=== PATIENT | female | born 1960 | race Caucasian/White ===

== ENCOUNTER 2016-09-01 19:17 | Inpatient (IN) ==
--- NOTE | 2016-09-01 19:36 | Emergency Department Note ---
Disposition Clinical Impression: Hypoxia, Altered mental status, CHF (congestive heart failure), Headache Disposition: Admitted As Inpatient Condition: Fair Referrals: Unassigned,Provider [Non-Partnered Physician] - Forms: ED Satisfaction Letter Time of Disposition: 21:04 General Adult HPI - General Chief complaint: ED Headache Stated complaint: headache Time Seen by Provider: 09/01/16 19:23 Source: patient, EMS Mode of arrival: EMS Limitations: no limitations Nursing Notes Reviewed: Yes Vital Signs Reviewed: Yes - History of Present Illness HPI Narrative: This is a 55-year-old female who has a very odd affect on exam. Patient states her head is hurting and talks about different masses in her head that communicate with each other. Patient did have a low pulse ox on her initial presentation at 86%. Patient states she does wear oxygen at home but that is for her heart. Patient is not having any chest pain or shortness of breath that she acknowledges but again patient is a poor historian. Onset (ago): unknown Pain Scale: 6 - Related Data Allergies Allergy/AdvReac Type Severity Reaction Status Date / Time surgical scrub Allergy See Uncoded 03/30/16 20:59 Comments All systems ED: reviewed and negative except as stated. Constitutional: Denies: fever, chills, weakness, weight change Eyes: Denies: eye pain, eye discharge, vision change ENT ED: Denies: ear pain, throat pain, dental pain, hearing loss, epistaxis, congestion, dysphagia Cardiovascular: Denies: chest pain, palpitations, dyspnea on exertion, edema, syncope Respiratory: Denies: cough, dyspnea, wheezes, hemoptysis, stridor Gastrointestinal: Denies: abdominal pain, nausea, vomiting, diarrhea, constipation, hematemesis, melena, hematochezia Genitourinary: Denies: dysuria, frequency, hematuria, discharge Musculoskeletal: Denies: back pain, neck pain, arthralgia, myalgia Integumentary: Denies: rash, abrasion, lesions Neurological: Reports: headache, paresthesias, confusion. Denies: weakness, numbness, abnormal gait, vertigo Psychiatric: Denies: anxiety, depression, suicidal thoughts, homicidal thoughts , auditory hallucinations, visual hallucinations Endocrine: Denies: fatigue Hematological/Lymphatic: Denies: easy bleeding, easy bruising Allergic/Immunologic: Denies: facial swelling, urticaria Past Medical History - Past Medical History Attestation: Yes The following information was validated with the patient. Source: patient Medical history: Reports: atrial fibrillation, CHF, COPD, hypertension, myocardial infarction, pulmonary embolus Psychiatric history: Reports: anxiety, depression - Social History Smoking Status: Never smoker Smokeless Tobacco Status: No Alcohol use: Reports: none Drug use: Reports: none Physical Exam - General Limitations: altered mental status General appearance: alert, in no apparent distress - Head Head exam: atraumatic, normocephalic, normal inspection - Eye Eye exam: Present: normal appearance, PERRL, EOMI - Expanded Eye Exam Eyelids: bilateral: normal inspection Pupils: Bilateral: regular, round, reactive Sclera/Conjunctival: bilateral: normal inspection - ENT ENT exam: normal exam, normal oropharynx, mucous membranes moist - Expanded ENT Exam External ear exam: Present: normal external inspection Mouth exam: Present: normal external inspection Teeth exam: Present: normal inspection Throat exam: Present: normal inspection - Neck Neck exam: Present: normal inspection, full ROM, trachea midline - Chest Chest inspection: Present: normal inspection, symmetric chest wall rise - Respiratory Respiratory exam: Present: other (rales) - Cardiovascular Cardiovascular exam: Present: regular rate, normal rhythm, normal heart sounds - Abdominal Exam Abdominal exam: Present: soft, Non-Tender. Absent: tenderness, distention, guarding, rebound, rigidity - Extremities Exam Extremities exam: Present: normal inspection, full ROM. Absent: tenderness, pedal edema - Expanded Upper Extremity Exam Shoulder exam: Present: normal inspection, full ROM Arm exam: Present: normal inspection, full ROM Elbow exam: Present: normal inspection, full ROM Forearm/Wrist exam: Present: normal inspection, full ROM Hand exam: Present: normal inspection, full ROM Vascular exam: Normal: capillary refill, radial pulse - Expanded Lower Extremity Exam Hip/Pelvis exam: Present: normal inspection, full ROM Upper leg exam: Present: normal inspection, full ROM Knee exam: Present: normal inspection, full ROM Lower leg exam: Present: normal inspection, full ROM Ankle exam: Present: normal inspection, full ROM Foot/toe exam: Present: normal inspection, full ROM Neurovascular/Tendon exam: Absent: motor deficit, sensory deficit, tendon deficit - Back Exam Back exam: Present: normal inspection, full ROM. Absent: tenderness - Neurological Exam Neurological exam: Present: alert, oriented X3 - Expanded Neurological Exam Patient oriented to: Present: person, place, time Coma Scale Eye Opening: Spontaneous Coma Scale Motor Response: Obeys Commands Coma Scale Verbal Response: Oriented Coma Scale Total: 15 - Psychiatric Psychiatric exam: Present: normal affect, normal mood - Skin Skin exam: Present: warm, dry, intact, normal color Course - Consultations Consultation #1: I spoke with Dr. Edu locke to admit. Time: 21:18 Vital Signs Temperature 98.1 F 09/01/16 19:21 Pulse Rate 70 09/01/16 19:21 Respiratory Rate 18 09/01/16 19:21 Blood Pressure 120/89 09/01/16 19:21 O2 Sat by Pulse Oximetry 86 L 09/01/16 19:21 Temperature 98.1 F 09/01/16 19:21 Pulse Rate 70 09/01/16 21:04 Respiratory Rate 18 09/01/16 21:04 Blood Pressure 104/66 09/01/16 21:04 O2 Sat by Pulse Oximetry 92 L 09/01/16 21:04 Oxygen Delivery Oxygen Delivery Room Air Medical Decision Making - Medical Records Medical records reviewed: Yes I reviewed the patient's medical records. - Lab Data Lab results reviewed: Yes I reviewed the patient's lab results. Result diagrams: 09/01/16 19:56 09/01/16 19:56 Lab Results 09/01/16 09/01/16 09/01/16 Range/Units 19:56 19:56 19:56 WBC 5.7 (4.3-11.1) K/mcL RBC 5.09 H (3.82-4.97) M/mcL Hgb 14.0 (11.5-15.4) g/dL Hct 41.2 (35.3-44.9) % MCV 80.9 L (83.0-100.0) fL MCH 27.5 L (28.0-33.3) pg MCHC 34.0 (31.6-35.5) g/dL RDW 13.5 (11.5-14.5) % Plt Count 196 (140-400) K/mcL MPV 10.0 (9.4-12.4) fL Immature Gran % 0.7 (0-4) % Seg Neutrophils % 58.7 % Lymphocytes % 28.2 % Monocytes % 9.1 % Eosinophils % 2.6 % Basophils % 0.7 % Neutrophils # 3.4 (1.6-8.9) K/mcL Lymphocytes # 1.6 (0.6-4.6) K/mcL Monocytes # 0.5 (0.0-1.3) K/mcL Eosinophils # 0.2 (0.0-0.6) K/mcL Basophils # 0.0 (0.0-0.2) K/mcL ABG pH (7.32-7.45) pH Units ABG pCO2 (35-45) mmHg ABG pO2 (85-104) mmHg ABG HCO3 (21-27) mEQ/L ABG Total CO2 (20-26) mEq/L ABG O2 Saturation (95-98) % ABG Base Excess (-2.0 to 3.0) mEq/L Blood Gas Modality Inspired O2 % Sodium 138 (136-145) mEq/L Potassium 3.0 L (3.5-4.5) mEq/L Chloride 101 (98-109) mEq/L Carbon Dioxide 24 (19-29) mEq/L BUN 27 H (7-20) mg/dL Creatinine 0.81 (0.57-1.11) mg/dL Est GFR ( Amer) > 60 (> 60) Est GFR (Non-Af Amer) > 60 (> 60) BUN/Creatinine Ratio 33 H (6-26) Glucose 107 H (70-99) mg/dL Calculated Osmolality 292 (280-300) Calcium 10.2 (8.6-10.8) mg/dL Total Bilirubin 0.8 (0.2-1.2) mg/dL Direct Bilirubin 0.4 (0.0-0.5) mg/dL Indirect Bilirubin 0.4 (0.0-1.2) mg/dL AST 15 (5-34) Units/L ALT 20 (0-55) Units/L Alkaline Phosphatase 91 (38-126) Units/L Troponin I 0.00 (0-0.03) ng/mL B-Natriuretic Peptide (0-100) pg/mL Serum Total Protein 8.1 (6.0-8.3) g/dL Albumin 4.2 (3.5-5.0) g/dL Globulin 3.9 H (2.4-3.5) g/dL Albumin/Globulin Ratio 1.1 (1.1-2.2) TSH 0.506 (0.350-4.840) mcIU/mL Urine Color (Yellow) Urine Clarity (Clear) Urine pH (5.0-8.0) pH Units Ur Specific Bryant (1.010-1.025) Urine Protein (Neg-Trace) mg/dL Urine Glucose (UA) (Normal) mg/dL Urine Ketones (Negative) mg/dL Urine Blood (Negative) Urine Nitrite (Negative) Urine Bilirubin (Negative) Urine Urobilinogen (Normal) mg/dL Ur Leukocyte Esterase (Negative) Urine Microscopic RBC (0-3) per hpf Urine Microscopic WBC (0-3) per hpf Ur Squamous Epith Cells (None-Few) per lpf Urine Bacteria (None-Few) per hpf Hyaline Casts (None-Few) per lpf Ur Culture Indicated? (NO) Salicylates < 5.0 L (15-30) mg/dL Urine Opiates Screen (Bqurar=667) ng/mL Acetaminophen < 1.0 L (10-30) mcg/mL Ur Barbiturates Screen (Oxzsjd=840) ng/mL Ur Phencyclidine Scrn (Cutoff=25) ng/mL Ur Amphetamines Screen (Hvvsei=1626) ng/mL U Benzodiazepines Scrn (Eyywmp=654) ng/mL Urine Cocaine Screen (Cutoff= 300) ng/mL U Marijuana (THC) Screen (Cutoff = 50) ng/mL Ethyl Alcohol < 10 (0-10) mg/dL 09/01/16 09/01/16 09/01/16 Range/Units 19:56 20:04 20:15 WBC (4.3-11.1) K/mcL RBC (3.82-4.97) M/mcL Hgb (11.5-15.4) g/dL Hct (35.3-44.9) % MCV (83.0-100.0) fL MCH (28.0-33.3) pg MCHC (31.6-35.5) g/dL RDW (11.5-14.5) % Plt Count (140-400) K/mcL MPV (9.4-12.4) fL Immature Gran % (0-4) % Seg Neutrophils % % Lymphocytes % % Monocytes % % Eosinophils % % Basophils % % Neutrophils # (1.6-8.9) K/mcL Lymphocytes # (0.6-4.6) K/mcL Monocytes # (0.0-1.3) K/mcL Eosinophils # (0.0-0.6) K/mcL Basophils # (0.0-0.2) K/mcL ABG pH 7.44 (7.32-7.45) pH Units ABG pCO2 49 H (35-45) mmHg ABG pO2 61 L (85-104) mmHg ABG HCO3 33.3 H (21-27) mEQ/L ABG Total CO2 34.8 H (20-26) mEq/L ABG O2 Saturation 92 L (95-98) % ABG Base Excess 7.7 H (-2.0 to 3.0) mEq/L Blood Gas Modality NC Inspired O2 32 % Sodium (136-145) mEq/L Potassium (3.5-4.5) mEq/L Chloride (98-109) mEq/L Carbon Dioxide (19-29) mEq/L BUN (7-20) mg/dL Creatinine (0.57-1.11) mg/dL Est GFR ( Amer) (> 60) Est GFR (Non-Af Amer) (> 60) BUN/Creatinine Ratio (6-26) Glucose (70-99) mg/dL Calculated Osmolality (280-300) Calcium (8.6-10.8) mg/dL Total Bilirubin (0.2-1.2) mg/dL Direct Bilirubin (0.0-0.5) mg/dL Indirect Bilirubin (0.0-1.2) mg/dL AST (5-34) Units/L ALT (0-55) Units/L Alkaline Phosphatase (38-126) Units/L Troponin I (0-0.03) ng/mL B-Natriuretic Peptide 125 H (0-100) pg/mL Serum Total Protein (6.0-8.3) g/dL Albumin (3.5-5.0) g/dL Globulin (2.4-3.5) g/dL Albumin/Globulin Ratio (1.1-2.2) TSH (0.350-4.840) mcIU/mL Urine Color Yellow (Yellow) Urine Clarity Clear (Clear) Urine pH 7.5 (5.0-8.0) pH Units Ur Specific Bryant 1.019 (1.010-1.025) Urine Protein Trace (Neg-Trace) mg/dL Urine Glucose (UA) Normal (Normal) mg/dL Urine Ketones Negative (Negative) mg/dL Urine Blood Negative (Negative) Urine Nitrite Negative (Negative) Urine Bilirubin Negative (Negative) Urine Urobilinogen Normal (Normal) mg/dL Ur Leukocyte Esterase Negative (Negative) Urine Microscopic RBC 0-3 (0-3) per hpf Urine Microscopic WBC 0-3 (0-3) per hpf Ur Squamous Epith Cells Many H (None-Few) per lpf Urine Bacteria None Seen (None-Few) per hpf Hyaline Casts None Seen (None-Few) per lpf Ur Culture Indicated? NO (NO) Salicylates (15-30) mg/dL Urine Opiates Screen (Gxlcit=317) ng/mL Acetaminophen (10-30) mcg/mL Ur Barbiturates Screen (Fpoijy=330) ng/mL Ur Phencyclidine Scrn (Cutoff=25) ng/mL Ur Amphetamines Screen (Olffca=1926) ng/mL U Benzodiazepines Scrn (Jvdxru=357) ng/mL Urine Cocaine Screen (Cutoff= 300) ng/mL U Marijuana (THC) Screen (Cutoff = 50) ng/mL Ethyl Alcohol (0-10) mg/dL 09/01/16 Range/Units 20:15 WBC (4.3-11.1) K/mcL RBC (3.82-4.97) M/mcL Hgb (11.5-15.4) g/dL Hct (35.3-44.9) % MCV (83.0-100.0) fL MCH (28.0-33.3) pg MCHC (31.6-35.5) g/dL RDW (11.5-14.5) % Plt Count (140-400) K/mcL MPV (9.4-12.4) fL Immature Gran % (0-4) % Seg Neutrophils % % Lymphocytes % % Monocytes % % Eosinophils % % Basophils % % Neutrophils # (1.6-8.9) K/mcL Lymphocytes # (0.6-4.6) K/mcL Monocytes # (0.0-1.3) K/mcL Eosinophils # (0.0-0.6) K/mcL Basophils # (0.0-0.2) K/mcL ABG pH (7.32-7.45) pH Units ABG pCO2 (35-45) mmHg ABG pO2 (85-104) mmHg ABG HCO3 (21-27) mEQ/L ABG Total CO2 (20-26) mEq/L ABG O2 Saturation (95-98) % ABG Base Excess (-2.0 to 3.0) mEq/L Blood Gas Modality Inspired O2 % Sodium (136-145) mEq/L Potassium (3.5-4.5) mEq/L Chloride (98-109) mEq/L Carbon Dioxide (19-29) mEq/L BUN (7-20) mg/dL Creatinine (0.57-1.11) mg/dL Est GFR ( Amer) (> 60) Est GFR (Non-Af Amer) (> 60) BUN/Creatinine Ratio (6-26) Glucose (70-99) mg/dL Calculated Osmolality (280-300) Calcium (8.6-10.8) mg/dL Total Bilirubin (0.2-1.2) mg/dL Direct Bilirubin (0.0-0.5) mg/dL Indirect Bilirubin (0.0-1.2) mg/dL AST (5-34) Units/L ALT (0-55) Units/L Alkaline Phosphatase (38-126) Units/L Troponin I (0-0.03) ng/mL B-Natriuretic Peptide (0-100) pg/mL Serum Total Protein (6.0-8.3) g/dL Albumin (3.5-5.0) g/dL Globulin (2.4-3.5) g/dL Albumin/Globulin Ratio (1.1-2.2) TSH (0.350-4.840) mcIU/mL Urine Color (Yellow) Urine Clarity (Clear) Urine pH (5.0-8.0) pH Units Ur Specific Bryant (1.010-1.025) Urine Protein (Neg-Trace) mg/dL Urine Glucose (UA) (Normal) mg/dL Urine Ketones (Negative) mg/dL Urine Blood (Negative) Urine Nitrite (Negative) Urine Bilirubin (Negative) Urine Urobilinogen (Normal) mg/dL Ur Leukocyte Esterase (Negative) Urine Microscopic RBC (0-3) per hpf Urine Microscopic WBC (0-3) per hpf Ur Squamous Epith Cells (None-Few) per lpf Urine Bacteria (None-Few) per hpf Hyaline Casts (None-Few) per lpf Ur Culture Indicated? (NO) Salicylates (15-30) mg/dL Urine Opiates Screen Negative (Rqjhkt=210) ng/mL Acetaminophen (10-30) mcg/mL Ur Barbiturates Screen Negative (Fcyehn=045) ng/mL Ur Phencyclidine Scrn Negative (Cutoff=25) ng/mL Ur Amphetamines Screen Negative (Gbdaha=2128) ng/mL U Benzodiazepines Scrn Negative (Logisi=767) ng/mL Urine Cocaine Screen Negative (Cutoff= 300) ng/mL U Marijuana (THC) Screen Negative (Cutoff = 50) ng/mL Ethyl Alcohol (0-10) mg/dL - Radiology Data Radiology results reviewed: Yes I reviewed the patient's radiology results. - EKG Data EKG #1 EKG attestation: Yes I reviewed and interpreted this EKG. EKG shows normal: sinus rhythm Rate: normal (paced) When compared to previous EKG there are: no significant changes Interpretation: no acute changes
[2016-09-01 20:07] LABS: Basophils % 0.7 %; Eosinophils # 0.2 K/mcL (0.0-0.6); Eosinophils % 2.6 %; Hematocrit 41.2 % (35.3-44.9); Immature Granulocytes % 0.7 % (0-4); Lymphocytes # 1.6 K/mcL (0.6-4.6); Lymphocytes % 28.2 %; Mean Corpuscular Hemoglobin 27.5 pg (28.0-33.3); Mean Corpuscular Volume 80.9 fL (83.0-100.0); Monocytes # 0.5 K/mcL (0.0-1.3); Monocytes % 9.1 %; Neutrophils # 3.4 K/mcL (1.6-8.9); Platelet Count 196 K/mcL (140-400); Red Blood Count 5.09 M/mcL (3.82-4.97); Red Cell Distribution Width 13.5 % (11.5-14.5); Segmented Neutrophils % 58.7 %
[2016-09-01 20:12] LABS: ABG Base Excess 7.7 mEq/L (-2.0 to 3.0); ABG HCO3 33.3 mEQ/L (21-27); ABG Oxygen Saturation 92 % (95-98); ABG PCO2 49 mmHg (35-45); ABG PH 7.44 pH Units (7.32-7.45); ABG PO2 61 mmHg (85-104); ABG TCO2 34.8 mEq/L (20-26); Blood Gas FiO2 32 %
[2016-09-01 20:21] LABS: Alanine Aminotransferase 20 Units/L (0-55); Albumin 4.2 g/dL (3.5-5.0); Albumin/Globulin Ratio 1.1 (1.1-2.2); Alkaline Phosphatase 91 Units/L (38-126); Aspartate Amino Transferase 15 Units/L (5-34); BUN/Creatinine Ratio 33 (6-26); Bilirubin,Direct 0.4 mg/dL (0.0-0.5); Bilirubin,Indirect 0.4 mg/dL (0.0-1.2); Bilirubin,Total 0.8 mg/dL (0.2-1.2); Blood Urea Nitrogen 27 mg/dL (7-20); Calcium 10.2 mg/dL (8.6-10.8); Carbon Dioxide 24 mEq/L (19-29); Chloride 101 mEq/L (98-109); Globulin 3.9 g/dL (2.4-3.5); Glucose 107 mg/dL (70-99); Osmolality,Calculated 292 (280-300); Sodium 138 mEq/L (136-145); Total Protein 8.1 g/dL (6.0-8.3); eGFR For African Americans > 60 (> 60); eGFR For Non-African Americans > 60 (> 60)
[2016-09-01 20:22] LABS: Acetaminophen < 1.0 mcg/mL (10-30); Ethanol < 10 mg/dL (0-10); Salicylate < 5.0 mg/dL (15-30)
[2016-09-01 20:42] LABS: Amphetamine Screen,Urine Negative ng/mL (Cutoff=1000); Barbiturate Screen,Urine Negative ng/mL (Cutoff=200); Benzodiazepines Screen,Urine Negative ng/mL (Cutoff=200); Cannabinoid Screen,Urine Negative ng/mL (Cutoff = 50); Cocaine Screen,Urine Negative ng/mL (Cutoff= 300); Opiate Screen,Urine Negative ng/mL (Cutoff=300); Phencyclidine Screen,Urine Negative ng/mL (Cutoff=25)
[2016-09-01 20:42] LABS: Thyroid Stimulating Hormone 0.506 mcIU/mL (0.350-4.840)
[2016-09-01 20:55] LABS: Bilirubin,Urine Negative (Negative); Blood,Urine Negative (Negative); Clarity,Urine Clear (Clear); Color,Urine Yellow (Yellow); Glucose,Urine (UA) Normal (Normal); Ketones,Urine Negative (Negative); Leukocyte Esterase,Urine Negative (Negative); Nitrite,Urine Negative (Negative); PH,Urine 7.5 pH Units (5.0-8.0); Protein,Urine Trace mg/dL (Neg-Trace); Specific Gravity,Urine 1.019 (1.010-1.025); Urobilinogen,Urine Normal (Normal)
[2016-09-01] MEDS ORDERED: Potassium Chloride Elixir 20 MEQ/15 ML UDC PO ONE (20:55)
[2016-09-01 20:56] LABS: Bacteria,Urine None Seen per hpf (None-Few); Hyaline Casts,Urine None Seen per lpf (None-Few); RBC,Urine 0-3 per hpf (0-3); Squamous Epithelial Cell,Urine Many per lpf (None-Few); WBC,Urine 0-3 per hpf (0-3)
[2016-09-01 21:15] LABS: INR 1.2; Prothrombin Time 13.3 Seconds (9.4-12.1)
[2016-09-01 21:18] LABS: Activated Partial Thrombo Time 35.6 Seconds (26.0-36.0)
[2016-09-02] MEDS ORDERED: Acetaminophen 325 MG TABLET PO PRN (00:18)
[2016-09-02] MEDS ORDERED: Naloxone 0.4 MG/ML INJ IVP PRN (00:18)
[2016-09-02] MEDS ORDERED: Benzonatate 100 MG CAPSULE PO PRN (00:18)
[2016-09-02] MEDS ORDERED: Ketorolac 30 MG/ML VIAL IVP STA (00:18)
[2016-09-02] MEDS ORDERED: Potassium Chloride 20 MEQ, Lidocaine 1% 2 ML in D5% in Water 250 ML IVPB STA (00:18)
[2016-09-02] MEDS ORDERED: Ipratropium/Albuterol Neb 3 ML IH PRN (00:18)
[2016-09-02] MEDS ORDERED: *HR* Morphine 2 MG/ML SYRINGE IVP PRN (00:18)
[2016-09-02] MEDS ORDERED: 0.9 % Sodium Chloride 1,000 ML IVC SCH (00:30)
--- NOTE | 2016-09-02 00:30 | Internal Med History&Physical ---
Date of Encounter: 09/02/16 Time of Encounter: 01:00 Assessment and Plan (1) Altered mental status Status: Acute . Qualifiers: Altered mental status type: delirium Qualified Code(s): R41.0 - Disorientation, unspecified (2) Delirium due to conditions classified elsewhere Status: Acute . (3) Toxic metabolic encephalopathy Status: Acute . (4) Drug withdrawal delirium Status: Acute . (5) At risk for abuse of opiates Status: Acute . (6) At risk for accident in home Status: Acute . (7) At risk for activity intolerance Status: Acute . (8) At risk for acute confusion Status: Acute . (9) At risk for adverse drug event Status: Acute . (10) At risk for acute ischemic cardiac event Status: Acute . (11) At risk for acid-base imbalance Status: Acute . (12) Obesity (BMI 30-39.9) Status: Chronic . (13) Acute on chronic respiratory failure with hypoxia and hypercapnia Status: Acute . (14) COPD mixed type Status: Chronic . (15) History of traumatic brain injury Status: Chronic . (16) CVA, old, cognitive deficits Status: Chronic . (17) History of [place] Tourette's syndrome Status: Chronic . (18) History of permanent cardiac pacemaker placement Status: Chronic . (19) Status post ablation of atrial fibrillation Status: Chronic . (20) History of chronic atrial fibrillation Status: Chronic . (21) Pain syndrome, chronic Status: Chronic . (22) CAD (coronary artery disease), [place] coronary artery Status: Chronic . Qualifiers: [place] vs. transplanted heart: [place] heart Associated angina: angina presence unspecified Qualified Code(s): I25.10 - Atherosclerotic heart disease of [place] coronary artery without angina pectoris (23) Chronic headache disorder Status: Chronic . Qualifiers: Headache type: post-traumatic Intractability: intractable Qualified Code( s): G44.321 - Chronic post-traumatic headache, intractable (24) History of craniotomy Status: Chronic . (25) Failed back surgical syndrome Status: Chronic . (26) Anxiety about health Status: Acute . (27) Delusional disorder Status: Acute . (28) History of cardiomyopathy Status: Chronic . (29) High risk medications (not anticoagulants) long-term use Status: Acute . (30) Use of psychotropic medications with alteration in psychosocial behavior Status: Acute . (31) Potential for poisoning by medications Status: Acute . (32) Hypothyroidism Status: Chronic . Qualifiers: Hypothyroidism type: unspecified Qualified Code(s): E03.9 - Hypothyroidism , unspecified (33) Hypertension Status: Chronic . Qualifiers: Hypertension type: essential hypertension Qualified Code(s): I10 - Essential (primary) hypertension (34) Depression with anxiety Status: Chronic . Internal Medicine - H&P: HPI Chief complaint: Altered mental status. Headache. Admitted From: Emergency Dept Plans for Post Hospital Care: Home History of present illness: Ms. Neumann is a 55 year old female with significant medical history of diffuse chronic musculoskeletal pain, traumatic brain injury s/p craniotomy with right posterior fossa encephalomalacia/CVA, Tourette's syndrome, depression and anxiety disorder, H/O hepatitis B and C, chronic low back pain s/p failed back surgery syndrome, H/O seizure disorder, hypertension, osteoarthritis, osteopenia , cognitive impairment, hypothyroidism, CAD/?isch CMP/systolic CHF-LVEF 35%, tricuspid valve replacement, atrial fibrillation s/p ablation/pacemaker dependent, COPD unspecified, chronic respiratory failure home oxygen dependent, H/O PE, GERD, chronic headache syndrome, morbid obesity, nonsmoker The patient was visited and interviewed and examined. The patient was found to be acutely encephalopathic. Delirious. Agitated. Delusional. Rambling unreliable historian. The patient is admitted to the [facility] via the emergency department when she presents by EMS services from home with complaints of intractable headache. She presents her case of intractable pain by describing that masses within her head communicate with each other causing her pain. Patient denied neck pain chest pain and abdominal pain. Technologist and use of oxygen but presents with out. Denies dyspnea or shortness of breath cough fever chills sweats. Reports generalized weakness paresthesias. Denies any acute njuries or recent trauma. Findings an ED: Oximetry on initial presentation 86% room air. Temperature 98.1 pulse 70 respirations 18 and BP 104-120/66-89 O2 saturation 86- 92% on room air. WBC 5.7 hemoglobin 14 platelets 196,000. Differential normal. MCV 80.9 MCH 27.5. Metabolic panel normal except potassium 3.0 BUN 27 creatinine 0.81 glucose 107 osmolality 292. TSH 0.506. Troponin 0.00 BNP 125. Salicylate less than 5. Acetaminophen less than 1. Arterial blood gas pH 7.4 PCO2 49 PO2 61 HCO3 33.3 O2 saturation 92% at 3 Liters per nasal cannula. Urinalysis trace protein. 3 RBC. 3 WBC. Many epithelial cells. Urine drug screen negative (opiates barbiturates phencyclidine amphetamines benzodiazepines cocaine marijuana). Portable chest x-ray demonstrated no acute or active cardiopulmonary processes. Bilateral cardiac device is noted. Postsurgical changes of median sternotomy and valve replacement. Stable enlargement of cardiac silhouette. No focal consolidation or effusion pneumothorax. Osseous structures and soft tissues showed no acute abnormality. Stable bone infarcts and proximal right humerus. CT head without contrast inserted no acute hemorrhage, edema, mass effect, with collection or infarct. Craniotomy defect right posterior fossa with adjacent encephalomalacia. Orbits , sinuses, soft tissues and skull benign. EKG normal sinus rhythm paced. No acute ischemic changes. Preliminary impression suggests acute toxic metabolic encephalopathy with delirium prominent delusional features. Patient presents a history of long-standing use of high-risk medications (narcotic analgesia, psychotropics, benzodiazepine etc. with current urine drug screen negative for these agents. Concern is raised for possible habituating drug withdrawal state. Patient is further complicated by acute on chronic hypoxic hypercapnic respiratory failure. Examination does find evidence for acute exacerbation of COPD with mild bronchospasm. Mild electrolyte derangements coincide. Rule out ACS/UA/PE/etc. CT head does define a significant area of the prior traumatic brain injury with associated encephalomalacia. This likely has contributed to some degree of cognitive and functional impairment. SHe presents however alone and her underlying baseline mental status cannot be validated at this time. Rule out CVA/TIA/seizure/etc. Studies thus far did not the pinpoint associated infection. SIRS and sepsis criteria are not met at the time of this admission. Although the patient presents a history of seizures there is no evidence of current activity or stigmata for such. In addition she presents a history of coronary artery disease and impaired LV systolic function , does not present evidence for demand ischemia, unstable arrhythmia or pulmonary edema. Patient presents at increased risk for further acute clinical decline and morbidity given her presenting concerns, clinical findings and comorbidities. Workup and treatment will proceed comprehensively. Cumulative laboratory and radiographic data base was reviewed, considered and discussed. Pertinent ancillary medical records including ECW and PCI documentation, when available was reviewed and considered. Given the patient's presenting concerns, past medical history, clinical findings and symptoms, she is admitted at this time will undergo further evaluation and disposition. Orders were written as per the computerized physician parts order and stock clerk system.......................................................................... .................... Consultative opinions will be sought as clinical circumstances justify. Initial consultative request would include Pacemaker interrogation/cardiology. Pain management needs will be addressed. Laboratory and radiographic data base will be updated as appropriate. Studies include: Cultures of blood and urine and sputum, CPK, LDH, prolactin, cardiac injury panel, BNP, PT,APTT, Ddimer, metabolic and hematologic panel, magnesium, phosphorus, ionized calcium, thyroid panel, lipid profile, A1c, C-peptide, CRP, sedimentation rate, respiratory infection profile, respiratory virus panel, blood gas, UDS, UA, urine HCG, APAP, ASA, ETOH, lactic acid, cortisol, serologies, etc. Precautions: Aspiration, fall, seizure, delirium protocol/surveillance initiated. Telemetry with continuous hemodynamic monitoring and pulse oximetry initiated. Orthostatic vital signs. Empiric antibody coverage: Intravenous Rocephin and azithromycin pending culture data. Special studies: CT chest, CT of head, chest x-ray, telemetry, EKG, echocardiogram, EEG. Pulmonary toilet: Incentive spirometry, aerosol bronchodilator, mucolytic, antitussive, supplemental oxygen. Corticosteroid therapy prn. CPAP/BiPAP supplemental oxygen delivery prn. Aerosol Mucomyst therapy prn. Fluid and electrolyte repletion efforts will proceed. Careful attention to fluid balance and renal recovery will be emphasized. Avoidance of nephrotoxic exposure and adverse drug drug interaction in the setting of impaired renal function will be monitored closely. Correction of acid-base and metabolic derangements will be emphasized. Acute coronary syndrome protocols/surveillance initiated. Acute SQL REPORT ANALYST injury protocols/surveillance initiated. DVT and PUD prophylaxis initiated: PPI therapy, intermittent pneumatic cuffs. Subcutaneous heparin/Lovenox. Early ambulation will be encouraged. Immunization updates recommended. Influenza and pneumococcal vaccinations as part of ongoing preventative healthcare recommendations strongly recommended. Smoking cessation counseling will be briefly addressed when circumstances permit. Patient is reported to be a nonsmoker. Advanced care directive discussion will be briefly addressed when circumstances permit. Patient does not declare any healthcare restrictions at this time is not available medical records are historic documentation.. Cardiovascular risk appraisal and cardiovascular risk reduction efforts will be emphasized. Physical and occupational therapy will be consulted to evaluate/assess patient' s functional capacity and progress mobility as her circumstances permit. Nutrition/dietary education counseling may be considered if circumstances justify. Outpatient medication schedules will be reviewed, confirmed and facilitated as appropriate. Reconciliation of home treatments including adjustments, substitutions and reintroduction into the treatment regimen will address necessary maintenance therapies for chronic pre-existing medical conditions. Given the concern regarding the potential for adverse drug drug interaction, given patient's medical regimen as presented, careful reintroduction under close observation will be required. Daily short-term goal to ameliorate patient 's some acute delirium if indeed secondary to polysubstance withdrawal. Long- term goal would be to simplify her medication requirements and to limit future potential for adverse events. Plan of care will be reviewed and discussed in detail with the patient and family when circumstances allow. Questions will be addressed. Bilingual Research Interviewer/case management will be consulted to assist in discharge planning goals, family contact/outreach, etc. Hospital course will depend upon collective clinical findings, treatment response and potential consultative interventions. Patient is at risk for further acute clinical decline and morbidity due to her presenting chief complaints, clinical findings and comorbidities. Condition is serious. Prognosis is guarded. CODE STATUS is full. Past Med Surg Social Fam HX - Past Medical History Source: old records reviewed Medical history: arthritis, atrial fibrillation, cardiomyopathy (Respiratory dependent cardiomyopathy.), CHF, COPD, coronary artery disease, CVA (Status post traumatic brain injury with right posterior fossa encephalomalacia and craniotomy), GERD, hepatitis (History of hepatitis B and hepatitis C.), hyperlipidemia, hypertension, myocardial infarction, osteoporosis, pulmonary embolus, seizures (Tissue disorder. Tourette's syndrome.), thyroid disease, valvular heart disease, other (Morbid obesity. Anemia chronic disease.) Psychiatric history: anxiety, depression, other - Past Surgical History Surgical History: cholecystectomy, heart valve replacement, orthopedic, other ( Bilateral carpal tunnel release. Right shoulder reconstruction surgery. Back surgery.), other (Bilateral carpal tunnel release. Tonsillectomy adenoidectomy. ), vascular surgery (Tricuspid valve replacement surgery. Pacemaker implantation.), pacemaker - Social History Smoking Status: Never smoker Smokeless Tobacco Status: No Alcohol use: none Drug use: none Occupational status: unemployed, disabled Current living situation: Home - Independent Activity Level: Independent ambulation, Mostly sedentary Recent Out of Country Travel Within the Last 8 Weeks: No Exposure or Possible Exposure to Illness During Travel: No - Family History Mother Hx Family Cancer: Yes (colon cancer) Internal Medicine - H&P: Meds Albuterol Sulfate [Proair Hfa] 2 puff IH Q4H PRN 09/01/16 [History] Bumetanide [Bumex] 1 mg PO QPM 09/01/16 [History] Bumetanide [Bumex] 2 mg PO QAM 09/01/16 [History] Carvedilol [Coreg] 6.25 mg PO BID 09/01/16 [History] ClonazePAM [Klonopin] 0.5 mg PO BID 09/01/16 [History] Esomeprazole Magnesium 20 mg PO DAILY 09/01/16 [History] Fluticasone Propionate Nasal [Flonase] 100 mcg NS DAILY 09/01/16 [History] HydrOXYzine Pamoate [Vistaril] 50 mg PO TID 09/01/16 [History] Levothyroxine Sodium 100 mcg PO DAILY 09/01/16 [History] Methadone 10 mg PO BID 09/01/16 [History] Polyethylene Glycol 3350 [MiraLAX] 17 gm PO DAILY 09/01/16 [History] Potassium Chloride [K-Tab ER] 40 meq PO BID 09/01/16 [History] Promethazine [Phenergan] 25 mg PO HS 09/01/16 [History] Topiramate 50 mg PO BID 09/01/16 [History] Venlafaxine XR (24 HR) [Effexor Xr] 150 mg PO DAILY 09/01/16 [History] Doxycycline 100 mg PO BID #10 capsule 09/05/16 [Rx] Fluticasone/Salmeterol [Advair 250-50 Diskus] 1 each IH BID #1 blst.w.dev [Rx] GuaiFENesin ER [Mucinex] 600 mg PO BID #10 tbbp.12hr 09/05/16 [Rx] Nicotine Patch [Nicoderm] 21 mg TD DAILY PRN #14 patch.td24 09/05/16 [Rx] PredniSONE 10 mg PO DAILY #30 tablet 09/05/16 [Rx] Simethicone [Gas-X] 80 mg PO 1-2XD PRN 09/05/16 [History] Tiotropium [Spiriva] 18 mcg IH DAILY #1 inh 09/05/16 [Rx] Allergies chlorhexidine [From Hibiclens] Allergy (Verified 09/01/16 21:40) Rash ROS unobtainable: due to mental status All Systems PM: A 10-system review of systems was performed and is negative for pertinent findings except as documented above in the HPI. The patient is grossly encephalopathic. Delusional. Delirious. Rambling reliable historian. Details are thus collected from cumulative records, EMS triage and ED triage database. The family member/ contacts not available for discussion. - Constitutional Constitutional: as per HPI - EENT Eyes: as per HPI Ears: as per HPI Nose, mouth and throat: as per HPI - Cardiovascular Cardiovascular ROS IM: as per HPI - Respiratory Respiratory: as per HPI - Gastrointestinal Gastrointestinal: as per HPI - Genitourinary Genitourinary: as per HPI - Musculoskeletal Musculoskeletal ROS IM: as per HPI - Integumentary Integumentary IM: as per HPI - Neurological Neurological ROS: as per HPI - Psychiatric Psychiatric: as per HPI - Endocrine Endocrine IM: as per HPI - Hematologic/Lymphatic Hematologic/Lymphatic: as per HPI - Allergic/Immunologic Allergic/Immunologic: as per HPI - Constitutional Vitals: Temp Pulse Resp BP Pulse Ox 98.2 F 71 16 115/77 94 L 09/01/16 23:09 09/01/16 23:09 09/01/16 23:09 09/01/16 23:09 09/01/16 23:09 General appearance: Present: A&O X 1, disheveled, morbidly obese, severe distress. Absent: answers questions appropriately - Head Head exam: Present: atraumatic, normocephalic - Eye Eye exam: Present: EOMI, PERRL, conjuntiva pink, sclera anicteric Pupils: Present: normal accommodation, PERRL - ENT ENT exam: Present: mucous membranes dry, normal external ear exam, normal oropharynx - Neck Neck exam general surgery: Present: full ROM, supple, trachea midline. Absent: lymphadenopathy, tenderness, nuchal rigidity - Respiratory Respiratory exam: Present: chest wall tenderness, decreased breath sounds, wheezes. Absent: accessory muscle use, rales, respiratory distress, rhonchi, stridor, tachypnea - Cardiovascular Cardiovascular exam: Present: distant heart sounds, RRR, +S1, +S2. Absent: diastolic murmur, gallop, rubs, systolic murmur - GI/Abdominal GI/Abdominal exam: Present: diminished bowel sounds, distended, soft, no peritoneal signs. Absent: tenderness - Extremities Exam Extremities exam: Present: full ROM, warm, radial pulses palpable and symetrical. Absent: calf tenderness, cyanotic, pedal edema - Neurological Exam Neurological exam: Present: alert, altered, CN II-XII intact, no focal deficits. Absent: oriented X3, pronater drift, facial droop, speech deficit - Expanded Neurological Exam Neurological exam expanded: Present: protecting the airway. Absent: ataxia, expressive aphasia, receptive aphasia Patient oriented to: Present: person, place. Absent: time Speech: Present: fluid speech Coma Scale Eye Opening: Spontaneous Coma Scale Motor Response: Obeys Commands Coma Scale Verbal Response: Inappropriate Coma Scale Total: 13 - Psychiatric Psychiatric exam: Present: agitated, anxious, depressed, manic - Expanded Psychiatric Exam Focused psych exam: Present: delusional, internal stimuli, loose associations, psychomotor agitation, restlessness - Skin Skin exam: Present: dry, intact, warm. Absent: petechiae, rash, urticaria, vesicles Internal Med - H&P Results - Labs CBC & Chem 7: 09/05/16 02:51 09/05/16 02:51 - Impressions Vital Signs Temp Pulse Resp BP Pulse Ox 09/01/16 23:09 98.2 F 71 16 115/77 94 L 09/01/16 22:46 93 L 09/01/16 21:54 16 103/76 09/01/16 21:04 70 18 104/66 92 L 09/01/16 20:36 70 18 119/76 90 L 09/01/16 19:34 94 L 09/01/16 19:33 70 18 117/77 92 L 09/01/16 19:21 98.1 F 70 18 120/89 86 L Intake and Output 09/01/16 09/01/16 09/02/16 15:59 23:59 07:59 Other: Weight 82.01 kg Short CBC 09/01/16 Range/Units 19:56 WBC 5.7 (4.3-11.1) K/mcL Hgb 14.0 (11.5-15.4) g/dL Hct 41.2 (35.3-44.9) % Plt Count 196 (140-400) K/mcL Neutrophils # 3.4 (1.6-8.9) K/mcL BMP 09/01/16 Range/Units 19:56 Sodium 138 (136-145) mEq/L Potassium 3.0 L (3.5-4.5) mEq/L Chloride 101 (98-109) mEq/L Carbon Dioxide 24 (19-29) mEq/L BUN 27 H (7-20) mg/dL Creatinine 0.81 (0.57-1.11) mg/dL Glucose 107 H (70-99) mg/dL Calcium 10.2 (8.6-10.8) mg/dL Cardiac Enzymes 09/01/16 Range/Units 19:56 Troponin I 0.00 (0-0.03) ng/mL Liver Function 09/01/16 Range/Units 19:56 Total Bilirubin 0.8 (0.2-1.2) mg/dL Direct Bilirubin 0.4 (0.0-0.5) mg/dL AST 15 (5-34) Units/L ALT 20 (0-55) Units/L Alkaline Phosphatase 91 (38-126) Units/L Albumin 4.2 (3.5-5.0) g/dL Urine 09/01/16 Range/Units 20:15 Urine Color Yellow (Yellow) Urine Clarity Clear (Clear) Urine pH 7.5 (5.0-8.0) pH Units Ur Specific Boyd 1.019 (1.010-1.025) Urine Protein Trace (Neg-Trace) mg/dL Urine Glucose (UA) Normal (Normal) mg/dL 09/01/16 20:04 ABG pH 7.44 ABG pCO2 49 H ABG pO2 61 L ABG HCO3 33.3 H ABG Total CO2 34.8 H ABG O2 Saturation 92 L ABG Base Excess 7.7 H Abnormal lab results RBC 5.09 M/mcL (3.82-4.97) H 09/01/16 19:56 MCV 80.9 fL (83.0-100.0) L 09/01/16 19:56 MCH 27.5 pg (28.0-33.3) L 09/01/16 19:56 PT 13.3 Seconds (9.4-12.1) H 09/01/16 21:01 ABG pCO2 49 mmHg (35-45) H 09/01/16 20:04 ABG pO2 61 mmHg (85-104) L 09/01/16 20:04 ABG HCO3 33.3 mEQ/L (21-27) H 09/01/16 20:04 ABG Total CO2 34.8 mEq/L (20-26) H 09/01/16 20:04 ABG O2 Saturation 92 % (95-98) L 09/01/16 20:04 ABG Base Excess 7.7 mEq/L (-2.0 to 3.0) H 09/01/16 20:04 Potassium 3.0 mEq/L (3.5-4.5) L 09/01/16 19:56 BUN 27 mg/dL (7-20) H 09/01/16 19:56 BUN/Creatinine Ratio 33 (6-26) H 09/01/16 19:56 Glucose 107 mg/dL (70-99) H 09/01/16 19:56 B-Natriuretic Peptide 125 pg/mL (0-100) H 09/01/16 19:56 Globulin 3.9 g/dL (2.4-3.5) H 09/01/16 19:56 Ur Squamous Epith Cells Many per lpf (None-Few) H 09/01/16 20:15 Salicylates < 5.0 mg/dL (15-30) L 09/01/16 19:56 Acetaminophen < 1.0 mcg/mL (10-30) L 09/01/16 19:56 Allergies Allergy/AdvReac Type Severity Reaction Status Date / Time chlorhexidine Allergy Rash Verified 09/01/16 21:40 [From [facility]] Laboratory Results WBC 5.7 K/mcL (4.3-11.1) 09/01/16 19:56 RBC 5.09 M/mcL (3.82-4.97) H 09/01/16 19:56 Hgb 14.0 g/dL (11.5-15.4) 09/01/16 19:56 Hct 41.2 % (35.3-44.9) 09/01/16 19:56 MCV 80.9 fL (83.0-100.0) L 09/01/16 19:56 MCH 27.5 pg (28.0-33.3) L 09/01/16 19:56 MCHC 34.0 g/dL (31.6-35.5) 09/01/16 19:56 RDW 13.5 % (11.5-14.5) 09/01/16 19:56 Plt Count 196 K/mcL (140-400) 09/01/16 19:56 MPV 10.0 fL (9.4-12.4) 09/01/16 19:56 Immature Gran % 0.7 % (0-4) 09/01/16 19:56 Seg Neutrophils % 58.7 % 09/01/16 19:56 Lymphocytes % 28.2 % 09/01/16 19:56 Monocytes % 9.1 % 09/01/16 19:56 Eosinophils % 2.6 % 09/01/16 19:56 Basophils % 0.7 % 09/01/16 19:56 Neutrophils # 3.4 K/mcL (1.6-8.9) 09/01/16 19:56 Lymphocytes # 1.6 K/mcL (0.6-4.6) 09/01/16 19:56 Monocytes # 0.5 K/mcL (0.0-1.3) 09/01/16 19:56 Eosinophils # 0.2 K/mcL (0.0-0.6) 09/01/16 19:56 Basophils # 0.0 K/mcL (0.0-0.2) 09/01/16 19:56 PT 13.3 Seconds (9.4-12.1) H 09/01/16 21:01 INR 1.2 09/01/16 21:01 APTT 35.6 Seconds (26.0-36.0) 09/01/16 21:01 D-Dimer 231 ng/mLFEU (0-500) 09/01/16 21:01 ABG pH 7.44 pH Units (7.32-7.45) 09/01/16 20:04 ABG pCO2 49 mmHg (35-45) H 09/01/16 20:04 ABG pO2 61 mmHg (85-104) L 09/01/16 20:04 ABG HCO3 33.3 mEQ/L (21-27) H 09/01/16 20:04 ABG Total CO2 34.8 mEq/L (20-26) H 09/01/16 20:04 ABG O2 Saturation 92 % (95-98) L 09/01/16 20:04 ABG Base Excess 7.7 mEq/L (-2.0 to 3.0) H 09/01/16 20:04 Blood Gas Modality NC 09/01/16 20:04 Inspired O2 32 % 09/01/16 20:04 Sodium 138 mEq/L (136-145) 09/01/16 19:56 Potassium 3.0 mEq/L (3.5-4.5) L 09/01/16 19:56 Chloride 101 mEq/L (98-109) 09/01/16 19:56 Carbon Dioxide 24 mEq/L (19-29) 09/01/16 19:56 BUN 27 mg/dL (7-20) H 09/01/16 19:56 Creatinine 0.81 mg/dL (0.57-1.11) 09/01/16 19:56 Est GFR ( Amer) > 60 (> 60) 09/01/16 19:56 Est GFR (Non-Af Amer) > 60 (> 60) 09/01/16 19:56 BUN/Creatinine Ratio 33 (6-26) H 09/01/16 19:56 Glucose 107 mg/dL (70-99) H 09/01/16 19:56 Calculated Osmolality 292 (280-300) 09/01/16 19:56 Lactic Acid 0.6 mmol/L (0.5-2.2) 09/01/16 21:01 Calcium 10.2 mg/dL (8.6-10.8) 09/01/16 19:56 Total Bilirubin 0.8 mg/dL (0.2-1.2) 09/01/16 19:56 Direct Bilirubin 0.4 mg/dL (0.0-0.5) 09/01/16 19:56 Indirect Bilirubin 0.4 mg/dL (0.0-1.2) 09/01/16 19:56 AST 15 Units/L (5-34) 09/01/16 19:56 ALT 20 Units/L (0-55) 09/01/16 19:56 Alkaline Phosphatase 91 Units/L (38-126) 09/01/16 19:56 Troponin I 0.00 ng/mL (0-0.03) 09/01/16 19:56 B-Natriuretic Peptide 125 pg/mL (0-100) H 09/01/16 19:56 Serum Total Protein 8.1 g/dL (6.0-8.3) 09/01/16 19:56 Albumin 4.2 g/dL (3.5-5.0) 09/01/16 19:56 Globulin 3.9 g/dL (2.4-3.5) H 09/01/16 19:56 Albumin/Globulin Ratio 1.1 (1.1-2.2) 09/01/16 19:56 TSH 0.506 mcIU/mL (0.350-4.840) 09/01/16 19:56 Serum , Qual Negative (Negative) 09/01/16 21:01 Urine Color Yellow (Yellow) 09/01/16 20:15 Urine Clarity Clear (Clear) 09/01/16 20:15 Urine pH 7.5 pH Units (5.0-8.0) 09/01/16 20:15 Ur Specific Boyd 1.019 (1.010-1.025) 09/01/16 20:15 Urine Protein Trace mg/dL (Neg-Trace) 09/01/16 20:15 Urine Glucose (UA) Normal mg/dL (Normal) 09/01/16 20:15 Urine Ketones Negative mg/dL (Negative) 09/01/16 20:15 Urine Blood Negative (Negative) 09/01/16 20:15 Urine Nitrite Negative (Negative) 09/01/16 20:15 Urine Bilirubin Negative (Negative) 09/01/16 20:15 Urine Urobilinogen Normal mg/dL (Normal) 09/01/16 20:15 Ur Leukocyte Esterase Negative (Negative) 09/01/16 20:15 Urine Microscopic RBC 0-3 per hpf (0-3) 09/01/16 20:15 Urine Microscopic WBC 0-3 per hpf (0-3) 09/01/16 20:15 Ur Squamous Epith Cells Many per lpf (None-Few) H 09/01/16 20:15 Urine Bacteria None Seen per hpf (None-Few) 09/01/16 20:15 Hyaline Casts None Seen per lpf (None-Few) 09/01/16 20:15 Ur Culture Indicated? NO (NO) 09/01/16 20:15 Salicylates < 5.0 mg/dL (15-30) L 09/01/16 19:56 Urine Opiates Screen Negative ng/mL (Eiksma=029) 09/01/16 20:15 Acetaminophen < 1.0 mcg/mL (10-30) L 09/01/16 19:56 Ur Barbiturates Screen Negative ng/mL (Bxkivm=415) 09/01/16 20:15 Ur Phencyclidine Scrn Negative ng/mL (Cutoff=25) 09/01/16 20:15 Ur Amphetamines Screen Negative ng/mL (Bznghn=0329) 09/01/16 20:15 U Benzodiazepines Scrn Negative ng/mL (Qtsfwq=175) 09/01/16 20:15 Urine Cocaine Screen Negative ng/mL (Cutoff= 300) 09/01/16 20:15 U Marijuana (THC) Screen Negative ng/mL (Cutoff = 50) 09/01/16 20:15 Ethyl Alcohol < 10 mg/dL (0-10) 09/01/16 19:56 Impressions Chest X-Ray 09/01/16 19:32 IMPRESSION: No acute process. D/ / 09/01/2016 20:31:35 Gabriella Wan MD / Cecelia Castle Interpreting Provider: Gabriella Wan MD Head CT 09/01/16 19:32 IMPRESSION: No acute intracranial abnormality. Chronic findings of the right posterior fossa D/ / Gregorio Wooten MD / Gregorio Wooten MD Interpreting Provider: Gregorio Wooten MD - Attending Attestation My signature below is to certify that this patient is under my care and that I, or nurse practitioner, or a physician's cardiology physician assistant, or Resident Physician working with me, has had a [id number] encounter with this patient.
[2016-09-02] MEDS: *HR* OxyCODONE Immed Rel 5 MG TABLET PO PRN ×2 (00:53→21:21)
[2016-09-02 01:57] LABS: VBG HCO3 27.2 mEq/L (21-27); VBG PH 7.42 pH Units (7.32-7.42)
[2016-09-02 02:04] LABS: Hemoglobin A1C 5.2 %
[2016-09-02 02:05] LABS: Ionized Calcium 1.17 mmol/L (1.15-1.35)
[2016-09-02 02:13] LABS: Albumin 4.2 g/dL (3.5-5.0); Albumin/Globulin Ratio 1.2 (1.1-2.2); Bilirubin,Direct 0.4 mg/dL (0.0-0.5); Bilirubin,Indirect 0.5 mg/dL (0.0-1.2); Bilirubin,Total 0.9 mg/dL (0.2-1.2); Chol/HDL Ratio 3.1 (0-4.9); Globulin 3.6 g/dL (2.4-3.5); Magnesium 2.3 mg/dL (1.6-2.6); Phosphorous 2.9 mg/dL (2.3-4.7); Total Protein 7.8 g/dL (6.0-8.3)
[2016-09-02 02:35] LABS: Prolactin 11.17 ng/mL (5.18-26.53)
[2016-09-02 02:41] LABS: Bilirubin,Urine Negative (Negative); Blood,Urine Negative (Negative); Clarity,Urine Clear (Clear); Color,Urine Yellow (Yellow); Glucose,Urine (UA) Normal (Normal); Ketones,Urine Negative (Negative); Leukocyte Esterase,Urine Trace (Negative); Nitrite,Urine Negative (Negative); PH,Urine 7.5 pH Units (5.0-8.0); Protein,Urine Trace mg/dL (Neg-Trace); Urobilinogen,Urine Normal (Normal)
[2016-09-02 02:44] LABS: Bacteria,Urine None Seen per hpf (None-Few); Hyaline Casts,Urine None Seen per lpf (None-Few); RBC,Urine 0-3 per hpf (0-3); Squamous Epithelial Cell,Urine Many per lpf (None-Few); WBC,Urine 0-3 per hpf (0-3)
[2016-09-02 04:19] LABS: Thyroid Stimulating Hormone 0.505 mcIU/mL (0.350-4.840)
[2016-09-02] MEDS ORDERED: Albuterol 2.5 MG/3 ML NEBULIZER IH PRN (06:46)
[2016-09-02] MEDS ORDERED: Nicotine 21 MG PATCH.TD24 TD PRN (06:46)
[2016-09-02] MEDS ORDERED: methylPREDNISolone 125 MG/2 ML VIAL IVP SCH (09:00)
[2016-09-02] MEDS: *HR* Enoxaparin 40 MG/0.4 ML SYRINGE SQ SCH (09:33)
[2016-09-02] MEDS: Azithromycin 500 MG in D5% in Water 250 ML IVPB SCH (09:34)
[2016-09-02] MEDS ORDERED: Bumetanide 1 MG TABLET PO SCH ×2 (09:45→18:00)
[2016-09-02] MEDS ORDERED: hydroCHLOROthiazide 25 MG TABLET PO SCH (09:45)
[2016-09-02] MEDS: Venlafaxine XR (24 HR) 150 MG CAP.ER.24H PO SCH (10:34)
[2016-09-02] MEDS: hydrOXYzine pamoate 25 MG CAPSULE PO SCH ×3 (10:34→20:41)
[2016-09-02] MEDS: *HR* Methadone 10 MG TABLET PO SCH ×2 (10:34→20:41)
[2016-09-02] MEDS: clonazePAM 0.5 MG TABLET PO SCH ×2 (10:35→20:41)
[2016-09-02] MEDS: Ipratropium/Albuterol Neb 3 ML IH SCH ×6 (10:58→22:56)
--- NOTE | 2016-09-02 11:17 | Electrocardiograph Report ---
[facility] Test Date: 2016-09-01 Pat Name: Yolanda Neumann Department: 105 Room: 3B24 Gender: F Weigher And Crusher: RAMONA : 1960 Requested By: Eric Jacinto Order Number: [id number] Reading MD: Bela Esposito Measurements Intervals [place] Rate: 70 P: -48 [place]: 162 QRS: -56 QRSD: 168 T: 137 QT: 491 QTc: 511 Interpretive Statements ELECTRONIC ATRIAL PACEMAKER ELECTRONIC VENTRICULAR PACEMAKER Electronically Signed On 09-02-16 11:16:22 EST by Bela Esposito
[2016-09-02 15:03] LABS: Basophils % 0.4 %; Eosinophils % 0.2 %; Hematocrit 40.5 % (35.3-44.9); Hemoglobin 13.7 g/dL (11.5-15.4); Lymphocytes # 0.8 K/mcL (0.6-4.6); Lymphocytes % 16.5 %; Mean Corpuscular HGB Conc 33.8 g/dL (31.6-35.5); Mean Corpuscular Hemoglobin 27.6 pg (28.0-33.3); Mean Corpuscular Volume 81.5 fL (83.0-100.0); Monocytes # 0.1 K/mcL (0.0-1.3); Platelet Count 175 K/mcL (140-400); Red Blood Count 4.97 M/mcL (3.82-4.97); Red Cell Distribution Width 13.8 % (11.5-14.5); Segmented Neutrophils % 79.9 %
[2016-09-02 15:17] LABS: Calcium 9.9 mg/dL (8.6-10.8); Potassium 3.7 mEq/L (3.5-4.5)
[2016-09-02 15:41] LABS: Platelet Estimate Normal (Normal); Reactive Lymphocytes Present (Not Present)
--- NOTE | 2016-09-02 19:36 | Event Note ---
Date of Encounter: 09/02/16 Time of Encounter: 19:32 Interval note, H&P competed today. Pt seen laying comfortable in bed, complains of dizziness with standing. continue to monitor BP, hold antihypertensives continue gentle hydration. Monitor renal function, ins and outs. continue diuretics also in other to avoid overload. IF renal function worsens in AM, will hold diuretics. increase steroids and nebs due to wheezing.
[2016-09-02] MEDS: Topiramate 25 MG TABLET PO SCH (20:42)
[2016-09-02] MEDS: 0.9 % Sodium Chloride 1,000 ML IVC SCH (21:31)
[2016-09-02] MEDS: MethylPREDNISolone 40 MG/ML VIAL IVP SCH (23:44)
[2016-09-03] MEDS: Ipratropium/Albuterol Neb 3 ML IH SCH ×5 (03:47→20:07)
[2016-09-03 04:39] LABS: Basophils % 0.2 %; Hematocrit 39.3 % (35.3-44.9); Hemoglobin 13.2 g/dL (11.5-15.4); Immature Granulocytes % 0.3 % (0-4); Lymphocytes # 0.9 K/mcL (0.6-4.6); Lymphocytes % 14.2 %; Mean Corpuscular HGB Conc 33.6 g/dL (31.6-35.5); Mean Corpuscular Hemoglobin 27.2 pg (28.0-33.3); Mean Platelet Volume 10.2 fL (9.4-12.4); Monocytes # 0.1 K/mcL (0.0-1.3); Monocytes % 2.3 %; Platelet Count 183 K/mcL (140-400); Red Blood Count 4.85 M/mcL (3.82-4.97); Red Cell Distribution Width 13.6 % (11.5-14.5)
[2016-09-03 04:54] LABS: BUN/Creatinine Ratio 32 (6-26); Blood Urea Nitrogen 29 mg/dL (7-20); Calcium 9.6 mg/dL (8.6-10.8); Carbon Dioxide 21 mEq/L (19-29); Chloride 105 mEq/L (98-109); Glucose 133 mg/dL (70-99); Osmolality,Calculated 298 (280-300); Potassium 3.6 mEq/L (3.5-4.5); Sodium 140 mEq/L (136-145); eGFR For African Americans > 60 (> 60); eGFR For Non-African Americans > 60 (> 60)
[2016-09-03] MEDS: MethylPREDNISolone 40 MG/ML VIAL IVP SCH ×3 (05:29→17:50)
[2016-09-03] MEDS: *HR* Enoxaparin 40 MG/0.4 ML SYRINGE SQ SCH (07:54)
[2016-09-03] MEDS: clonazePAM 0.5 MG TABLET PO SCH ×2 (07:55→20:52)
[2016-09-03] MEDS: Bumetanide 1 MG TABLET PO SCH ×2 (07:55→17:49)
[2016-09-03] MEDS: hydrOXYzine pamoate 25 MG CAPSULE PO SCH ×3 (07:55→20:51)
[2016-09-03] MEDS: Venlafaxine XR (24 HR) 150 MG CAP.ER.24H PO SCH (07:55)
[2016-09-03] MEDS: *HR* Methadone 10 MG TABLET PO SCH ×2 (07:55→20:52)
[2016-09-03] MEDS: Topiramate 25 MG TABLET PO SCH ×2 (07:56→20:52)
[2016-09-03] MEDS: Azithromycin 500 MG in D5% in Water 250 ML IVPB SCH (07:56)
[2016-09-03] MEDS: 0.9 % Sodium Chloride 1,000 ML IVC SCH (14:26)
[2016-09-03] MEDS: Ondansetron 4 MG/2 ML VIAL IVP PRN (22:27)
[2016-09-04] MEDS: Ipratropium/Albuterol Neb 3 ML IH SCH ×6 (00:50→20:36)
[2016-09-04] MEDS: MethylPREDNISolone 40 MG/ML VIAL IVP SCH ×4 (01:11→16:44)
[2016-09-04 04:14] LABS: Hematocrit 39.6 % (35.3-44.9); Hemoglobin 13.2 g/dL (11.5-15.4); Immature Granulocytes % 0.6 % (0-4); Lymphocytes # 0.8 K/mcL (0.6-4.6); Lymphocytes % 9.6 %; Mean Corpuscular HGB Conc 33.3 g/dL (31.6-35.5); Mean Corpuscular Hemoglobin 27.2 pg (28.0-33.3); Mean Corpuscular Volume 81.6 fL (83.0-100.0); Mean Platelet Volume 10.6 fL (9.4-12.4); Monocytes # 0.4 K/mcL (0.0-1.3); Monocytes % 4.9 %; Neutrophils # 7.1 K/mcL (1.6-8.9); Nucleated Red Blood Cells 0.2 /100 WBC (0); Platelet Count 169 K/mcL (140-400); Red Blood Count 4.85 M/mcL (3.82-4.97); Red Cell Distribution Width 14.1 % (11.5-14.5); Segmented Neutrophils % 84.9 %
[2016-09-04] MEDS: 0.9 % Sodium Chloride 1,000 ML IVC SCH ×2 (04:29→19:49)
[2016-09-04 04:34] LABS: BUN/Creatinine Ratio 33 (6-26); Blood Urea Nitrogen 26 mg/dL (7-20); Calcium 9.4 mg/dL (8.6-10.8); Carbon Dioxide 21 mEq/L (19-29); Chloride 108 mEq/L (98-109); Glucose 130 mg/dL (70-99); Osmolality,Calculated 301 (280-300); Potassium 3.8 mEq/L (3.5-4.5); Sodium 142 mEq/L (136-145); eGFR For African Americans > 60 (> 60); eGFR For Non-African Americans > 60 (> 60)
[2016-09-04] MEDS: Azithromycin 500 MG in D5% in Water 250 ML IVPB SCH (09:18)
[2016-09-04] MEDS: hydrOXYzine pamoate 25 MG CAPSULE PO SCH ×3 (09:19→21:03)
[2016-09-04] MEDS: Topiramate 25 MG TABLET PO SCH ×2 (09:19→21:03)
[2016-09-04] MEDS: Venlafaxine XR (24 HR) 150 MG CAP.ER.24H PO SCH (09:20)
[2016-09-04] MEDS: *HR* Methadone 10 MG TABLET PO SCH ×2 (09:20→21:02)
[2016-09-04] MEDS: Bumetanide 1 MG TABLET PO SCH ×2 (09:20→16:43)
[2016-09-04] MEDS: clonazePAM 0.5 MG TABLET PO SCH ×2 (09:20→21:02)
[2016-09-04] MEDS: *HR* Enoxaparin 40 MG/0.4 ML SYRINGE SQ SCH (09:21)
--- NOTE | 2016-09-04 12:44 | Internal Med Progress Note ---
Date of Encounter: 09/03/16 Time of Encounter: 12:41 - Assessment and plan (1) Acute on chronic respiratory failure with hypoxia and hypercapnia Current Visit: Yes Status: Acute (2) Altered mental status Current Visit: Yes Status: Acute Qualifiers: Altered mental status type: delirium Qualified Code(s): R41.0 - Disorientation, unspecified (3) Delusional disorder Current Visit: Yes Status: Acute (4) Hypertension Current Visit: Yes Status: Chronic Qualifiers: Hypertension type: essential hypertension Qualified Code(s): I10 - Essential (primary) hypertension (5) Hypothyroidism Current Visit: Yes Status: Chronic Qualifiers: Hypothyroidism type: unspecified Qualified Code(s): E03.9 - Hypothyroidism , unspecified (6) Obesity (BMI 30-39.9) Current Visit: Yes Status: Chronic Assessment and plan: continue gentle hydration pt reported suicidal ideation to nurse, will consult psych and place on one on one monitoring continue IV abx for bronchitis continue steroids, nebs and bronchodilators. continue synthroid - Subjective Interval history: Pt continues to feel tired and confused at times - Constitutional Vitals: Temp Pulse Resp BP Pulse Ox 97.9 F 72 18 102/64 93 L 09/04/16 11:43 09/04/16 11:43 09/04/16 11:48 09/04/16 11:43 09/04/16 11:48 General appearance: Present: A&O X 1, disheveled, morbidly obese, severe distress. Absent: answers questions appropriately - Head Head exam: Present: atraumatic, normocephalic - Eye Eye exam: Present: PERRL, conjuntiva pink, sclera anicteric Pupils: Present: PERRL - Neck Neck exam general surgery: Present: supple, trachea midline. Absent: lymphadenopathy - Respiratory Respiratory exam: Present: CTAB. Absent: accessory muscle use, rales, rhonchi, wheezes - Cardiovascular Cardiovascular exam: Present: RRR, +S1, +S2. Absent: diastolic murmur, gallop, rubs, systolic murmur - GI/Abdominal GI/Abdominal exam: Present: normal bowel sounds, soft, no peritoneal signs. Absent: distended, tenderness - Extremities Exam Extremities exam: Present: warm, radial pulses palpable and symetrical. Absent : calf tenderness, cyanotic, pedal edema - Neurological Exam Neurological exam: Present: CN II-XII intact, oriented X3, no focal deficits. Absent: pronater drift, facial droop, speech deficit - Skin Skin exam: Present: dry, intact Internal Medicine: Result - Labs CBC & Chem 7: 09/04/16 03:38 09/04/16 03:38 Labs: Short CBC 09/04/16 Range/Units 03:38 WBC 8.4 (4.3-11.1) K/mcL Hgb 13.2 (11.5-15.4) g/dL Hct 39.6 (35.3-44.9) % Plt Count 169 (140-400) K/mcL Neutrophils # 7.1 (1.6-8.9) K/mcL BMP 09/04/16 03:38 Sodium 142 Potassium 3.8 Chloride 108 Carbon Dioxide 21 BUN 26 H Creatinine 0.79 Glucose 130 H Calcium 9.4 - ABG Interpretation ABG results: ABG ABG pH 7.44 pH Units (7.32-7.45) 09/01/16 20:04 ABG pCO2 49 mmHg (35-45) H 09/01/16 20:04 ABG pO2 61 mmHg (85-104) L 09/01/16 20:04 ABG O2 Saturation 92 % (95-98) L 09/01/16 20:04 PT/INR, D-dimer PT 13.3 Seconds (9.4-12.1) H 09/01/16 21:01 D-Dimer 231 ng/mLFEU (0-500) 09/01/16 21:01 - VTE Reasons for not Prescribing Prophylaxis: Treatment not Indicated - Low risk for VTE Documentation of Mechanical Device: Graduated compression elastic hosiery Consult Discharge Plan - Plan Referrals: Bettye Hou DO [Primary Care Provider] -
--- NOTE | 2016-09-04 18:53 | Internal Med Progress Note ---
Date of Encounter: 09/04/16 Time of Encounter: 18:51 - Assessment and plan (1) Delusional disorder Current Visit: Yes Status: Acute (2) Acute on chronic respiratory failure with hypoxia and hypercapnia Current Visit: Yes Status: Acute (3) Altered mental status Current Visit: Yes Status: Acute Qualifiers: Altered mental status type: delirium Qualified Code(s): R41.0 - Disorientation, unspecified (4) Hypertension Current Visit: Yes Status: Chronic Qualifiers: Hypertension type: essential hypertension Qualified Code(s): I10 - Essential (primary) hypertension (5) Hypothyroidism Current Visit: Yes Status: Chronic Qualifiers: Hypothyroidism type: unspecified Qualified Code(s): E03.9 - Hypothyroidism , unspecified (6) Obesity (BMI 30-39.9) Current Visit: Yes Status: Chronic Assessment and plan: continue gentle hydration pt reported suicidal ideation to nurse, follow psych recommendations. continue one on one monitoring continue IV abx for bronchitis start to wean steroids, continue nebs and bronchodilators. continue synthroid - Subjective Interval history: Pt says she feels better today. - Constitutional Vitals: Temp Pulse Resp BP Pulse Ox 97.6 F 64 18 126/72 93 L 09/04/16 15:00 09/04/16 15:00 09/04/16 16:17 09/04/16 15:00 09/04/16 16:17 General appearance: Present: A&O X 1, disheveled, morbidly obese, severe distress. Absent: answers questions appropriately - Head Head exam: Present: atraumatic, normocephalic - Eye Eye exam: Present: PERRL, conjuntiva pink, sclera anicteric Pupils: Present: PERRL - Neck Neck exam general surgery: Present: supple, trachea midline. Absent: lymphadenopathy - Respiratory Respiratory exam: Present: decreased breath sounds. Absent: accessory muscle use, rales, rhonchi, wheezes - Cardiovascular Cardiovascular exam: Present: RRR, +S1, +S2. Absent: diastolic murmur, gallop, rubs, systolic murmur - GI/Abdominal GI/Abdominal exam: Present: normal bowel sounds, soft, no peritoneal signs. Absent: distended, tenderness - Extremities Exam Extremities exam: Present: warm, radial pulses palpable and symetrical. Absent : calf tenderness, cyanotic, pedal edema - Neurological Exam Neurological exam: Present: CN II-XII intact, oriented X3, no focal deficits. Absent: pronater drift, facial droop, speech deficit - Skin Skin exam: Present: dry, intact Internal Medicine: Result - Labs CBC & Chem 7: 09/04/16 03:38 09/04/16 03:38 Labs: Short CBC 09/04/16 Range/Units 03:38 WBC 8.4 (4.3-11.1) K/mcL Hgb 13.2 (11.5-15.4) g/dL Hct 39.6 (35.3-44.9) % Plt Count 169 (140-400) K/mcL Neutrophils # 7.1 (1.6-8.9) K/mcL BMP 09/04/16 03:38 Sodium 142 Potassium 3.8 Chloride 108 Carbon Dioxide 21 BUN 26 H Creatinine 0.79 Glucose 130 H Calcium 9.4 - ABG Interpretation ABG results: ABG ABG pH 7.44 pH Units (7.32-7.45) 09/01/16 20:04 ABG pCO2 49 mmHg (35-45) H 09/01/16 20:04 ABG pO2 61 mmHg (85-104) L 09/01/16 20:04 ABG O2 Saturation 92 % (95-98) L 09/01/16 20:04 PT/INR, D-dimer PT 13.3 Seconds (9.4-12.1) H 09/01/16 21:01 D-Dimer 231 ng/mLFEU (0-500) 09/01/16 21:01 - VTE Reasons for not Prescribing Prophylaxis: Treatment not Indicated - Low risk for VTE Documentation of Mechanical Device: Graduated compression elastic hosiery Consult Discharge Plan - Plan Referrals: Bettye Hou DO [Primary Care Provider] -
[2016-09-05] MEDS: Ondansetron 4 MG/2 ML VIAL IVP PRN (00:04)
[2016-09-05] MEDS: *HR* OxyCODONE Immed Rel 5 MG TABLET PO PRN ×2 (00:05→13:07)
[2016-09-05] MEDS: Ipratropium/Albuterol Neb 3 ML IH SCH ×5 (00:29→15:24)
[2016-09-05] MEDS ORDERED: Menthol 9.1 MG LOZENGE PO PRN (02:03)
[2016-09-05] MEDS ORDERED: Promethazine 12.5 MG in 0.9 % Sodium Chloride 50 ML IVPB ONE (02:04)
[2016-09-05] MEDS ORDERED: *HR* Promethazine 25 MG/ML VIAL IV ONE (02:15)
[2016-09-05] MEDS: Simethicone 80 MG TAB.CHEW PO PRN ×2 (02:19→13:14)
[2016-09-05 03:14] LABS: Basophils % 0.1 %; Hematocrit 37.3 % (35.3-44.9); Hemoglobin 12.6 g/dL (11.5-15.4); Immature Granulocytes % 0.7 % (0-4); Lymphocytes # 0.9 K/mcL (0.6-4.6); Lymphocytes % 11.4 %; Mean Corpuscular HGB Conc 33.8 g/dL (31.6-35.5); Mean Corpuscular Hemoglobin 27.6 pg (28.0-33.3); Mean Corpuscular Volume 81.6 fL (83.0-100.0); Mean Platelet Volume 9.9 fL (9.4-12.4); Monocytes # 0.6 K/mcL (0.0-1.3); Monocytes % 7.4 %; Platelet Count 149 K/mcL (140-400); Red Blood Count 4.57 M/mcL (3.82-4.97); Red Cell Distribution Width 14.2 % (11.5-14.5); Segmented Neutrophils % 80.4 %
[2016-09-05 03:25] LABS: BUN/Creatinine Ratio 36 (6-26); Blood Urea Nitrogen 27 mg/dL (7-20); Calcium 8.9 mg/dL (8.6-10.8); Carbon Dioxide 21 mEq/L (19-29); Chloride 106 mEq/L (98-109); Glucose 104 mg/dL (70-99); Osmolality,Calculated 295 (280-300); Potassium 3.6 mEq/L (3.5-4.5); Sodium 140 mEq/L (136-145); eGFR For African Americans > 60 (> 60); eGFR For Non-African Americans > 60 (> 60)
[2016-09-05] MEDS ORDERED: MethylPREDNISolone 40 MG/ML VIAL IVP SCH (06:00)
[2016-09-05] MEDS: Azithromycin 500 MG in D5% in Water 250 ML IVPB SCH (07:01)
[2016-09-05] MEDS: *HR* Enoxaparin 40 MG/0.4 ML SYRINGE SQ SCH (07:02)
[2016-09-05] MEDS: Bumetanide 1 MG TABLET PO SCH (07:08)
[2016-09-05] MEDS: *HR* Methadone 10 MG TABLET PO SCH (08:14)
[2016-09-05] MEDS: Venlafaxine XR (24 HR) 150 MG CAP.ER.24H PO SCH (08:14)
[2016-09-05] MEDS: hydrOXYzine pamoate 25 MG CAPSULE PO SCH ×2 (08:14→14:55)
[2016-09-05] MEDS: clonazePAM 0.5 MG TABLET PO SCH (08:15)
[2016-09-05] MEDS: Topiramate 25 MG TABLET PO SCH (08:16)
[2016-09-05 11:00] VITALS: BP 126/81
--- NOTE | 2016-09-05 13:13 | Consult Note ---
Date of Encounter: 09/05/16 Time of Encounter: 10:00 Assessment & Recommendation (1) Delirium due to another medical condition Status: Acute History of Present Illness Patient: new to practice Requesting Physician: Justina Norris Reason for consult: Delirium and reportedly suicidal statements. History of present illness: Ms. Neumann is a 55 year old female that I am seeing secondary to a request to evaluate regarding her making a suicidal statement while in a delirious state. I reviewed the documentation on the chart and interviewed the nurses who are taking care of her. The statement she made were "I want to go home to ". There is documentation from the day prior that she was sitting on the commode chanting and praying to God that 'He take her troubles away". It is also reported that she was praying for a "smooth way out" and to make her "come home to him". I went to introduce myself to the patient and to interview her. I explained to her who I was and why I was there. She started to chuckle. I explained to her that she had made some comments about wanting to go home to and for God to take her troubles away for a smooth way out etc. She stated that the last couple days she was in "spiritual unrest". She states that she has a lot of physical problems and the "evil in the world is working against me". She did not recall making those exact statements, but states that every day when she prays, she cannot wait for God to take her home to be with Him. She explains her life will be so much easier and she will be so much happier when she is in heaven with Him. She states that she is not suicidal nor has she ever been suicidal. She talks about it being against her adventist and that when God wants her to come home, "He will do that . When he decides not me." She denies being hopeless and helpless. She does state that she is on some antidepressants and mood stabilizers that she was put on after traumatic brain injury. She denies any impulsivity, auditory/visual hallucinations. She denies any problems with gambling or excessive spending. She does state that she gets depressed at times being home as much as she is, not being able to go out and socialize and not having tremendous number friends coming to visit her, but she deals with it through prayer and everything is fine. She talks about her extensive medical problems and how she is was recently not thinking clearly secondary to her delirium and being in spiritual unrest but states that she would never do anything to hurt herself. "God has always seen me through it in the past and he will continue to do so". She is aware the correct day date and year in current situation. She can list me her medical problems. She can tell me back who I am and what I am there for. She does not acknowledge any hopelessness helplessness nor does she feel that others can read her mind with the [employer] and [employer] are after her. She does state that she has low energy that at this point time because she is physically unwell and that would be expected. She is anxious to go home and is future oriented. She has a support system of the sabianism in [place] where she used to go that she stays in contact with people there. She is going to other churches and around [place] has not found any sabianism like her sabianism back in [place] yet, but will continue to try to make friends and find a sabianism as she can. The patient does not appear to be suicidal at this. She had been in a delirious state recently, that has resolved. She is currently on a 1:1. I spoke to Dr. Norris and explained to him my findings and thoughts that she is not suicidal and is safe. She has been continued on the medications she is prescribed in the outpatient setting and should follow up with [facility] as scheduled once she is discharged. 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 Tourette's syndrome.), thyroid disease, valvular heart disease, other (Morbid obesity. Anemia chronic disease.) - Past Psychiatric History Psychiatric history: Reports: anxiety, depression, other (Mood issues after her TBI) Family psychiatric history: No Family History of Suicide: None - Past Surgical History Surgical History: cholecystectomy, heart valve replacement, orthopedic, other ( Bilateral carpal tunnel release. Right shoulder reconstruction surgery. Back surgery.), other (Bilateral carpal tunnel release. Tonsillectomy adenoidectomy. ), vascular surgery (Tricuspid valve replacement surgery. Pacemaker implantation.), pacemaker - Social History Smoking Status: Never smoker Smokeless Tobacco Status: No Alcohol use: none Drug use: none Occupational status: unemployed Current living situation: Home Recent Out of Country Travel Within the Last 8 Weeks: No - Family History Mother Hx Family Cancer: Yes (colon cancer) Medications & Allergies Albuterol Sulfate [Proair Hfa] 2 puff IH Q4H PRN 09/01/16 [History] Bumetanide [Bumex] 1 mg PO QPM 09/01/16 [History] Bumetanide [Bumex] 2 mg PO QAM 09/01/16 [History] Carvedilol [Coreg] 6.25 mg PO BID 09/01/16 [History] ClonazePAM [Klonopin] 0.5 mg PO BID 09/01/16 [History] Esomeprazole Magnesium 20 mg PO DAILY 09/01/16 [History] Fluticasone Propionate Nasal [Flonase] 100 mcg NS DAILY 09/01/16 [History] HydrOXYzine Pamoate [Vistaril] 50 mg PO TID 09/01/16 [History] Levothyroxine Sodium 100 mcg PO DAILY 09/01/16 [History] Methadone 10 mg PO BID 09/01/16 [History] Polyethylene Glycol 3350 [MiraLAX] 17 gm PO DAILY 09/01/16 [History] Potassium Chloride [K-Tab ER] 40 meq PO BID 09/01/16 [History] Promethazine [Phenergan] 25 mg PO HS 09/01/16 [History] Topiramate 50 mg PO BID 09/01/16 [History] Venlafaxine XR (24 HR) [Effexor Xr] 150 mg PO DAILY 09/01/16 [History] Doxycycline 100 mg PO BID #10 capsule 09/05/16 [Rx] Fluticasone/Salmeterol [Advair 250-50 Diskus] 1 each IH BID #1 blst.w.dev [Rx] GuaiFENesin ER [Mucinex] 600 mg PO BID #10 tbbp.12hr 09/05/16 [Rx] Nicotine Patch [Nicoderm] 21 mg TD DAILY PRN #14 patch.td24 09/05/16 [Rx] PredniSONE 10 mg PO DAILY #30 tablet 09/05/16 [Rx] Simethicone [Gas-X] 80 mg PO 1-2XD PRN 09/05/16 [History] Tiotropium [Spiriva] 18 mcg IH DAILY #1 inh 09/05/16 [Rx] Allergies chlorhexidine [From Hibiclens] Allergy (Verified 09/01/16 21:40) Rash Review of Systems Constitutional: Reports: weakness Respiratory: Reports: dyspnea Neurological: Reports: weakness, confusion, memory loss, other (delirium) Psychiatric: Reports: depression (mild), anxiety (does not like being in the hospital and worries about her medical issues.) Mental Status Exam Patient orientation: Yes Person, Yes Time, Yes Place, Yes Circumstance Level of alertness: Alert, Follows commands Patient appearance: Appropriate (for the situation), Disheveled (In a hospital gown and has not been able to do her hair secondary to be bed bound at this time ) Behavior: calm Psychomotor activity: Slowed (tired) Eye contact: Maintains Eye Contact Mood description: Other (tired, but pleasant and smiles appropriately) Affect description: congruent with mood Speech pattern: Normal rate, Normal rhythm, Normal tone, Appropriate Speech volume: Normal Thought process: Intact, Linear, Goal Oriented Attention span: Capable of Focused Attention Memory description: Grossly Intact Patient reliability: Reliable Historian Intelligence estimate: Average Judgment: Good Insight: Full Results - Vital Signs Vital signs: Temp Pulse Resp BP Pulse Ox 98.2 F 71 18 126/81 94 L 09/05/16 10:59 09/05/16 10:59 09/05/16 10:59 09/05/16 10:59 09/05/16 10:59 - Labs Labs: Laboratory Last Values WBC 7.5 K/mcL (4.3-11.1) 09/05/16 02:51 RBC 4.57 M/mcL (3.82-4.97) 09/05/16 02:51 Hgb 12.6 g/dL (11.5-15.4) 09/05/16 02:51 Hct 37.3 % (35.3-44.9) 09/05/16 02:51 MCV 81.6 fL (83.0-100.0) L 09/05/16 02:51 MCH 27.6 pg (28.0-33.3) L 09/05/16 02:51 MCHC 33.8 g/dL (31.6-35.5) 09/05/16 02:51 RDW 14.2 % (11.5-14.5) 09/05/16 02:51 Plt Count 149 K/mcL (140-400) 09/05/16 02:51 MPV 9.9 fL (9.4-12.4) 09/05/16 02:51 Immature Gran % 0.7 % (0-4) 09/05/16 02:51 Seg Neutrophils % 80.4 % 09/05/16 02:51 Lymphocytes % 11.4 % 09/05/16 02:51 Monocytes % 7.4 % 09/05/16 02:51 Eosinophils % 0.0 % 09/05/16 02:51 Basophils % 0.1 % 09/05/16 02:51 Neutrophils # 6.0 K/mcL (1.6-8.9) 09/05/16 02:51 Lymphocytes # 0.9 K/mcL (0.6-4.6) 09/05/16 02:51 Monocytes # 0.6 K/mcL (0.0-1.3) 09/05/16 02:51 Eosinophils # 0.0 K/mcL (0.0-0.6) 09/05/16 02:51 Basophils # 0.0 K/mcL (0.0-0.2) 09/05/16 02:51 Nucleated RBCs/100 WBC 0.2 /100 WBC (0) H 09/04/16 03:38 Reactive Lymphocytes Present (Not Present) A 09/02/16 14:52 Platelet Estimate Normal (Normal) 09/02/16 14:52 ESR 34 mm/hr (0-15) H 09/02/16 01:47 PT 13.3 Seconds (9.4-12.1) H 09/01/16 21:01 INR 1.2 09/01/16 21:01 APTT 35.6 Seconds (26.0-36.0) 09/01/16 21:01 D-Dimer 231 ng/mLFEU (0-500) 09/01/16 21:01 ABG pH 7.44 pH Units (7.32-7.45) 09/01/16 20:04 ABG pCO2 49 mmHg (35-45) H 09/01/16 20:04 ABG pO2 61 mmHg (85-104) L 09/01/16 20:04 ABG HCO3 33.3 mEQ/L (21-27) H 09/01/16 20:04 ABG Total CO2 34.8 mEq/L (20-26) H 09/01/16 20:04 ABG O2 Saturation 92 % (95-98) L 09/01/16 20:04 ABG Base Excess 7.7 mEq/L (-2.0 to 3.0) H 09/01/16 20:04 VBG pH 7.42 pH Units (7.32-7.42) 09/02/16 01:47 VBG pCO2 42 mmHg (41-51) 09/02/16 01:47 VBG pO2 73 mmHg (25-40) H 09/02/16 01:47 VBG HCO3 27.2 mEq/L (21-27) H 09/02/16 01:47 Blood Gas Modality [place] 09/01/16 20:04 Inspired O2 32 % 09/01/16 20:04 Sodium 140 mEq/L (136-145) 09/05/16 02:51 Potassium 3.6 mEq/L (3.5-4.5) 09/05/16 02:51 Chloride 106 mEq/L (98-109) 09/05/16 02:51 Carbon Dioxide 21 mEq/L (19-29) 09/05/16 02:51 BUN 27 mg/dL (7-20) H 09/05/16 02:51 Creatinine 0.76 mg/dL (0.57-1.11) 09/05/16 02:51 Est GFR ( Amer) > 60 (> 60) 09/05/16 02:51 Est GFR (Non-Af Amer) > 60 (> 60) 09/05/16 02:51 BUN/Creatinine Ratio 36 (6-26) H 09/05/16 02:51 Glucose 104 mg/dL (70-99) H 09/05/16 02:51 Est Mean Plasma Glucose 103 mg/dl 09/02/16 01:47 Hemoglobin A1c 5.2 % (-5.6) 09/02/16 01:47 Calculated Osmolality 295 (280-300) 09/05/16 02:51 Lactic Acid 0.6 mmol/L (0.5-2.2) 09/01/16 21:01 Calcium 8.9 mg/dL (8.6-10.8) 09/05/16 02:51 Ionized Calcium 1.17 mmol/L (1.15-1.35) 09/02/16 01:47 Phosphorus 2.9 mg/dL (2.3-4.7) 09/02/16 01:47 Magnesium 2.3 mg/dL (1.6-2.6) 09/02/16 01:47 Total Bilirubin 0.9 mg/dL (0.2-1.2) 09/02/16 01:47 Direct Bilirubin 0.4 mg/dL (0.0-0.5) 09/02/16 01:47 Indirect Bilirubin 0.5 mg/dL (0.0-1.2) 09/02/16 01:47 AST 11 Units/L (5-34) 09/02/16 01:47 ALT 20 Units/L (0-55) 09/02/16 01:47 Alkaline Phosphatase 82 Units/L (38-126) 09/02/16 01:47 Ammonia 30 mcmol/L (18-72) 09/02/16 01:47 Lactate Dehydrogenase 219 Units/L (159-327) 09/02/16 01:47 Creatine Kinase 85 Units/L (29-168) 09/02/16 01:47 Troponin I 0.00 ng/mL (0-0.03) 09/02/16 13:30 C-Reactive Protein 1 mg/L (Less than 5) 09/02/16 01:47 B-Natriuretic Peptide 120 pg/mL (0-100) H 09/02/16 01:47 Serum Total Protein 7.8 g/dL (6.0-8.3) 09/02/16 01:47 Albumin 4.2 g/dL (3.5-5.0) 09/02/16 01:47 Globulin 3.6 g/dL (2.4-3.5) H 09/02/16 01:47 Albumin/Globulin Ratio 1.2 (1.1-2.2) 09/02/16 01:47 Triglycerides 50 mg/dL (< 150) 09/02/16 01:47 Cholesterol 154 mg/dL (< 200) 09/02/16 01:47 LDL Cholesterol, Calc 94 mg/dL (0-99) 09/02/16 01:47 VLDL Cholesterol, Calc 10 mg/dL (< 31) 09/02/16 01:47 HDL Cholesterol 50 mg/dL (40-59) 09/02/16 01:47 Cholesterol/HDL Ratio 3.1 (0-4.9) 09/02/16 01:47 TSH 0.505 mcIU/mL (0.350-4.840) 09/02/16 01:47 Free T4 1.10 ng/dl (0.70-1.48) 09/02/16 01:47 Thyroxine (T4) 6.49 mcg/dL (4.87-11.72) 09/02/16 01:47 Prolactin 11.17 ng/mL (5.18-26.53) 09/02/16 01:47 Serum , Qual Negative (Negative) 09/01/16 21:01 Urine Color Yellow (Yellow) 09/02/16 02:20 Urine Clarity Clear (Clear) 09/02/16 02:20 Urine pH 7.5 pH Units (5.0-8.0) 09/02/16 02:20 Ur Specific [place] 1.020 (1.010-1.025) 09/02/16 02:20 Urine Protein Trace mg/dL (Neg-Trace) 09/02/16 02:20 Urine Glucose (UA) Normal mg/dL (Normal) 09/02/16 02:20 Urine Ketones Negative mg/dL (Negative) 09/02/16 02:20 Urine Blood Negative (Negative) 09/02/16 02:20 Urine Nitrite Negative (Negative) 09/02/16 02:20 Urine Bilirubin Negative (Negative) 09/02/16 02:20 Urine Urobilinogen Normal mg/dL (Normal) 09/02/16 02:20 Ur Leukocyte Esterase Trace (Negative) H 09/02/16 02:20 Urine Microscopic RBC 0-3 per hpf (0-3) 09/02/16 02:20 Urine Microscopic WBC 0-3 per hpf (0-3) 09/02/16 02:20 Ur Squamous Epith Cells Many per lpf (None-Few) H 09/02/16 02:20 Urine Bacteria None Seen per hpf (None-Few) 09/02/16 02:20 Hyaline Casts None Seen per lpf (None-Few) 09/02/16 02:20 Ur Culture Indicated? NO (NO) 09/01/16 20:15 Salicylates < 5.0 mg/dL (15-30) L 09/01/16 19:56 Urine Opiates Screen Negative ng/mL (Gnzuzq=883) 09/01/16 20:15 Ur Methadone Interpret SEE NOTE 09/02/16 02:20 U Methadone Metabolites POSITIVE ng/mL (Cutoff 150) 09/02/16 02:20 Acetaminophen < 1.0 mcg/mL (10-30) L 09/01/16 19:56 Ur Barbiturates Screen Negative ng/mL (Vouwen=406) 09/01/16 20:15 Ur Phencyclidine Scrn Negative ng/mL (Cutoff=25) 09/01/16 20:15 Ur Amphetamines Screen Negative ng/mL (Rlgqny=0313) 09/01/16 20:15 U Benzodiazepines Scrn Negative ng/mL (Jqqlvf=457) 09/01/16 20:15 Urine Cocaine Screen Negative ng/mL (Cutoff= 300) 09/01/16 20:15 U Marijuana (THC) Screen Negative ng/mL (Cutoff = 50) 09/01/16 20:15 Ethyl Alcohol < 10 mg/dL (0-10) 09/01/16 19:56 Consult Discharge Plan - Plan Instructions: Doxycycline (By mouth), Prednisone (By mouth), Guaifenesin (By mouth), Nicotine (Absorbed through the skin), Fluticasone/Salmeterol (By breathing), Tiotropium (By breathing) Referrals: Bettye Hou DO [Primary Care Provider] - Prescriptions: Doxycycline 100 mg PO BID #10 capsule Fluticasone/Salmeterol [Advair 250-50 Diskus] 1 each IH BID #1 blst.w.dev GuaiFENesin ER [Mucinex] 600 mg PO BID #10 tbbp.12hr Nicotine Patch [Nicoderm] 21 mg TD DAILY PRN #14 patch.td24 PRN Reason: Nicotine Cravings PredniSONE 10 mg PO DAILY #30 tablet Tiotropium [Spiriva] 18 mcg IH DAILY #1 inh
--- NOTE | 2016-09-05 15:24 | Discharge Summary ---
Date of Encounter: 09/05/16 Time of Encounter: 15:21 - Discharge Diagnosis (1) Delusional disorder Priority: Primary Status: Acute (2) Acute on chronic respiratory failure with hypoxia and hypercapnia Priority: Primary Status: Acute (3) Altered mental status Priority: Primary Status: Acute Qualifiers: Altered mental status type: delirium Qualified Code(s): R41.0 - Disorientation, unspecified (4) Hypertension Priority: Secondary Status: Chronic Qualifiers: Hypertension type: essential hypertension Qualified Code(s): I10 - Essential (primary) hypertension (5) Hypothyroidism Priority: Secondary Status: Chronic Qualifiers: Hypothyroidism type: unspecified Qualified Code(s): E03.9 - Hypothyroidism , unspecified (6) Obesity (BMI 30-39.9) Priority: Secondary Status: Chronic - Discharge Medications Prescriptions: GuaiFENesin ER [Mucinex] 600 mg PO BID #10 tbbp.12hr Nicotine Patch [Nicoderm] 21 mg TD DAILY PRN #14 patch.td24 PRN Reason: Nicotine Cravings Home Medications: Albuterol Sulfate [Proair Hfa] 2 puff IH Q4H PRN 09/01/16 [History] Bumetanide [Bumex] 1 mg PO QPM 09/01/16 [History] Bumetanide [Bumex] 2 mg PO QAM 09/01/16 [History] Carvedilol [Coreg] 6.25 mg PO BID 09/01/16 [History] ClonazePAM [Klonopin] 0.5 mg PO BID 09/01/16 [History] Esomeprazole Magnesium 20 mg PO DAILY 09/01/16 [History] Fluticasone Propionate Nasal [Flonase] 100 mcg NS DAILY 09/01/16 [History] HydrOXYzine Pamoate [Vistaril] 50 mg PO TID 09/01/16 [History] Levothyroxine Sodium 100 mcg PO DAILY 09/01/16 [History] Methadone 10 mg PO BID 09/01/16 [History] Polyethylene Glycol 3350 [MiraLAX] 17 gm PO DAILY 09/01/16 [History] Potassium Chloride [K-Tab ER] 40 meq PO BID 09/01/16 [History] Promethazine [Phenergan] 25 mg PO HS 09/01/16 [History] Topiramate 50 mg PO BID 09/01/16 [History] Venlafaxine XR (24 HR) [Effexor Xr] 150 mg PO DAILY 09/01/16 [History] Doxycycline 100 mg PO BID #10 capsule 09/05/16 [Rx] Fluticasone/Salmeterol [Advair 250-50 Diskus] 1 each IH BID #1 blst.w.dev [Rx] GuaiFENesin ER [Mucinex] 600 mg PO BID #10 tbbp.12hr 09/05/16 [Rx] Nicotine Patch [Nicoderm] 21 mg TD DAILY PRN #14 patch.td24 09/05/16 [Rx] PredniSONE 10 mg PO DAILY #30 tablet 09/05/16 [Rx] Simethicone [Gas-X] 80 mg PO 1-2XD PRN 09/05/16 [History] Tiotropium [Spiriva] 18 mcg IH DAILY #1 inh 09/05/16 [Rx] Allergies/Adverse Reactions: Allergies chlorhexidine [From Hibiclens] Allergy (Verified 09/01/16 21:40) Rash Date of admission: 09/02/16 15:07 Primary care physician: Bettye Hou DO Consults: 09/04/16 12:47 Consult to Psychiatry [CONS] Routine Consulting Provider: Psychiatry Finger Reason for Consult: suicidal ideation, delirium Call Completed: Yes - Patient Status Disposition: Home, Self-Care Condition: Fair Overall status at discharge: patient is progressing back to baseline - Discharge Instructions Follow Up With: Bettye Hou DO [Primary Care Provider] - - Diet and Activity Activity: increase activity as tolerated Diet: advance to your usual diet Hospital course: Ms. Neumann is a 55 year old female who presented with altered mentation due to suspected hypoxemia, patient had a urine drug test to look for other causes but was negative. She was treated with steroids, nebs, antibiotics with improvement. At a time during hospital course, she seemed to have had suicidal ideation but she was seen by psych and patient denied. She improved and mentation is back to normal. She will be discharged home in stable condition with advair, spiriva, prednisone taper and antibiotics. - Time Spent with Patient Total time spent providing and/or coordinating discharge services: - Constitutional Vitals: Temp Pulse Resp BP Pulse Ox 98.2 F 71 18 126/81 94 L 09/05/16 10:59 09/05/16 10:59 09/05/16 10:59 09/05/16 10:59 09/05/16 10:59 General appearance: Present: A&O X 3, morbidly obese, answers questions appropriately - Head Head exam: Present: atraumatic, normocephalic - Eye Eye exam: Present: PERRL, conjuntiva pink, sclera anicteric Pupils: Present: PERRL - Neck Neck exam general surgery: Present: supple, trachea midline. Absent: lymphadenopathy - Respiratory Respiratory exam: Present: decreased breath sounds. Absent: accessory muscle use, rales, rhonchi, wheezes - Cardiovascular Cardiovascular exam: Present: RRR, +S1, +S2. Absent: diastolic murmur, gallop, rubs, systolic murmur - GI/Abdominal GI/Abdominal exam: Present: normal bowel sounds, soft, no peritoneal signs. Absent: distended, tenderness - Extremities Exam Extremities exam: Present: warm, radial pulses palpable and symetrical. Absent : calf tenderness, cyanotic, pedal edema - Neurological Exam Neurological exam: Present: CN II-XII intact, oriented X3, no focal deficits. Absent: pronater drift, facial droop, speech deficit - Skin Skin exam: Present: dry, intact - VTE Reasons for not Prescribing Prophylaxis: Treatment not Indicated - Low risk for VTE Documentation of Mechanical Device: Graduated compression elastic hosiery
[2016-09-06] MEDS ORDERED: Azithromycin 250 MG TABLET PO SCH (09:00)
== END 2016-09-05 17:02 | disposition home or self-care (01) | DRG 189 ==
LOC: EMEROO 19:17 → 3BNU 19:17 → SUATTDRO 21:24 → 3BNU 22:18
PROVIDERS: ADMIT Hospitalist; ATTEND Family Medicine

== ENCOUNTER 2016-11-29 10:38 | Inpatient (IN) ==
[~2016-11-29 10:38] MED LIST: Aminoglycoside Consult 1 EACH MC ONE
[2016-11-29] MEDS ORDERED: Aspirin 81 MG TAB.CHEW PO ONE (10:59)
[2016-11-29] MEDS ORDERED: 0.9 % Sodium Chloride 1,000 ML IVC SCH (11:00)
[2016-11-29 11:10] LABS: Basophils % 0.2 %; Hematocrit 40.2 % (35.3-44.9); Hemoglobin 13.6 g/dL (11.5-15.4); Immature Granulocytes % 0.7 % (0-4); Lymphocytes % 5.2 %; Mean Corpuscular HGB Conc 33.8 g/dL (31.6-35.5); Mean Corpuscular Hemoglobin 27.5 pg (28.0-33.3); Mean Corpuscular Volume 81.2 fL (83.0-100.0); Mean Platelet Volume 10.4 fL (9.4-12.4); Monocytes # 1.4 K/mcL (0.0-1.3); Monocytes % 8.8 %; Neutrophils # 13.8 K/mcL (1.6-8.9); Platelet Count 170 K/mcL (140-400); Red Blood Count 4.95 M/mcL (3.82-4.97); Red Cell Distribution Width 14.3 % (11.5-14.5); Segmented Neutrophils % 85.1 %
[2016-11-29 11:12] LABS: Lymphocytes # 0.8 K/mcL (0.6-4.6)
[2016-11-29 11:19] LABS: INR 1.4; Prothrombin Time 14.7 Seconds (9.4-12.1)
[2016-11-29 11:21] LABS: Activated Partial Thrombo Time 32.2 Seconds (26.0-36.0)
[2016-11-29 11:27] LABS: Alanine Aminotransferase 31 Units/L (0-55); Albumin 4.3 g/dL (3.5-5.0); Albumin/Globulin Ratio 1.3 (1.1-2.2); Alkaline Phosphatase 68 Units/L (38-126); Aspartate Amino Transferase 20 Units/L (5-34); BUN/Creatinine Ratio 27 (6-26); Bilirubin,Direct 0.8 mg/dL (0.0-0.5); Bilirubin,Indirect 0.8 mg/dL (0.0-1.2); Bilirubin,Total 1.6 mg/dL (0.2-1.2); Blood Urea Nitrogen 22 mg/dL (7-20); Calcium 10.2 mg/dL (8.6-10.8); Carbon Dioxide 26 mEq/L (19-29); Chloride 103 mEq/L (98-109); Globulin 3.3 g/dL (2.4-3.5); Glucose 106 mg/dL (70-99); Magnesium 2.3 mg/dL (1.6-2.6); Osmolality,Calculated 292 (280-300); Potassium 2.9 mEq/L (3.5-4.5); Sodium 139 mEq/L (136-145); Total Protein 7.6 g/dL (6.0-8.3); eGFR For African Americans > 60 (> 60); eGFR For Non-African Americans > 60 (> 60)
[2016-11-29 11:28] LABS: Lipase < 4 Units/L (8-78)
[2016-11-29] MEDS ORDERED: Vancomycin 1,000 MG in D5% in Water 250 ML IVPB ONE (13:37)
[2016-11-29] MEDS ORDERED: Piperacillin/Tazobactam 3.375 GM in D5% in Water (Mini-Bag+) 100 ML IVPB ONE (13:37)
--- NOTE | 2016-11-29 13:42 | Emergency Department Note ---
Disposition Clinical Impression: Sepsis Qualifiers: Sepsis type: sepsis due to unspecified organism Qualified Code(s): A41.9 - Sepsis, unspecified organism Cellulitis Qualifiers: Site of cellulitis: extremity Site of cellulitis of extremity: lower extremity Laterality: left Qualified Code(s): L03.116 - Cellulitis of left lower limb Chest pain Qualifiers: Chest pain type: unspecified Qualified Code(s): R07.9 - Chest pain, unspecified Disposition: Admitted As Inpatient Condition: Serious Time of Disposition: 13:47 General Adult HPI - General Chief complaint: ED Fever Stated complaint: Low Potassium, Fever Time Seen by Provider: 11/29/16 10:55 Source: patient, EMS Limitations: no limitations Nursing Notes Reviewed: Yes Vital Signs Reviewed: Yes - History of Present Illness HPI Narrative: History 56-year-old female with past history for CHF, COPD, CAD, CVA, A. fib, hyperlipidemia, hypertension and previous OH presents with recent onset of fever chest pain of lower extremity pain shortness of breath times past 3 days with diarrhea as well. Patient was seen in the ED here just 1 day ago and discharged home this morning at 0400 hrs with diagnosis of hypokalemia. Patient states that she woke with sudden onset of chest pain shortness of breath 8/10 at bilateral inframammary lines. Patient also states that she has worsening cellulitis in the right lower extremity. Patient states she week and fatigue from the diarrhea over the past 2-3 days for which she bring up when she was assessed yesterday secondary to her inability to to think straight over the past few days. Pain Scale: 10 - Related Data Home Medications Medication Instructions Recorded Confirmed Albuterol Sulfate [Proair Hfa] 2 puff IH Q4H PRN 09/01/16 11/29/16 Bumetanide [Bumex] 1 mg PO QPM 09/01/16 11/29/16 Bumetanide [Bumex] 2 mg PO QAM 09/01/16 11/29/16 Carvedilol [Coreg] 3.125 mg PO BID 09/01/16 11/29/16 ClonazePAM [Klonopin] 0.5 mg PO BID 09/01/16 11/29/16 Esomeprazole Magnesium 20 mg PO DAILY 09/01/16 11/29/16 Fluticasone Propionate Nasal 2 spray NS DAILY 09/01/16 11/29/16 [Flonase] HydrOXYzine Pamoate [Vistaril] 50 mg PO TID 09/01/16 11/29/16 Levothyroxine Sodium 100 mcg PO DAILY 09/01/16 11/29/16 Methadone 10 mg PO BID 09/01/16 11/29/16 Polyethylene Glycol 3350 [MiraLAX] 17 gm PO DAILY 09/01/16 11/29/16 Promethazine [Phenergan] 25 mg PO HS 09/01/16 11/29/16 Topiramate 50 mg PO BID 09/01/16 11/29/16 Venlafaxine XR (24 HR) [Effexor Xr] 150 mg PO DAILY 09/01/16 11/29/16 Simethicone [Gas-X] 80 mg PO 1-2XD PRN 09/05/16 11/29/16 Hydrochlorothiazide 25 mg PO DAILY 11/29/16 11/29/16 Oxygen 1 each .ROUTE AD 11/29/16 11/29/16 Previous Rx's Medication Instructions Recorded Fluticasone/Salmeterol [Advair 1 each IH BID #1 blst.w.dev 09/05/16 250-50 Diskus] Tiotropium [Spiriva] 18 mcg IH DAILY #1 inh 09/05/16 Potassium Chloride 40 meq PO DAILY #14 tab.er.prt 11/29/16 Allergies Allergy/AdvReac Type Severity Reaction Status Date / Time chlorhexidine Allergy Rash Verified 09/01/16 21:40 [facility] All systems ED: reviewed and negative except as stated. Constitutional: Reports: fever. Denies: chills Eyes: Denies: vision change ENT ED: Denies: congestion Cardiovascular: Reports: chest pain, palpitations Respiratory: Denies: cough, dyspnea, wheezes Gastrointestinal: Reports: nausea, diarrhea. Denies: abdominal pain, vomiting Musculoskeletal: Reports: myalgia. Denies: back pain, neck pain Integumentary: Reports: lesions (Left lower extremity and old scars all over body from no skin infections) Neurological: Reports: headache, weakness (Generalized). Denies: numbness, paresthesias Endocrine: Reports: fatigue Past Medical History - Past Medical History Attestation: Yes The following information was validated with the patient. Medical history: Reports: arthritis, atrial fibrillation, cardiomyopathy, CHF, COPD, coronary artery disease, CVA, GERD, hepatitis, hyperlipidemia, hypertension, myocardial infarction, osteoporosis, pulmonary embolus, seizures, thyroid disease, valvular heart disease, other Surgical history: Reports: cholecystectomy, heart valve replacement, orthopedic , other (Bilateral carpal tunnel release. Right shoulder reconstruction surgery. Back surgery.), other (Bilateral carpal tunnel release. Tonsillectomy adenoidectomy.), vascular surgery (Tricuspid valve replacement surgery. Pacemaker implantation.), pacemaker Psychiatric history: Reports: anxiety, depression, other - Social History Smoking Status: Never smoker Smokeless Tobacco Status: No Alcohol use: Reports: none Drug use: Reports: none Physical Exam - General Limitations: no limitations General appearance: alert, anxious - Head Head exam: atraumatic, normocephalic, normal inspection - Eye Eye exam: Present: normal appearance, EOMI. Absent: scleral icterus, conjunctival injection - ENT ENT exam: normal exam, normal oropharynx, mucous membranes dry - Neck Neck exam: Present: normal inspection, full ROM, trachea midline. Absent: tenderness, meningismus, lymphadenopathy - Chest Chest inspection: Present: normal inspection, symmetric chest wall rise. Absent : tenderness - Respiratory Respiratory exam: Present: normal lung sounds bilaterally, respiratory distress. Absent: wheezes, accessory muscle use - Cardiovascular Cardiovascular exam: Present: regular rate, normal rhythm - Abdominal Exam Abdominal exam: Present: soft, tenderness - Extremities Exam Extremities exam: Present: normal capillary refill, pedal edema, other ( Erythematous lower extremity last two thirds of tibia to ankle.). Absent: normal inspection - Expanded Lower Extremity Exam Neurovascular/Tendon exam: Present: normal capillary refill - Neurological Exam Neurological exam: Present: alert, oriented X3, CN II-XII intact - Psychiatric Psychiatric exam: Present: normal affect, anxious - Skin Skin exam: Present: warm, dry, intact. Absent: normal color Course - Reevaluation(s) Reevaluation #1: Patient concerning for sepsis, cellulitis, chest pain secondary to ACS/OH, PE, COPD exacerbation, pneumonia. Plan: CBC, BMP, troponin, EKG, chest x-ray, lactate, peripheral cultures, UA, admitted and started on IV antibiotics Time: 10:55 Reevaluation #2: Patient's chest x-ray showed no acute intracranial thoracic abnormalities, patient's troponin was negative at 0.01, patient is hypokalemic at 2.9 and has elevated WBC of 16.2 from 8.1 earlier this a.m. Patient does not meet SIRS criteria for sepsis currently but does seem clinically ill with this possible source of infection with rapidly rising white blood cell count. Given patient's comorbidities. His patient's best interest to be treated for sepsis admitted to the hospital for further treatment and care. Patient will be started on vancomycin and Zosyn, 2 L of IV Darvocet has not started the patient. Time: 13:08 - Consultations Consultation #1: Dr. Sorensen the hospitalist has accepted patient for admission. Time: 13:47 Vital Signs Temperature 99.9 F H 11/29/16 10:40 Pulse Rate 70 11/29/16 10:40 Respiratory Rate 18 11/29/16 10:40 Blood Pressure 119/61 11/29/16 10:40 O2 Sat by Pulse Oximetry 95 11/29/16 10:40 Temperature 98.4 F 11/29/16 15:12 Pulse Rate 72 11/29/16 18:00 Respiratory Rate 14 11/29/16 18:00 Blood Pressure 86/51 11/29/16 18:00 O2 Sat by Pulse Oximetry 94 11/29/16 18:00 Oxygen Delivery Oxygen Delivery Nasal Cannula Medical Decision Making - Medical Records Medical records reviewed: Yes I reviewed the patient's medical records. Patient's previous ED admission shows elevation of white count of 8.1 and hypokalemia which patient was discharged and treated for. - Lab Data Lab results reviewed: Yes I reviewed the patient's lab results. Lab results narrative: Short CBC 11/29/16 Range/Units 10:53 WBC 16.2 H D (4.3-11.1) K/mcL Hgb 13.6 (11.5-15.4) g/dL Hct 40.2 (35.3-44.9) % Plt Count 170 (140-400) K/mcL Neutrophils # 13.8 H (1.6-8.9) K/mcL BMP 11/29/16 Range/Units 10:53 Sodium 139 (136-145) mEq/L Potassium 2.9 L (3.5-4.5) mEq/L Chloride 103 (98-109) mEq/L Carbon Dioxide 26 (19-29) mEq/L BUN 22 H (7-20) mg/dL Creatinine 0.82 (0.57-1.11) mg/dL Glucose 106 H (70-99) mg/dL Calcium 10.2 (8.6-10.8) mg/dL Cardiac Enzymes 11/29/16 Range/Units 10:53 Troponin I 0.01 (0-0.03) ng/mL Liver Function 11/29/16 Range/Units 10:53 Total Bilirubin 1.6 H (0.2-1.2) mg/dL Direct Bilirubin 0.8 H (0.0-0.5) mg/dL AST 20 (5-34) Units/L ALT 31 (0-55) Units/L Alkaline Phosphatase 68 (38-126) Units/L Albumin 4.3 (3.5-5.0) g/dL Urine 11/29/16 Range/Units 16:50 Urine Color Yellow (Yellow) Urine Clarity Clear (Clear) Urine pH 6.0 (5.0-8.0) pH Units Ur Specific Thayne 1.020 (1.010-1.025) Urine Protein Negative (Neg-Trace) mg/dL Urine Glucose (UA) Normal (Normal) mg/dL Result diagrams: 11/29/16 10:53 11/29/16 20:45 Lab Results 11/29/16 11/29/16 11/29/16 Range/Units 10:53 10:53 10:53 WBC 16.2 H D (4.3-11.1) K/mcL RBC 4.95 (3.82-4.97) M/mcL Hgb 13.6 (11.5-15.4) g/dL Hct 40.2 (35.3-44.9) % MCV 81.2 L (83.0-100.0) fL MCH 27.5 L (28.0-33.3) pg MCHC 33.8 (31.6-35.5) g/dL RDW 14.3 (11.5-14.5) % Plt Count 170 (140-400) K/mcL MPV 10.4 (9.4-12.4) fL Immature Gran % 0.7 (0-4) % Seg Neutrophils % 85.1 % Lymphocytes % 5.2 % Monocytes % 8.8 % Eosinophils % 0.0 % Basophils % 0.2 % Neutrophils # 13.8 H (1.6-8.9) K/mcL Lymphocytes # 0.8 (0.6-4.6) K/mcL Monocytes # 1.4 H (0.0-1.3) K/mcL Eosinophils # 0.0 (0.0-0.6) K/mcL Basophils # 0.0 (0.0-0.2) K/mcL PT 14.7 H (9.4-12.1) Seconds INR 1.4 APTT 32.2 (26.0-36.0) Seconds Sodium 139 (136-145) mEq/L Potassium 2.9 L (3.5-4.5) mEq/L Chloride 103 (98-109) mEq/L Carbon Dioxide 26 (19-29) mEq/L BUN 22 H (7-20) mg/dL Creatinine 0.82 (0.57-1.11) mg/dL Est GFR ( Amer) > 60 (> 60) Est GFR (Non-Af Amer) > 60 (> 60) BUN/Creatinine Ratio 27 H (6-26) Glucose 106 H (70-99) mg/dL Calculated Osmolality 292 (280-300) Lactic Acid (0.5-2.2) mmol/L Calcium 10.2 (8.6-10.8) mg/dL Phosphorus 2.0 L (2.3-4.7) mg/dL Magnesium 2.3 (1.6-2.6) mg/dL Total Bilirubin 1.6 H (0.2-1.2) mg/dL Direct Bilirubin 0.8 H (0.0-0.5) mg/dL Indirect Bilirubin 0.8 (0.0-1.2) mg/dL AST 20 (5-34) Units/L ALT 31 (0-55) Units/L Alkaline Phosphatase 68 (38-126) Units/L Troponin I (0-0.03) ng/mL Serum Total Protein 7.6 (6.0-8.3) g/dL Albumin 4.3 (3.5-5.0) g/dL Globulin 3.3 (2.4-3.5) g/dL Albumin/Globulin Ratio 1.3 (1.1-2.2) Lipase < 4 L (8-78) Units/L 11/29/16 11/29/16 11/29/16 Range/Units 10:53 10:53 13:37 WBC (4.3-11.1) K/mcL RBC (3.82-4.97) M/mcL Hgb (11.5-15.4) g/dL Hct (35.3-44.9) % MCV (83.0-100.0) fL MCH (28.0-33.3) pg MCHC (31.6-35.5) g/dL RDW (11.5-14.5) % Plt Count (140-400) K/mcL MPV (9.4-12.4) fL Immature Gran % (0-4) % Seg Neutrophils % % Lymphocytes % % Monocytes % % Eosinophils % % Basophils % % Neutrophils # (1.6-8.9) K/mcL Lymphocytes # (0.6-4.6) K/mcL Monocytes # (0.0-1.3) K/mcL Eosinophils # (0.0-0.6) K/mcL Basophils # (0.0-0.2) K/mcL PT (9.4-12.1) Seconds INR APTT (26.0-36.0) Seconds Sodium (136-145) mEq/L Potassium (3.5-4.5) mEq/L Chloride (98-109) mEq/L Carbon Dioxide (19-29) mEq/L BUN (7-20) mg/dL Creatinine (0.57-1.11) mg/dL Est GFR ( Amer) (> 60) Est GFR (Non-Af Amer) (> 60) BUN/Creatinine Ratio (6-26) Glucose (70-99) mg/dL Calculated Osmolality (280-300) Lactic Acid 1.3 0.9 (0.5-2.2) mmol/L Calcium (8.6-10.8) mg/dL Phosphorus (2.3-4.7) mg/dL Magnesium (1.6-2.6) mg/dL Total Bilirubin (0.2-1.2) mg/dL Direct Bilirubin (0.0-0.5) mg/dL Indirect Bilirubin (0.0-1.2) mg/dL AST (5-34) Units/L ALT (0-55) Units/L Alkaline Phosphatase (38-126) Units/L Troponin I 0.01 (0-0.03) ng/mL Serum Total Protein (6.0-8.3) g/dL Albumin (3.5-5.0) g/dL Globulin (2.4-3.5) g/dL Albumin/Globulin Ratio (1.1-2.2) Lipase (8-78) Units/L - Radiology Data Radiology results reviewed: Yes I reviewed the patient's radiology results. Abdomen/Pelvis CT 11/29/16 11:00 IMPRESSION: No acute abnormality identified. D/ / Uriel Cleveland MD / Uriel Cleveland MD Interpreting Provider: Uriel Cleveland MD - EKG Data EKG #1 EKG attestation: Yes I reviewed and interpreted this EKG. EKG results narrative: EKG taken 11/29/2016 at 1043 hrs. shows a paced rhythm at a rate of 76 beats. No signs of ischemia in any leads. No previous EKG for comparison. Critical Care Time Critical Care Time: Yes Total Critical Care Time: 35 Attestation: 5 minutes critical care time managing patient's cellulitis and sepsis. Attestation Statement - Attestation Attestation: Patient was seen with resident physician. I reviewed the history, physical, assessment and plan, and agree with the findings. I also personally evaluated this patient and had [id number] time with this patient. 56-year-old female presents emergency Department with chief complaint of leg pain and redness. Patient was seen in the hospital yesterday but did not really go through all of her complaints. Today she says she has increased redness and swelling of the left lower extremity in addition to chest pain and a variety of other symptoms or complaints. Patient has not had nausea or vomiting. On examination ENT is unremarkable. Heart and lungs are both normal. Abdomen is soft and could not elicit tenderness. Extremities patient has cellulitis with some swelling in the left lower extremity appears to wrap around the mid calf area. Neurologically patient has no focal neurologic deficits. Sepsis protocol was started for this patient IV antibiotics blood cultures were also done. With accommodation patient's chest pain history of low potassium and the cellulitic changes patient required hospitalization for IV antibiotic therapy. Hemodynamically she remained stable in the emergency department. Hospitalist was notified as needed for admission. Critical care time 35 minutes. I agree with the resident physician assessment plan.
--- NOTE | 2016-11-29 16:18 | Event Note ---
Date of Encounter: 11/29/16 Time of Encounter: 16:12 Patient seen and examined with nurse hidalgo. Patients with acute cellulitis with sepsis. She has cellulitis of the left leg that started this morning however she also has cellulitis of both arms. Rapidly spreading. No clinical evidence of absence formation. Blood cultures obtained in the emergency room. Will give 2 L bolus. Vancomycin and Zosyn. Systolic blood pressure 100s. Continue normal saline 125 mL an hour. Continuous telemetry monitoring. prognosis guarded
[2016-11-29] MEDS ORDERED: Naloxone 0.4 MG/ML INJ IVP PRN (16:29)
[2016-11-29] MEDS ORDERED: Acetaminophen 325 MG TABLET PO PRN (16:31)
[2016-11-29] MEDS ORDERED: Albuterol 2.5 MG/3 ML NEBULIZER IH PRN (16:43)
--- NOTE | 2016-11-29 16:43 | Internal Med History&Physical ---
Date of Encounter: 11/29/16 Time of Encounter: 16:00 Assessment and Plan (1) Sepsis Current visit: Yes Status: Acute 1 patient to have an elevated white count as well as tachycardia infectious source of cellulitis. Blood cultures have been obtained 2. Empirically with vancomycin and Zosyn 3 patient has a history of IV drug abuse is not a reliable source of when last used will check echo for possible endocarditis 4 patient was given 2 L IV fluid bolus will continue with maintenance IV fluids [address] [place] strict intake and output 6 maintain MAP greater than 60 7 we will obtain urinalysis Qualifiers: Sepsis type: sepsis due to unspecified organism Qualified Code(s): A41.9 - Sepsis, unspecified organism (2) Cellulitis Current visit: Yes Status: Acute 1 cellulitis to upper extremities bilaterally as well as left lower leg. Patient has history of IV drug abuse and is not reliable source, do not see any breast track mckeon at this time will obtain cardiac echo to rule out possible endocarditis 2. Empiric coverage vancomycin and Zosyn 3 blood cultures obtained we will adjust antibiotics to sensitivity Qualifiers: Site of cellulitis: extremity Site of cellulitis of extremity: lower extremity Laterality: left Qualified Code(s): L03.116 - Cellulitis of left lower limb (3) Schizophrenia Current visit: Yes Status: Acute 1 we will continue with home medications patient does follow with Dr. Garcia have patient follow-up as outpatient and consult as needed Qualifiers: Schizophrenia type: unspecified Qualified Code(s): F20.9 - Schizophrenia, unspecified (4) CHF (congestive heart failure) Current visit: No Status: Acute 1 04 obtain a cardiac echo. Presently we will hold Bumex and Coreg due to hypotension and sepsis. We will resume once patient back to baseline 2 monitor intake and output 3 daily weight 4 low sodium diet Qualifiers: Congestive heart failure type: unspecified congestive heart failure type Congestive heart failure chronicity: chronic Qualified Code(s): I50.9 - Heart failure, unspecified (5) Hypokalemia Current visit: No Status: Acute 1 patient's potassium is 2.9 patient given 40 mEq of by mouth potassium due to limited IV access. We will recheck potassium and replace as needed 2 continuous cardiac monitoring (6) COPD mixed type Current visit: No Status: Chronic 1 oxygen as needed and maintain SP tube and 19% 2 bronchodilators (7) Hypothyroidism Current visit: No Status: Chronic 1 continue with Synthroid Qualifiers: Hypothyroidism type: unspecified Qualified Code(s): E03.9 - Hypothyroidism , unspecified (8) DVT prophylaxis Current visit: Yes Status: Acute 1 [facility] Internal Medicine - H&P: HPI Chief complaint: fever Admitted From: Emergency Dept Plans for Post Hospital Care: Home History of present illness: Ms. Neumann is a 56 year old female patient with extensive medical history including arthritis H fibrillation cardiomyopathy congestive heart failure COPD coronary disease CVA GERD hepatitis B/c, seizure disorder hypothyroid valvular heart disease with tricuspid valve repair and pacemaker placement schizophrenia chronic back pain History of IV drug abuse. According to the patient approximately 2 days ago she began to experience diarrhea and nausea she had not been able to eat or drink. Last night she experienced a fever with chills.This morning she awoke with red warm rash to upper extremities bilaterally and left lower leg. She also has a raised red rash that she states is painful around her right thigh. She denies any recent sick exposures. Patient has a past history of IV drug use , denies any recent use states her last time she used was 2010. She presented to the ER above complaints. According to ER records lab work did reveal elevated white count of 16.[address] of abdomen was negative for any acute process. Patient had been seen yesterday and chest x-ray as well as CT of head was obtained which both were negative. Patient did have a low-grade temp 99.9 as well as tachycardic and hypotension with systolic in 70 . Substernal protocol was initiated she was given 2 IV fluid bolus blood cultures were obtained she was empirically covered with vancomycin and Zosyn. She was admitted for further workup and evaluation. Upon entering the room, patient seen beside her bed she did have a medicine dispenser was taking pills out advised patient not to take her own home medications at this time. Had some difficulty during the interview patient did have some flight of ideas and would need to be redirected. Presently she denies any pain or discomfort she does have warm red area to upper extremities bilaterally as well as left lower leg. I did not notice any fresh track mckeon patient denies any recent IV drug use. Blood pressure has improved with systolic low 100 I reviewed this case with Dr. Sorensen agrees with plan Past Med Surg Social Fam HX - Past Medical History Medical history: arthritis, atrial fibrillation, cardiomyopathy, CHF, COPD, coronary artery disease, CVA, GERD, hepatitis, hyperlipidemia, hypertension, myocardial infarction, osteoporosis, pulmonary embolus, seizures, thyroid disease, valvular heart disease, other Psychiatric history: anxiety, depression, other - Past Surgical History Surgical History: cholecystectomy, heart valve replacement, orthopedic, other ( Bilateral carpal tunnel release. Right shoulder reconstruction surgery. Back surgery.), other (Bilateral carpal tunnel release. Tonsillectomy adenoidectomy. ), vascular surgery (Tricuspid valve replacement surgery. Pacemaker implantation.), pacemaker - Social History Smoking Status: Never smoker Smokeless Tobacco Status: No Alcohol use: none Drug use: none - Family History Mother Living Status: Age at : 84 Hx Family Cancer: Yes (colon cancer) Hx Family Endocrine Disorder: Yes (RA) Father Age at : 40 Cause of : Alcohol Abuse Internal Medicine - H&P: Meds Albuterol Sulfate [Proair Hfa] 2 puff IH Q4H PRN 09/01/16 [History] Bumetanide [Bumex] 1 mg PO QPM 09/01/16 [History] Bumetanide [Bumex] 2 mg PO QAM 09/01/16 [History] Carvedilol [Coreg] 3.125 mg PO BID 09/01/16 [History] ClonazePAM [Klonopin] 0.5 mg PO BID 09/01/16 [History] Esomeprazole Magnesium 20 mg PO DAILY 09/01/16 [History] Fluticasone Propionate Nasal [Flonase] 2 spray NS DAILY 09/01/16 [History] HydrOXYzine Pamoate [Vistaril] 50 mg PO TID 09/01/16 [History] Levothyroxine Sodium 100 mcg PO DAILY 09/01/16 [History] Methadone 10 mg PO BID 09/01/16 [History] Polyethylene Glycol 3350 [MiraLAX] 17 gm PO DAILY 09/01/16 [History] Promethazine [Phenergan] 25 mg PO HS 09/01/16 [History] Topiramate 50 mg PO BID 09/01/16 [History] Venlafaxine XR (24 HR) [Effexor Xr] 150 mg PO DAILY 09/01/16 [History] Fluticasone/Salmeterol [Advair 250-50 Diskus] 1 each IH BID #1 blst.w.dev [Rx] Simethicone [Gas-X] 80 mg PO 1-2XD PRN 09/05/16 [History] Tiotropium [Spiriva] 18 mcg IH DAILY #1 inh 09/05/16 [Rx] Hydrochlorothiazide 25 mg PO DAILY 11/29/16 [History] Oxygen 1 each .ROUTE AD 11/29/16 [History] Potassium Chloride 40 meq PO DAILY #14 tab.er.prt 11/29/16 [Rx] Allergies chlorhexidine [From Hibiclens] Allergy (Verified 09/01/16 21:40) Rash All Systems PM: A 10-system review of systems was performed and is negative for pertinent findings except as documented above in the HPI. - Constitutional Constitutional: chills, fever(s) - Cardiovascular Cardiovascular ROS IM: no chest pain, no diaphoresis, no dyspnea, no lightheadedness, no palpitations, no syncope - Respiratory Respiratory: no cough, no dyspnea, no wheezing, no excessive phlegm production - Gastrointestinal Gastrointestinal: diarrhea, nausea - Genitourinary Genitourinary: no change in urinary stream, no dysuria, no flank pain, no hematuria - Musculoskeletal Musculoskeletal ROS IM: no numbness, no tingling - Integumentary Integumentary IM: erythema, new lesions - Neurological Neurological ROS: no confusion, no convulsions, no focal weakness, no numbness, no tingling, no tremor(s) - Constitutional Vitals: Temp Pulse Resp BP Pulse Ox 98.4 F 68 18 105/67 93 11/29/16 15:12 11/29/16 15:12 11/29/16 15:12 11/29/16 15:12 11/29/16 15:12 General appearance: Present: A&O X 3 - Head Head exam: Present: atraumatic, normocephalic - Eye Eye exam: Present: PERRL, conjuntiva pink, sclera anicteric Pupils: Present: PERRL - Neck Neck exam general surgery: Present: supple, trachea midline. Absent: lymphadenopathy - Respiratory Respiratory exam: Present: CTAB. Absent: accessory muscle use, rales, rhonchi, wheezes - Cardiovascular Cardiovascular exam: Present: RRR, +S1, +S2. Absent: diastolic murmur, gallop, rubs, systolic murmur - GI/Abdominal GI/Abdominal exam: Present: normal bowel sounds, soft, no peritoneal signs. Absent: distended, tenderness - Extremities Exam Extremities exam: Present: warm, radial pulses palpable and symetrical. Absent : calf tenderness, cyanotic, pedal edema - Expanded Upper Extremities Exam Upper Arm exam: Present: erythema, swelling - Expanded Lower Extremities Exam Lower Leg exam: Present: erythema, swelling - Neurological Exam Neurological exam: Present: CN II-XII intact, oriented X3, no focal deficits. Absent: pronater drift, facial droop, speech deficit - Expanded Psychiatric Exam Focused psych exam: Present: flight of ideas - Skin Skin exam: Present: erythema, rash Internal Med - H&P Results - Labs CBC & Chem 7: 11/29/16 10:53 11/29/16 20:45 - EKG Data EKG comments: 11/29/16 17:09 Paced rhythm - Diagnostic Studies Other Images Additional comments: Abdomen/Pelvis CT 11/29/16 11:00 IMPRESSION: No acute abnormality identified. D/ / Uriel Cleveland MD / Uriel Cleveland MD Interpreting Provider: Uriel Cleveland MD
[2016-11-29 17:14] LABS: Bilirubin,Urine Negative (Negative); Blood,Urine Moderate (Negative); Clarity,Urine Clear (Clear); Color,Urine Yellow (Yellow); Glucose,Urine (UA) Normal (Normal); Ketones,Urine Negative (Negative); Leukocyte Esterase,Urine Negative (Negative); Nitrite,Urine Negative (Negative); Protein,Urine Negative (Neg-Trace); Urobilinogen,Urine Normal (Normal)
[2016-11-29 17:25] LABS: Squamous Epithelial Cell,Urine Few per lpf (None-Few)
[2016-11-29] MEDS: 0.9 % Sodium Chloride 1,000 ML IVC SCH (18:14)
[2016-11-29 18:39] LABS: Amphetamine Screen,Urine Negative ng/mL (Cutoff=1000); Barbiturate Screen,Urine Negative ng/mL (Cutoff=200); Benzodiazepines Screen,Urine Negative ng/mL (Cutoff=200); Cannabinoid Screen,Urine Negative ng/mL (Cutoff = 50); Cocaine Screen,Urine Negative ng/mL (Cutoff= 300); Opiate Screen,Urine Negative ng/mL (Cutoff=300); Phencyclidine Screen,Urine Negative ng/mL (Cutoff=25)
[2016-11-29] MEDS: Piperacillin/Tazobactam 3.375 GM in D5% in Water (Mini-Bag+) 100 ML IVPB SCH (21:15)
[2016-11-29] MEDS ORDERED: 0.9 % Sodium Chloride 500 ML IVC ONE (21:43)
[2016-11-29] MEDS: Topiramate 25 MG TABLET PO SCH (21:52)
[2016-11-29] MEDS: clonazePAM 0.5 MG TABLET PO SCH (21:53)
[2016-11-29] MEDS: *HR* Methadone 10 MG TABLET PO SCH (21:53)
[2016-11-29] MEDS: Budesonide/Formoterol 80/4.5 MDI IH SCH (22:29)
[2016-11-30] MEDS ORDERED: Vancomycin 1,000 MG in D5% in Water 250 ML IVPB SCH (02:00)
[2016-11-30] MEDS: Ondansetron 4 MG/2 ML VIAL IVP PRN ×2 (02:13→23:07)
[2016-11-30] MEDS: 0.9 % Sodium Chloride 1,000 ML IVC SCH (02:14)
[2016-11-30] MEDS: *HR* Enoxaparin 40 MG/0.4 ML SYRINGE SQ SCH (05:34)
[2016-11-30] MEDS: Piperacillin/Tazobactam 3.375 GM in D5% in Water (Mini-Bag+) 100 ML IVPB SCH ×3 (05:34→21:08)
[2016-11-30 07:42] LABS: Basophils % 0.3 %; Eosinophils # 0.1 K/mcL (0.0-0.6); Eosinophils % 1.6 %; Hematocrit 34.7 % (35.3-44.9); Immature Granulocytes % 0.3 % (0-4); Lymphocytes % 16.5 %; Mean Corpuscular HGB Conc 32.9 g/dL (31.6-35.5); Mean Corpuscular Hemoglobin 27.7 pg (28.0-33.3); Mean Corpuscular Volume 84.2 fL (83.0-100.0); Mean Platelet Volume 11.2 fL (9.4-12.4); Monocytes # 0.7 K/mcL (0.0-1.3); Monocytes % 11.7 %; Neutrophils # 4.4 K/mcL (1.6-8.9); Platelet Count 110 K/mcL (140-400); Red Blood Count 4.12 M/mcL (3.82-4.97); Red Cell Distribution Width 14.6 % (11.5-14.5); Segmented Neutrophils % 69.6 %
[2016-11-30] MEDS: Budesonide/Formoterol 80/4.5 MDI IH SCH ×2 (08:02→19:56)
[2016-11-30] MEDS: Tiotropium 18 MCG inhalation IH SCH (08:03)
[2016-11-30 08:14] LABS: BUN/Creatinine Ratio 24 (6-26); Blood Urea Nitrogen 17 mg/dL (7-20); Calcium 8.7 mg/dL (8.6-10.8); Carbon Dioxide 17 mEq/L (19-29); Chloride 111 mEq/L (98-109); Glucose 80 mg/dL (70-99); Hemoglobin 11.4 g/dL (11.5-15.4); Osmolality,Calculated 287 (280-300); Potassium 2.8 mEq/L (3.5-4.5); Sodium 138 mEq/L (136-145); eGFR For African Americans > 60 (> 60); eGFR For Non-African Americans > 60 (> 60)
[2016-11-30] MEDS ORDERED: Vancomycin (wt based) 1,000 MG VIAL IVPB SCH (09:00)
--- NOTE | 2016-11-30 10:56 | Internal Med Progress Note ---
<Sony Miguel - Last Filed: 11/30/16 10:53> Date of Encounter: 11/30/16 Time of Encounter: 10:00 - Assessment and plan (1) Sepsis Current Visit: Yes Status: Acute Assessment and plan: Evidenced on admission with leukocytosis, tachypnea, suspected source cellulitis. Lactic acid not elevated. Received boluses of NS. Given hyperchloremic metabolic acidosis, will stop IVF at this time, monitor closely. Qualifiers: Sepsis type: sepsis due to unspecified organism Qualified Code(s): A41.9 - Sepsis, unspecified organism (2) Cellulitis Current Visit: Yes Status: Acute Assessment and plan: Left LE cellulitis, await cultures. Patient would express allergy to vancomycin (rash), unclear if hussein syndrome. Cont Zosyn, Bactrim Qualifiers: Site of cellulitis: extremity Site of cellulitis of extremity: lower extremity Laterality: left Qualified Code(s): L03.116 - Cellulitis of left lower limb (3) Metabolic acidosis with normal anion gap and bicarbonate losses Current Visit: Yes Status: Acute Assessment and plan: Patient reportedly had nv, possible GI losses of bicarb. Additionally Chloride on serum chemistry 111 suggests some saline-induced hyperchloremic metabolic acidosis. DC NS, start 1 tab sodium bicarb for today. Recheck in AM (4) Schizophrenia Current Visit: Yes Status: Acute Assessment and plan: Cont with home medications. May consult Dr. Villanueva psychiatrist as warranted. Qualifiers: Schizophrenia type: unspecified Qualified Code(s): F20.9 - Schizophrenia, unspecified (5) CHF (congestive heart failure) Current Visit: No Status: Acute Assessment and plan: Has remote echo 09/2014 EF 55% with porcine TVR Appears volume overloaded, most probable HFpEF (dastolic CHF) Monitor I/O, fluid restrict 1.8L daily. Qualifiers: Congestive heart failure type: unspecified congestive heart failure type Congestive heart failure chronicity: chronic Qualified Code(s): I50.9 - Heart failure, unspecified (6) Hypokalemia Current Visit: No Status: Acute Assessment and plan: Mg wnl, supplement with potassium elixir, 40mg PO BID, recheck in AM - Subjective Interval history: Pt seen/eval, she is resting comfortably. Discussed with nursing staff. Patient would have tangential speech, currently has sitter. Voices no complaints. - Constitutional Vitals: Temp Pulse Resp BP Pulse Ox 98.5 F 70 16 100/60 96 11/30/16 07:00 11/30/16 10:04 11/30/16 10:04 11/30/16 10:04 11/30/16 10:04 General appearance: Present: no acute distress - Head Head exam: Present: atraumatic, normocephalic - Eye Eye exam: Absent: periorbital swelling - Neck Neck exam general surgery: Present: normal inspection, trachea midline - Respiratory Respiratory exam: Present: CTAB. Absent: rhonchi, wheezes - Cardiovascular Cardiovascular exam: Present: +S1, +S2. Absent: JVD - GI/Abdominal GI/Abdominal exam: Present: soft, no peritoneal signs - Extremities Exam Extremities exam: Present: pedal edema, warm, radial pulses palpable and symetrical Additional comments: Left LE erythema with warmth from foot to mid-calf, marked with pen Internal Medicine: Result - Labs CBC & Chem 7: 11/30/16 07:00 11/30/16 07:00 Labs: Short CBC 11/30/16 Range/Units 07:00 WBC 6.3 D (4.3-11.1) K/mcL Hgb 11.4 L D (11.5-15.4) g/dL Hct 34.7 L (35.3-44.9) % Plt Count 110 L (140-400) K/mcL Neutrophils # 4.4 (1.6-8.9) K/mcL BMP 11/29/16 11/30/16 20:45 07:00 Sodium 138 Potassium 3.4 L 2.8 L Chloride 111 H Carbon Dioxide 17 L BUN 17 Creatinine 0.70 Glucose 80 Calcium 8.7 Urine 11/29/16 Range/Units 16:50 Urine Color Yellow (Yellow) Urine Clarity Clear (Clear) Urine pH 6.0 (5.0-8.0) pH Units Ur Specific [place] 1.020 (1.010-1.025) Urine Protein Negative (Neg-Trace) mg/dL Urine Glucose (UA) Normal (Normal) mg/dL - ABG Interpretation ABG results: PT/INR, D-dimer PT 14.7 Seconds (9.4-12.1) H 11/29/16 10:53 Consult Discharge Plan - Plan Referrals: Bettye Hou DO [Primary Care Provider] - <Rolan Rosales Valentino - Last Filed: 11/30/16 18:16> Date of Encounter: 11/30/16 - Assessment and plan (1) Cellulitis Current Visit: Yes Status: Acute Qualifiers: Site of cellulitis: extremity Site of cellulitis of extremity: lower extremity Laterality: left Qualified Code(s): L03.116 - Cellulitis of left lower limb (2) Sepsis Current Visit: Yes Status: Acute Qualifiers: Sepsis type: sepsis due to unspecified organism Qualified Code(s): A41.9 - Sepsis, unspecified organism (3) Hypertension Current Visit: No Status: Chronic Qualifiers: Hypertension type: essential hypertension Qualified Code(s): I10 - Essential (primary) hypertension (4) Schizophrenia Current Visit: Yes Status: Acute Qualifiers: Schizophrenia type: unspecified Qualified Code(s): F20.9 - Schizophrenia, unspecified - Constitutional Vitals: Temp Pulse Resp BP Pulse Ox 97.9 F 70 16 136/95 96 11/30/16 16:14 11/30/16 16:14 11/30/16 16:14 11/30/16 16:14 11/30/16 16:14 Internal Medicine: Result - Labs CBC & Chem 7: 11/30/16 07:00 11/30/16 07:00 Labs: Short CBC 11/30/16 Range/Units 07:00 WBC 6.3 D (4.3-11.1) K/mcL Hgb 11.4 L D (11.5-15.4) g/dL Hct 34.7 L (35.3-44.9) % Plt Count 110 L (140-400) K/mcL Neutrophils # 4.4 (1.6-8.9) K/mcL BMP 11/29/16 11/30/16 20:45 07:00 Sodium 138 Potassium 3.4 L 2.8 L Chloride 111 H Carbon Dioxide 17 L BUN 17 Creatinine 0.70 Glucose 80 Calcium 8.7 - ABG Interpretation ABG results: PT/INR, D-dimer PT 14.7 Seconds (9.4-12.1) H 11/29/16 10:53 - Attending Attestation I examined this patient and my medical decision-making was reviewed with the Resident Physician on 11/30/16. I agree with the documented findings, disposition and treatment plan as described except to the extent set forth below. Ms. Neumann is currently admitted for acute cellulitis of her L leg. She is high risk due to potential for worsening sepsis as well as psychologic issues. Ms. Neumann has been hallucinating. She is on IV abx. Her brother came in and spoke of [facility] psychiatric issues. She has begun frightening the neighbors and is unable to care for herself. Pt denies issues except requesting her home meds. Exam Alert. Restless Heart reg No wheeze Rash present I/P 1. Cellulitis - on IV abx 2. Schizophrenia with psychosis I have completed a pink slip. Will get psych eval. Further diagnoses and plan as above.
[2016-11-30] MEDS: Venlafaxine XR (24 HR) 150 MG CAP.ER.24H PO SCH (11:01)
[2016-11-30] MEDS: clonazePAM 0.5 MG TABLET PO SCH ×2 (11:01→21:08)
[2016-11-30] MEDS: Potassium Chloride Elixir 20 MEQ/15 ML UDC PO SCH ×2 (11:01→21:08)
[2016-11-30] MEDS: *HR* Methadone 10 MG TABLET PO SCH ×2 (11:01→21:08)
[2016-11-30] MEDS: Sulfamethoxazole/Trimeth DS 1 EACH TABLET PO SCH (11:01)
[2016-11-30] MEDS: Topiramate 25 MG TABLET PO SCH ×2 (13:15→21:08)
--- NOTE | 2016-11-30 19:26 | ECHO - Doppler Report ---
Echocardiogram Name: Yolanda Neumann Date of Study: 11/30/2016 Date: 1960 Ht: 62.0 in Medical Record#: [id number] Age: 56 Wt: 164.0 lb Gender: Female BSA: 1.76 Order #: [id number] Location: [facility] Room #: [id number] Reading Physician: Rico Monte MD, [facility] Restaurant Mgr: FRANCISCO JAVIER CuevaT Ordering Physician: Kristyn Barnes CNP Primary Physician: Bettye Hou DO Indications: Evaluate for endocarditis Impressions: Moderate-severe tricuspid stenosis with pacer lead present. LVEF 50-55%. Diastolic dysfunction, NOS Severely dilated RA No diagnostic vegetation visualized. If clinically indicated, VITOR would provide better diagnostic sensitivity. Consider cardiology consultation Left Ventricular Wall Motion: Rest Echo Findings All wall segments showed normal motion. Findings: Study Quality * Technically adequate exam. Right Ventricle * Normal right ventricular structure and function. Left Atrium * Normal left atrial size. Interatrial Septum * No evidence of PFO by color Doppler. Aorta * Normally sized aortic root. Pericardium * The pericardium appears normal. Mitral Valve * Normal mitral valve structure. * No mitral stenosis. * Trace mitral regurgitation. Pulmonic Valve * No pulmonic regurgitation. * No pulmonic stenosis. * Pulmonic valve is not well visualized. Aortic Valve * Aortic valve not well visualized. * Mild aortic regurgitation. * No aortic stenosis. Tricuspid Valve * Estimated RVSP is 16 mmHg. * Moderate tricuspid regurgitation. * Moderate-severe tricuspid stenosis. Left Ventricle * LVEF 50-55%. * Diastolic dysfunction, NOS IVC * The IVC is dilated. * < 50% respiratory change. Device lead * A device lead was visualized in the right atrium and right ventricle. History Hypertension Family History of CAD History of CAD/PTCA Myocardial Infarction Pacer/ICD Implant Valvular Disease Valve Replacement TV Prosthesis Biologic Measurements: BP: 112/ 71 2D Normal Values RVIDd: 2.50 cm <2.7 cm IVSd: 1.00 cm 0.6 - 1.0 cm LVIDd: 5.10 cm 3.7 - 5.6 cm LVPWd: 1.00 cm 0.6 - 1.1 cm LVIDs: 3.80 cm 1.5 - 3.6 cm AO: 2.30 cm < 4.0 cm LA: 4.20 cm 2.0 - 4.0cm %FS: 25.50 cm >25 % LA volume: 64 Mitral Valve Peak E:109.00 m/sec Peak A:39.50 m/sec E/A Ratio:2.8 Peak E' Lat Bashir:10.4 cm/s Peak E' Med Bashir:6 cm/s E/E' Lat Ratio:10.5 E/E' Med Ratio:18 Aortic Valve AI pressure Half-time: 507.00 msec Tricuspid Valve TV Peak Bashir:1.60 m/sec TV Mean Bashir:1.20 m/sec TV Peak Grad:10.00 mmHg TV Mean Grad:6.40 mmHg TV Regurg Peak Grad: 16.00mmHg TV Regurg Peak Bashir: 2.00m/sec Updated by Rico Monte MD, [facility] on 11/30/2016 7:15:51 PM electronically signed on 11/30/2016 7:21:56 PM with status of Final Wall Motion Caceres: 1=Normal, 2=Hypokinesis, 3=Akinesis, 4=Dyskinesis, 5=Aneurysmal, 6=Hyperkinetic, X=Not Visualized (Blank)=Missing
--- NOTE | 2016-11-30 20:18 | Electrocardiograph Report ---
[place] [id number] Test Date: 2016-11-29 Pat Name: Yolanda Neumann Department: 105 Room: [facility] Gender: F Felt Finisher: [facility] : 1960 Requested By: Roberto Collins Order Number: [id number] Reading MD: Rico Monte MD Measurements Intervals Ona Rate: 76 P: 82 MO: 157 QRS: -48 QRSD: 160 T: 100 QT: 448 QTc: 478 Interpretive Statements ELECTRONIC VENTRICULAR PACEMAKER ABNORMAL RHYTHM ECG Electronically Signed On 11-30-2016 20:16:49 EDT by Rico Monte MD
[2016-11-30] MEDS ORDERED: Simethicone 80 MG TAB.CHEW PO PRN (21:23)
[2016-12-01 05:46] LABS: BUN/Creatinine Ratio 21 (6-26); Blood Urea Nitrogen 15 mg/dL (7-20); Calcium 9.1 mg/dL (8.6-10.8); Carbon Dioxide 21 mEq/L (19-29); Chloride 112 mEq/L (98-109); Glucose 81 mg/dL (70-99); Magnesium 2.2 mg/dL (1.6-2.6); Osmolality,Calculated 286 (280-300); Sodium 138 mEq/L (136-145); eGFR For African Americans > 60 (> 60); eGFR For Non-African Americans > 60 (> 60)
[2016-12-01 05:51] LABS: Basophils % 0.4 %; Eosinophils # 0.2 K/mcL (0.0-0.6); Eosinophils % 3.6 %; Hematocrit 35.7 % (35.3-44.9); Hemoglobin 11.8 g/dL (11.5-15.4); Immature Granulocytes % 0.4 % (0-4); Lymphocytes % 23.1 %; Mean Corpuscular HGB Conc 33.1 g/dL (31.6-35.5); Mean Corpuscular Hemoglobin 27.8 pg (28.0-33.3); Mean Platelet Volume 11.2 fL (9.4-12.4); Monocytes # 0.5 K/mcL (0.0-1.3); Monocytes % 12.1 %; Neutrophils # 2.7 K/mcL (1.6-8.9); Platelet Count 112 K/mcL (140-400); Red Blood Count 4.25 M/mcL (3.82-4.97); Red Cell Distribution Width 14.8 % (11.5-14.5); Segmented Neutrophils % 60.4 %
[2016-12-01 05:55] LABS: Potassium 4.2 mEq/L (3.5-4.5)
[2016-12-01] MEDS: Piperacillin/Tazobactam 3.375 GM in D5% in Water (Mini-Bag+) 100 ML IVPB SCH (06:33)
[2016-12-01] MEDS: *HR* Enoxaparin 40 MG/0.4 ML SYRINGE SQ SCH (06:35)
[2016-12-01] MEDS: Tiotropium 18 MCG inhalation IH SCH (07:56)
[2016-12-01] MEDS: Budesonide/Formoterol 80/4.5 MDI IH SCH ×2 (07:56→20:08)
[2016-12-01] MEDS: Topiramate 25 MG TABLET PO SCH ×2 (09:35→22:38)
[2016-12-01] MEDS: Venlafaxine XR (24 HR) 150 MG CAP.ER.24H PO SCH (09:35)
[2016-12-01] MEDS: *HR* Methadone 10 MG TABLET PO SCH ×2 (09:35→22:38)
[2016-12-01] MEDS: Potassium Chloride Elixir 20 MEQ/15 ML UDC PO SCH (09:35)
[2016-12-01] MEDS: clonazePAM 0.5 MG TABLET PO SCH ×2 (09:36→22:38)
--- NOTE | 2016-12-01 09:46 | Internal Med Progress Note ---
Addendum entered and electronically signed by Sony Miguel DO 12/01/16 14:15: DC Zosyn. Cont Bactrim. Original Note: <Sony Miguel - Last Filed: 12/01/16 09:44> Date of Encounter: 12/01/16 Time of Encounter: 09:40 - Assessment and plan (1) Sepsis Current Visit: Yes Status: Acute Assessment and plan: Evidenced on admission with leukocytosis, tachypnea, suspected source cellulitis. Lactic acid not elevated. Received boluses of NS. Given hyperchloremic metabolic acidosis, will stop IVF at this time, monitor closely. Qualifiers: Sepsis type: sepsis due to unspecified organism Qualified Code(s): A41.9 - Sepsis, unspecified organism (2) Cellulitis Current Visit: Yes Status: Acute Assessment and plan: Left LE cellulitis, await cultures. Patient would express allergy to vancomycin (rash), unclear if hussein syndrome. Cont Zosyn, Bactrim Improved Ordered hydrocortisone ointment for Right thigh drug eruption rash. Qualifiers: Site of cellulitis: extremity Site of cellulitis of extremity: lower extremity Laterality: left Qualified Code(s): L03.116 - Cellulitis of left lower limb (3) Metabolic acidosis with normal anion gap and bicarbonate losses Current Visit: Yes Status: Acute Assessment and plan: Patient reportedly had nv, possible GI losses of bicarb. Additionally Chloride on serum chemistry 111 suggests some saline-induced hyperchloremic metabolic acidosis. DC NS, start 1 tab sodium bicarb for today. Recheck in AM 12/01 Improved Bicarb 21 (4) Schizophrenia Current Visit: Yes Status: Acute Assessment and plan: Cont with home medications. Placed psychiatry consult Dr. Villanueva, appreciate recs Qualifiers: Schizophrenia type: unspecified Qualified Code(s): F20.9 - Schizophrenia, unspecified (5) CHF (congestive heart failure) Current Visit: No Status: Acute Assessment and plan: Has remote echo 09/2014 EF 55% with porcine TVR Appears volume overloaded, most probable HFpEF (dastolic CHF) Monitor I/O, fluid restrict 1.8L daily. Qualifiers: Congestive heart failure type: unspecified congestive heart failure type Congestive heart failure chronicity: chronic Qualified Code(s): I50.9 - Heart failure, unspecified (6) Hypokalemia Current Visit: No Status: Resolved Assessment and plan: Mg wnl, supplement with potassium elixir, 40mg PO BID, recheck in AM Resolved - Subjective Interval history: Pt seen/eval, she is sitting up in bed eating breakfast. AO x 3, voices no fever , chills, chest pain, dyspnea. Feels itchy at right thigh rash site. Voices no other concerns. - Constitutional Vitals: Temp Pulse Resp BP Pulse Ox 97.5 F L 71 16 116/75 93 12/01/16 07:54 12/01/16 07:54 12/01/16 07:56 12/01/16 07:56 12/01/16 07:56 General appearance: Present: no acute distress, answers questions appropriately - Head Head exam: Present: atraumatic, normocephalic - Eye Eye exam: Present: EOMI, sclera anicteric - ENT ENT exam: Present: mucous membranes moist - Neck Neck exam general surgery: Present: supple, trachea midline - Respiratory Respiratory exam: Absent: accessory muscle use, rhonchi, wheezes - Cardiovascular Cardiovascular exam: Present: +S1, +S2. Absent: JVD - GI/Abdominal GI/Abdominal exam: Present: soft, no peritoneal signs. Absent: tenderness - Extremities Exam Extremities exam: Present: warm, radial pulses palpable and symetrical Additional comments: Right thigh circumferential papular rash c/w drug eruption. Left LE calf cellulitis has receded to lower ankle. Internal Medicine: Result - Labs CBC & Chem 7: 12/01/16 04:43 12/01/16 04:43 Labs: Short CBC 12/01/16 Range/Units 04:43 WBC 4.5 (4.3-11.1) K/mcL Hgb 11.8 (11.5-15.4) g/dL Hct 35.7 (35.3-44.9) % Plt Count 112 L (140-400) K/mcL Neutrophils # 2.7 (1.6-8.9) K/mcL BMP 12/01/16 04:43 Sodium 138 Potassium 4.2 D Chloride 112 H Carbon Dioxide 21 BUN 15 Creatinine 0.72 Glucose 81 Calcium 9.1 - ABG Interpretation ABG results: PT/INR, D-dimer PT 14.7 Seconds (9.4-12.1) H 11/29/16 10:53 Consult Discharge Plan - Plan Referrals: Bettye Hou DO [Primary Care Provider] - <Rolan Rosales - Last Filed: 12/01/16 19:58> Date of Encounter: 12/01/16 - Assessment and plan (1) Cellulitis Current Visit: Yes Status: Acute Qualifiers: Site of cellulitis: extremity Site of cellulitis of extremity: lower extremity Laterality: left Qualified Code(s): L03.116 - Cellulitis of left lower limb (2) Sepsis Current Visit: Yes Status: Acute Qualifiers: Sepsis type: sepsis due to unspecified organism Qualified Code(s): A41.9 - Sepsis, unspecified organism (3) Hypertension Current Visit: No Status: Chronic Qualifiers: Hypertension type: essential hypertension Qualified Code(s): I10 - Essential (primary) hypertension (4) Schizophrenia Current Visit: Yes Status: Acute Qualifiers: Schizophrenia type: undifferentiated schizophrenia Qualified Code(s): F20.3 - Undifferentiated schizophrenia - Constitutional Vitals: Temp Pulse Resp BP Pulse Ox 98.0 F 81 18 148/99 94 12/01/16 18:48 12/01/16 18:48 12/01/16 18:48 12/01/16 18:48 12/01/16 18:48 Internal Medicine: Result - Labs CBC & Chem 7: 12/01/16 04:43 12/01/16 04:43 Labs: Short CBC 12/01/16 Range/Units 04:43 WBC 4.5 (4.3-11.1) K/mcL Hgb 11.8 (11.5-15.4) g/dL Hct 35.7 (35.3-44.9) % Plt Count 112 L (140-400) K/mcL Neutrophils # 2.7 (1.6-8.9) K/mcL BMP 12/01/16 04:43 Sodium 138 Potassium 4.2 D Chloride 112 H Carbon Dioxide 21 BUN 15 Creatinine 0.72 Glucose 81 Calcium 9.1 - ABG Interpretation ABG results: PT/INR, D-dimer PT 14.7 Seconds (9.4-12.1) H 11/29/16 10:53 - Attending Attestation I examined this patient and my medical decision-making was reviewed with the Resident Physician on 12/01/16. I agree with the documented findings, disposition and treatment plan as described except to the extent set forth below. Ms. Neumann is currently admitted for acute cellulitis and psychotic exacerbation. She is moderate to high risk due to potential for worsening psychiatric issues. Ms. Neumann is resting comfortably. She denies new issues. No fever or chills. No GI symptoms. Cellulitis is improving. Exam Alert. Comfortable Leg is improving as is rash Heart reg No wheeze I/P 1. Cellulitis 2. Psychosis - psych eval Further diagnoses and plan as above.
[2016-12-01] MEDS: Sulfamethoxazole/Trimeth DS 1 EACH TABLET PO SCH (09:50)
[2016-12-01] MEDS: Hydrocortisone 1% OINT 28 GM TUBE TP SCH ×2 (14:46→22:39)
[2016-12-02] MEDS: *HR* Enoxaparin 40 MG/0.4 ML SYRINGE SQ SCH (05:14)
[2016-12-02 07:02] LABS: Eosinophils # 0.2 K/mcL (0.0-0.6); Hematocrit 37.5 % (35.3-44.9); Hemoglobin 12.1 g/dL (11.5-15.4); Mean Corpuscular HGB Conc 32.3 g/dL (31.6-35.5); Mean Corpuscular Hemoglobin 26.8 pg (28.0-33.3); Mean Corpuscular Volume 83.1 fL (83.0-100.0); Mean Platelet Volume 11.2 fL (9.4-12.4); Platelet Count 135 K/mcL (140-400); Red Blood Count 4.51 M/mcL (3.82-4.97)
[2016-12-02 07:10] LABS: BUN/Creatinine Ratio 23 (6-26); Blood Urea Nitrogen 16 mg/dL (7-20); Calcium 9.2 mg/dL (8.6-10.8); Carbon Dioxide 19 mEq/L (19-29); Chloride 109 mEq/L (98-109); Glucose 81 mg/dL (70-99); Osmolality,Calculated 278 (280-300); Potassium 4.4 mEq/L (3.5-4.5); Sodium 134 mEq/L (136-145); eGFR For African Americans > 60 (> 60); eGFR For Non-African Americans > 60 (> 60)
[2016-12-02] MEDS: Tiotropium 18 MCG inhalation IH SCH (08:15)
[2016-12-02] MEDS: Budesonide/Formoterol 80/4.5 MDI IH SCH ×2 (08:15→22:39)
[2016-12-02 08:23] LABS: Monocytes # 0.3 K/mcL (0.0-1.3); Neutrophils # 2.5 K/mcL (1.6-8.9)
[2016-12-02 08:24] LABS: Platelet Estimate Normal (Normal)
--- NOTE | 2016-12-02 09:02 | Internal Med Progress Note ---
<Sony Miguel - Last Filed: 12/02/16 10:47> Date of Encounter: 12/02/16 Time of Encounter: 08:35 - Assessment and plan (1) Sepsis Current Visit: Yes Status: Acute Assessment and plan: Evidenced on admission with leukocytosis, tachypnea, suspected source cellulitis. Lactic acid not elevated. Received boluses of NS. 11/29 BC x 2 neg Improved Qualifiers: Sepsis type: sepsis due to unspecified organism Qualified Code(s): A41.9 - Sepsis, unspecified organism (2) Cellulitis Current Visit: Yes Status: Acute Assessment and plan: Left LE cellulitis, await cultures. Patient would express allergy to vancomycin (rash), unclear if hussein syndrome. Cont Bactrim Improved Ordered hydrocortisone ointment for Right thigh drug eruption rash. Qualifiers: Site of cellulitis: extremity Site of cellulitis of extremity: lower extremity Laterality: left Qualified Code(s): L03.116 - Cellulitis of left lower limb (3) Discomfort of right hip Current Visit: Yes Status: Acute Assessment and plan: No hematoma noted. Order for Right hip xray. Will send for C-spine and T-spine XR, as she has discomfort there as well. (4) Metabolic acidosis with normal anion gap and bicarbonate losses Current Visit: Yes Status: Acute Assessment and plan: Patient reportedly had nv, possible GI losses of bicarb. Additionally Chloride on serum chemistry 111 suggests some saline-induced hyperchloremic metabolic acidosis. DC NS, start 1 tab sodium bicarb for today. Recheck in AM Resolved. (5) Schizophrenia Current Visit: Yes Status: Acute Assessment and plan: Cont with home medications. Placed psychiatry consult Dr. Villanueva on 11/30, appreciate recs Qualifiers: Schizophrenia type: undifferentiated schizophrenia Qualified Code(s): F20.3 - Undifferentiated schizophrenia (6) CHF (congestive heart failure) Current Visit: No Status: Acute Assessment and plan: Has remote echo 09/2014 EF 55% with porcine TVR Appears volume overloaded, most probable HFpEF (dastolic CHF) Monitor I/O, fluid restrict 1.8L daily. Qualifiers: Congestive heart failure type: unspecified congestive heart failure type Congestive heart failure chronicity: chronic Qualified Code(s): I50.9 - Heart failure, unspecified - Subjective Interval history: Pt seen/eval, she is reporting that prior to arrival she was running down the street to catch up with her dog. Had felt her Right hip with pain, localized, unable to sleep well. Voices no other concerns. - Constitutional Vitals: Temp Pulse Resp BP Pulse Ox 98.1 F 72 18 142/88 94 12/02/16 06:20 12/02/16 06:20 12/02/16 08:17 12/02/16 06:20 12/02/16 08:17 General appearance: Present: no acute distress, answers questions appropriately - Head Head exam: Present: atraumatic, normocephalic - Eye Eye exam: Present: EOMI, sclera anicteric - ENT ENT exam: Present: mucous membranes moist - Neck Neck exam general surgery: Present: supple, trachea midline - Respiratory Respiratory exam: Absent: rhonchi, wheezes - Cardiovascular Cardiovascular exam: Present: +S1, +S2. Absent: JVD - GI/Abdominal GI/Abdominal exam: Present: soft, no peritoneal signs. Absent: tenderness - Extremities Exam Extremities exam: Present: warm, radial pulses palpable and symetrical Additional comments: Left LE lower ankle cellulitis improved. Right upper thigh with papular rash, improved on steroid cream. Pain elicited to palpation of external aspect hip joint, distally NVI. Internal Medicine: Result - Labs CBC & Chem 7: 12/02/16 06:40 12/02/16 06:40 Labs: Short CBC 12/02/16 Range/Units 06:40 WBC 4.0 L (4.3-11.1) K/mcL Hgb 12.1 (11.5-15.4) g/dL Hct 37.5 (35.3-44.9) % Plt Count 135 L (140-400) K/mcL Neutrophils # 2.5 (1.6-8.9) K/mcL BMP 12/02/16 06:40 Sodium 134 L Potassium 4.4 Chloride 109 Carbon Dioxide 19 BUN 16 Creatinine 0.70 Glucose 81 Calcium 9.2 - ABG Interpretation ABG results: PT/INR, D-dimer PT 14.7 Seconds (9.4-12.1) H 11/29/16 10:53 Consult Discharge Plan - Plan Referrals: Bettye Hou DO [Primary Care Provider] - <Brian Angeles P - Last Filed: 12/02/16 18:19> Date of Encounter: 12/02/16 - Constitutional Vitals: Temp Pulse Resp BP Pulse Ox 98.2 F 70 17 155/98 97 12/02/16 15:31 12/02/16 15:31 12/02/16 15:31 12/02/16 15:31 12/02/16 15:31 Internal Medicine: Result - Labs CBC & Chem 7: 12/02/16 06:40 12/02/16 06:40 Labs: Short CBC 12/02/16 Range/Units 06:40 WBC 4.0 L (4.3-11.1) K/mcL Hgb 12.1 (11.5-15.4) g/dL Hct 37.5 (35.3-44.9) % Plt Count 135 L (140-400) K/mcL Neutrophils # 2.5 (1.6-8.9) K/mcL BMP 12/02/16 06:40 Sodium 134 L Potassium 4.4 Chloride 109 Carbon Dioxide 19 BUN 16 Creatinine 0.70 Glucose 81 Calcium 9.2 - ABG Interpretation ABG results: PT/INR, D-dimer PT 14.7 Seconds (9.4-12.1) H 11/29/16 10:53 - Impressions Impressions Hip X-Ray 12/02/16 08:58 IMPRESSION: 1. Unremarkable radiographs of the pelvis and right hip. D/ / 12/02/2016 09:54:27 Thomas Petty MD / Cecelia Castle Interpreting Provider: Thomas Petty MD Cervical Spine X-Ray 12/02/16 10:45 IMPRESSION: 1. Stable three-view cervical spine demonstrating remote fusion at C4-5 and C5-6 with reversed lordosis and degenerative disc disease at C6-7. Multilevel facet arthropathy . 2. No acute osseous abnormality of the thoracic spine. D/ / Peña Shah MD / Peña Shah MD Interpreting Provider: Peña Shah MD Thoracic Spine X-Ray 12/02/16 10:45 IMPRESSION: 1. Stable three-view cervical spine demonstrating remote fusion at C4-5 and C5-6 with reversed lordosis and degenerative disc disease at C6-7. Multilevel facet arthropathy . 2. No acute osseous abnormality of the thoracic spine. D/ / Peña Shah MD / Peña Shah MD Interpreting Provider: Peña Shah MD - Attending Attestation I examined this patient and my medical decision-making was reviewed with the DRAMATIC AGENT/PA/Advanced Practice Nurse/Resident Physician. I agree with the documented findings, disposition and treatment plan as described except to the extent set forth below. appreciated psy input possible home tomorrow
[2016-12-02] MEDS: *HR* Methadone 10 MG TABLET PO SCH (10:04)
[2016-12-02] MEDS: Sulfamethoxazole/Trimeth DS 1 EACH TABLET PO SCH (10:04)
[2016-12-02] MEDS: Topiramate 25 MG TABLET PO SCH ×2 (10:04→20:58)
[2016-12-02] MEDS: Venlafaxine XR (24 HR) 150 MG CAP.ER.24H PO SCH (10:04)
[2016-12-02] MEDS: clonazePAM 0.5 MG TABLET PO SCH ×2 (10:04→20:59)
[2016-12-02] MEDS: Hydrocortisone 1% OINT 28 GM TUBE TP SCH ×2 (10:09→20:59)
--- NOTE | 2016-12-02 12:43 | Consult Note ---
Date of Encounter: 12/02/16 Time of Encounter: 11:55 Assessment & Recommendation (1) Major depressive disorder with psychotic features Current visit: Yes Status: Acute Assessment & Recommendation: Recommendations: 1. Patient would benefit from small dose of antipsychotic medication like Abilify 2 mg daily 2. Patient is established with Dr. Martinez at [facility] and scheduled to see her in the near future 3. There are no acute psychiatric condition that requires inpatient psychiatric treatment at this time. Patient may be discharged when medically stable. Thank you for consultation Qualifiers: Major depression recurrence: recurrent Active/Remission status: currently active Major depression episode severity: severe Qualified Code(s): F33.3 - Major depressive disorder, recurrent, severe with psychotic symptoms History of Present Illness Patient: new to practice Requesting Physician: Brian Angeles MD Reason for consult: psychosis History of present illness: Ms. Neumann is a 56 year old female admitted to the hospital for treatment of hypokalemia and sepsis and metabolic changes. Psychiatric consultation was requested to evaluate psychosis. Review of the records and discussion with the attending physician Dr. Angeles and nurse practitioner Rolan Rosales indicated that patient had history of schizophrenia ,some of the history information was given by her brother. patient was reported having congregational preoccupation and talking about exorcism on herself ,there was also indication that she was irritable and uncooperative with treatment early in admission , then she was accepting treatment. her metabolic status was improving over time.there was report that prior to admission she disturbed the neighbors and police was involved and there is suggestion the patient had mental health and substance abuse history. On interview with the patient's was calm and cooperative pleasant and she told me that she follow-up with Dr. Horta psychiatrist at [facility] and she prescribed medication for her including Effexor and Topamax and Klonopin patient stated that she is taking her medication as prescribed and she denies any auditory or visual hallucinations and did not present any delusional speech during my interview. She denied any previous suicide attempts. CC: Brian Angeles MD Past Med Surg Social Fam HX - Past Medical History Medical history: arthritis, atrial fibrillation, cardiomyopathy, CHF, COPD, coronary artery disease, CVA, GERD, hepatitis, hyperlipidemia, hypertension, myocardial infarction, osteoporosis, pulmonary embolus, seizures, thyroid disease, valvular heart disease, other - Past Psychiatric History Psychiatric history: Reports: schizophrenia Past psychiatric history details: no records available Family psychiatric history: Unknown Family History of Suicide: Unknown - Past Surgical History Surgical History: cholecystectomy, heart valve replacement, orthopedic, other ( Bilateral carpal tunnel release. Right shoulder reconstruction surgery. Back surgery.), other (Bilateral carpal tunnel release. Tonsillectomy adenoidectomy. ), vascular surgery (Tricuspid valve replacement surgery. Pacemaker implantation.), pacemaker - Social History Smoking Status: Never smoker Smokeless Tobacco Status: No Alcohol use: none Drug use: none - Family History Mother Living Status: Age at : 84 Hx Family Cancer: Yes (colon cancer) Hx Family Endocrine Disorder: Yes (RA) Father Age at : 40 Cause of : Alcohol Abuse Medications & Allergies Albuterol Sulfate [Proair Hfa] 2 puff IH Q4H PRN 09/01/16 [History] Bumetanide [Bumex] 1 mg PO QPM 09/01/16 [History] Bumetanide [Bumex] 2 mg PO QAM 09/01/16 [History] Carvedilol [Coreg] 3.125 mg PO BID 09/01/16 [History] ClonazePAM [Klonopin] 0.5 mg PO BID 09/01/16 [History] Esomeprazole Magnesium 20 mg PO DAILY 09/01/16 [History] Fluticasone Propionate Nasal [Flonase] 2 spray NS DAILY 09/01/16 [History] HydrOXYzine Pamoate [Vistaril] 50 mg PO TID 09/01/16 [History] Levothyroxine Sodium 100 mcg PO DAILY 09/01/16 [History] Methadone 10 mg PO BID 09/01/16 [History] Polyethylene Glycol 3350 [MiraLAX] 17 gm PO DAILY 09/01/16 [History] Promethazine [Phenergan] 25 mg PO HS 09/01/16 [History] Topiramate 50 mg PO BID 09/01/16 [History] Venlafaxine XR (24 HR) [Effexor Xr] 150 mg PO DAILY 09/01/16 [History] Fluticasone/Salmeterol [Advair 250-50 Diskus] 1 each IH BID #1 blst.w.dev [Rx] Simethicone [Gas-X] 80 mg PO 1-2XD PRN 09/05/16 [History] Tiotropium [Spiriva] 18 mcg IH DAILY #1 inh 09/05/16 [Rx] Hydrochlorothiazide 25 mg PO DAILY 11/29/16 [History] Oxygen 1 each .ROUTE AD 11/29/16 [History] Potassium Chloride 40 meq PO DAILY #14 tab.er.prt 11/29/16 [Rx] Allergies chlorhexidine [From Hibiclens] Allergy (Verified 09/01/16 21:40) Rash vancomycin Allergy (Verified 11/30/16 01:29) Rash Mental Status Exam Patient orientation: Yes Person, Yes Time, Yes Place Level of alertness: Alert Patient appearance: Appropriate, Well Groomed Behavior: calm, cooperative, guarded Psychomotor activity: Normal Eye contact: Maintains Eye Contact Mood description: Euthymic/stable Affect description: congruent with mood, labile Speech pattern: Normal rate, Normal rhythm, Normal tone Speech volume: Normal Thought process: Linear, Goal Oriented Thought content: No Suicidal ideation, No Homicidal ideation, No Overt delusions Perceptual disturbances: No Auditory hallucinations, No Visual hallucinations Attention span: Capable of Focused Attention Memory description: Grossly Intact Patient reliability: Reliable Historian Intelligence estimate: Average Judgment: Limited Insight: Partial Results - Vital Signs Vital signs: Temp Pulse Resp BP Pulse Ox 98.2 F 82 18 117/85 96 12/02/16 10:37 12/02/16 10:37 12/02/16 10:37 12/02/16 10:37 12/02/16 10:37 - Labs Labs: Laboratory Last Values WBC 4.0 K/mcL (4.3-11.1) L 12/02/16 06:40 RBC 4.51 M/mcL (3.82-4.97) 12/02/16 06:40 Hgb 12.1 g/dL (11.5-15.4) 12/02/16 06:40 Hct 37.5 % (35.3-44.9) 12/02/16 06:40 MCV 83.1 fL (83.0-100.0) 12/02/16 06:40 MCH 26.8 pg (28.0-33.3) L 12/02/16 06:40 MCHC 32.3 g/dL (31.6-35.5) 12/02/16 06:40 RDW 15.0 % (11.5-14.5) H 12/02/16 06:40 Plt Count 135 K/mcL (140-400) L 12/02/16 06:40 MPV 11.2 fL (9.4-12.4) 12/02/16 06:40 Immature Gran % 0.4 % (0-4) 12/01/16 04:43 Seg Neutrophils % 63.0 % 12/02/16 06:40 Lymphocytes % 25.0 % 12/02/16 06:40 Monocytes % 7.0 % 12/02/16 06:40 Eosinophils % 5.0 % 12/02/16 06:40 Basophils % 0.4 % 12/01/16 04:43 Neutrophils # 2.5 K/mcL (1.6-8.9) 12/02/16 06:40 Lymphocytes # 1.0 K/mcL (0.6-4.6) 12/02/16 06:40 Monocytes # 0.3 K/mcL (0.0-1.3) 12/02/16 06:40 Eosinophils # 0.2 K/mcL (0.0-0.6) 12/02/16 06:40 Basophils # 0.0 K/mcL (0.0-0.2) 12/01/16 04:43 Platelet Estimate Normal (Normal) 12/02/16 06:40 PT 14.7 Seconds (9.4-12.1) H 11/29/16 10:53 INR 1.4 11/29/16 10:53 APTT 32.2 Seconds (26.0-36.0) 11/29/16 10:53 Sodium 134 mEq/L (136-145) L 12/02/16 06:40 Potassium 4.4 mEq/L (3.5-4.5) 12/02/16 06:40 Chloride 109 mEq/L (98-109) 12/02/16 06:40 Carbon Dioxide 19 mEq/L (19-29) 12/02/16 06:40 BUN 16 mg/dL (7-20) 12/02/16 06:40 Creatinine 0.70 mg/dL (0.57-1.11) 12/02/16 06:40 Est GFR ( Amer) > 60 (> 60) 12/02/16 06:40 Est GFR (Non-Af Amer) > 60 (> 60) 12/02/16 06:40 BUN/Creatinine Ratio 23 (6-26) 12/02/16 06:40 Glucose 81 mg/dL (70-99) 12/02/16 06:40 Calculated Osmolality 278 (280-300) L 12/02/16 06:40 Lactic Acid 0.6 mmol/L (0.5-2.2) 11/30/16 07:00 Calcium 9.2 mg/dL (8.6-10.8) 12/02/16 06:40 Phosphorus 2.0 mg/dL (2.3-4.7) L 11/29/16 10:53 Magnesium 2.2 mg/dL (1.6-2.6) 12/01/16 04:43 Total Bilirubin 1.6 mg/dL (0.2-1.2) H 11/29/16 10:53 Direct Bilirubin 0.8 mg/dL (0.0-0.5) H 11/29/16 10:53 Indirect Bilirubin 0.8 mg/dL (0.0-1.2) 11/29/16 10:53 AST 20 Units/L (5-34) 11/29/16 10:53 ALT 31 Units/L (0-55) 11/29/16 10:53 Alkaline Phosphatase 68 Units/L (38-126) 11/29/16 10:53 Troponin I 0.01 ng/mL (0-0.03) 11/29/16 10:53 Serum Total Protein 7.6 g/dL (6.0-8.3) 11/29/16 10:53 Albumin 4.3 g/dL (3.5-5.0) 11/29/16 10:53 Globulin 3.3 g/dL (2.4-3.5) 11/29/16 10:53 Albumin/Globulin Ratio 1.3 (1.1-2.2) 11/29/16 10:53 Lipase < 4 Units/L (8-78) L 11/29/16 10:53 Urine Color Yellow (Yellow) 11/29/16 16:50 Urine Clarity Clear (Clear) 11/29/16 16:50 Urine pH 6.0 pH Units (5.0-8.0) 11/29/16 16:50 Ur Specific Dennison 1.020 (1.010-1.025) 11/29/16 16:50 Urine Protein Negative mg/dL (Neg-Trace) 11/29/16 16:50 Urine Glucose (UA) Normal mg/dL (Normal) 11/29/16 16:50 Urine Ketones Negative mg/dL (Negative) 11/29/16 16:50 Urine Blood Moderate (Negative) H 11/29/16 16:50 Urine Nitrite Negative (Negative) 11/29/16 16:50 Urine Bilirubin Negative (Negative) 11/29/16 16:50 Urine Urobilinogen Normal mg/dL (Normal) 11/29/16 16:50 Ur Leukocyte Esterase Negative (Negative) 11/29/16 16:50 Ur Squamous Epith Cells Few per lpf (None-Few) 11/29/16 16:50 Ur Culture Indicated? NO (NO) 11/29/16 16:50 Urine Opiates Screen Negative ng/mL (Vqbavl=494) 11/29/16 18:20 Ur Barbiturates Screen Negative ng/mL (Zzljfn=495) 11/29/16 18:20 Ur Phencyclidine Scrn Negative ng/mL (Cutoff=25) 11/29/16 18:20 Ur Amphetamines Screen Negative ng/mL (Lgaabe=4559) 11/29/16 18:20 U Benzodiazepines Scrn Negative ng/mL (Wxzanh=067) 11/29/16 18:20 Urine Cocaine Screen Negative ng/mL (Cutoff= 300) 11/29/16 18:20 U Marijuana (THC) Screen Negative ng/mL (Cutoff = 50) 11/29/16 18:20 - Impressions Impressions Hip X-Ray 12/02/16 08:58 IMPRESSION: 1. Unremarkable radiographs of the pelvis and right hip. D/ / 12/02/2016 09:54:27 Thomas Petty MD / Cecelia Castle Interpreting Provider: Thomas Petty MD Consult Discharge Plan - Plan Referrals: Bettye Hou DO [Primary Care Provider] -
[2016-12-02] MEDS ORDERED: *HR* FentaNYL PATCH 25 MCG PATCH TD SCH (16:15)
[2016-12-02] MEDS ORDERED: ARIPiprazole 2 MG TABLET PO SCH (21:00)
[2016-12-03 05:25] LABS: Eosinophils # 0.3 K/mcL (0.0-0.6); Eosinophils % 6.3 %; Hemoglobin 12.7 g/dL (11.5-15.4); Immature Granulocytes % 0.3 % (0-4); Lymphocytes # 1.4 K/mcL (0.6-4.6); Lymphocytes % 35.3 %; Mean Corpuscular HGB Conc 32.6 g/dL (31.6-35.5); Mean Corpuscular Hemoglobin 26.9 pg (28.0-33.3); Mean Corpuscular Volume 82.6 fL (83.0-100.0); Mean Platelet Volume 10.5 fL (9.4-12.4); Monocytes # 0.6 K/mcL (0.0-1.3); Monocytes % 14.9 %; Neutrophils # 1.7 K/mcL (1.6-8.9); Platelet Count 146 K/mcL (140-400); Red Blood Count 4.72 M/mcL (3.82-4.97); Red Cell Distribution Width 14.9 % (11.5-14.5); Segmented Neutrophils % 42.2 %
[2016-12-03 05:53] LABS: Reactive Lymphocytes Present (Not Present)
[2016-12-03 05:54] LABS: Platelet Estimate Normal (Normal)
[2016-12-03 06:36] VITALS: BP 154/77
[2016-12-03] MEDS: *HR* Enoxaparin 40 MG/0.4 ML SYRINGE SQ SCH (06:56)
[2016-12-03 07:41] LABS: BUN/Creatinine Ratio 25 (6-26); Blood Urea Nitrogen 18 mg/dL (7-20); Calcium 9.6 mg/dL (8.6-10.8); Carbon Dioxide 20 mEq/L (19-29); Chloride 111 mEq/L (98-109); Glucose 89 mg/dL (70-99); Osmolality,Calculated 289 (280-300); Potassium 4.4 mEq/L (3.5-4.5); Sodium 139 mEq/L (136-145); eGFR For African Americans > 60 (> 60); eGFR For Non-African Americans > 60 (> 60)
--- NOTE | 2016-12-03 08:30 | Discharge Summary ---
<Sony Miguel - Last Filed: 12/03/16 08:26> Date of Encounter: 12/03/16 Time of Encounter: 08:25 - Discharge Diagnosis (1) Sepsis Priority: Primary Status: Acute Qualifiers: Sepsis type: sepsis due to unspecified organism Qualified Code(s): A41.9 - Sepsis, unspecified organism (2) Cellulitis Priority: Primary Status: Acute Qualifiers: Site of cellulitis: extremity Site of cellulitis of extremity: lower extremity Laterality: left Qualified Code(s): L03.116 - Cellulitis of left lower limb (3) Discomfort of right hip Priority: Secondary Status: Acute (4) Metabolic acidosis with normal anion gap and bicarbonate losses Priority: Secondary Status: Acute (5) Schizophrenia Priority: Primary Status: Acute Qualifiers: Schizophrenia type: undifferentiated schizophrenia Qualified Code(s): F20.3 - Undifferentiated schizophrenia (6) CHF (congestive heart failure) Priority: Secondary Status: Chronic Qualifiers: Congestive heart failure type: unspecified congestive heart failure type Congestive heart failure chronicity: chronic Qualified Code(s): I50.9 - Heart failure, unspecified - Discharge Medications Prescriptions: Aripiprazole [Abilify] 2 mg PO HS #20 tablet Budesonide/Formoterol 80/4.5 [Symbicort 80/4.5] 2 puff IH BIDR #1 inhaler Hydrocortisone 1% OINT [Cortaid] 1 appl TP BID #1 tube Sulfamethoxazole/Trimeth DS [Bactrim Ds] 1 each PO DAILY #4 tablet Home Medications: Albuterol Sulfate [Proair Hfa] 2 puff IH Q4H PRN 09/01/16 [History] Bumetanide [Bumex] 1 mg PO QPM 09/01/16 [History] Bumetanide [Bumex] 2 mg PO QAM 09/01/16 [History] Carvedilol [Coreg] 3.125 mg PO BID 09/01/16 [History] ClonazePAM [Klonopin] 0.5 mg PO BID 09/01/16 [History] Esomeprazole Magnesium 20 mg PO DAILY 09/01/16 [History] Fluticasone Propionate Nasal [Flonase] 2 spray NS DAILY 09/01/16 [History] HydrOXYzine Pamoate [Vistaril] 50 mg PO TID 09/01/16 [History] Levothyroxine Sodium 100 mcg PO DAILY 09/01/16 [History] Methadone 10 mg PO BID 09/01/16 [History] Polyethylene Glycol 3350 [MiraLAX] 17 gm PO DAILY 09/01/16 [History] Promethazine [Phenergan] 25 mg PO HS 09/01/16 [History] Topiramate 50 mg PO BID 09/01/16 [History] Venlafaxine XR (24 HR) [Effexor Xr] 150 mg PO DAILY 09/01/16 [History] Fluticasone/Salmeterol [Advair 250-50 Diskus] 1 each IH BID #1 blst.w.dev [Rx] Simethicone [Gas-X] 80 mg PO 1-2XD PRN 09/05/16 [History] Tiotropium [Spiriva] 18 mcg IH DAILY #1 inh 09/05/16 [Rx] Hydrochlorothiazide 25 mg PO DAILY 11/29/16 [History] Oxygen 1 each .ROUTE AD 11/29/16 [History] Potassium Chloride 40 meq PO DAILY #14 tab.er.prt 11/29/16 [Rx] Aripiprazole [Abilify] 2 mg PO HS #20 tablet 12/03/16 [Rx] Budesonide/Formoterol 80/4.5 [Symbicort 80/4.5] 2 puff IH BIDR #1 inhaler 12/03 [Rx] Hydrocortisone 1% OINT [Cortaid] 1 appl TP BID #1 tube 12/03/16 [Rx] Sulfamethoxazole/Trimeth DS [Bactrim Ds] 1 each PO DAILY #4 tablet 12/03/16 [Rx] Allergies/Adverse Reactions: Allergies chlorhexidine [From Hibiclens] Allergy (Verified 09/01/16 21:40) Rash vancomycin Allergy (Verified 11/30/16 01:29) Rash Procedures/tests Complete & Pending: Procedures Performed prior 72 hours Category Date Time Status EV echocardiogram Routine Y 11/30/16 16:35 Completed Date of admission: 11/29/16 16:29 Primary care physician: Bettye Hou DO Consults: 11/30/16 19:02 Consult to Psychiatry [CONS] Routine Consulting Provider: Psychiatry Leeann Reason for Consult: Psychosis Time Notified: 19:00 Call Completed: Yes 12/01/16 13:39 Consult to Operations Vocational Instructor [CONS] Routine Reason for SW Consult: Eval for resources, thanks. - Patient Status Disposition: Left Against Medical Advice Condition: Serious Functional capacity at discharge: independent ambulation Overall status at discharge: patient is progressing back to baseline - Discharge Instructions Instructions: Sulfamethoxazole/Trimethoprim (By mouth), Hydrocortisone (On the skin), Aripiprazole (By mouth), Budesonide/Formoterol (By breathing), Chest Pain (DC), Cellulitis (DC), Depression (DC), Sepsis (DC) Follow Up With: Bettye Hou DO [Primary Care Provider] - Lili Villanueva MD [Partnered Physician] - (1-2 wks, schizophrenia) - Diet and Activity Activity: increase activity as tolerated Diet: advance to your usual diet Hospital course: Ms. Neumann is a 56 year old female Patient would present to [facility] with chief concern: fever, accompanied by left LE swelling suggestive of cellulitis. Comorbidities include: cardiomyopathy, CHF, COPD, coronary artery disease, CVA, GERD, hepatitis, hyperlipidemia, hypertension, myocardial infarction, osteoporosis, pulmonary embolus, seizures, thyroid disease, valvular heart disease, anxiety, depression Hospital course: Initial impression LLE cellulitis Patient would undergo treatment with empiric antibiotics, vancomycin, transitioned to bactrim. 11/29 BC x 2 neg She was noted to have right thigh papular rash suggestive of drug eruption, hydrocortisone ointment applied. Imaging studies disclosed: Abdomen/Pelvis CT 11/29/16 11:00 IMPRESSION: No acute abnormality identified. Hip X-Ray 12/02/16 08:58 IMPRESSION: 1. Unremarkable radiographs of the pelvis and right hip. Cervical Spine X-Ray 12/02/16 10:45 IMPRESSION: 1. Stable three-view cervical spine demonstrating remote fusion at C4-5 and C5-6 with reversed lordosis and degenerative disc disease at C6-7. Multilevel facet arthropathy . 2. No acute osseous abnormality of the thoracic spine. Thoracic Spine X-Ray 12/02/16 10:45 IMPRESSION: 1. Stable three-view cervical spine demonstrating remote fusion at C4-5 and C5-6 with reversed lordosis and degenerative disc disease at C6-7. Multilevel facet arthropathy . 2. No acute osseous abnormality of the thoracic spine. Per nursing documentation, patient would have events comprising: Patient states that she has direct contact with god, and that he wanted me to give her my number. Patient also states that our bodies all have demons in them, and that we have to pound them out by fist, and say "get out demons." Patient stated that we may have to hit our bodies really hard; to pound out the demons in our flesh. Patient would suddenly stop talking to me; and start her own conversation and said that, god wanted my the fiber optic central office installer name plus give her my phone number and she needed to direct me personally after leaving this hospital. Psychiatry consult regarding suspected psychosis in setting of schizophrenia. Recommendation that patient would benefit from small dose of antipsychotic medication like Abilify 2 mg daily. She is established with Dr. Martinez at [facility] and scheduled to see her in the near future At time of discharge, patient was clinically improved with regards to cellulitis treatment. She would elect to leave against medical advice. She was offered continued treatment and close monitoring and she declined. She was advised that failure to complete treatment course may lead to worsening cellulitis, sepsis, organ failure, . Patient was advised to seek immediate medical attention for any new or worsening symptoms including but not limited to fever, chills, chest pain, chest pressure, dyspnea, cough, abdominal pain, nausea, vomiting, diarrhea, bloody stool, urine and the patient voiced understanding. Patient will follow-up with psychiatrist Dr. Villanueva. To complete 4 more days of bactrim for cellulitis treatment. - Time Spent with Patient Total time spent providing and/or coordinating discharge services: Greater than 30 minutes - Constitutional Vitals: Temp Pulse Resp BP Pulse Ox 97.9 F 70 16 154/77 95 12/03/16 06:34 12/03/16 06:34 12/03/16 06:34 12/03/16 06:34 12/03/16 06:34 General appearance: Present: no acute distress, answers questions appropriately - Head Head exam: Present: atraumatic, normocephalic - Eye Eye exam: Present: EOMI - Neck Neck exam general surgery: Present: trachea midline - Respiratory Respiratory exam: Present: CTAB - Cardiovascular Cardiovascular exam: Present: +S1, +S2 Additional comments: midline sternal scar <Brian Angeles P - Last Filed: 12/07/16 17:55> Date of Encounter: 12/07/16 Date of admission: 11/29/16 16:29 Primary care physician: Bettye Hou DO Consults: 11/30/16 19:02 Consult to Psychiatry [CONS] Routine Consulting Provider: Fabi Bradshaw Reason for Consult: Psychosis Time Notified: 19:00 Call Completed: Yes 12/01/16 13:39 Consult to Operations Vocational Instructor [CONS] Routine Reason for SW Consult: Eval for resources, thanks. Hospital course: Ms. Neumann is a 56 year old female - Time Spent with Patient Total time spent providing and/or coordinating discharge services: - Constitutional Vitals: Temp Pulse Resp BP Pulse Ox 97.9 F 70 16 154/77 95 12/03/16 06:34 12/03/16 06:34 12/03/16 06:34 12/03/16 06:34 12/03/16 06:34 - Attending Attestation I examined this patient and my medical decision-making was reviewed with the PHARMACIST INTERN/PA/Advanced Practice Nurse/Resident Physician. I agree with the documented findings, disposition and treatment plan as described except to the extent set forth below.
[2016-12-03] MEDS: Tiotropium 18 MCG inhalation IH SCH (10:45)
[2016-12-03] MEDS: Budesonide/Formoterol 80/4.5 MDI IH SCH (10:45)
== END 2016-12-03 10:50 | disposition left against medical advice (07) | DRG 872 ==
LOC: 2NENU 10:38 → EMEROO 10:38 → 2NENU 14:52 → SUATTDRO 16:29 → 2NENU 22:21
PROVIDERS: ADMIT Hospitalist; ATTEND Internal Medicine

== ENCOUNTER 2016-12-10 20:42 | Inpatient (IN) ==
[2016-12-10 21:15] LABS: Bilirubin,Urine Negative (Negative); Blood,Urine Negative (Negative); Clarity,Urine Cloudy (Clear); Color,Urine Dark Yellow (Yellow); Glucose,Urine (UA) Normal (Normal); Ketones,Urine Negative (Negative); Leukocyte Esterase,Urine Small (Negative); Nitrite,Urine Negative (Negative); PH,Urine 6.5 pH Units (5.0-8.0); Protein,Urine 30 mg/dL (Neg-Trace); Specific Gravity,Urine 1.025 (1.010-1.025); Urobilinogen,Urine Normal (Normal)
[2016-12-10 21:16] LABS: Hyaline Casts,Urine None Seen per lpf (None-Few); RBC,Urine 0-3 per hpf (0-3); Squamous Epithelial Cell,Urine Many per lpf (None-Few); WBC,Urine 0-3 per hpf (0-3)
[2016-12-10 21:20] LABS: Amphetamine Screen,Urine Negative ng/mL (Cutoff=1000); Barbiturate Screen,Urine Negative ng/mL (Cutoff=200); Benzodiazepines Screen,Urine Negative ng/mL (Cutoff=200); Cannabinoid Screen,Urine Negative ng/mL (Cutoff = 50); Cocaine Screen,Urine Negative ng/mL (Cutoff= 300); Opiate Screen,Urine Negative ng/mL (Cutoff=300); Phencyclidine Screen,Urine Negative ng/mL (Cutoff=25)
[2016-12-10 21:28] LABS: Bacteria,Urine Moderate per hpf (None-Few)
[2016-12-10 21:51] LABS: BUN/Creatinine Ratio 25 (6-26); Blood Urea Nitrogen 19 mg/dL (7-20); Calcium 9.9 mg/dL (8.6-10.8); Carbon Dioxide 19 mEq/L (19-29); Chloride 109 mEq/L (98-109); Glucose 86 mg/dL (70-99); Osmolality,Calculated 288 (280-300); Potassium 3.8 mEq/L (3.5-4.5); Sodium 138 mEq/L (136-145); eGFR For African Americans > 60 (> 60); eGFR For Non-African Americans > 60 (> 60)
[2016-12-10 21:53] LABS: Acetaminophen < 1.0 mcg/mL (10-30); Ethanol < 10 mg/dL (0-10); Salicylate < 5.0 mg/dL (15-30)
--- NOTE | 2016-12-10 21:59 | Emergency Department Note ---
Disposition Clinical Impression: Chronic schizophrenia Disposition: Still a Patient Condition: Fair Referrals: NO,PCP [Primary Care Provider] - Forms: ED Satisfaction Letter Time of Disposition: 23:08 Psych HPI - General Chief Complaint: ED Psychiatric Symptoms Stated Complaint: psych Time Seen by Provider: 12/10/16 20:45 Source: patient, EMS Mode of arrival: EMS Nursing Notes Reviewed: Yes Vital Signs Reviewed: Yes - History of Present Illness HPI Narrative: Patient presents to the emergency room with acute manic episode. Please were called to a neighborhood with the patient was going to order door knocking on doors in saying that she was given a diet. She said she could not go into her house secondary to the of the inside of there. Patient according to EMS was just transported and discharged from a psychiatric facility. They were called to bring her into the emergency room for repeat evaluation. 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 Duration: constant History of similar episodes: Yes Improves with: none Worsens with: none Context: not taking psychiatric medications, new medication(s) Alleged intoxication: No Associated Psychiatric Symptoms: racing thoughts, delusions Associated symptoms: Reports: denies other symptoms Traumatic symptoms: denies traumatic injury Treatments prior to arrival: none Self harm or harm to others: denies thoughts of harming self/others - Related Data Home Medications Medication Instructions Recorded Confirmed Albuterol Sulfate [Proair Hfa] 2 puff IH Q4H PRN 09/01/16 11/29/16 Bumetanide [Bumex] 1 mg PO QPM 09/01/16 11/29/16 Bumetanide [Bumex] 2 mg PO QAM 09/01/16 11/29/16 Carvedilol [Coreg] 3.125 mg PO BID 09/01/16 11/29/16 ClonazePAM [Klonopin] 0.5 mg PO BID 09/01/16 11/29/16 Esomeprazole Magnesium 20 mg PO DAILY 09/01/16 11/29/16 Fluticasone Propionate Nasal 2 spray NS DAILY 09/01/16 11/29/16 [Flonase] HydrOXYzine Pamoate [Vistaril] 50 mg PO TID 09/01/16 11/29/16 Levothyroxine Sodium 100 mcg PO DAILY 09/01/16 11/29/16 Methadone 10 mg PO BID 09/01/16 11/29/16 Polyethylene Glycol 3350 [MiraLAX] 17 gm PO DAILY 09/01/16 11/29/16 Promethazine [Phenergan] 25 mg PO HS 09/01/16 11/29/16 Topiramate 50 mg PO BID 09/01/16 11/29/16 Venlafaxine XR (24 HR) [Effexor Xr] 150 mg PO DAILY 09/01/16 11/29/16 Simethicone [Gas-X] 80 mg PO 1-2XD PRN 09/05/16 11/29/16 Hydrochlorothiazide 25 mg PO DAILY 11/29/16 11/29/16 Oxygen 1 each .ROUTE AD 11/29/16 11/29/16 Previous Rx's Medication Instructions Recorded Fluticasone/Salmeterol [Advair 1 each IH BID #1 blst.w.dev 09/05/16 250-50 Diskus] Tiotropium [Spiriva] 18 mcg IH DAILY #1 inh 09/05/16 Potassium Chloride 40 meq PO DAILY #14 tab.er.prt 11/29/16 Aripiprazole [Abilify] 2 mg PO HS #20 tablet 12/03/16 Budesonide/Formoterol 80/4.5 2 puff IH BIDR #1 inhaler 12/03/16 [Symbicort 80/4.5] Hydrocortisone 1% OINT [Cortaid] 1 appl TP BID #1 tube 12/03/16 Sulfamethoxazole/Trimeth DS 1 each PO DAILY #4 tablet 12/03/16 [Bactrim Ds] Allergies Allergy/AdvReac Type Severity Reaction Status Date / Time chlorhexidine Allergy Rash Verified 09/01/16 21:40 [From Hibiclens] vancomycin Allergy Rash Verified 11/30/16 01:29 All systems ED: reviewed and negative except as stated. Cardiovascular: Denies: chest pain Psychiatric: Denies: anxiety, depression Past Medical History - Past Medical History Attestation: Yes The following information was validated with the patient. Source: patient Medical history: Reports: atrial fibrillation, cardiomyopathy, CHF, GERD, hepatitis, hyperlipidemia, hypertension, myocardial infarction, osteoporosis, pulmonary embolus, seizures, thyroid disease, valvular heart disease, other Surgical history: Reports: cholecystectomy, heart valve replacement, orthopedic , other (Bilateral carpal tunnel release. Right shoulder reconstruction surgery. Back surgery.), other (Bilateral carpal tunnel release. Tonsillectomy adenoidectomy.), vascular surgery (Tricuspid valve replacement surgery. Pacemaker implantation.), pacemaker Psychiatric history: Reports: anxiety, depression, schizophrenia, other - Social History Smoking Status: Never smoker Smokeless Tobacco Status: No Alcohol use: Reports: none Drug use: Reports: none Physical Exam - General Limitations: no limitations General appearance: alert, in no apparent distress - Chest Chest inspection: Present: normal inspection, symmetric chest wall rise. Absent : tenderness - Respiratory Respiratory exam: Present: normal lung sounds bilaterally. Absent: respiratory distress, accessory muscle use - Cardiovascular Cardiovascular exam: Present: regular rate, normal rhythm, normal heart sounds - Abdominal Exam Abdominal exam: Present: soft, Non-Tender, normal bowel sounds. Absent: tenderness, distention, guarding, rebound, rigidity - Extremities Exam Extremities exam: Present: normal inspection, full ROM - Back Exam Back exam: Present: normal inspection, full ROM. Absent: tenderness - Neurological Exam Neurological exam: Present: alert, oriented X3, CN II-XII intact, normal gait - Psychiatric Psychiatric exam: Present: agitated, manic. Absent: homicidal ideation, suicidal ideation - Skin Skin exam: Present: warm, dry, intact, normal color Course Course Narrative: Patient seen and examined at the time of arrival. See history of present illness. 56-year-old female brought in by [facility] today after please were called to her house. She had a walking around the neighborhood telling everybody that the devil was in her home and that she could not go in there. She is speaking crazily. She has a psychiatric history has been evaluated and treated as an inpatient several times. She has no medications that were started on the discharge today. Patient has not been able to take them. Patient was brought in by EMS today after walking up and down the street because in the devil was in her house and she could not go in there and the people trying to kill her. Patient in transfer had no issues she is calm and noncombative. Arrival here shows well-appearing female she is telling me directly that she is going to in the next several minutes and that people are talking to her. Vital signs reviewed and they are stable. Patient had medical clearance at this time for psychiatric evaluation to be completed. Daily patient is not suicidal or homicidal but manic. Disposition pending treatment course. Lungs are clear heart is regular abdomen is soft. Patient has multiple other medical conditions do not appear to have acute onset at this time. EKG and laboratory workup at this point. Patient still resting comfortably in the bed disposition pending treatment course and psychiatric evaluation - Reevaluation(s) Reevaluation #1: Patient to be signed out to the nighttime physician Dr. meyers detailed review the patient's presentation symptoms and previous medical evaluations are discussed. The psychiatric team has been at the bedside and they are discussing admission process at this time. This will be completed by the overnight physician. No other issues or concerns at this time.i. Time: 23:08 Vital Signs Temperature 98.7 F 12/10/16 20:44 Pulse Rate 78 12/10/16 20:44 Respiratory Rate 18 12/10/16 20:44 Blood Pressure 131/81 12/10/16 20:44 O2 Sat by Pulse Oximetry 94 12/10/16 20:44 Temperature 98.7 F 12/10/16 20:44 Pulse Rate 78 12/10/16 20:44 Respiratory Rate 18 12/10/16 20:44 Blood Pressure 131/81 12/10/16 20:44 O2 Sat by Pulse Oximetry 94 12/10/16 20:44 Oxygen Delivery Oxygen Delivery Room Air Psych - MDM Narrative Medical decision making narrative: Acute manic episode. Auditory hallucinations - Lab Data Lab results reviewed: Yes I reviewed the patient's lab results. Result diagrams: 12/10/16 22:08 12/10/16 21:29 Lab Results 12/10/16 12/10/16 12/10/16 Range/Units 21:02 21:10 21:29 WBC (4.3-11.1) K/mcL RBC (3.82-4.97) M/mcL Hgb (11.5-15.4) g/dL Hct (35.3-44.9) % MCV (83.0-100.0) fL MCH (28.0-33.3) pg MCHC (31.6-35.5) g/dL RDW (11.5-14.5) % Plt Count (140-400) K/mcL MPV (9.4-12.4) fL Immature Gran % (0-4) % Seg Neutrophils % % Lymphocytes % % Monocytes % % Eosinophils % % Basophils % % Neutrophils # (1.6-8.9) K/mcL Lymphocytes # (0.6-4.6) K/mcL Monocytes # (0.0-1.3) K/mcL Eosinophils # (0.0-0.6) K/mcL Basophils # (0.0-0.2) K/mcL Nucleated RBCs/100 WBC (0) /100 WBC Immature Plt Fraction (1.1-6.1) % Sodium 138 (136-145) mEq/L Potassium 3.8 (3.5-4.5) mEq/L Chloride 109 (98-109) mEq/L Carbon Dioxide 19 (19-29) mEq/L BUN 19 (7-20) mg/dL Creatinine 0.77 (0.57-1.11) mg/dL Est GFR ( Amer) > 60 (> 60) Est GFR (Non-Af Amer) > 60 (> 60) BUN/Creatinine Ratio 25 (6-26) Glucose 86 (70-99) mg/dL Calculated Osmolality 288 (280-300) Calcium 9.9 (8.6-10.8) mg/dL Urine Color Dark Yellow (Yellow) Urine Clarity Cloudy A (Clear) Urine pH 6.5 (5.0-8.0) pH Units Ur Specific [place] 1.025 (1.010-1.025) Urine Protein 30 H (Neg-Trace) mg/dL Urine Glucose (UA) Normal (Normal) mg/dL Urine Ketones Negative (Negative) mg/dL Urine Blood Negative (Negative) Urine Nitrite Negative (Negative) Urine Bilirubin Negative (Negative) Urine Urobilinogen Normal (Normal) mg/dL Ur Leukocyte Esterase Small H (Negative) Urine Microscopic RBC 0-3 (0-3) per hpf Urine Microscopic WBC 0-3 (0-3) per hpf Ur Squamous Epith Cells Many H (None-Few) per lpf Urine Bacteria Moderate H (None-Few) per hpf Hyaline Casts None Seen (None-Few) per lpf Salicylates < 5.0 L (15-30) mg/dL Urine Opiates Screen Negative (Mrpukt=947) ng/mL Acetaminophen < 1.0 L (10-30) mcg/mL Ur Barbiturates Screen Negative (Unecro=595) ng/mL Ur Phencyclidine Scrn Negative (Cutoff=25) ng/mL Ur Amphetamines Screen Negative (Xszdbv=0758) ng/mL U Benzodiazepines Scrn Negative (Giprdj=370) ng/mL Urine Cocaine Screen Negative (Cutoff= 300) ng/mL U Marijuana (THC) Screen Negative (Cutoff = 50) ng/mL Ethyl Alcohol < 10 (0-10) mg/dL Specimen Rejected 12/10/16 12/10/16 Range/Units 21:29 22:08 WBC 6.4 (4.3-11.1) K/mcL RBC 5.08 H (3.82-4.97) M/mcL Hgb 13.7 (11.5-15.4) g/dL Hct 40.9 (35.3-44.9) % MCV 80.5 L (83.0-100.0) fL MCH 27.0 L (28.0-33.3) pg MCHC 33.5 (31.6-35.5) g/dL RDW 14.8 H (11.5-14.5) % Plt Count 181 (140-400) K/mcL MPV 10.5 (9.4-12.4) fL Immature Gran % 1.1 (0-4) % Seg Neutrophils % 58.8 % Lymphocytes % 28.1 % Monocytes % 9.6 % Eosinophils % 1.6 % Basophils % 0.8 % Neutrophils # 3.8 (1.6-8.9) K/mcL Lymphocytes # 1.8 (0.6-4.6) K/mcL Monocytes # 0.6 (0.0-1.3) K/mcL Eosinophils # 0.1 (0.0-0.6) K/mcL Basophils # 0.1 (0.0-0.2) K/mcL Nucleated RBCs/100 WBC 1.1 H (0) /100 WBC Immature Plt Fraction 5.5 (1.1-6.1) % Sodium (136-145) mEq/L Potassium (3.5-4.5) mEq/L Chloride (98-109) mEq/L Carbon Dioxide (19-29) mEq/L BUN (7-20) mg/dL Creatinine (0.57-1.11) mg/dL Est GFR ( Amer) (> 60) Est GFR (Non-Af Amer) (> 60) BUN/Creatinine Ratio (6-26) Glucose (70-99) mg/dL Calculated Osmolality (280-300) Calcium (8.6-10.8) mg/dL Urine Color (Yellow) Urine Clarity (Clear) Urine pH (5.0-8.0) pH Units Ur Specific [place] (1.010-1.025) Urine Protein (Neg-Trace) mg/dL Urine Glucose (UA) (Normal) mg/dL Urine Ketones (Negative) mg/dL Urine Blood (Negative) Urine Nitrite (Negative) Urine Bilirubin (Negative) Urine Urobilinogen (Normal) mg/dL Ur Leukocyte Esterase (Negative) Urine Microscopic RBC (0-3) per hpf Urine Microscopic WBC (0-3) per hpf Ur Squamous Epith Cells (None-Few) per lpf Urine Bacteria (None-Few) per hpf Hyaline Casts (None-Few) per lpf Salicylates (15-30) mg/dL Urine Opiates Screen (Snqhtr=629) ng/mL Acetaminophen (10-30) mcg/mL Ur Barbiturates Screen (Bzhmqd=430) ng/mL Ur Phencyclidine Scrn (Cutoff=25) ng/mL Ur Amphetamines Screen (Mcenjk=7110) ng/mL U Benzodiazepines Scrn (Ttsmtw=182) ng/mL Urine Cocaine Screen (Cutoff= 300) ng/mL U Marijuana (THC) Screen (Cutoff = 50) ng/mL Ethyl Alcohol (0-10) mg/dL Specimen Rejected Clotted Psychiatric Medical Clearance - Medical Clearance Checklist Does the patient have a NEW psychiatric condition?: No Any abnormalities indicating possible medical illness?: No Any history of medical issues?: No Medical History: No Social History Section defined Any abnormal vital signs prior to transfer?: No Current Vitals: Last Vital Signs Temp 98.7 F 12/10/16 20:44 Pulse 78 12/10/16 20:44 Resp 18 12/10/16 20:44 BP 131/81 12/10/16 20:44 Pulse Ox 94 12/10/16 20:44 Is the patient intoxicated or cognitively impaired?: No Psychiatric Lab Panel: Drug Levels and Toxicity 12/10/16 12/10/16 21:02 21:29 Urine Opiates Screen Negative Acetaminophen < 1.0 L Ur Barbiturates Screen Negative Ur Phencyclidine Scrn Negative Ur Amphetamines Screen Negative U Benzodiazepines Scrn Negative Urine Cocaine Screen Negative U Marijuana (THC) Screen Negative Ethyl Alcohol < 10 Any abnormalities on the physical exam?: No Any abnormal labs?: No Abnormal Labs: Abnormal lab results RBC 5.08 M/mcL (3.82-4.97) H 12/10/16 22:08 MCV 80.5 fL (83.0-100.0) L 12/10/16 22:08 MCH 27.0 pg (28.0-33.3) L 12/10/16 22:08 RDW 14.8 % (11.5-14.5) H 12/10/16 22:08 Nucleated RBCs/100 WBC 1.1 /100 WBC (0) H 12/10/16 22:08 Urine Clarity Cloudy (Clear) A 12/10/16 21:10 Urine Protein 30 mg/dL (Neg-Trace) H 12/10/16 21:10 Ur Leukocyte Esterase Small (Negative) H 12/10/16 21:10 Ur Squamous Epith Cells Many per lpf (None-Few) H 12/10/16 21:10 Urine Bacteria Moderate per hpf (None-Few) H 12/10/16 21:10 Salicylates < 5.0 mg/dL (15-30) L 12/10/16 21:29 Acetaminophen < 1.0 mcg/mL (10-30) L 12/10/16 21:29 Does the patient require durable medical equiptment?: No Is the patient ambulatory?: Yes Is the patient a fall risk?: No Has the patient been medically cleared?: No Any acute medical condition require Tx prior to transfer?: No Statement of Medical Clearance: I have evaluated the patient, reviewed diagnostic information, and certify that the patient's medical condition is sufficiently stable that transfer to the psychiatric unit does not pose a significant risk of deterioration. Attestation Statement - Attestation Attestation: I examined this patient and my medical decision-making was reviewed with the DOG LICENSE OFFICER SUPERVISOR/PA/Advanced Practice Nurse/Resident Physician. I agree with the documented findings, disposition and treatment plan as described except to the extent set forth below. Law enforcement called because patient was wandering around her neighborhood saying art was in her house and she cannot go home. On examination she is awake and alert and cooperative for us. Plan. Medical clearance and evaluation by 1A.
[2016-12-10 22:14] LABS: Basophils # 0.1 K/mcL (0.0-0.2); Basophils % 0.8 %; Eosinophils # 0.1 K/mcL (0.0-0.6); Eosinophils % 1.6 %; Hematocrit 40.9 % (35.3-44.9); Hemoglobin 13.7 g/dL (11.5-15.4); Immature Granulocytes % 1.1 % (0-4); Immature Platelets 5.5 % (1.1-6.1); Lymphocytes # 1.8 K/mcL (0.6-4.6); Lymphocytes % 28.1 %; Mean Corpuscular HGB Conc 33.5 g/dL (31.6-35.5); Mean Corpuscular Volume 80.5 fL (83.0-100.0); Mean Platelet Volume 10.5 fL (9.4-12.4); Monocytes # 0.6 K/mcL (0.0-1.3); Monocytes % 9.6 %; Neutrophils # 3.8 K/mcL (1.6-8.9); Nucleated Red Blood Cells 1.1 /100 WBC (0); Platelet Count 181 K/mcL (140-400); Red Blood Count 5.08 M/mcL (3.82-4.97); Red Cell Distribution Width 14.8 % (11.5-14.5); Segmented Neutrophils % 58.8 %
[2016-12-11] MEDS ORDERED: *HR* LORazepam 2 MG/ML VIAL IM PRN (00:03)
[2016-12-11] MEDS ORDERED: hydrOXYzine pamoate 25 MG CAPSULE PO PRN (00:03)
[2016-12-11] MEDS ORDERED: Haloperidol Lactate 5 MG/ML VIAL IM PRN (00:03)
[2016-12-11] MEDS ORDERED: Mag Hydrox/Al Hydrox/Simeth 30 ML UDC PO PRN (00:03)
[2016-12-11] MEDS ORDERED: MOM Conc 10 ML UD.LIQ PO PRN (00:03)
[2016-12-11] MEDS: hydrOXYzine pamoate 25 MG CAPSULE PO SCH ×4 (02:13→20:42)
[2016-12-11] MEDS: Topiramate 25 MG TABLET PO SCH ×3 (02:13→20:48)
[2016-12-11] MEDS: traZODone 50 MG TABLET PO PRN (02:14)
--- NOTE | 2016-12-11 03:00 | Emergency Department Note ---
Disposition Clinical Impression: Chronic schizophrenia, Acute psychosis Disposition: Admitted As Inpatient Condition: Fair Psych HPI - General Chief Complaint: ED Psychiatric Symptoms Stated Complaint: psych Time Seen by Provider: 12/10/16 20:45 Source: patient, EMS Mode of arrival: EMS - History of Present Illness Duration: constant Improves with: none Worsens with: none Associated symptoms: Reports: denies other symptoms Treatments prior to arrival: none - Related Data Home Medications Medication Instructions Recorded Confirmed Albuterol Sulfate [Proair Hfa] 2 puff IH Q4H PRN 09/01/16 11/29/16 Bumetanide [Bumex] 1 mg PO QPM 09/01/16 12/11/16 Bumetanide [Bumex] 2 mg PO QAM 09/01/16 12/11/16 Carvedilol [Coreg] 3.125 mg PO BID 09/01/16 12/11/16 ClonazePAM [Klonopin] 0.5 mg PO BID 09/01/16 11/29/16 Esomeprazole Magnesium 20 mg PO DAILY 09/01/16 12/11/16 Fluticasone Propionate Nasal 2 spray NS DAILY 09/01/16 11/29/16 [Flonase] HydrOXYzine Pamoate [Vistaril] 50 mg PO TID 09/01/16 12/11/16 Levothyroxine Sodium 100 mcg PO DAILY 09/01/16 12/11/16 Methadone 10 mg PO BID 09/01/16 11/29/16 Polyethylene Glycol 3350 [MiraLAX] 17 gm PO DAILY 09/01/16 11/29/16 Promethazine [Phenergan] 25 mg PO HS 09/01/16 12/11/16 Topiramate 50 mg PO BID 09/01/16 12/11/16 Venlafaxine XR (24 HR) [Effexor Xr] 150 mg PO DAILY 09/01/16 12/11/16 Simethicone [Gas-X] 80 mg PO 1-2XD PRN 09/05/16 11/29/16 Hydrochlorothiazide 25 mg PO DAILY 11/29/16 11/29/16 Oxygen 1 each .ROUTE AD 11/29/16 11/29/16 Previous Rx's Medication Instructions Recorded Fluticasone/Salmeterol [Advair 1 each IH BID #1 blst.w.dev 09/05/16 250-50 Diskus] Tiotropium [Spiriva] 18 mcg IH DAILY #1 inh 09/05/16 Potassium Chloride 40 meq PO DAILY #14 tab.er.prt 11/29/16 Aripiprazole [Abilify] 2 mg PO HS #20 tablet 12/03/16 Budesonide/Formoterol 80/4.5 2 puff IH BIDR #1 inhaler 12/03/16 [Symbicort 80/4.5] Hydrocortisone 1% OINT [Cortaid] 1 appl TP BID #1 tube 12/03/16 Sulfamethoxazole/Trimeth DS 1 each PO DAILY #4 tablet 12/03/16 [Bactrim Ds] Allergies Allergy/AdvReac Type Severity Reaction Status Date / Time chlorhexidine Allergy Rash Verified 09/01/16 21:40 [[facility] vancomycin Allergy Rash Verified 11/30/16 01:29 Cardiovascular: Denies: chest pain Psychiatric: Denies: anxiety, depression Past Medical History - Past Medical History Medical history: Reports: atrial fibrillation, cardiomyopathy, CHF, GERD, hepatitis, hyperlipidemia, hypertension, myocardial infarction, osteoporosis, pulmonary embolus, seizures, thyroid disease, valvular heart disease, other Surgical history: Reports: cholecystectomy, heart valve replacement, orthopedic , other, other, vascular surgery, pacemaker Psychiatric history: Reports: anxiety, depression, schizophrenia, other - Social History Smoking Status: Never smoker Smokeless Tobacco Status: No Alcohol use: Reports: none Drug use: Reports: none Physical Exam - General Limitations: no limitations General appearance: alert, in no apparent distress Course Vital Signs Temperature 98.7 F 12/10/16 20:44 Pulse Rate 78 12/10/16 20:44 Respiratory Rate 18 12/10/16 20:44 Blood Pressure 131/81 12/10/16 20:44 O2 Sat by Pulse Oximetry 94 12/10/16 20:44 Temperature 98.0 F 12/10/16 23:57 Pulse Rate 81 12/10/16 23:57 Respiratory Rate 16 12/10/16 23:57 Blood Pressure 126/85 12/10/16 23:57 O2 Sat by Pulse Oximetry 94 12/10/16 20:44 Oxygen Delivery Oxygen Delivery Room Air Psych - MDM Narrative Medical decision making narrative: I, Henrry Reynolds, examined this patient and my medical decision-making was reviewed with the MANAGER BODY/PA/Advanced Practice Nurse/Resident Physician. I agree with the documented findings, disposition and treatment plan as described except to the extent set forth below. 56-year-old female received in sign out 11 PM pending behavioral health evaluation and disposition. We have also the patient and felt like she needed to stay for further psychiatric care. Patient be admitted to the hospital for further psychiatric evaluation. Patient is comfortable with this plan. She had no further complaints or concerns during her stay. - Lab Data Result diagrams: 12/10/16 22:08 12/10/16 21:29 Lab Results 12/10/16 12/10/16 12/10/16 Range/Units 21:02 21:10 21:29 WBC (4.3-11.1) K/mcL RBC (3.82-4.97) M/mcL Hgb (11.5-15.4) g/dL Hct (35.3-44.9) % MCV (83.0-100.0) fL MCH (28.0-33.3) pg MCHC (31.6-35.5) g/dL RDW (11.5-14.5) % Plt Count (140-400) K/mcL MPV (9.4-12.4) fL Immature Gran % (0-4) % Seg Neutrophils % % Lymphocytes % % Monocytes % % Eosinophils % % Basophils % % Neutrophils # (1.6-8.9) K/mcL Lymphocytes # (0.6-4.6) K/mcL Monocytes # (0.0-1.3) K/mcL Eosinophils # (0.0-0.6) K/mcL Basophils # (0.0-0.2) K/mcL Nucleated RBCs/100 WBC (0) /100 WBC Immature Plt Fraction (1.1-6.1) % Sodium 138 (136-145) mEq/L Potassium 3.8 (3.5-4.5) mEq/L Chloride 109 (98-109) mEq/L Carbon Dioxide 19 (19-29) mEq/L BUN 19 (7-20) mg/dL Creatinine 0.77 (0.57-1.11) mg/dL Est GFR ( Amer) > 60 (> 60) Est GFR (Non-Af Amer) > 60 (> 60) BUN/Creatinine Ratio 25 (6-26) Glucose 86 (70-99) mg/dL Calculated Osmolality 288 (280-300) Calcium 9.9 (8.6-10.8) mg/dL Urine Color Dark Yellow (Yellow) Urine Clarity Cloudy A (Clear) Urine pH 6.5 (5.0-8.0) pH Units Ur Specific [place] 1.025 (1.010-1.025) Urine Protein 30 H (Neg-Trace) mg/dL Urine Glucose (UA) Normal (Normal) mg/dL Urine Ketones Negative (Negative) mg/dL Urine Blood Negative (Negative) Urine Nitrite Negative (Negative) Urine Bilirubin Negative (Negative) Urine Urobilinogen Normal (Normal) mg/dL Ur Leukocyte Esterase Small H (Negative) Urine Microscopic RBC 0-3 (0-3) per hpf Urine Microscopic WBC 0-3 (0-3) per hpf Ur Squamous Epith Cells Many H (None-Few) per lpf Urine Bacteria Moderate H (None-Few) per hpf Hyaline Casts None Seen (None-Few) per lpf Salicylates < 5.0 L (15-30) mg/dL Urine Opiates Screen Negative ([place]=894) ng/mL Acetaminophen < 1.0 L (10-30) mcg/mL Ur Barbiturates Screen Negative (Sbhjgh=479) ng/mL Ur Phencyclidine Scrn Negative (Cutoff=25) ng/mL Ur Amphetamines Screen Negative (Wweiuf=2013) ng/mL U Benzodiazepines Scrn Negative (Jsklhh=709) ng/mL Urine Cocaine Screen Negative (Cutoff= 300) ng/mL U Marijuana (THC) Screen Negative (Cutoff = 50) ng/mL Ethyl Alcohol < 10 (0-10) mg/dL Specimen Rejected 12/10/16 12/10/16 Range/Units 21:29 22:08 WBC 6.4 (4.3-11.1) K/mcL RBC 5.08 H (3.82-4.97) M/mcL Hgb 13.7 (11.5-15.4) g/dL Hct 40.9 (35.3-44.9) % MCV 80.5 L (83.0-100.0) fL MCH 27.0 L (28.0-33.3) pg MCHC 33.5 (31.6-35.5) g/dL RDW 14.8 H (11.5-14.5) % Plt Count 181 (140-400) K/mcL MPV 10.5 (9.4-12.4) fL Immature Gran % 1.1 (0-4) % Seg Neutrophils % 58.8 % Lymphocytes % 28.1 % Monocytes % 9.6 % Eosinophils % 1.6 % Basophils % 0.8 % Neutrophils # 3.8 (1.6-8.9) K/mcL Lymphocytes # 1.8 (0.6-4.6) K/mcL Monocytes # 0.6 (0.0-1.3) K/mcL Eosinophils # 0.1 (0.0-0.6) K/mcL Basophils # 0.1 (0.0-0.2) K/mcL Nucleated RBCs/100 WBC 1.1 H (0) /100 WBC Immature Plt Fraction 5.5 (1.1-6.1) % Sodium (136-145) mEq/L Potassium (3.5-4.5) mEq/L Chloride (98-109) mEq/L Carbon Dioxide (19-29) mEq/L BUN (7-20) mg/dL Creatinine (0.57-1.11) mg/dL Est GFR ( Amer) (> 60) Est GFR (Non-Af Amer) (> 60) BUN/Creatinine Ratio (6-26) Glucose (70-99) mg/dL Calculated Osmolality (280-300) Calcium (8.6-10.8) mg/dL Urine Color (Yellow) Urine Clarity (Clear) Urine pH (5.0-8.0) pH Units Ur Specific [place] (1.010-1.025) Urine Protein (Neg-Trace) mg/dL Urine Glucose (UA) (Normal) mg/dL Urine Ketones (Negative) mg/dL Urine Blood (Negative) Urine Nitrite (Negative) Urine Bilirubin (Negative) Urine Urobilinogen (Normal) mg/dL Ur Leukocyte Esterase (Negative) Urine Microscopic RBC (0-3) per hpf Urine Microscopic WBC (0-3) per hpf Ur Squamous Epith Cells (None-Few) per lpf Urine Bacteria (None-Few) per hpf Hyaline Casts (None-Few) per lpf Salicylates (15-30) mg/dL Urine Opiates Screen (Isowxc=803) ng/mL Acetaminophen (10-30) mcg/mL Ur Barbiturates Screen (Lgtbzd=745) ng/mL Ur Phencyclidine Scrn (Cutoff=25) ng/mL Ur Amphetamines Screen (Rflwbd=6129) ng/mL U Benzodiazepines Scrn (Zudbdi=592) ng/mL Urine Cocaine Screen (Cutoff= 300) ng/mL U Marijuana (THC) Screen (Cutoff = 50) ng/mL Ethyl Alcohol (0-10) mg/dL Specimen Rejected Clotted Psychiatric Medical Clearance - Medical Clearance Checklist Medical History: No Social History Section defined Current Vitals: Last Vital Signs Temp 98.0 F 12/10/16 23:57 Pulse 81 12/10/16 23:57 Resp 16 12/10/16 23:57 BP 126/85 12/10/16 23:57 Pulse Ox 94 12/10/16 20:44 Psychiatric Lab Panel: Drug Levels and Toxicity 12/10/16 12/10/16 21:02 21:29 Urine Opiates Screen Negative Acetaminophen < 1.0 L Ur Barbiturates Screen Negative Ur Phencyclidine Scrn Negative Ur Amphetamines Screen Negative U Benzodiazepines Scrn Negative Urine Cocaine Screen Negative U Marijuana (THC) Screen Negative Ethyl Alcohol < 10 Abnormal Labs: Abnormal lab results RBC 5.08 M/mcL (3.82-4.97) H 12/10/16 22:08 MCV 80.5 fL (83.0-100.0) L 12/10/16 22:08 MCH 27.0 pg (28.0-33.3) L 12/10/16 22:08 RDW 14.8 % (11.5-14.5) H 12/10/16 22:08 Nucleated RBCs/100 WBC 1.1 /100 WBC (0) H 12/10/16 22:08 Urine Clarity Cloudy (Clear) A 12/10/16 21:10 Urine Protein 30 mg/dL (Neg-Trace) H 12/10/16 21:10 Ur Leukocyte Esterase Small (Negative) H 12/10/16 21:10 Ur Squamous Epith Cells Many per lpf (None-Few) H 12/10/16 21:10 Urine Bacteria Moderate per hpf (None-Few) H 12/10/16 21:10 Salicylates < 5.0 mg/dL (15-30) L 12/10/16 21:29 Acetaminophen < 1.0 mcg/mL (10-30) L 12/10/16 21:29 Statement of Medical Clearance: I have evaluated the patient, reviewed diagnostic information, and certify that the patient's medical condition is sufficiently stable that transfer to the psychiatric unit does not pose a significant risk of deterioration.
[2016-12-11] MEDS: Bumetanide 1 MG TABLET PO SCH ×2 (09:53→17:34)
[2016-12-11] MEDS: Venlafaxine XR (24 HR) 150 MG CAP.ER.24H PO SCH (09:53)
--- NOTE | 2016-12-11 10:37 | Electrocardiograph Report ---
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
--- NOTE | 2016-12-11 12:47 | Psychiatry History & Physical ---
Date of Encounter: 12/11/16 Time of Encounter: 12:10 History of Present Illness Patient Stated Chief Complaint: Erna was in my house Medicare Admission Attestation: For traditional Medicare patients the provided hospital inpatient services are reasonable and necessary and in the case of services not specified as inpatient -only under 42 CFR 419.22 (n), that they are appropriately provided as inpatient services in accordance 42 CFR 412.3. For Critical Access Hospital the patient may reasonably be expected to be discharged or transferred to a hospital within 96 hours after admission to the Critical Access Hospital. Admitted From: Emergency Dept History of Present Illness: Ms. Neumann is a 56 year old female admitted from the emergency room for evaluation PSYCHOSIS and manic episode. Patient was brought in by EMS for evaluation, the neighbor's reported that patient was walking in the streets and knocking on doors and yelling at the devil, she was not able to go back home because Erna was there. Nursing assessment showed the patient was manic with pressured speech delusions and mandaen preoccupation and poor insight. Patient has a history of psychiatric treatment for depression schizophrenia and recently was seen on a consultation while she is medically hospitalized for sepsis and low potassium. She was given diagnosis of major depression with with psychotic features and was recommended to start a small dose of antipsychotic Abilify 2 mg. Apparently patient did not comply with medication and review of her med lists did not includes Abilify. On interview patient was euphoric smiling and happy and denying any complaints and and presenting pressured speech with delusions and mandaen preoccupation and denied any depression or suicidal ideation. She reported hearing voice of Erna and Aba talking to her. Past Med Surg Social Fam HX - Past Medical History Medical history: atrial fibrillation, cardiomyopathy, CHF, GERD, hepatitis, hyperlipidemia, hypertension, myocardial infarction, osteoporosis, pulmonary embolus, seizures, thyroid disease, valvular heart disease, other - Past Psychiatric History Psychiatric history: Reports: depression, schizophrenia - Past Surgical History Surgical History: cholecystectomy, heart valve replacement, orthopedic, other, other, vascular surgery, pacemaker - Social History Smoking Status: Never smoker Smokeless Tobacco Status: No Alcohol use: none Drug use: none - Family History Mother Living Status: Hx Family Cancer: Yes (colon cancer) Hx Family Endocrine Disorder: Yes (RA) Medications & Allergies Albuterol Sulfate [Proair Hfa] 2 puff IH Q4H PRN 09/01/16 [History] Bumetanide [Bumex] 1 mg PO QPM 09/01/16 [History] Bumetanide [Bumex] 2 mg PO QAM 09/01/16 [History] Carvedilol [Coreg] 3.125 mg PO BID 09/01/16 [History] ClonazePAM [Klonopin] 0.5 mg PO BID 09/01/16 [History] Esomeprazole Magnesium 20 mg PO DAILY 09/01/16 [History] Fluticasone Propionate Nasal [Flonase] 2 spray NS DAILY 09/01/16 [History] HydrOXYzine Pamoate [Vistaril] 50 mg PO TID 09/01/16 [History] Levothyroxine Sodium 100 mcg PO DAILY 09/01/16 [History] Methadone 10 mg PO BID 09/01/16 [History] Polyethylene Glycol 3350 [MiraLAX] 17 gm PO DAILY 09/01/16 [History] Promethazine [Phenergan] 25 mg PO HS 09/01/16 [History] Topiramate 50 mg PO BID 09/01/16 [History] Venlafaxine XR (24 HR) [Effexor Xr] 150 mg PO DAILY 09/01/16 [History] Simethicone [Gas-X] 80 mg PO 1-2XD PRN 09/05/16 [History] Hydrochlorothiazide 25 mg PO DAILY 11/29/16 [History] Oxygen 1 each .ROUTE AD 11/29/16 [History] Potassium Chloride 40 meq PO DAILY #14 tab.er.prt 11/29/16 [Rx] Aripiprazole [Abilify] 2 mg PO HS #20 tablet 12/03/16 [Rx] Budesonide/Formoterol 80/4.5 [Symbicort 80/4.5] 2 puff IH BIDR #1 inhaler 12/03 [Rx] Hydrocortisone 1% OINT [Cortaid] 1 appl TP BID #1 tube 12/03/16 [Rx] Fluticasone/Salmeterol [Advair 250-50 Diskus] 1 puff IH BID 12/11/16 [History] Tiotropium [Spiriva] 1 cap IH DAILY 12/11/16 [History] Allergies chlorhexidine [From Hibiclens] Allergy (Verified 09/01/16 21:40) Rash vancomycin Allergy (Verified 11/30/16 01:29) Rash Review of Systems Psychiatric: Reports: auditory hallucinations Mental Status Exam Patient orientation: Yes Person, Yes Time, Yes Place Level of alertness: Alert Patient appearance: Appropriate, Well Groomed Behavior: cooperative, distractible, impulsive Psychomotor activity: Increased Eye contact: Maintains Eye Contact Mood description: Euphoric, Expansive, Labile Affect description: congruent with mood, labile, euphoric Speech pattern: Disorganized, Excessive, Pressured Speech volume: Normal Thought process: Tangential, Flight of Ideas, Disorganized, Racing Thought content: No Suicidal ideation, No Homicidal ideation, No Overt delusions Perceptual disturbances: No Auditory hallucinations, No Visual hallucinations Attention span: Capable of Focused Attention, Unable to Focus Memory description: Immediate Impaired Patient reliability: Not Reliable Historian Intelligence estimate: Average Judgment: Poor Insight: Minimal Results - Vital Signs Vital signs: Temp Pulse Resp BP Pulse Ox 97.6 F 80 18 143/78 94 12/11/16 09:00 12/11/16 09:00 12/11/16 09:00 12/11/16 09:00 12/10/16 20:44 - Labs Labs: Laboratory Last Values WBC 6.4 K/mcL (4.3-11.1) 12/10/16 22:08 RBC 5.08 M/mcL (3.82-4.97) H 12/10/16 22:08 Hgb 13.7 g/dL (11.5-15.4) 12/10/16 22:08 Hct 40.9 % (35.3-44.9) 12/10/16 22:08 MCV 80.5 fL (83.0-100.0) L 12/10/16 22:08 MCH 27.0 pg (28.0-33.3) L 12/10/16 22:08 MCHC 33.5 g/dL (31.6-35.5) 12/10/16 22:08 RDW 14.8 % (11.5-14.5) H 12/10/16 22:08 Plt Count 181 K/mcL (140-400) 12/10/16 22:08 MPV 10.5 fL (9.4-12.4) 12/10/16 22:08 Immature Gran % 1.1 % (0-4) 12/10/16 22:08 Seg Neutrophils % 58.8 % 12/10/16 22:08 Lymphocytes % 28.1 % 12/10/16 22:08 Monocytes % 9.6 % 12/10/16 22:08 Eosinophils % 1.6 % 12/10/16 22:08 Basophils % 0.8 % 12/10/16 22:08 Neutrophils # 3.8 K/mcL (1.6-8.9) 12/10/16 22:08 Lymphocytes # 1.8 K/mcL (0.6-4.6) 12/10/16 22:08 Monocytes # 0.6 K/mcL (0.0-1.3) 12/10/16 22:08 Eosinophils # 0.1 K/mcL (0.0-0.6) 12/10/16 22:08 Basophils # 0.1 K/mcL (0.0-0.2) 12/10/16 22:08 Nucleated RBCs/100 WBC 1.1 /100 WBC (0) H 12/10/16 22:08 Immature Plt Fraction 5.5 % (1.1-6.1) 12/10/16 22:08 Sodium 138 mEq/L (136-145) 12/10/16 21:29 Potassium 3.8 mEq/L (3.5-4.5) 12/10/16 21:29 Chloride 109 mEq/L (98-109) 12/10/16 21:29 Carbon Dioxide 19 mEq/L (19-29) 12/10/16 21:29 BUN 19 mg/dL (7-20) 12/10/16 21:29 Creatinine 0.77 mg/dL (0.57-1.11) 12/10/16 21:29 Est GFR ( Amer) > 60 (> 60) 12/10/16 21:29 Est GFR (Non-Af Amer) > 60 (> 60) 12/10/16 21:29 BUN/Creatinine Ratio 25 (6-26) 12/10/16 21:29 Glucose 86 mg/dL (70-99) 12/10/16 21:29 Calculated Osmolality 288 (280-300) 12/10/16 21:29 Calcium 9.9 mg/dL (8.6-10.8) 12/10/16 21:29 Urine Color Dark Yellow (Yellow) 12/10/16 21:10 Urine Clarity Cloudy (Clear) A 12/10/16 21:10 Urine pH 6.5 pH Units (5.0-8.0) 12/10/16 21:10 Ur Specific [place] 1.025 (1.010-1.025) 12/10/16 21:10 Urine Protein 30 mg/dL (Neg-Trace) H 12/10/16 21:10 Urine Glucose (UA) Normal mg/dL (Normal) 12/10/16 21:10 Urine Ketones Negative mg/dL (Negative) 12/10/16 21:10 Urine Blood Negative (Negative) 12/10/16 21:10 Urine Nitrite Negative (Negative) 12/10/16 21:10 Urine Bilirubin Negative (Negative) 12/10/16 21:10 Urine Urobilinogen Normal mg/dL (Normal) 12/10/16 21:10 Ur Leukocyte Esterase Small (Negative) H 12/10/16 21:10 Urine Microscopic RBC 0-3 per hpf (0-3) 12/10/16 21:10 Urine Microscopic WBC 0-3 per hpf (0-3) 12/10/16 21:10 Ur Squamous Epith Cells Many per lpf (None-Few) H 12/10/16 21:10 Urine Bacteria Moderate per hpf (None-Few) H 12/10/16 21:10 Hyaline Casts None Seen per lpf (None-Few) 12/10/16 21:10 Salicylates < 5.0 mg/dL (15-30) L 12/10/16 21:29 Urine Opiates Screen Negative ng/mL (Febthv=793) 12/10/16 21:02 Acetaminophen < 1.0 mcg/mL (10-30) L 12/10/16 21:29 Ur Barbiturates Screen Negative ng/mL (Kaythh=347) 12/10/16 21:02 Ur Phencyclidine Scrn Negative ng/mL (Cutoff=25) 12/10/16 21:02 Ur Amphetamines Screen Negative ng/mL (Iefull=6313) 12/10/16 21:02 U Benzodiazepines Scrn Negative ng/mL (Oyilbh=731) 12/10/16 21:02 Urine Cocaine Screen Negative ng/mL (Cutoff= 300) 12/10/16 21:02 U Marijuana (THC) Screen Negative ng/mL (Cutoff = 50) 12/10/16 21:02 Ethyl Alcohol < 10 mg/dL (0-10) 12/10/16 21:29 Specimen Rejected Clotted 12/10/16 21:29 Assessment and Plan (1) Depression, major, recurrent, severe with psychosis Current visit: Yes Status: Acute Plan: Admit inpatient for safety and stabilization, Close observation, Suicide Precautions per unit protocol, Encourage participation in unit milieu, Group Therapy, Monitor sleep, Monitor appetite Additional Plan: We will start patient on Abilify 5 mg daily benefits side effects are discussed and will monitor. Estimated Length of Stay (Days): 5
[2016-12-11] MEDS: ARIPiprazole 5 MG TABLET PO SCH (20:46)
[2016-12-12] MEDS: *HR* LORazepam 1 MG TABLET PO PRN ×2 (00:12→22:12)
[2016-12-12] MEDS: traZODone 50 MG TABLET PO PRN ×2 (00:12→20:26)
[2016-12-12] MEDS: hydrOXYzine pamoate 25 MG CAPSULE PO SCH ×3 (09:45→20:27)
[2016-12-12] MEDS: Topiramate 25 MG TABLET PO SCH ×2 (09:45→20:26)
[2016-12-12] MEDS: Venlafaxine XR (24 HR) 150 MG CAP.ER.24H PO SCH (09:45)
[2016-12-12] MEDS: Bumetanide 1 MG TABLET PO SCH ×2 (09:46→17:57)
--- NOTE | 2016-12-12 14:59 | Psychiatry Progress Note ---
Date of Encounter: 12/12/16 Time of Encounter: 14:00 Subjective Interval history: Patient is seen for follow-up. Still reports she will continue to be delusional and religiously preoccupied she told the nurses that she has to ask [facility] which medication she should take. She displayed flight of ideas , loose associations and disorganized speech. She denies auditory hallucinations. She is compliant with his medication and will continue stabilization. Review of Systems Psychiatric: Reports: auditory hallucinations Objective: Exam Patient orientation: Yes Person, Yes Time, Yes Place Level of alertness: Alert Patient appearance: Appropriate, Unkempt Behavior: calm, cooperative, suspicious Psychomotor activity: Increased Eye contact: Minimal Contact Mood description: Euphoric, Labile Affect description: congruent with mood, labile, euphoric Speech pattern: Normal rate, Normal rhythm, Normal tone, Disorganized, Inappropriate to situation, Excessive, Pressured Speech volume: Normal Thought process: Goal Oriented, Circumstantial, Loose Associations, Flight of Ideas, Disorganized Thought content: No Suicidal ideation, No Homicidal ideation, No Overt delusions Perceptual disturbances: No Auditory hallucinations, No Visual hallucinations Judgment: Fair Insight: Partial Results - Vital Signs Vital Signs: Temp Pulse Resp BP Pulse Ox 99 F 96 18 133/72 94 12/12/16 09:00 12/12/16 09:00 12/12/16 09:00 12/12/16 09:00 12/10/16 20:44 Assessment and Plan (1) Depression, major, recurrent, severe with psychosis Current visit: Yes Status: Acute Plan: Continue hospitalization, Close observation, Suicide Precautions per unit protocol, Encourage participation in unit milieu, Group Therapy, Monitor sleep, Monitor appetite Risks, benefits, side effects, alternatives discussed w/pt: Yes Patient agreeable to treatment: Yes Consult Discharge Plan - Plan Referrals: [facility] [Outside]
[2016-12-12] MEDS: ARIPiprazole 5 MG TABLET PO SCH (20:27)
[2016-12-13] MEDS: Topiramate 25 MG TABLET PO SCH ×2 (08:48→20:55)
[2016-12-13] MEDS: hydrOXYzine pamoate 25 MG CAPSULE PO SCH ×3 (08:49→20:55)
[2016-12-13] MEDS: Venlafaxine XR (24 HR) 150 MG CAP.ER.24H PO SCH (08:49)
[2016-12-13] MEDS: Bumetanide 1 MG TABLET PO SCH ×2 (08:49→18:26)
--- NOTE | 2016-12-13 15:08 | Psychiatry Progress Note ---
Date of Encounter: 12/13/16 Time of Encounter: 15:02 Subjective Interval history: Patient is seen for follow-up with nursing staff. Staff reports she is delusional and religiously preoccupied. She believes no need for the pacemaker because the holy spirit keeps her heart working 100%. Also when she stopped breathing The holy spirits keeps her alive. No reports of agitation, sleep and appetite are stable and she is compliant with medication. Review of Systems Psychiatric: Reports: auditory hallucinations Objective: Exam Patient orientation: Yes Person, Yes Time, Yes Place Level of alertness: Alert Patient appearance: Appropriate, Well Groomed, Bizarre Behavior: calm, cooperative, suspicious Psychomotor activity: Normal Eye contact: Maintains Eye Contact Mood description: Elevated, Euphoric Affect description: labile, euphoric Speech pattern: Disorganized, Excessive Speech volume: Normal Thought process: Tangential, Flight of Ideas Thought content: No Suicidal ideation, No Homicidal ideation, No Overt delusions , Yes Paranoid delusion Perceptual disturbances: No Auditory hallucinations, No Visual hallucinations Judgment: Fair Insight: Partial Results - Vital Signs Vital Signs: Temp Pulse Resp BP Pulse Ox 97 F L 99 18 114/77 94 12/13/16 09:00 12/13/16 09:00 12/13/16 09:00 12/13/16 09:00 12/10/16 20:44 Assessment and Plan (1) Depression, major, recurrent, severe with psychosis Current visit: Yes Status: Acute Plan: Continue hospitalization, Close observation, Suicide Precautions per unit protocol, Encourage participation in unit milieu, Group Therapy, Monitor sleep, Monitor appetite Risks, benefits, side effects, alternatives discussed w/pt: Yes Patient agreeable to treatment: Yes Consult Discharge Plan - Plan Referrals: [facility] [Outside] - 12/22/16 1:00 pm (The above appointment is with Tamar Obrien.)
[2016-12-13] MEDS: *HR* LORazepam 1 MG TABLET PO PRN (20:55)
[2016-12-13] MEDS: traZODone 50 MG TABLET PO PRN (20:56)
[2016-12-13] MEDS: ARIPiprazole 5 MG TABLET PO SCH (20:56)
[2016-12-14] MEDS: Bumetanide 1 MG TABLET PO SCH ×2 (08:20→17:57)
[2016-12-14] MEDS: Venlafaxine XR (24 HR) 150 MG CAP.ER.24H PO SCH (08:20)
[2016-12-14] MEDS: Topiramate 25 MG TABLET PO SCH ×2 (08:21→21:02)
[2016-12-14] MEDS: hydrOXYzine pamoate 25 MG CAPSULE PO SCH ×3 (08:21→21:02)
[2016-12-14] MEDS: MOM Conc 10 ML UD.LIQ PO PRN (11:47)
--- NOTE | 2016-12-14 13:58 | Psychiatry Progress Note ---
Date of Encounter: 12/14/16 Time of Encounter: 13:30 Subjective Interval history: Patient is here for follow-up with nursing staff. She continues to be delusional and religiously preoccupied. She is focused on her pacemaker and believe she does not need it anymore. She asked nurses for EKG and fingersticks pushover because she thinks she might be diabetic. Otherwise she is not agitated or irritable. She is compliant with medication and redirectable. Review of Systems Psychiatric: Reports: auditory hallucinations Objective: Exam Patient orientation: Yes Person, Yes Time, Yes Place Level of alertness: Alert Patient appearance: Appropriate, Well Groomed Behavior: calm, cooperative, suspicious Psychomotor activity: Normal Eye contact: Maintains Eye Contact Mood description: Euthymic/stable, Euphoric Affect description: congruent with mood, full range, euphoric Speech pattern: Normal rate, Normal rhythm, Normal tone, Disorganized Speech volume: Normal Thought process: Circumstantial, Flight of Ideas Thought content: No Suicidal ideation, No Homicidal ideation, No Overt delusions , Yes Preoccupation, Yes Episcopal delusion, Yes Somatic delusion Perceptual disturbances: No Auditory hallucinations, No Visual hallucinations Judgment: Fair Insight: Partial Results - Vital Signs Vital Signs: Temp Pulse Resp BP Pulse Ox 98.1 F 68 16 124/73 94 12/14/16 08:27 12/14/16 08:27 12/14/16 08:27 12/14/16 08:27 12/10/16 20:44 - Labs Labs: Laboratory Results - last 24 hr 12/14/16 13:35 POC Glucose 109 H Assessment and Plan (1) Depression, major, recurrent, severe with psychosis Current visit: Yes Status: Acute Plan: Continue hospitalization, Close observation, Suicide Precautions per unit protocol, Encourage participation in unit milieu, Group Therapy, Monitor sleep, Monitor appetite Risks, benefits, side effects, alternatives discussed w/pt: Yes Patient agreeable to treatment: Yes Consult Discharge Plan - Plan Referrals: [facility] [Outside] - 12/22/16 1:00 pm (The above appointment is with Tamar Obrien.)
[2016-12-14] MEDS: traZODone 50 MG TABLET PO PRN ×2 (21:02→22:12)
[2016-12-14] MEDS: ARIPiprazole 5 MG TABLET PO SCH (21:02)
[2016-12-14] MEDS: *HR* LORazepam 1 MG TABLET PO PRN (22:12)
[2016-12-15] MEDS: Bumetanide 1 MG TABLET PO SCH ×2 (08:39→17:42)
[2016-12-15] MEDS: hydrOXYzine pamoate 25 MG CAPSULE PO SCH ×3 (08:40→20:26)
[2016-12-15] MEDS: Venlafaxine XR (24 HR) 150 MG CAP.ER.24H PO SCH (08:40)
[2016-12-15] MEDS: Topiramate 25 MG TABLET PO SCH ×2 (08:41→20:26)
[2016-12-15] MEDS: *HR* LORazepam 1 MG TABLET PO PRN (20:26)
[2016-12-15] MEDS: ARIPiprazole 5 MG TABLET PO SCH (20:27)
[2016-12-15] MEDS: traZODone 50 MG TABLET PO PRN (20:27)
[2016-12-16] MEDS: *HR* LORazepam 1 MG TABLET PO PRN ×3 (01:21→21:32)
[2016-12-16] MEDS: Bumetanide 1 MG TABLET PO SCH ×2 (08:24→17:31)
[2016-12-16] MEDS: Venlafaxine XR (24 HR) 150 MG CAP.ER.24H PO SCH (08:24)
[2016-12-16] MEDS: Topiramate 25 MG TABLET PO SCH ×2 (08:24→21:33)
[2016-12-16] MEDS: hydrOXYzine pamoate 25 MG CAPSULE PO SCH ×3 (08:25→21:32)
--- NOTE | 2016-12-16 17:51 | Psychiatry Progress Note ---
Date of Encounter: 12/15/16 Time of Encounter: 14:30 Subjective Interval history: Brandy silva expires today but client is still psychotic and unable to meet basic needs so will need to probate. Per staff she is religiously preoccupied, touchy , intrusive, talking to self, and standing on furniture despite being a falls risk. Client denies all symptoms of psychosis to this contract technical writer but her speech is bizarre. Claims she came to the hospital because her pacemaker is not working right. When asked how she knew her pacemaker was not functioning she replied she cannot be around metal. She then stated "I off a pacemaker like this. " Has been calling her Ceramics Machine Operator from the unit and making delusional statements. Started on Abilify over the weekend but still at a low dose. Cooperative with prns last night but needed Haldol, Ativan, and Benadryl to calm down. [place]. [place] Medicare but not Medicaid so she does not qualify for respite or home health. With no built in supports she will need to be more stable before discharge. Review of Systems Constitutional: Denies: fever, chills, weakness, weight change Eyes: Denies: eye pain, vision change Ears, Nose, Throat: Denies: ear pain, throat pain, dental pain, hearing loss, congestion Cardiovascular: Denies: chest pain, palpitations, dyspnea on exertion Respiratory: Denies: cough, dyspnea, wheezes Gastrointestinal: Denies: abdominal pain, nausea, vomiting, diarrhea, constipation Musculoskeletal: Denies: joint swelling, joint pain Neurological: Denies: headache, weakness, numbness, memory loss Psychiatric: Reports: auditory hallucinations Objective: Exam Patient orientation: Yes Person, Yes Time, Yes Place Level of alertness: Alert Patient appearance: Unkempt Behavior: agitated Psychomotor activity: Increased Eye contact: Maintains Eye Contact Mood description: Irritable Affect description: congruent with mood Speech pattern: Normal rate Speech volume: Normal Thought process: Tangential, Disorganized Thought content: No Suicidal ideation, No Homicidal ideation, Yes Overt delusions, Yes Congregational delusion Perceptual disturbances: Yes Reacting to internal stimuli Judgment: Limited Insight: Minimal Results - Vital Signs Vital Signs: Temp Pulse Resp BP Pulse Ox 98 F 72 16 117/67 94 12/16/16 09:00 12/16/16 09:00 12/16/16 09:00 12/16/16 09:00 12/10/16 20:44 Assessment and Plan (1) Major depressive disorder with psychotic features Current visit: No Status: Acute Plan: Continue hospitalization, Close observation, Encourage participation in unit milieu, Group Therapy, Monitor sleep, Monitor appetite Risks, benefits, side effects, alternatives discussed w/pt: Yes Patient agreeable to treatment : Yes Qualifiers: Major depression recurrence: recurrent Active/Remission status: currently active Major depression episode severity: severe Qualified Code(s): F33.3 - Major depressive disorder, recurrent, severe with psychotic symptoms Consult Discharge Plan - Plan Referrals: [facility] [Outside] - 12/22/16 1:00 pm (The above appointment is with Tamar Obrien.)
--- NOTE | 2016-12-16 18:04 | Psychiatry Progress Note ---
Date of Encounter: 12/16/16 Time of Encounter: 17:57 Subjective Interval history: Client probated today. She testified herself in court and talked of rastafarian impulses driving her to her neighbors house. She initially told this ticket writer she called the police to her home because she was paranoid. In court she said she went to a neighbors and they called the police because they were worried about her. Talking about the devil last night to staff. Denied she was doing this today. Much calmer today but she received two rounds of Haldol, Ativan and Benadryl prns last night. Abilify titrated up as well. Meds are starting to work but she still needs more time. Review of Systems Constitutional: Denies: fever, chills, weakness, weight change Eyes: Denies: eye pain, vision change Ears, Nose, Throat: Denies: ear pain, throat pain, dental pain, hearing loss, congestion Cardiovascular: Denies: chest pain, palpitations, dyspnea on exertion Respiratory: Denies: cough, dyspnea, wheezes Gastrointestinal: Denies: abdominal pain, nausea, vomiting, diarrhea, constipation Musculoskeletal: Denies: joint swelling, joint pain Neurological: Denies: headache, weakness, numbness, memory loss Psychiatric: Reports: auditory hallucinations Objective: Exam Patient orientation: Yes Person, Yes Time, Yes Place Level of alertness: Alert Patient appearance: Appropriate Behavior: anxious Psychomotor activity: Agitated Eye contact: Maintains Eye Contact Mood description: Anxious Affect description: congruent with mood, full range Speech pattern: Normal rate, Normal rhythm, Normal tone Speech volume: Normal Thought process: Tangential, Disorganized Thought content: No Suicidal ideation, No Homicidal ideation, Yes Overt delusions Perceptual disturbances: Yes Reacting to internal stimuli Judgment: Limited Insight: Minimal Results - Vital Signs Vital Signs: Temp Pulse Resp BP Pulse Ox 98 F 72 16 117/67 94 12/16/16 09:00 12/16/16 09:00 12/16/16 09:00 12/16/16 09:00 12/10/16 20:44 Assessment and Plan (1) Major depressive disorder with psychotic features Current visit: No Status: Acute Risks, benefits, side effects, alternatives discussed w/pt: Yes Patient agreeable to treatment: Yes Qualifiers: Major depression recurrence: recurrent Active/Remission status: currently active Major depression episode severity: severe Qualified Code(s): F33.3 - Major depressive disorder, recurrent, severe with psychotic symptoms (2) Depression, major, recurrent, severe with psychosis Current visit: Yes Status: Acute Plan: Continue hospitalization, Close observation, Suicide Precautions per unit protocol, Encourage participation in unit milieu, Group Therapy, Monitor sleep, Monitor appetite, Secure weapons Risks, benefits, side effects, alternatives discussed w/pt: Yes Patient agreeable to treatment: Yes Consult Discharge Plan - Plan Referrals: [facility] [Outside] - 12/22/16 1:00 pm (The above appointment is with Tamar Obrien.)
[2016-12-16] MEDS: ARIPiprazole 5 MG TABLET PO SCH (21:32)
[2016-12-16] MEDS: traZODone 50 MG TABLET PO PRN (21:33)
[2016-12-17] MEDS: Bumetanide 1 MG TABLET PO SCH ×2 (08:42→18:23)
[2016-12-17] MEDS: Venlafaxine XR (24 HR) 150 MG CAP.ER.24H PO SCH (08:43)
[2016-12-17] MEDS: hydrOXYzine pamoate 25 MG CAPSULE PO SCH ×3 (08:43→21:14)
[2016-12-17] MEDS: Topiramate 25 MG TABLET PO SCH ×2 (08:43→21:14)
[2016-12-17] MEDS ORDERED: hydrOXYzine pamoate 25 MG CAPSULE PO PRN (14:23)
--- NOTE | 2016-12-17 14:34 | Psychiatry Progress Note ---
Date of Encounter: 12/17/16 Time of Encounter: 14:24 Subjective Interval history: Looking a bit better today. Still required prns last night but did not need Haldol. Took Ativan and Benadryl to help her sleep. Remains religiously preoccupied and still says things like people are putting cyanide in her food and water. However, she reports she is eating and drinking and staff have not expressed a concern with this. Less focused on her pacemaker. Believes it still needs to come out but she reports her heart is functioning fine at this time. Less fearful of metal and able to sleep in bed as opposed to dragging her mattress off of the metal bed frame. Long history of psychotic illness and many of her delusions may be present at her baseline. She is showing less agitation in response to her delusions but still needing prns and reassurance from staff. Has a friend who has been by to drop off her meds and take care of her dogs. Yolanda reports they are dating and that he comes by her house often to tend to the yard and help her out. She is comfortable with staff talking to him. Will get feedback from him as to how he feels Yolanda is doing and how much support he can provide once she is discharged. Review of Systems Constitutional: Denies: fever, chills, weakness, weight change Eyes: Denies: eye pain, vision change Ears, Nose, Throat: Denies: ear pain, throat pain, dental pain, hearing loss, congestion Cardiovascular: Denies: chest pain, palpitations, dyspnea on exertion Respiratory: Denies: cough, dyspnea, wheezes Gastrointestinal: Denies: abdominal pain, nausea, vomiting, diarrhea, constipation Musculoskeletal: Denies: joint swelling, joint pain Neurological: Denies: headache, weakness, numbness, memory loss Psychiatric: Reports: auditory hallucinations Objective: Exam Patient orientation: Yes Person, Yes Time, Yes Place Level of alertness: Alert Patient appearance: Appropriate Behavior: calm, cooperative Psychomotor activity: Increased Eye contact: Maintains Eye Contact Mood description: Anxious Affect description: congruent with mood Speech pattern: Normal rate, Normal rhythm, Normal tone Speech volume: Normal Thought process: Tangential Thought content: No Suicidal ideation, No Homicidal ideation, Yes Overt delusions Perceptual disturbances: Yes Reacting to internal stimuli Judgment: Limited Insight: Minimal Results - Vital Signs Vital Signs: Temp Pulse Resp BP Pulse Ox 97.6 F 73 16 129/82 94 12/17/16 09:00 12/17/16 09:00 12/17/16 09:00 12/17/16 09:00 12/10/16 20:44 Assessment and Plan (1) Major depressive disorder with psychotic features Current visit: No Status: Acute Plan: Continue hospitalization, Close observation, Suicide Precautions per unit protocol, Encourage participation in unit milieu, Group Therapy, Monitor sleep, Monitor appetite, Secure weapons Risks, benefits, side effects, alternatives discussed w/pt: Yes Patient agreeable to treatment: Yes Qualifiers: Major depression recurrence: recurrent Active/Remission status: currently active Major depression episode severity: severe Qualified Code(s): F33.3 - Major depressive disorder, recurrent, severe with psychotic symptoms (2) Depression, major, recurrent, severe with psychosis Current visit: Yes Status: Acute Risks, benefits, side effects, alternatives discussed w/pt: Yes Patient agreeable to treatment: Yes Consult Discharge Plan - Plan Referrals: [facility] [Outside] - 12/22/16 1:00 pm (The above appointment is with Tamar Obrien.)
[2016-12-17] MEDS: ARIPiprazole 5 MG TABLET PO SCH (21:14)
[2016-12-17] MEDS: *HR* LORazepam 1 MG TABLET PO PRN (21:14)
[2016-12-17] MEDS: traZODone 50 MG TABLET PO PRN ×2 (21:15→22:25)
[2016-12-18] MEDS: MOM Conc 10 ML UD.LIQ PO PRN (06:29)
[2016-12-18] MEDS: *HR* LORazepam 1 MG TABLET PO PRN (07:55)
[2016-12-18] MEDS: Topiramate 25 MG TABLET PO SCH (08:33)
[2016-12-18] MEDS: Venlafaxine XR (24 HR) 150 MG CAP.ER.24H PO SCH (08:34)
[2016-12-18] MEDS: Bumetanide 1 MG TABLET PO SCH ×2 (08:34→17:50)
[2016-12-18] MEDS: hydrOXYzine pamoate 25 MG CAPSULE PO SCH ×2 (08:34→15:25)
[2016-12-18 10:06] VITALS: BP 133/85
--- NOTE | 2016-12-18 16:11 | Discharge Summary ---
Date of Encounter: 12/18/16 Time of Encounter: 15:57 Diagnosis - Discharge Diagnosis (1) Major depressive disorder with psychotic features Status: Acute Qualifiers: Major depression recurrence: recurrent Active/Remission status: currently active Major depression episode severity: severe Qualified Code(s): F33.3 - Major depressive disorder, recurrent, severe with psychotic symptoms (2) Depression, major, recurrent, severe with psychosis Status: Acute Medications - Discharge Medications Prescriptions: LORazepam [Ativan] 1 mg PO Q4HR PRN #28 tablet PRN Reason: Anxiety ARIPiprazole [Abilify] 10 mg PO HS #30 tablet hydrOXYzine pamoate [HydrOXYzine Pamoate] 50 mg PO TID #90 capsule Albuterol Sulfate [Proair Hfa] 2 puff IH Q4H PRN 09/01/16 [History] Bumetanide [Bumex] 1 mg PO QPM 09/01/16 [History] Bumetanide [Bumex] 2 mg PO QAM 09/01/16 [History] Carvedilol [Coreg] 3.125 mg PO BID 09/01/16 [History] Esomeprazole Magnesium 20 mg PO DAILY 09/01/16 [History] Fluticasone Propionate Nasal [Flonase] 2 spray NS DAILY 09/01/16 [History] Levothyroxine Sodium 100 mcg PO DAILY 09/01/16 [History] Topiramate 50 mg PO BID 09/01/16 [History] Venlafaxine XR (24 HR) [Effexor Xr] 150 mg PO DAILY 09/01/16 [History] Potassium Chloride 40 meq PO DAILY #14 tab.er.prt 11/29/16 [Rx] hydroCHLOROthiazide [Hydrochlorothiazide] 25 mg PO DAILY 11/29/16 [History] Tiotropium [Spiriva] 1 cap IH DAILY 12/11/16 [History] ARIPiprazole [Abilify] 10 mg PO HS #30 tablet 12/18/16 [Rx] LORazepam [Ativan] 1 mg PO Q4HR PRN #28 tablet 12/18/16 [Rx] hydrOXYzine pamoate [HydrOXYzine Pamoate] 50 mg PO TID #90 capsule 12/18/16 [Rx] Allergies chlorhexidine [From Hibiclens] Allergy (Verified 09/01/16 21:40) Rash vancomycin Allergy (Verified 11/30/16 01:29) Rash Provider Date of admission: 12/10/16 23:58 Primary care physician: PCP NO Discharging clinician: Fadumo Miller Assessment and Plan - Patient/Caregiver Discharge Instructions Activity: resume usual activities as tolerated Diet: low fat, low cholesterol - Follow up Plan Follow up with: [facility] [Outside] - 12/22/16 1:00 pm (The above appointment is with Tamar Obrien.) [facility] [Outside] - 03/17/17 9:00 am (The above appointment is with psychiatric prescriber, Jackelyn Arredondo. Please arrive 15 minutes early to complete paperwork. Please bring your insurance card, photo ID and medications in their original bottles. If you do not have insurance, bring proof of income to apply for the sliding fee scale. If you are unable to keep this appointment, 24 hour business notice of cancellation is expected. This is the first available appointment. You may contact the office regularly to check for cancellations that may allow you to be seen sooner. Also, due to a new provider coming to the office in February, it is very likely this appointment will be moved up to a sooner date.) Overall status at discharge: Stable Disposition: Home, Self-Care Hospital Course Hospital course: Ms. Neumann is a 56 year old female who was admitted secondary to psychosis. At the time of admission she was religiously preoccupied, pacing, intrusive, and talking to herself. Despite being a fall risk she was climbing on the furniture. She drug her mattress off of the bed frame and slept on the floor as she was convinced she could not be near metal. She repeatedly called her Cardiologists office from the unit as she thought her pacemaker was going to make her . She received multiple prns which she cooperated with. She was also started on Abilify and this was titrated up for clinical effect. She refused to sign into the hospital and she had to be probated secondary to her psychosis being slow to improve. At the time of discharge she was still experiencing some residual symptoms (believed the water was tainted so she tried to drink from the shower) but she was pleasant. Although she would say she felt like staff were putting cyanide in the food and water, she was comfortable with staff. She was far less agitated and she was able to sit and have a conversation. She was also agreeable to signing forms to allow herself to be linked with Medicaid-something staff had tried in the past but she had always refused. Staff spoke with her boyfriend who was agreeable to picking her up and helping her out. He had been caring for her pets and helping to maintain her house both before and during her admission. Yolanda consistently denied suicidal and homicidal ideation, plan, or intent throughout her inpatient stay. - Time Spent with Patient Total time spent providing and/or coordinating discharge services: Quality - Multiple Antipsychotics Patient discharged on 2 or more antipsychotic medications: No Procedures - Procedures Procedures: Medication Management, Crisis Stabilization, Supportive Therapy, Group Therapy Mental Status Exam - Mental Status Exam Patient orientation: Yes Person, Yes Time, Yes Place Level of alertness: Alert Patient appearance: Appropriate, Well Groomed Behavior: calm, cooperative Psychomotor activity: Increased Eye contact: Maintains Eye Contact Mood description: Euthymic/stable Affect description: congruent with mood Speech pattern: Normal rate, Normal rhythm, Normal tone Speech Volume: Normal Thought process: Tangential Thought Content: No Suicidal ideation, No Homicidal ideation, Yes Paranoid delusion, Yes Latter Day delusion, Yes Somatic delusion Perceptual Disturbances: Yes Reacting to internal stimuli Judgment: Fair Insight: Minimal
== END 2016-12-18 18:25 | disposition home or self-care (01) | DRG 885 ==
LOC: EMEROO 20:42 → 1ANU 23:54 → SUATTDRO 23:58
PROVIDERS: ADMIT Psychiatry & Neurology Psychiatry; ATTEND Psychiatry & Neurology Psychiatry

== ENCOUNTER 2017-01-07 12:45 | Observation (INO) ==
--- NOTE | 2017-01-07 13:03 | Emergency Department Note ---
Disposition Clinical Impression: Chest pain Qualifiers: Chest pain type: unspecified Qualified Code(s): R07.9 - Chest pain, unspecified Disposition: Admitted As Inpatient Neuro HPI - General Stated Complaint: Afib/vision change Time Seen by Provider: 01/07/17 12:47 Source: patient Mode of arrival: ambulatory Limitations: no limitations Nursing Notes Reviewed: Yes Vital Signs Reviewed: Yes - History of Present Illness HPI Narrative: 56-year-old comes in with a several week history of blurred vision several weeks and also has been complaining of chest pain. Patient was seen in the cardiology pacemaker clinic and was sent here for evaluation. Symptom Onset Unknown: Yes Severity: moderate Improves with: none Worsens with: none Associated symptoms: Reports: chest pain - Related Data Home Medications: Home Medications Medication Instructions Recorded Confirmed Albuterol Sulfate [Proair Hfa] 2 puff IH Q4H PRN 09/01/16 01/07/17 Bumetanide [Bumex] 1 mg PO QPM 09/01/16 01/07/17 Bumetanide [Bumex] 2 mg PO QAM 09/01/16 01/07/17 Carvedilol [Coreg] 6.25 mg PO BID 09/01/16 01/07/17 Esomeprazole Magnesium 20 mg PO DAILY 09/01/16 01/07/17 Fluticasone Propionate Nasal 2 spray NS DAILY PRN 09/01/16 01/07/17 [Flonase] Levothyroxine Sodium 100 mcg PO QAM 09/01/16 01/07/17 Topiramate 50 mg PO BID 09/01/16 01/07/17 Venlafaxine XR (24 HR) [Effexor Xr] 150 mg PO DAILY 09/01/16 01/07/17 Aripiprazole [Abilify] 15 mg PO HS 01/07/17 01/07/17 Cyanocobalamin (Vitamin B-12) 1,000 mcg PO DAILY 01/07/17 01/07/17 [Vitamin B12] Oxygen 3 l NS AD 01/07/17 01/07/17 Promethazine [Phenergan] 25 mg PO DAILY PRN 01/07/17 01/07/17 clonazePAM [Klonopin] 0.5 mg PO BID 01/07/17 01/07/17 hydroCHLOROthiazide 12.5 mg PO DAILY 01/07/17 01/07/17 [Hydrochlorothiazide] Previous Rx's Medication Instructions Recorded Potassium Chloride 40 meq PO DAILY #14 tab.er.prt 11/29/16 LORazepam [Ativan] 1 mg PO Q4HR PRN #28 tablet 12/18/16 hydrOXYzine pamoate [HydrOXYzine 50 mg PO TID #90 capsule 12/18/16 Pamoate] Allergies/Adverse Reactions: Allergies Allergy/AdvReac Type Severity Reaction Status Date / Time chlorhexidine Allergy Rash Verified 09/01/16 21:40 [From Hibiclens] vancomycin Allergy Rash Verified 11/30/16 01:29 Constitutional: Denies: fever, chills, weakness, weight change Eyes: Denies: eye pain, eye discharge, vision change ENT ED: Denies: ear pain, throat pain, dental pain, hearing loss, epistaxis, congestion, dysphagia Cardiovascular: Reports: chest pain. Denies: palpitations, dyspnea on exertion , edema, syncope Respiratory: Denies: cough, dyspnea, wheezes, hemoptysis, stridor Gastrointestinal: Denies: abdominal pain, nausea, vomiting, diarrhea, constipation, hematemesis, melena, hematochezia Genitourinary: Denies: dysuria, frequency, hematuria, discharge Musculoskeletal: Denies: back pain, neck pain, arthralgia, myalgia Integumentary: Denies: rash, abrasion, lesions Neurological: Reports: vertigo. Denies: headache, weakness, numbness, paresthesias, confusion, abnormal gait Psychiatric: Denies: anxiety, depression, suicidal thoughts, homicidal thoughts , auditory hallucinations, visual hallucinations Endocrine: Denies: fatigue Hematological/Lymphatic: Denies: easy bleeding, easy bruising Allergic/Immunologic: Denies: facial swelling, urticaria Past Medical History - Past Medical History Medical history: Reports: atrial fibrillation, cardiomyopathy, CHF, GERD, hepatitis, hyperlipidemia, hypertension, myocardial infarction, osteoporosis, pulmonary embolus, seizures, thyroid disease, valvular heart disease, other Surgical history: Reports: cholecystectomy, heart valve replacement, orthopedic , other, other, vascular surgery, pacemaker Psychiatric history: Reports: depression, schizophrenia - Social History Smoking Status: Never smoker Smokeless Tobacco Status: No Alcohol use: Reports: none Drug use: Reports: none Physical Exam - General Limitations: no limitations General appearance: alert, in no apparent distress - Head Head exam: atraumatic, normocephalic, normal inspection - Eye Eye exam: Present: normal appearance, PERRL, EOMI - ENT ENT exam: normal exam - Neck Neck exam: Present: normal inspection, full ROM, trachea midline - Chest Chest inspection: Present: normal inspection, symmetric chest wall rise - Respiratory Respiratory exam: Present: normal lung sounds bilaterally - Cardiovascular Cardiovascular exam: Present: regular rate, normal rhythm, normal heart sounds - Abdominal Exam Abdominal exam: Present: soft, Non-Tender. Absent: tenderness, distention, guarding, rebound, rigidity - Extremities Exam Extremities exam: Present: normal inspection, full ROM. Absent: tenderness, pedal edema - Expanded Lower Extremity Exam Neurovascular/Tendon exam: Absent: motor deficit, sensory deficit, tendon deficit Gait: not tested/not observed - Back Exam Back exam: Present: normal inspection, full ROM. Absent: tenderness - Neurological Exam Neurological exam: Present: alert, oriented X3 - Psychiatric Psychiatric exam: Present: normal affect, normal mood - Skin Skin exam: Present: warm, dry, intact, normal color Course - Reevaluation(s) Reevaluation #1: 56-year-old with history previous CT who was seen at pacemaker clinic with was sent here for evaluation as she says she hasn't felt well for several days says she's been having some intermittent chest discomfort. States it's a tight heaviness in her chest. Workup here shows a paced rhythm on her EKG her troponin is negative. We will admit her for rule out. Time: 16:11 - Consultations Consultation #1: Discussed with , admit. Time: 16:11 Vital Signs Temperature 97.6 F 01/07/17 12:58 Pulse Rate 70 01/07/17 12:58 Respiratory Rate 16 01/07/17 12:58 Blood Pressure 120/84 01/07/17 12:58 O2 Sat by Pulse Oximetry 95 01/07/17 12:58 Temperature 98.3 F 01/07/17 18:28 Pulse Rate 70 01/07/17 18:28 Respiratory Rate 16 01/07/17 18:28 Blood Pressure 126/74 01/07/17 18:28 O2 Sat by Pulse Oximetry 93 01/07/17 18:28 Oxygen Delivery Oxygen Delivery Room Air Neuro Symptoms/Deficit - Lab Data Lab results reviewed: Yes I reviewed the patient's lab results. Result diagrams: 01/07/17 15:15 01/07/17 15:15 Lab Results 01/07/17 01/07/17 01/07/17 Range/Units 14:11 15:15 15:15 WBC 3.9 L (4.3-11.1) K/mcL RBC 5.16 H (3.82-4.97) M/mcL Hgb 14.1 (11.5-15.4) g/dL Hct 43.8 (35.3-44.9) % MCV 84.9 (83.0-100.0) fL MCH 27.3 L (28.0-33.3) pg MCHC 32.2 (31.6-35.5) g/dL RDW 15.2 H (11.5-14.5) % Plt Count 156 (140-400) K/mcL MPV 10.5 (9.4-12.4) fL Immature Gran % 0.3 (0-4) % Seg Neutrophils % 41.1 % Lymphocytes % 42.0 % Monocytes % 10.6 % Eosinophils % 5.2 % Basophils % 0.8 % Neutrophils # 1.6 (1.6-8.9) K/mcL Lymphocytes # 1.6 (0.6-4.6) K/mcL Monocytes # 0.4 (0.0-1.3) K/mcL Eosinophils # 0.2 (0.0-0.6) K/mcL Basophils # 0.0 (0.0-0.2) K/mcL PT 9.9 (9.4-12.1) Seconds INR 0.9 APTT 40.6 H (26.0-36.0) Seconds Sodium (136-145) mEq/L Potassium (3.5-4.5) mEq/L Chloride (98-109) mEq/L Carbon Dioxide (19-29) mEq/L BUN (7-20) mg/dL Creatinine (0.57-1.11) mg/dL Est GFR ( Amer) (> 60) Est GFR (Non-Af Amer) (> 60) BUN/Creatinine Ratio (6-26) Glucose (70-99) mg/dL Calculated Osmolality (280-300) Calcium (8.6-10.8) mg/dL Troponin I (0-0.03) ng/mL Urine Color Yellow (Yellow) Urine Clarity Clear (Clear) Urine pH 7.0 (5.0-8.0) pH Units Ur Specific [place] 1.015 (1.010-1.025) Urine Protein Negative (Neg-Trace) mg/dL Urine Glucose (UA) Normal (Normal) mg/dL Urine Ketones Negative (Negative) mg/dL Urine Blood Negative (Negative) Urine Nitrite Negative (Negative) Urine Bilirubin Negative (Negative) Urine Urobilinogen Normal (Normal) mg/dL Ur Leukocyte Esterase Negative (Negative) Ur Culture Indicated? NO (NO) 01/07/17 01/07/17 Range/Units 15:15 15:15 WBC (4.3-11.1) K/mcL RBC (3.82-4.97) M/mcL Hgb (11.5-15.4) g/dL Hct (35.3-44.9) % MCV (83.0-100.0) fL MCH (28.0-33.3) pg MCHC (31.6-35.5) g/dL RDW (11.5-14.5) % Plt Count (140-400) K/mcL MPV (9.4-12.4) fL Immature Gran % (0-4) % Seg Neutrophils % % Lymphocytes % % Monocytes % % Eosinophils % % Basophils % % Neutrophils # (1.6-8.9) K/mcL Lymphocytes # (0.6-4.6) K/mcL Monocytes # (0.0-1.3) K/mcL Eosinophils # (0.0-0.6) K/mcL Basophils # (0.0-0.2) K/mcL PT (9.4-12.1) Seconds INR APTT (26.0-36.0) Seconds Sodium 138 (136-145) mEq/L Potassium 4.2 (3.5-4.5) mEq/L Chloride 105 (98-109) mEq/L Carbon Dioxide 27 (19-29) mEq/L BUN 14 (7-20) mg/dL Creatinine 0.70 (0.57-1.11) mg/dL Est GFR ( Amer) > 60 (> 60) Est GFR (Non-Af Amer) > 60 (> 60) BUN/Creatinine Ratio 20 (6-26) Glucose 83 (70-99) mg/dL Calculated Osmolality 286 (280-300) Calcium 10.2 (8.6-10.8) mg/dL Troponin I 0.00 (0-0.03) ng/mL Urine Color (Yellow) Urine Clarity (Clear) Urine pH (5.0-8.0) pH Units Ur Specific [place] (1.010-1.025) Urine Protein (Neg-Trace) mg/dL Urine Glucose (UA) (Normal) mg/dL Urine Ketones (Negative) mg/dL Urine Blood (Negative) Urine Nitrite (Negative) Urine Bilirubin (Negative) Urine Urobilinogen (Normal) mg/dL Ur Leukocyte Esterase (Negative) Ur Culture Indicated? (NO) - Radiology Data Radiology results reviewed: Yes I reviewed the patient's radiology results. Chest X-Ray 01/07/17 12:52 IMPRESSION: No acute cardiopulmonary process. D/ / Riaz Patel MD / Riaz Patel MD Interpreting Provider: Riaz Patel MD Head CT 01/07/17 12:52 IMPRESSION: No acute intracranial abnormality. D/ / Christopher Hayward MD / Christopher Hayward MD Interpreting Provider: Christopher Hayward MD - EKG Data EKG attestation: Yes I reviewed and interpreted this EKG. EKG results narrative: Paced rhythm TPA Checklist - LKW: 3-4.5 hrs Add. Contraindications Patient/family understanding: The patient/family members have been counseled and understood the risk, benefit , and alternatives of treatment.
[2017-01-07 14:27] LABS: Bilirubin,Urine Negative (Negative); Blood,Urine Negative (Negative); Clarity,Urine Clear (Clear); Color,Urine Yellow (Yellow); Glucose,Urine (UA) Normal (Normal); Ketones,Urine Negative (Negative); Leukocyte Esterase,Urine Negative (Negative); Nitrite,Urine Negative (Negative); Protein,Urine Negative (Neg-Trace); Specific Gravity,Urine 1.015 (1.010-1.025); Urobilinogen,Urine Normal (Normal)
[2017-01-07 15:25] LABS: Basophils % 0.8 %; Eosinophils # 0.2 K/mcL (0.0-0.6); Eosinophils % 5.2 %; Hematocrit 43.8 % (35.3-44.9); Hemoglobin 14.1 g/dL (11.5-15.4); Immature Granulocytes % 0.3 % (0-4); Lymphocytes # 1.6 K/mcL (0.6-4.6); Mean Corpuscular HGB Conc 32.2 g/dL (31.6-35.5); Mean Corpuscular Hemoglobin 27.3 pg (28.0-33.3); Mean Corpuscular Volume 84.9 fL (83.0-100.0); Mean Platelet Volume 10.5 fL (9.4-12.4); Monocytes # 0.4 K/mcL (0.0-1.3); Monocytes % 10.6 %; Neutrophils # 1.6 K/mcL (1.6-8.9); Platelet Count 156 K/mcL (140-400); Red Blood Count 5.16 M/mcL (3.82-4.97); Red Cell Distribution Width 15.2 % (11.5-14.5); Segmented Neutrophils % 41.1 %
[2017-01-07 15:31] LABS: INR 0.9; Prothrombin Time 9.9 Seconds (9.4-12.1)
[2017-01-07 15:33] LABS: Activated Partial Thrombo Time 40.6 Seconds (26.0-36.0)
[2017-01-07 15:37] LABS: BUN/Creatinine Ratio 20 (6-26); Blood Urea Nitrogen 14 mg/dL (7-20); Calcium 10.2 mg/dL (8.6-10.8); Carbon Dioxide 27 mEq/L (19-29); Chloride 105 mEq/L (98-109); Glucose 83 mg/dL (70-99); Osmolality,Calculated 286 (280-300); Potassium 4.2 mEq/L (3.5-4.5); Sodium 138 mEq/L (136-145); eGFR For African Americans > 60 (> 60); eGFR For Non-African Americans > 60 (> 60)
[2017-01-07] MEDS ORDERED: Ondansetron 4 MG/2 ML VIAL IVP PRN (17:49)
[2017-01-07] MEDS ORDERED: Naloxone 0.4 MG/ML INJ IVP PRN (17:49)
[2017-01-07] MEDS ORDERED: Ketorolac 30 MG/ML VIAL IVP PRN (17:49)
[2017-01-07] MEDS ORDERED: *HR* Morphine 2 MG/ML SYRINGE IVP PRN (17:49)
[2017-01-07] MEDS ORDERED: Acetaminophen 325 MG TABLET PO PRN (17:49)
[2017-01-07] MEDS ORDERED: Fluticasone Propionate Nasal 50 MCG/SPRAY BOTTLE NS PRN (17:52)
--- NOTE | 2017-01-07 17:54 | Internal Med History&Physical ---
Date of Encounter: 01/07/17 Time of Encounter: 17:54 Assessment and Plan (1) Chest pain Status: Acute Atypical chest pain. Telemetry monitoring, serial troponin cycling. Check lipid profile. Will consult cardiology for possible pacemaker checkup. Continue beta toñito and start aspirin and statin. Echocardiogram from November 2016 shows moderate to severe tricuspid stenosis, 50-55% EF, severe right atrial dilation. Qualifiers: Chest pain type: unspecified Qualified Code(s): R07.9 - Chest pain, unspecified (2) CHF (congestive heart failure) Status: Chronic Echocardiogram findings as above. Patient is noted to have valvular heart disease, status post tricuspid valve replacement. Continue diuretic and beta toñito. Telemetry monitoring. Cardiology consult. Qualifiers: Congestive heart failure type: combined Congestive heart failure chronicity : chronic Qualified Code(s): I50.42 - Chronic combined systolic (congestive) and diastolic (congestive) heart failure (3) COPD mixed type Status: Chronic Not in acute exacerbation. Continue when necessary bronchodilators and supplemental oxygen. (4) CVA, old, cognitive deficits Status: Chronic (5) History of permanent cardiac pacemaker placement Status: Chronic (6) History of chronic atrial fibrillation Status: Chronic Currently in paced rhythm. Not on long-term anticoagulations as outpatient. Continue beta toñito. (7) CAD (coronary artery disease), [place] coronary artery Status: Chronic Qualifiers: [place] vs. transplanted heart: [place] heart Associated angina: without angina Qualified Code(s): I25.10 - Atherosclerotic heart disease of [place] coronary artery without angina pectoris (8) Delusional disorder Status: Chronic (9) Hypothyroidism Status: Chronic Continue levothyroxine. Qualifiers: Hypothyroidism type: unspecified Qualified Code(s): E03.9 - Hypothyroidism , unspecified (10) Hypertension Status: Chronic Qualifiers: Hypertension type: essential hypertension Qualified Code(s): I10 - Essential (primary) hypertension (11) Depression with anxiety Status: Chronic Resume home medications. Internal Medicine - H&P: HPI Chief complaint: PPM not working, chest pains Admitted From: Emergency Dept Plans for Post Hospital Care: Home History of present illness: Ms. Neumann is a 56 year old female with history of CAD, CHF, atrial fibrillation , presents with complaints of intermittent chest pains. Patient has underlying major depression with psychosis, delusional disorder and is not a reliable historian. Patient reports that she feels her pacemaker is not working well, and it is working to stop her heart from beating and so she presented to the pacemaker clinic today where she was made to wait for to long and then she decided to present to the emergency room. She does report intermittent retrosternal stabbing chest pain/tightness, however is unable to provide further details regarding her pain. No orthopnea, leg swelling, shortness of breath. On being questioned about syncope, patient replies that "she refuses to pass out on cement floor to avoid back injuries, and thus never has syncope" . She does live alone and reports that her boyfriend frequently helps her out. Past Med Surg Social Fam HX - Past Medical History Medical history: atrial fibrillation, cardiomyopathy, CHF, GERD, hepatitis, hyperlipidemia, hypertension, myocardial infarction, osteoporosis, pulmonary embolus, seizures, thyroid disease, valvular heart disease, other Psychiatric history: depression, schizophrenia - Past Surgical History Surgical History: cholecystectomy, heart valve replacement, orthopedic, other, other, vascular surgery, pacemaker - Social History Smoking Status: Never smoker Smokeless Tobacco Status: No Alcohol use: none Drug use: none Occupational status: disabled Current living situation: Home - Independent Activity Level: Independent ambulation Recent Out of Country Travel Within the Last 8 Weeks: No - Family History Mother Living Status: Hx Family Cancer: Yes (colon cancer) Hx Family Endocrine Disorder: Yes (RA) Internal Medicine - H&P: Meds Albuterol Sulfate [Proair Hfa] 2 puff IH Q4H PRN 09/01/16 [History] Bumetanide [Bumex] 1 mg PO QPM 09/01/16 [History] Bumetanide [Bumex] 2 mg PO QAM 09/01/16 [History] Carvedilol [Coreg] 6.25 mg PO BID 09/01/16 [History] Esomeprazole Magnesium 20 mg PO DAILY 09/01/16 [History] Fluticasone Propionate Nasal [Flonase] 2 spray NS DAILY PRN 09/01/16 [History] Levothyroxine Sodium 100 mcg PO QAM 09/01/16 [History] Topiramate 50 mg PO BID 09/01/16 [History] Venlafaxine XR (24 HR) [Effexor Xr] 150 mg PO DAILY 09/01/16 [History] Potassium Chloride 40 meq PO DAILY #14 tab.er.prt 11/29/16 [Rx] LORazepam [Ativan] 1 mg PO Q4HR PRN #28 tablet 12/18/16 [Rx] hydrOXYzine pamoate [HydrOXYzine Pamoate] 50 mg PO TID #90 capsule 12/18/16 [Rx] Aripiprazole [Abilify] 15 mg PO HS 01/07/17 [History] Cyanocobalamin (Vitamin B-12) [Vitamin B12] 1,000 mcg PO DAILY 01/07/17 [History ] Oxygen 3 l NS AD 01/07/17 [History] Promethazine [Phenergan] 25 mg PO DAILY PRN 01/07/17 [History] Allergies chlorhexidine [From Hibiclens] Allergy (Verified 09/01/16 21:40) Rash vancomycin Allergy (Verified 11/30/16 01:29) Rash All Systems PM: A 10-system review of systems was performed and is negative for pertinent findings except as documented above in the HPI. - Constitutional Constitutional: no chills, no fever(s), no night sweats - EENT Eyes: no change in vision, no discharge, no pain, no photophobia Ears: no ear discharge, no ear pain, no tinnitus Nose, mouth and throat: no dysphagia, no nasal discharge, no neck pain, no sore throat - Cardiovascular Cardiovascular ROS IM: chest pain, dyspnea - Respiratory Respiratory: no cough, no dyspnea, no wheezing, no excessive phlegm production - Gastrointestinal Gastrointestinal: no abdominal pain, no diarrhea, no hematemesis, no hematochezia, no melena, no nausea, no vomiting - Genitourinary Genitourinary: no change in urinary stream, no dysuria, no flank pain, no hematuria - Musculoskeletal Musculoskeletal ROS IM: no numbness, no tingling - Integumentary Integumentary IM: no rash, no unusual bruising - Neurological Neurological ROS: no confusion, no convulsions, no focal weakness, no numbness, no tingling, no tremor(s) - Hematologic/Lymphatic Hematologic/Lymphatic: no easy bruising - Constitutional Vitals: Temp Pulse Resp BP Pulse Ox 97.6 F 70 16 116/92 94 01/07/17 12:58 01/07/17 15:33 01/07/17 16:55 01/07/17 16:55 01/07/17 15:33 General appearance: Present: A&O X 3. Absent: answers questions appropriately - Respiratory Respiratory exam: Present: CTAB. Absent: accessory muscle use, rales, rhonchi, wheezes - Cardiovascular Cardiovascular exam: Present: RRR, +S1, +S2. Absent: diastolic murmur, gallop, rubs, systolic murmur - GI/Abdominal GI/Abdominal exam: Present: normal bowel sounds, soft, no peritoneal signs. Absent: distended, tenderness - Extremities Exam Extremities exam: Present: full ROM, warm, radial pulses palpable and symetrical. Absent: calf tenderness, cyanotic, pedal edema - Neurological Exam Neurological exam: Present: CN II-XII intact, oriented X3, no focal deficits. Absent: pronater drift, facial droop, speech deficit - Psychiatric Additional comments: Paranoid delusions - Skin Skin exam: Present: dry, intact Internal Med - H&P Results - Labs CBC & Chem 7: 01/08/17 06:00 01/08/17 06:00 - EKG Data -: EKG Interpreted by Myself Rate: normal (Paced ventricular rhythm)
[2017-01-07] MEDS ORDERED: Bumetanide 1 MG TABLET PO SCH (18:00)
--- NOTE | 2017-01-07 19:49 | Electrocardiograph Report ---
[facility] Test Date: 2017-01-07 Pat Name: Yolanda Neumann Department: 105 Room: Gender: F Vp Lab: : [id number] Requested By: Ilya Arevalo Order Number: [id number] Reading MD: Feliz Chirinos MD Measurements Intervals [place] Rate: 70 P: MD: 0 QRS: -48 QRSD: 155 T: 75 QT: 472 QTc: 492 Interpretive Statements ELECTRONIC VENTRICULAR PACEMAKER ABNORMAL RHYTHM ECG Electronically Signed On 01-07-2017 19:47:37 EDT by Feliz Chirinos MD
[2017-01-07] MEDS: hydrOXYzine pamoate 25 MG CAPSULE PO SCH (20:20)
[2017-01-07] MEDS: Topiramate 25 MG TABLET PO SCH (20:20)
[2017-01-07] MEDS: clonazePAM 0.5 MG TABLET PO SCH (20:20)
[2017-01-07] MEDS ORDERED: ARIPiprazole 5 MG TABLET PO SCH (21:00)
[2017-01-08 06:10] LABS: Basophils % 0.7 %; Eosinophils # 0.2 K/mcL (0.0-0.6); Eosinophils % 5.7 %; Hematocrit 41.8 % (35.3-44.9); Hemoglobin 13.6 g/dL (11.5-15.4); Immature Granulocytes % 0.2 % (0-4); Lymphocytes # 1.7 K/mcL (0.6-4.6); Lymphocytes % 41.6 %; Mean Corpuscular HGB Conc 32.5 g/dL (31.6-35.5); Mean Corpuscular Hemoglobin 27.5 pg (28.0-33.3); Mean Corpuscular Volume 84.4 fL (83.0-100.0); Mean Platelet Volume 10.1 fL (9.4-12.4); Monocytes # 0.5 K/mcL (0.0-1.3); Neutrophils # 1.7 K/mcL (1.6-8.9); Platelet Count 146 K/mcL (140-400); Red Blood Count 4.95 M/mcL (3.82-4.97); Red Cell Distribution Width 15.1 % (11.5-14.5); Segmented Neutrophils % 39.8 %
[2017-01-08 06:24] LABS: BUN/Creatinine Ratio 21 (6-26); Blood Urea Nitrogen 16 mg/dL (7-20); Calcium 9.5 mg/dL (8.6-10.8); Carbon Dioxide 29 mEq/L (19-29); Chloride 105 mEq/L (98-109); Chol/HDL Ratio 3.2 (0-4.9); Cholesterol 141 mg/dL (< 200); Glucose 93 mg/dL (70-99); HDL Cholesterol 44 mg/dL (40-59); LDL Cholesterol,Calculated 83 mg/dL (0-99); Osmolality,Calculated 289 (280-300); Potassium 3.7 mEq/L (3.5-4.5); Sodium 139 mEq/L (136-145); Triglycerides 69 mg/dL (< 150); eGFR For African Americans > 60 (> 60); eGFR For Non-African Americans > 60 (> 60)
[2017-01-08] MEDS ORDERED: Aspirin 81 MG TAB.CHEW PO SCH (09:00)
[2017-01-08] MEDS ORDERED: Bumetanide 1 MG TABLET PO SCH (09:00)
[2017-01-08] MEDS ORDERED: Venlafaxine XR (24 HR) 150 MG CAP.ER.24H PO SCH (09:00)
[2017-01-08] MEDS ORDERED: Cyanocobalamin (B-12) 1,000 MCG TABLET PO SCH (09:00)
[2017-01-08] MEDS: Topiramate 25 MG TABLET PO SCH (09:09)
[2017-01-08] MEDS: clonazePAM 0.5 MG TABLET PO SCH (09:10)
[2017-01-08] MEDS: hydrOXYzine pamoate 25 MG CAPSULE PO SCH (09:10)
[2017-01-08 10:31] VITALS: BP 107/61
--- NOTE | 2017-01-08 11:22 | Event Note ---
Date of Encounter: 01/08/17 Time of Encounter: 11:18 - Cardiology Event Note Pt's device was interrogated on 01/06/17 and all measurements were appropriate, including battery longevity. Troponins negative x 3. Recent echo showed moderate -severe tricuspid stenosis with hx of tricuspid valve replacement. Tricuspid stenosis can be further discussed/evaluated as outpt. Discussed with Dr. Carmichael, no full consult warranted at this time. Consulted for device interrogation. Will sign off at this time, reconsult PRN, follow-up as outpt with Dr. Kuhn.
--- NOTE | 2017-01-08 13:16 | Discharge Summary ---
Date of Encounter: 01/08/17 Time of Encounter: 11:00 - Discharge Diagnosis (1) Chest pain Priority: Primary Status: Acute Qualifiers: Chest pain type: unspecified Qualified Code(s): R07.9 - Chest pain, unspecified (2) Delusional disorder Priority: Primary Status: Chronic (3) CHF (congestive heart failure) Priority: Secondary Status: Chronic Qualifiers: Congestive heart failure type: combined Congestive heart failure chronicity : chronic Qualified Code(s): I50.42 - Chronic combined systolic (congestive) and diastolic (congestive) heart failure (4) History of permanent cardiac pacemaker placement Priority: Secondary Status: Chronic (5) CAD (coronary artery disease), [place] coronary artery Priority: Secondary Status: Chronic Qualifiers: [place] vs. transplanted heart: [place] heart Associated angina: without angina Qualified Code(s): I25.10 - Atherosclerotic heart disease of [place] coronary artery without angina pectoris (6) Hypothyroidism Priority: Secondary Status: Chronic Qualifiers: Hypothyroidism type: unspecified Qualified Code(s): E03.9 - Hypothyroidism , unspecified (7) Hypertension Priority: Secondary Status: Chronic Qualifiers: Hypertension type: essential hypertension Qualified Code(s): I10 - Essential (primary) hypertension (8) Depression with anxiety Priority: Secondary Status: Chronic - Discharge Medications Home Medications: Albuterol Sulfate [Proair Hfa] 2 puff IH Q4H PRN 09/01/16 [History] Bumetanide [Bumex] 1 mg PO QPM 09/01/16 [History] Bumetanide [Bumex] 2 mg PO QAM 09/01/16 [History] Carvedilol [Coreg] 6.25 mg PO BID 09/01/16 [History] Esomeprazole Magnesium 20 mg PO DAILY 09/01/16 [History] Fluticasone Propionate Nasal [Flonase] 2 spray NS DAILY PRN 09/01/16 [History] Levothyroxine Sodium 100 mcg PO QAM 09/01/16 [History] Topiramate 50 mg PO BID 09/01/16 [History] Venlafaxine XR (24 HR) [Effexor Xr] 150 mg PO DAILY 09/01/16 [History] Potassium Chloride 40 meq PO DAILY #14 tab.er.prt 11/29/16 [Rx] LORazepam [Ativan] 1 mg PO Q4HR PRN #28 tablet 12/18/16 [Rx] hydrOXYzine pamoate [HydrOXYzine Pamoate] 50 mg PO TID #90 capsule 12/18/16 [Rx] Aripiprazole [Abilify] 15 mg PO HS 01/07/17 [History] Cyanocobalamin (Vitamin B-12) [Vitamin B12] 1,000 mcg PO DAILY 01/07/17 [History ] Oxygen 3 l NS AD 01/07/17 [History] Promethazine [Phenergan] 25 mg PO DAILY PRN 01/07/17 [History] Allergies/Adverse Reactions: Allergies chlorhexidine [From Hibiclens] Allergy (Verified 09/01/16 21:40) Rash vancomycin Allergy (Verified 11/30/16 01:29) Rash Date of admission: 01/07/17 16:36 Primary care physician: PCP NO Consults: 01/07/17 17:50 Consult to Cardiology [CONS] Routine Comment: Consulting Provider: Cardiology Leeann Reason for Consult: Chest pains, thinks her pacemaker is not working and has been referred from [facility] Call Completed: Yes 01/07/17 18:14 Consult to [facility] [CONS] Routine Reason for SW Consult: possible need for mental health resources. Discharging clinician: Brina Carmichael Anticipated date of discharge: 01/08/17 - Patient Status Disposition: Home, Self-Care Condition: Good Functional capacity at discharge: independent ambulation Overall status at discharge: patient is progressing back to baseline - Discharge Instructions Instructions: Chest Pain (GEN), Heart Healthy Diet (DC) Follow Up With: Bettye Hou DO [Resident] - Jackelyn Arredondo CNP [Advanced Practice Nurse] - 03/17/17 9:00 am ([facility] provided appointment information. This appointment was already sceduled and is her first appointment. ) Patricio Kuhn DO [Partnered Physician] - Forms: ED Satisfaction Letter Additional Instructions: F/up with /Cardiology in 3-4 weeks (we have web requested this appointment, the office will call you with appointment time and day) F/up with Psychiatry in 2-3 weeks Follow-up appointments: If there is not an appointment listed below, please call your physician and schedule a follow-up appointment. If you have congestive heart failure and your symptoms return, make an appointment with your physician. Medication List: Carry an up to date list of medications you are taking at all time. We have given you an updated medication list including any new medications that you have been prescribed. Please provide that list to your primary provider Symptoms: If your condition changes or you experience any of the following symptoms, notify your physician immediately: Unusual or worsening pain, fever, persistent nausea and vomiting, bleeding, increase in swelling (especially in your legs), sudden weight gain, extreme dizziness, chest pain, increased drainage or redness from a wound or incision. Go to the emergency department if you experience a problem with breathing. Weights: If you have a history of swelling or shortness of breath, weigh yourself daily and notify your physician if you have a weight gain of two or more pounds in one day or 5 or more pounds in a week. If you experience any of the warning signs for stroke: Sudden numbness or weakness of the face, arm or leg; especially on one side of the body, sudden confusion, trouble speaking or understanding, sudden trouble seeing in one or both eyes, sudden trouble walking, dizziness, loss of balance or coordination, sudden sever headache with no cause; Call 911 or go to the emergency room. Stroke is a medical emergency. Some risk factors for stroke: Age, cigarette smoking, diabetes, excessive alcohol consumption, family history , high blood pressure, overweight, physical inactivity, prior stroke, heart attack, diagnosis of carotid artery stenosis or other artery disease. If you smoke, STOP: Smoking or tobacco use significantly increases your risk of heart and lung disease. Your chance of disease greatly increases if you continue to smoke. For more information, call the [place] tobacco quit line for smoking cessation QUIT-NOW ( ) - Diet and Activity Activity: resume usual activities as tolerated Diet: low fat, low cholesterol, low salt diet Hospital course: Ms. Neumann is a 56 year old female with the above medical problems, who was admitted with intermittent stabbing chest pain and concerns about pacemaker. Patient does have delusional disorder with underlying major depression and psychosis and is noted to be constantly obsessed about pacemaker functioning and has thoughts about having 2 different pacemakers in her body, both of them acting against each other, causing her heart to stop beating. Initial labs, EKG and chest x-ray done in the emergency room showed no acute abnormality. Patient was monitored on telemetry which remained uneventful and showed paced rhythm. Serial troponins were negative for ACS. Cardiology was consulted and patient underwent pacemaker check, which was noted to be normal including battery longevity and she is medically stable for discharge with outpatient follow-up. - Time Spent with Patient Total time spent providing and/or coordinating discharge services: Greater than 30 minutes (45 min) - Constitutional Vitals: Temp Pulse Resp BP Pulse Ox 99.0 F 70 16 107/61 93 01/08/17 10:30 01/08/17 10:30 01/08/17 10:30 01/08/17 10:30 01/08/17 10:30 General appearance: Present: A&O X 3, answers questions appropriately - Respiratory Respiratory exam: Present: CTAB. Absent: accessory muscle use, rales, rhonchi, wheezes - Cardiovascular Cardiovascular exam: Present: RRR, +S1, +S2. Absent: diastolic murmur, gallop, rubs, systolic murmur
== END 2017-01-08 14:23 | disposition home or self-care (01) ==
LOC: 3BNU 12:45 → EMEROO 12:45 → SUATTDRO 16:36 → 3BNU 16:58
PROVIDERS: ADMIT Internal Medicine Endocrinology, Diabetes & Metabolism; ATTEND Internal Medicine

== ENCOUNTER 2017-10-11 16:37 | Observation (INO) ==
[2017-10-11] MEDS ORDERED: Ipratropium/Albuterol Neb 3 ML IH ONE ×2 (18:08→20:00)
[2017-10-11] MEDS ORDERED: methylPREDNISolone 125 MG/2 ML VIAL IVP ONE (18:08)
[2017-10-11 18:17] LABS: Basophils % 0.8 %; Eosinophils # 0.3 K/mcL (0.0-0.6); Eosinophils % 5.3 %; Hematocrit 41.5 % (35.3-44.9); Hemoglobin 13.7 g/dL (11.5-15.4); Immature Granulocytes % 0.6 % (0-4); Immature Platelets 3.9 % (1.1-6.1); Lymphocytes # 1.5 K/mcL (0.6-4.6); Mean Corpuscular Hemoglobin 28.3 pg (28.0-33.3); Mean Corpuscular Volume 85.7 fL (83.0-100.0); Mean Platelet Volume 10.1 fL (9.4-12.4); Monocytes # 0.6 K/mcL (0.0-1.3); Monocytes % 13.3 %; Neutrophils # 2.3 K/mcL (1.6-8.9); Platelet Count 165 K/mcL (140-400); Red Blood Count 4.84 M/mcL (3.82-4.97); Red Cell Distribution Width 13.7 % (11.5-14.5)
[2017-10-11 18:44] LABS: BUN/Creatinine Ratio 21 (6-26); Blood Urea Nitrogen 14 mg/dL (6-20); Calcium 9.7 mg/dL (8.6-10.3); Carbon Dioxide 26 mEq/L (23-29); Chloride 102 mEq/L (98-107); Glucose 82 mg/dL (70-105); Osmolality,Calculated 286 (280-300); Potassium 3.8 mEq/L (3.5-5.1); Sodium 138 mEq/L (136-145); eGFR For African Americans > 60 (> 60); eGFR For Non-African Americans > 60 (> 60)
--- NOTE | 2017-10-11 21:47 | Emergency Department Note ---
Disposition Clinical Impression: SOB (shortness of breath), Wheezing, Hypoxia Disposition: Admitted As Inpatient Condition: Good Referrals: Fred lCoud DO [Primary Care Provider] - Forms: ED Satisfaction Letter, Work/School Release Time of Disposition: 22:06 General Adult HPI - General Chief complaint: ED General Medical Stated complaint: flu like symptoms Time Seen by Provider: 10/11/17 17:51 Source: patient Limitations: no limitations Nursing Notes Reviewed: Yes Vital Signs Reviewed: Yes - History of Present Illness HPI Narrative: 57 showed female presents emergency room for cough or shortness of breath. States she has been sick for over a week. Gradually getting worse. Subjective fevers at home. Intermittent chest discomfort. No smoking history. No lung disease. No history of asthma. She can hear herself wheezing. No other complaints. She denies any lower extremity pain. No history of DVT or PE. She denies any previous heart attacks. Pain Scale: 7 - Related Data Home Medications Medication Instructions Recorded Confirmed Albuterol Sulfate [Proair Hfa] 2 puff IH Q4H PRN 09/01/16 03/17/17 Bumetanide [Bumex] 1 mg PO QPM 09/01/16 01/07/17 Carvedilol [Coreg] 6.25 mg PO BID 09/01/16 03/17/17 Fluticasone Propionate Nasal 2 spray NS DAILY PRN 09/01/16 03/17/17 [Flonase] Levothyroxine Sodium 100 mcg PO QAM 09/01/16 03/17/17 Aripiprazole [Abilify] 15 mg PO HS 01/07/17 03/17/17 Cyanocobalamin (Vitamin B-12) 1,000 mcg PO DAILY 01/07/17 03/17/17 [Vitamin B12] Oxygen 3 l NS AD 01/07/17 03/17/17 Promethazine [Phenergan] 25 mg PO DAILY PRN 01/07/17 03/17/17 Previous Rx's Medication Instructions Recorded Potassium Chloride 40 meq PO DAILY #14 tab.er.prt 11/29/16 hydrOXYzine pamoate [HydrOXYzine 50 mg PO TID #90 capsule 12/18/16 Pamoate] hydrOXYzine HCl [Hydroxyzine HCl] 50 mg PO HS PRN #10 tablet 03/17/17 predniSONE [PredniSONE] 20 mg PO DAILY #18 tablet 03/17/17 Allergies Allergy/AdvReac Type Severity Reaction Status Date / Time chlorhexidine Allergy Rash Verified 04/02/17 11:08 [From [facility]] vancomycin Allergy Rash Verified 04/02/17 11:08 All systems ED: reviewed and negative except as stated. Constitutional: Reports: as per HPI Eyes: Reports: as per HPI ENT ED: Reports: as per HPI Cardiovascular: Denies: chest pain Respiratory: Reports: cough, dyspnea, wheezes Gastrointestinal: Reports: as per HPI Genitourinary: Reports: as per HPI Musculoskeletal: Reports: as per HPI Integumentary: Reports: as per HPI Neurological: Reports: as per HPI Psychiatric: Reports: as per HPI Endocrine: Reports: as per HPI Allergic/Immunologic: Reports: as per HPI Past Medical History - Past Medical History Medical history: Reports: atrial fibrillation, cardiomyopathy, CHF, GERD, hepatitis, hyperlipidemia, hypertension, myocardial infarction, osteoporosis, pulmonary embolus, seizures, thyroid disease, valvular heart disease, other Surgical history: Reports: cholecystectomy, heart valve replacement, orthopedic , other, other, vascular surgery, pacemaker Psychiatric history: Reports: depression, schizophrenia - Social History Smoking Status: Never smoker Smokeless Tobacco Status: No Alcohol use: Reports: none Drug use: Reports: none Physical Exam - General Limitations: no limitations General appearance: alert - Head Head exam: atraumatic - ENT ENT exam: normal exam, normal oropharynx - Neck Neck exam: Present: normal inspection - Chest Chest inspection: Present: normal inspection, symmetric chest wall rise - Respiratory Respiratory exam: Present: wheezes (Diffuse wheezing heard throughout all lung porras bilaterally.) - Cardiovascular Cardiovascular exam: Present: normal rhythm, tachycardia - Abdominal Exam Abdominal exam: Present: soft, Non-Tender, normal bowel sounds - Extremities Exam Extremities exam: Present: normal inspection - Expanded Lower Extremity Exam Hip/Pelvis exam: Present: normal inspection - Neurological Exam Neurological exam: Present: alert, oriented X3 - Psychiatric Psychiatric exam: Present: normal affect, normal mood - Skin Skin exam: Present: warm, dry, intact Course Vital Signs Temperature 97.9 F 10/11/17 16:44 Pulse Rate 70 10/11/17 16:44 Respiratory Rate 18 10/11/17 16:44 Blood Pressure 139/97 10/11/17 16:44 O2 Sat by Pulse Oximetry 93 10/11/17 16:44 Temperature 97.9 F 10/11/17 16:44 Pulse Rate 70 10/11/17 21:26 Respiratory Rate 14 10/11/17 21:26 Blood Pressure 108/77 10/11/17 21:26 O2 Sat by Pulse Oximetry 90 10/11/17 21:26 Oxygen Delivery Oxygen Delivery Nasal Cannula Medical Decision Making - MDM Narrative Medical decision making narrative: Radiology read her chest x-ray is negative. She has no lab abnormalities. Negative troponin. Negative d-dimer. Patient still having shortness of breath. The room air saturations drop into the 80s. We had her on oxygen and she was only satting about 90-91%. She needs to be admitted for pulmonary treatments and oxygen. - Medical Records Medical records reviewed: Yes I reviewed the patient's medical records. - Lab Data Lab results reviewed: Yes I reviewed the patient's lab results. Result diagrams: 10/11/17 18:01 10/11/17 18: Lab Results 10/11/17 10/11/17 10/11/17 Range/Units 18: 18:01 18:01 WBC 4.7 (4.3-11.1) K/mcL RBC 4.84 (3.82-4.97) M/mcL Hgb 13.7 (11.5-15.4) g/dL Hct 41.5 (35.3-44.9) % MCV 85.7 (83.0-100.0) fL MCH 28.3 (28.0-33.3) pg MCHC 33.0 (31.6-35.5) g/dL RDW 13.7 (11.5-14.5) % Plt Count 165 (140-400) K/mcL MPV 10.1 (9.4-12.4) fL Immature Gran % 0.6 (0-4) % Seg Neutrophils % 48.0 % Lymphocytes % 32.0 % Monocytes % 13.3 % Eosinophils % 5.3 % Basophils % 0.8 % Neutrophils # 2.3 (1.6-8.9) K/mcL Lymphocytes # 1.5 (0.6-4.6) K/mcL Monocytes # 0.6 (0.0-1.3) K/mcL Eosinophils # 0.3 (0.0-0.6) K/mcL Basophils # 0.0 (0.0-0.2) K/mcL Immature Plt Fraction 3.9 (1.1-6.1) % D-Dimer (0-500) ng/mLFEU Sodium 138 (136-145) mEq/L Potassium 3.8 (3.5-5.1) mEq/L Chloride 102 (98-107) mEq/L Carbon Dioxide 26 (23-29) mEq/L BUN 14 (6-20) mg/dL Creatinine 0.67 (0.60-1.20) mg/dL Est GFR ( Amer) > 60 (> 60) Est GFR (Non-Af Amer) > 60 (> 60) BUN/Creatinine Ratio 21 (6-26) Glucose 82 (70-105) mg/dL Calculated Osmolality 286 (280-300) Lactic Acid (0.5-2.2) mmol/L Calcium 9.7 (8.6-10.3) mg/dL Troponin I (< 0.04) ng/mL B-Natriuretic Peptide 183 H (Less than 100) pg/mL 10/11/17 10/11/17 10/11/17 Range/Units 18:01 19:03 21:02 WBC (4.3-11.1) K/mcL RBC (3.82-4.97) M/mcL Hgb (11.5-15.4) g/dL Hct (35.3-44.9) % MCV (83.0-100.0) fL MCH (28.0-33.3) pg MCHC (31.6-35.5) g/dL RDW (11.5-14.5) % Plt Count (140-400) K/mcL MPV (9.4-12.4) fL Immature Gran % (0-4) % Seg Neutrophils % % Lymphocytes % % Monocytes % % Eosinophils % % Basophils % % Neutrophils # (1.6-8.9) K/mcL Lymphocytes # (0.6-4.6) K/mcL Monocytes # (0.0-1.3) K/mcL Eosinophils # (0.0-0.6) K/mcL Basophils # (0.0-0.2) K/mcL Immature Plt Fraction (1.1-6.1) % D-Dimer 444 (0-500) ng/mLFEU Sodium (136-145) mEq/L Potassium (3.5-5.1) mEq/L Chloride (98-107) mEq/L Carbon Dioxide (23-29) mEq/L BUN (6-20) mg/dL Creatinine (0.60-1.20) mg/dL Est GFR ( Amer) (> 60) Est GFR (Non-Af Amer) (> 60) BUN/Creatinine Ratio (6-26) Glucose (70-105) mg/dL Calculated Osmolality (280-300) Lactic Acid 1.0 (0.5-2.2) mmol/L Calcium (8.6-10.3) mg/dL Troponin I < 0.03 (< 0.04) ng/mL B-Natriuretic Peptide (Less than 100) pg/mL - Radiology Data Radiology results reviewed: Yes I reviewed the patient's radiology results. - EKG Data EKG #1 EKG results narrative: EKG shows a paced rhythm Rate of 70. Left axis deviation. DE interval undetermined. QRS 161. QTC 506.
[2017-10-12] MEDS ORDERED: Ipratropium/Albuterol Neb 3 ML IH PRN (00:58)
[2017-10-12] MEDS ORDERED: Naloxone 0.4 MG/ML INJ IVP PRN (02:01)
[2017-10-12] MEDS: clonazePAM 0.5 MG TABLET PO PRN ×2 (02:37→20:45)
[2017-10-12] MEDS: *HR* Methadone 10 MG TABLET PO SCH ×3 (02:37→17:11)
--- NOTE | 2017-10-12 02:46 | Internal Med History&Physical ---
Date of Encounter: 10/12/17 Time of Encounter: 02:40 Assessment and Plan (1) SOB (shortness of breath) Current visit: Yes Status: Acute Patient has shortness of breath. Likely COPD exacerbation. Plan: Intravenous antibiotics. IV steroids. Inhale bronchodilators. Close monitoring of the respiratory status. We will resume home medications. (2) Anxiety about health Current visit: No Status: Acute Patient has multiple psychiatric issues. Patient was evaluated in the past by psychiatry. Patient is very concerned about her health. We will resume all her psychiatric medications. (3) CAD (coronary artery disease), [place] coronary artery Current visit: No Status: Chronic Patient is known to have a coronary artery disease. At this point patient denies chest pain. Will follow her up very closely and start on home medication. Qualifiers: [place] vs. transplanted heart: [place] heart Associated angina: without angina Qualified Code(s): I25.10 - Atherosclerotic heart disease of [place] coronary artery without angina pectoris (4) CHF (congestive heart failure) Current visit: No Status: Chronic Patient is known to have a diastolic in distal heart failure. Echocardiogram:11/2016: Moderate to severe tricuspid stenosis with pacer lead present. EF 50-55%. Severe dilated right atrium, diastolic dysfunction Qualifiers: Qualified Code(s): I50.42 - Chronic combined systolic (congestive) and diastolic (congestive) heart failure (5) CVA, old, cognitive deficits Current visit: No Status: Chronic Old CVA, recovered well. (6) DVT prophylaxis Current visit: No Status: Acute SCD Medical decision making: This patient has a moderate to severe risk of worsening in spite of being on appropriate medication due to the underlying complex medical condition. Internal Medicine - H&P: HPI Chief complaint: shortness of breath Admitted From: Emergency Dept Plans for Post Hospital Care: Home History of present illness: Ms. Neumann is a 57 year old female who has a background history of hypertension, hypothyroidism, delusional disorder, atrial fibrillation not on anticoagulation , coronary artery disease, COPD, depression and anxiety. Patient was complaining of worsening shortness of breath along with increased cough. Patient noted that her symptoms are getting worse for the past 4 days. In last 24 hours her cough was persistently worse and as per patient there was a change in color of her sputum. Patient was not able to a few steps at home and she was short of breath at rest. This was the reason she decided to come to the emergency room for further evaluation. Patient was evaluated in the emergency room. Chest x-ray was done. This x-ray did not show any acute process. Her influenza A and B is negative. Basic labs were done. Her CBC was within normal limits. D-dimer was 444. Her BNP was 183. The rest of her chemistry is within normal limits including lactic acid. Patient was admitted for worsening shortness of breath likely secondary to COPD/ CHF exacerbation. Past Med Surg Social Fam HX - Past Medical History Medical history: atrial fibrillation, cardiomyopathy, CHF, GERD, hepatitis, hyperlipidemia, hypertension, myocardial infarction, osteoporosis, pulmonary embolus, seizures, thyroid disease, valvular heart disease, other Psychiatric history: depression, schizophrenia - Past Surgical History Surgical History: cholecystectomy, heart valve replacement, orthopedic, other, other, vascular surgery, pacemaker - Social History Smoking Status: Never smoker Smokeless Tobacco Status: No Alcohol use: none Drug use: none - Family History Mother Adopted: [place]: Mahnaz Age: 83 Family Member Ethnicity: Non- Living Status: Age at : 83 Cause of : Age Hx Family Cardiac Disorders: No Hx Family Respiratory Disorders: No Hx Family Cancer: No Hx Family GI Disorders: No Hx Family Genitourinary Disorders: No Hx Family Endocrine Disorder: No Hx Family Musculoskeletal Disorders: No Hx Family Neuromuscular Disorders: No Hx Family Neurologic Disorders: No Hx Family HEENT Disorders: No Hx Family Autoimmune Disorders: No Hx Family Reproductive Disorders: No Hx Family Psychosocial Disorders: No Hx Family Medical Disorders: No Internal Medicine - H&P: Meds Albuterol Sulfate [Proair Hfa] 2 puff IH Q4H PRN 09/01/16 [History] Bumetanide [Bumex] 1 mg PO QPM 09/01/16 [History] Carvedilol [Coreg] 3.125 mg PO BID 09/01/16 [History] Fluticasone Propionate Nasal [Flonase] 2 spray NS DAILY PRN 09/01/16 [History] Levothyroxine Sodium 100 mcg PO QAM 09/01/16 [History] Potassium Chloride 40 meq PO DAILY #14 tab.er.prt 11/29/16 [Rx] hydrOXYzine pamoate [HydrOXYzine Pamoate] 50 mg PO TID #90 capsule 12/18/16 [Rx] Aripiprazole [Abilify] 15 mg PO HS 01/07/17 [History] Cyanocobalamin (Vitamin B-12) [Vitamin B12] 1,000 mcg PO DAILY 01/07/17 [History ] Oxygen 3 l NS AD 01/07/17 [History] Promethazine [Phenergan] 25 mg PO DAILY PRN 01/07/17 [History] hydrOXYzine HCl [Hydroxyzine HCl] 50 mg PO HS PRN #10 tablet 03/17/17 [Rx] predniSONE [PredniSONE] 20 mg PO DAILY #18 tablet 03/17/17 [Rx] Effexor XR 150 mg PO DAILY 10/11/17 [History] Hydrochlorothiazide 12.5 mg PO BID 10/11/17 [History] Methadone [Methadone] 10 mg PO Q12HR 10/11/17 [History] Proair Hfa 108 mcg IH Q4HR PRN 10/11/17 [History] Vistaril 50 mg PO PRN PRN 10/11/17 [History] clonazePAM [Klonopin] 0.5 mg PO BID PRN 10/11/17 [History] 3 Allergy/AdvReac Type Severity Reaction Status Date / Time chlorhexidine Allergy Rash Verified 04/02/17 11:08 [From [facility]] vancomycin Allergy Rash Verified 04/02/17 11:08 All Systems PM: A 10-system review of systems was performed and is negative for pertinent findings except as documented above in the HPI. - Constitutional Constitutional: no chills, no fever(s), no night sweats - EENT Eyes: no change in vision, no discharge, no pain, no photophobia Ears: no ear discharge, no ear pain, no tinnitus Nose, mouth and throat: no dysphagia, no nasal discharge, no neck pain, no sore throat - Cardiovascular Cardiovascular ROS IM: diaphoresis, dyspnea, lightheadedness, no chest pain, no palpitations, no syncope - Respiratory Respiratory: no cough, no dyspnea, no wheezing, no excessive phlegm production - Gastrointestinal Gastrointestinal: no abdominal pain, no diarrhea, no hematemesis, no hematochezia, no melena, no nausea, no vomiting - Genitourinary Genitourinary: no change in urinary stream, no dysuria, no flank pain, no hematuria - Musculoskeletal Musculoskeletal ROS IM: no numbness, no tingling - Integumentary Integumentary IM: no rash, no unusual bruising - Neurological Neurological ROS: no confusion, no convulsions, no focal weakness, no numbness, no tingling, no tremor(s) - Hematologic/Lymphatic Hematologic/Lymphatic: no easy bruising - Constitutional Vitals: Temp Pulse Resp BP Pulse Ox 97.7 F 70 18 141/70 93 10/11/17 23:13 10/11/17 23:13 10/11/17 23:13 10/11/17 23:13 10/11/17 23:13 General appearance: Present: A&O X 3, pleasant, no acute distress, obese, answers questions appropriately - Head Head exam: Present: atraumatic, normocephalic - Eye Eye exam: Present: PERRL, conjuntiva pink, sclera anicteric Pupils: Present: PERRL - Neck Neck exam general surgery: Present: supple, trachea midline. Absent: lymphadenopathy - Respiratory Respiratory exam: Present: accessory muscle use, chest wall tenderness, CTAB, wheezes. Absent: rales, rhonchi - Cardiovascular Cardiovascular exam: Present: RRR, +S1, +S2. Absent: diastolic murmur, gallop, rubs, systolic murmur - GI/Abdominal GI/Abdominal exam: Present: normal bowel sounds, soft, no peritoneal signs. Absent: distended, tenderness - Extremities Exam Extremities exam: Present: warm, radial pulses palpable and symmetrical. Absent : calf tenderness, cyanotic, pedal edema - Neurological Exam Neurological exam: Present: CN II-XII intact, oriented X3, no focal deficits. Absent: pronater drift, facial droop, speech deficit - Skin Skin exam: Present: dry, intact Internal Med - H&P Results - Labs CBC & Chem 7: 10/11/17 18:01 10/11/17 18:01
[2017-10-12] MEDS: cefTRIAXone 1,000 MG in Water for inj. (sterile) 20 ML 10 ML IVPB SCH (02:48)
[2017-10-12 04:50] LABS: Basophils % 0.4 %; Hematocrit 40.6 % (35.3-44.9); Hemoglobin 13.4 g/dL (11.5-15.4); Immature Granulocytes % 0.7 % (0-4); Lymphocytes # 0.6 K/mcL (0.6-4.6); Mean Corpuscular Hemoglobin 28.4 pg (28.0-33.3); Mean Platelet Volume 9.9 fL (9.4-12.4); Monocytes % 1.1 %; Neutrophils # 2.1 K/mcL (1.6-8.9); Platelet Count 143 K/mcL (140-400); Red Blood Count 4.72 M/mcL (3.82-4.97); Red Cell Distribution Width 13.8 % (11.5-14.5); Segmented Neutrophils % 76.8 %
[2017-10-12 04:52] LABS: INR 1.2; Prothrombin Time 12.5 Seconds (9.4-12.1)
[2017-10-12 05:05] LABS: Alanine Aminotransferase 18 Units/L (7-52); Albumin 4.2 g/dL (3.5-5.7); Albumin/Globulin Ratio 1.6 (1.1-2.2); Alkaline Phosphatase 74 Units/L (34-104); Aspartate Amino Transferase 14 Units/L (13-39); BUN/Creatinine Ratio 23 (6-26); Bilirubin,Total 0.5 mg/dL (0.3-1.0); Blood Urea Nitrogen 17 mg/dL (6-20); Calcium 9.6 mg/dL (8.6-10.3); Carbon Dioxide 27 mEq/L (23-29); Chloride 100 mEq/L (98-107); Chol/HDL Ratio 2.8 (0-4.9); Cholesterol 143 mg/dL (< 200); Globulin 2.7 g/dL (2.4-3.5); Glucose 194 mg/dL (70-105); HDL Cholesterol 51 mg/dL (40-59); LDL Cholesterol,Calculated 83 mg/dL (0-99); Magnesium 1.9 mg/dL (1.6-2.6); Osmolality,Calculated 291 (280-300); Phosphorous 3.4 mg/dL (2.7-4.5); Potassium 3.2 mEq/L (3.5-5.1); Sodium 137 mEq/L (136-145); Total Protein 6.9 g/dL (6.4-8.9); Triglycerides 44 mg/dL (< 150); eGFR For African Americans > 60 (> 60); eGFR For Non-African Americans > 60 (> 60)
[2017-10-12] MEDS: Cyanocobalamin (B-12) 1,000 MCG TABLET PO SCH (08:30)
[2017-10-12] MEDS: Venlafaxine XR (24 HR) 150 MG CAP.ER.24H PO SCH (08:31)
[2017-10-12] MEDS: hydroCHLOROthiazide 25 MG TABLET PO SCH ×2 (08:31→20:45)
[2017-10-12] MEDS: Fluticasone Propionate Nasal 50 MCG/SPRAY BOTTLE NS SCH (08:33)
[2017-10-12] MEDS: MethylPREDNISolone 40 MG/ML VIAL IVP SCH ×3 (10:46→23:52)
[2017-10-12] MEDS ORDERED: Bumetanide 1 MG TABLET PO SCH (18:00)
[2017-10-12] MEDS: ARIPiprazole 10 MG TABLET PO SCH (20:47)
[2017-10-13] MEDS: *HR* Methadone 10 MG TABLET PO SCH ×2 (04:31→15:57)
[2017-10-13] MEDS: cefTRIAXone 1,000 MG in Water for inj. (sterile) 20 ML 10 ML IVPB SCH (04:31)
[2017-10-13] MEDS: Bumetanide 1 MG TABLET PO SCH ×2 (06:07→07:46)
[2017-10-13] MEDS: Cyanocobalamin (B-12) 1,000 MCG TABLET PO SCH (07:43)
[2017-10-13] MEDS: MethylPREDNISolone 40 MG/ML VIAL IVP SCH ×3 (07:43→23:41)
[2017-10-13] MEDS: hydroCHLOROthiazide 25 MG TABLET PO SCH ×2 (07:43→21:34)
[2017-10-13] MEDS: Venlafaxine XR (24 HR) 150 MG CAP.ER.24H PO SCH (07:43)
[2017-10-13] MEDS: Fluticasone Propionate Nasal 50 MCG/SPRAY BOTTLE NS SCH (07:45)
[2017-10-13] MEDS: clonazePAM 0.5 MG TABLET PO PRN (16:04)
[2017-10-13] MEDS: Ipratropium/Albuterol Neb 3 ML IH SCH ×2 (16:41→20:09)
--- NOTE | 2017-10-13 17:12 | Internal Med Progress Note ---
Date of Encounter: 10/13/17 Time of Encounter: 17:08 - Assessment and plan (1) Acute exacerbation of chronic obstructive pulmonary disease (COPD) Current Visit: Yes Status: Acute Assessment and plan: Has known COPD with chronic respiratory failure. On home oxygen at 3 L. Symptomatic with shortness of breath and wheezing. Continue IV ceftriaxone, add azithromycin for anti-inflammatory properties. Continue steroids. Scheduled bronchodilators. Respiratory PCR, urinary antigens pending. (2) CAD (coronary artery disease), [place] coronary artery Current Visit: No Status: Chronic Assessment and plan: per hx. asymptomatic. Denies chest pain. Not on ASA for unknown reasons. Continue home BB, add baby ASA. Qualifiers: [place] vs. transplanted heart: [place] heart Associated angina: without angina Qualified Code(s): I25.10 - Atherosclerotic heart disease of [place] coronary artery without angina pectoris (3) CHF (congestive heart failure) Current Visit: No Status: Chronic Assessment and plan: Patient is known to have a diastolic in distal heart failure. BNP 210. TTE with EF 55%, and indeterminate diastolic dysfunction moderately dilated left and right atrium and tricuspid valve not well visualized however appears thickened with significant tricuspid stenosis. Appears euvolemic. Does not appear overloaded. Continue home diuretics. Qualifiers: Qualified Code(s): I50.42 - Chronic combined systolic (congestive) and diastolic (congestive) heart failure (4) CVA, old, cognitive deficits Current Visit: No Status: Chronic Assessment and plan: hx CVA with mild cognitive impairment; patient reports having trouble recalling information and slow to respond at time. No physical deficits apparent. ASA added as noted above. (5) DVT prophylaxis Current Visit: No Status: Acute Assessment and plan: SCD - Subjective Interval history: Seen and examined at bedside. Patient is new to me, information obtained from chart review and patient report. Still with shortness of breath and cough that improved from admission. She would like to go home today if possible however I am concerned with her mild dyspnea and persistent wheezing that she would fail outpatient treatment. She is agreeable to stay overnight for continued IV ATB and steroids. No chest pain. - Constitutional Vitals: Temp Pulse Resp BP Pulse Ox 98.1 F 71 15 102/60 91 10/13/17 15:57 10/13/17 15:57 10/13/17 15:57 10/13/17 15:57 10/13/17 15:57 General appearance: Present: mild distress, A&O X 3, pleasant, obese, answers questions appropriately - Head Head exam: Present: atraumatic, normocephalic - Eye Eye exam: Present: PERRL, conjuntiva pink, sclera anicteric Pupils: Present: PERRL - Neck Neck exam general surgery: Present: supple, trachea midline. Absent: lymphadenopathy - Respiratory Respiratory exam: Present: rhonchi, wheezes. Absent: accessory muscle use, rales - Cardiovascular Cardiovascular exam: Present: RRR, +S1, +S2. Absent: diastolic murmur, gallop, rubs, systolic murmur - GI/Abdominal GI/Abdominal exam: Present: normal bowel sounds, soft, no peritoneal signs. Absent: distended, tenderness - Extremities Exam Extremities exam: Present: warm, radial pulses palpable and symmetrical. Absent : calf tenderness, cyanotic, pedal edema - Neurological Exam Neurological exam: Present: CN II-XII intact, oriented X3, no focal deficits. Absent: pronater drift, facial droop, speech deficit - Skin Skin exam: Present: dry, intact Internal Medicine: Result - Labs CBC & Chem 7: 10/12/17 03:18 10/12/17 23:58 Labs: BMP 10/12/17 10/12/17 18:40 23:58 Potassium Cancelled 4.0 Cardiac Enzymes 10/12/17 Range/Units 18:40 Troponin I < 0.03 (< 0.04) ng/mL - ABG Interpretation ABG results: PT/INR, D-dimer PT 12.5 Seconds (9.4-12.1) H 10/12/17 03:18 D-Dimer 444 ng/mLFEU (0-500) 10/11/17 21:02 Consult Discharge Plan - Plan Referrals: Fred Cloud DO [Primary Care Provider] -
[2017-10-13] MEDS: Aspirin 81 MG TAB.CHEW PO SCH (17:52)
[2017-10-13] MEDS ORDERED: Azithromycin 500 MG in D5% in Water 250 ML IVPB SCH (18:00)
--- NOTE | 2017-10-13 18:10 | Electrocardiograph Report ---
[place] [id number] Test Date: 2017-10-11 Pat Name: Yolanda Neumann Department: 104 Room: [facility] Gender: F Platform Consultant: [facility] : 1960 Requested By: Garland Cardenas Order Number: [id number] Reading MD: Kiara Parker Measurements Intervals [place] Rate: 70 P: RI: 0 QRS: -56 QRSD: 161 T: 112 QT: 486 QTc: 506 Interpretive Statements ELECTRONIC VENTRICULAR PACEMAKER ABNORMAL RHYTHM ECG Electronically Signed On 10-13-2017 18:08:17 EST by Kiara Parker
[2017-10-13] MEDS: ARIPiprazole 10 MG TABLET PO SCH (21:33)
[2017-10-13 23:53] LABS: Adenovirus Not Detected (Not Detect); Bordetella Pertussis Not Detected (Not Detect); Chlamydophila pneumoniae Not Detected (Not Detect); Coronavirus 229E Not Detected (Not Detect); Coronavirus HKU1 Not Detected (Not Detect); Coronavirus NL63 Not Detected (Not Detect); Coronavirus OC43 Not Detected (Not Detect); Human Metapneumovirus Not Detected (Not Detect); Human Rhinovirus/Enterovirus ***DETECTED*** (Not Detect); Influenza A Subtype 2009 H1 Not Detected (Not Detect); Influenza A Untypeable Not Detected (Not Detect); Influenza B Not Detected (Not Detect); Mycoplasma pneumoniae Not Detected (Not Detect); Parainfluenza Virus 1 Not Detected (Not Detect); Parainfluenza Virus 2 Not Detected (Not Detect); Parainfluenza Virus 3 Not Detected (Not Detect); Parainfluenza Virus 4 Not Detected (Not Detect); Respiratory Syncytial Virus Not Detected (Not Detect)
[2017-10-14] MEDS: Ipratropium/Albuterol Neb 3 ML IH SCH ×4 (00:11→11:04)
[2017-10-14] MEDS: *HR* Methadone 10 MG TABLET PO SCH (03:44)
[2017-10-14] MEDS: cefTRIAXone 1,000 MG in Water for inj. (sterile) 20 ML 10 ML IVPB SCH (03:44)
[2017-10-14] MEDS: Bumetanide 1 MG TABLET PO SCH (07:53)
[2017-10-14] MEDS: Cyanocobalamin (B-12) 1,000 MCG TABLET PO SCH (07:53)
[2017-10-14] MEDS: hydroCHLOROthiazide 25 MG TABLET PO SCH (07:53)
[2017-10-14] MEDS: Venlafaxine XR (24 HR) 150 MG CAP.ER.24H PO SCH (07:53)
[2017-10-14] MEDS: Aspirin 81 MG TAB.CHEW PO SCH (07:53)
[2017-10-14] MEDS: MethylPREDNISolone 40 MG/ML VIAL IVP SCH (07:54)
[2017-10-14] MEDS: Fluticasone Propionate Nasal 50 MCG/SPRAY BOTTLE NS SCH (08:25)
[2017-10-14 11:32] VITALS: BP 116/77
--- NOTE | 2017-10-14 11:34 | Discharge Summary ---
- NOTES TO OUTPATIENT PROVIDER Notes to Outpatient Provider: Recommend follow-up within 1-2 weeks Orders not resulted at time of discharge: Pending orders 10/12/17 03:16 Culture,Blood,Additional [BC] Routine 10/12/17 03:18 Culture,Blood [BC] Routine Date of Encounter: 10/14/17 Time of Encounter: 11:28 - Discharge Diagnosis (1) Acute exacerbation of chronic obstructive pulmonary disease (COPD) Priority: Primary Status: Acute Comments: Has known COPD with chronic respiratory failure. On home oxygen at 3 L. Suspect COPD exacerbation with shortness of breath and wheezing. Urinary antigens negative, respiratory PCR with enterovirus. Sx's significantly improved with IV ceftriaxone, azithromycin and steroids. Discharge home on doxycycline (on methadone and avoiding azithromycin/fluoroquinolones due to QTC prolongation), steroid burst and bronchodilators. Recommend follow-up with PCP within 1-2 weeks. (2) History of tricuspid valve replacement with bioprosthetic valve Priority: Primary Status: Acute Comments: per hx. 10/2017 TTE with poorly visualized tricuspid valve which appears thickened and evidence of significant tricuspid stenosis suggested by Doppler. Chart reviewed and patient was recently seen by cardiology who recommended ASA and patient declined at that time. Discussed with patient at length and she is now agreeable. Discharge home on ASA 81 mg daily. 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 (3) Atrial fibrillation and flutter Priority: Primary Status: Acute Comments: per hx. Follows with Cardiology. Was recently seen 09/2017 and was found to be in a flutter at that time. Per chart review anticoagulation was recommended however patient declined. Revisited anticoagulation with patient prior to discharge and she is still declining; states she was "taken off blood thinners a long time ago due to bleeding and falls". She is agreeable to ASA as noted above. Cont home BB (4) CAD (coronary artery disease), [place] coronary artery Priority: Primary Status: Chronic Comments: per hx. asymptomatic. Denied chest pain. Continue home BB, add baby ASA. Qualifiers: [place] vs. transplanted heart: [place] heart Associated angina: without angina Qualified Code(s): I25.10 - Atherosclerotic heart disease of [place] coronary artery without angina pectoris (5) CHF (congestive heart failure) Priority: Secondary Status: Chronic Comments: has known to have a diastolic in distal heart failure. BNP 210. TTE with EF 55% , and indeterminate diastolic dysfunction, moderately dilated left and right atrium. Appeared euvolemic. Continue home diuretics. Qualifiers: Qualified Code(s): I50.42 - Chronic combined systolic (congestive) and diastolic (congestive) heart failure (6) CVA, old, cognitive deficits Priority: Secondary Status: Chronic Comments: per hx. ASA added Hospital course: Ms. Neumann is a 57 year old female with past medical history A. fib, diastolic dysfunction, COPD and tricuspid valve replacement who presented to [facility] on 10/12/17 with complaints of shortness of breath. She was found to be an acute COPD exacerbation and was treated with IV ATB, steroids and bronchodilators. Her symptoms improved at time of discharge. She was discharged home in stable condition with outpatient follow-up. Please see assessment and plan for further details. Discharge discussed with: patient - Time Spent with Patient Total time spent providing and/or coordinating discharge services: - Discharge Medications Prescriptions: Albuterol Sulfate [Proair Hfa] 2 puff IH Q4H PRN #1 hfa.aer.ad PRN Reason: Shortness Of Breath Doxycycline 100 mg PO BID #14 capsule predniSONE [PredniSONE] 40 mg PO DAILY #10 tablet Home Medications: Bumetanide [Bumex] 1 mg PO QAM 09/01/16 [History] Carvedilol [Coreg] 6.25 mg PO BID 09/01/16 [History] Fluticasone Propionate Nasal [Flonase] 2 spray NS DAILY PRN 09/01/16 [History] Levothyroxine Sodium 100 mcg PO QAM 09/01/16 [History] Potassium Chloride 40 meq PO DAILY #14 tab.er.prt 11/29/16 [Rx] hydrOXYzine pamoate [HydrOXYzine Pamoate] 50 mg PO TID #90 capsule 12/18/16 [Rx] Aripiprazole [Abilify] 15 mg PO HS 01/07/17 [History] Cyanocobalamin (Vitamin B-12) [Vitamin B12] 1,000 mcg PO DAILY 01/07/17 [History ] Oxygen 3 l NS AD 01/07/17 [History] Promethazine [Phenergan] 25 mg PO DAILY PRN 01/07/17 [History] Albuterol Sulfate [Proair Hfa] 1 - 2 puff IH Q4-6H PRN 10/11/17 [History] Hydrochlorothiazide [Microzide] 12.5 mg PO BID 10/11/17 [History] Methadone 10 mg PO Q12HR 10/11/17 [History] Venlafaxine XR (24 HR) [Effexor Xr] 150 mg PO DAILY 10/11/17 [History] clonazePAM [Klonopin] 0.5 mg PO BID PRN 10/11/17 [History] Doxepin [Sinequan] 25 mg PO HS 10/12/17 [History] Albuterol Sulfate [Proair Hfa] 2 puff IH Q4H PRN #1 hfa.aer.ad 10/14/17 [Rx] Doxycycline 100 mg PO BID #14 capsule 10/14/17 [Rx] predniSONE [PredniSONE] 40 mg PO DAILY #10 tablet 10/14/17 [Rx] Allergies/Adverse Reactions: 3 Allergy/AdvReac Type Severity Reaction Status Date / Time chlorhexidine Allergy Rash Verified 04/02/17 11:08 [From Hibiclens] vancomycin Allergy Rash Verified 04/02/17 11:08 Date of admission: 10/11/17 22:21 Primary care physician: Fred Cloud DO Discharging clinician: Majo Weiss Anticipated date of discharge: 10/14/17 - Constitutional Vitals: Temp Pulse Resp BP Pulse Ox 97.3 F L 70 16 116/68 94 10/14/17 07:36 10/14/17 07:36 10/14/17 11:06 10/14/17 07:36 10/14/17 11:06 General appearance: Present: A&O X 3, pleasant, obese, answers questions appropriately - Head Head exam: Present: atraumatic, normocephalic - Eye Eye exam: Present: PERRL, conjuntiva pink, sclera anicteric Pupils: Present: PERRL - Neck Neck exam general surgery: Present: supple, trachea midline. Absent: lymphadenopathy - Respiratory Respiratory exam: Present: CTAB. Absent: accessory muscle use, rales, rhonchi, wheezes - Cardiovascular Cardiovascular exam: Present: RRR, +S1, +S2. Absent: diastolic murmur, gallop, rubs, systolic murmur - GI/Abdominal GI/Abdominal exam: Present: normal bowel sounds, soft, no peritoneal signs. Absent: distended, tenderness - Extremities Exam Extremities exam: Present: warm, radial pulses palpable and symmetrical. Absent : calf tenderness, cyanotic, pedal edema - Neurological Exam Neurological exam: Present: CN II-XII intact, oriented X3, no focal deficits. Absent: pronater drift, facial droop, speech deficit - Skin Skin exam: Present: dry, intact - Patient Status Disposition: Home, Self-Care Condition: Good Overall status at discharge: patient is progressing back to baseline - Discharge Instructions Instructions: Chronic Obstructive Pulmonary Disease (DC), Doxycycline (By mouth ), Prednisone (By mouth), Aspirin (By mouth), Atrial Fibrillation (DC) Follow Up With: Fred Cloud DO [Primary Care Provider] - 10/23/17 3:00 pm - Diet and Activity Activity: increase activity as tolerated Diet: low fat, low cholesterol
== END 2017-10-14 12:46 | disposition home or self-care (01) ==
LOC: EMEROO 16:37 → 3NENU 16:37 → SUATTDRO 22:21 → 3NENU 22:58 → 3BNU 10-12 16:37
PROVIDERS: ADMIT Internal Medicine; ATTEND Registered Nurse

== ENCOUNTER 2017-11-12 15:40 | Inpatient (IN) ==
[2017-11-12] MEDS ORDERED: Furosemide 20 MG/2 ML VIAL IVP ONE ×2 (15:51→19:30)
--- NOTE | 2017-11-12 15:51 | Emergency Department Note ---
Disposition Clinical Impression: Acute exacerbation of chronic obstructive airways disease Disposition: Admitted As Inpatient Condition: Good Referrals: Fred Cloud DO [Primary Care Provider] - Forms: ED Satisfaction Letter Time of Disposition: 17:35 General Adult HPI - General Chief complaint: ED Shortness of Breath/Dyspnea Stated complaint: CHF "episode" Time Seen by Provider: 11/12/17 15:45 Source: patient Mode of arrival: ambulatory Limitations: no limitations Nursing Notes Reviewed: Yes Vital Signs Reviewed: Yes - History of Present Illness HPI Narrative: 57-year-old female with significant past medical history of COPD on 3 L nasal cannula and CHF presenting to the emergency Department chief complaint of fluid retention and dyspnea. Patient states over the past couple days she has had increased shortness of breath. She denies fevers, cough or chest pain. Denies any sick contacts. She states she is concerned that she is holding onto fluid as her weight has increased over the past couple days as well. Patient states she does not know if this is related to her COPD or CHF. Patient has not tried anything at home for this. She has not increased her oxygen at home. Patient has lost to follow-up with pulmonology at our hospital. Pain Scale: 7 - Related Data Home Medications Medication Instructions Recorded Confirmed Bumetanide [Bumex] 1 mg PO QAM 09/01/16 10/12/17 Carvedilol [Coreg] 6.25 mg PO BID 09/01/16 10/12/17 Fluticasone Propionate Nasal 2 spray NS DAILY PRN 09/01/16 10/12/17 [Flonase] Levothyroxine Sodium 100 mcg PO QAM 09/01/16 10/12/17 Aripiprazole [Abilify] 15 mg PO HS 01/07/17 10/12/17 Cyanocobalamin (Vitamin B-12) 1,000 mcg PO DAILY 01/07/17 10/12/17 [Vitamin B12] Oxygen 3 l NS AD 01/07/17 10/12/17 Promethazine [Phenergan] 25 mg PO DAILY PRN 01/07/17 10/12/17 Albuterol Sulfate [Proair Hfa] 1 - 2 puff IH Q4-6H PRN 10/11/17 10/12/17 Hydrochlorothiazide [Microzide] 12.5 mg PO BID 10/11/17 10/12/17 Methadone 10 mg PO Q12HR 10/11/17 10/12/17 Venlafaxine XR (24 HR) [Effexor Xr] 150 mg PO DAILY 10/11/17 10/12/17 clonazePAM [Klonopin] 0.5 mg PO BID PRN 10/11/17 10/12/17 Doxepin [Sinequan] 25 mg PO HS 10/12/17 10/12/17 Previous Rx's Medication Instructions Recorded Potassium Chloride 40 meq PO DAILY #14 tab.er.prt 11/29/16 hydrOXYzine pamoate [HydrOXYzine 50 mg PO TID #90 capsule 12/18/16 Pamoate] Albuterol Sulfate [Proair Hfa] 2 puff IH Q4H PRN #1 hfa.aer.ad 10/14/17 Aspirin 81 mg PO DAILY #30 tab.chew 10/14/17 Doxycycline 100 mg PO BID #14 capsule 10/14/17 predniSONE [PredniSONE] 40 mg PO DAILY #10 tablet 10/14/17 Allergies Allergy/AdvReac Type Severity Reaction Status Date / Time chlorhexidine Allergy Rash Verified 11/12/17 15:44 [From [facility]] vancomycin Allergy Rash Verified 11/12/17 15:44 All systems ED: reviewed and negative except as stated. Cardiovascular: Reports: dyspnea on exertion Respiratory: Reports: dyspnea Past Medical History - Past Medical History Attestation: Yes The following information was validated with the patient. Medical history: Reports: atrial fibrillation, cardiomyopathy, CHF, GERD, hepatitis, hyperlipidemia, hypertension, myocardial infarction, osteoporosis, pulmonary embolus, seizures, thyroid disease, valvular heart disease, other Surgical history: Reports: cholecystectomy, heart valve replacement, orthopedic , other, other, vascular surgery, pacemaker Psychiatric history: Reports: depression, schizophrenia - Social History Smoking Status: Never smoker Smokeless Tobacco Status: No Alcohol use: Reports: none Drug use: Reports: none Physical Exam - General Limitations: no limitations General appearance: alert, in no apparent distress - Head Head exam: atraumatic, normocephalic, normal inspection - Eye Eye exam: Present: normal appearance. Absent: scleral icterus, conjunctival injection - ENT ENT exam: normal exam, mucous membranes moist - Neck Neck exam: Present: normal inspection, full ROM. Absent: tenderness, meningismus - Chest Chest inspection: Present: normal inspection, symmetric chest wall rise. Absent : tenderness, rash - Respiratory Respiratory exam: Present: other (Decreased breath sounds throughout) - Cardiovascular Cardiovascular exam: Present: regular rate, normal rhythm, normal heart sounds - Abdominal Exam Abdominal exam: Present: soft, Non-Tender. Absent: distention, guarding, rebound, rigidity - Extremities Exam Extremities exam: Present: normal inspection, full ROM - Neurological Exam Neurological exam: Present: alert, oriented X3 - Psychiatric Psychiatric exam: Present: normal affect, normal mood - Skin Skin exam: Present: warm, intact Course Course Narrative: 57-year-old female presenting for dyspnea and increased weight. Patient is concerned for CHF versus COPD. Cannula. Patient denies any chest pain. We will perform basic laboratory analysis along with a chest x-ray and EKG. Patient is alert and oriented 3 in the room. Stable vital signs now. Mostly likely admission but pending results. Patient agrees with this plan. - Reevaluation(s) Reevaluation #1: Patient's laboratory analysis shows minor hypokalemia but otherwise unchanged. When patient was ambulated her oxygen saturation got down to 87% on her 3 L nasal cannula. We will provide the patient with 3 [id number] duonebs and Solu -Medrol. We will plan to admit her for COPD exacerbation and hypoxia. I spoke with the hospitalist on-call Dr. Fernandez who agrees to accept the patient at the time. Patient is alert and oriented 3 in the room with stable vital signs. Patient agrees with this plan. Vital Signs Temperature 98.3 F 11/12/17 15:40 Pulse Rate 71 11/12/17 15:40 Respiratory Rate 18 11/12/17 15:40 Blood Pressure 127/89 11/12/17 15:40 O2 Sat by Pulse Oximetry 84 11/12/17 15:40 Temperature 98.3 F 11/12/17 15:40 Pulse Rate 70 11/12/17 17:18 Respiratory Rate 18 11/12/17 17:18 Blood Pressure 105/58 11/12/17 17:18 O2 Sat by Pulse Oximetry 93 11/12/17 17:18 Oxygen Delivery Oxygen Delivery Nasal Cannula Medical Decision Making - Lab Data Result diagrams: 11/12/17 16:08 11/12/17 16:08 Lab Results 11/12/17 11/12/17 11/12/17 Range/Units 16:08 16:08 16:08 WBC 5.3 (4.3-11.1) K/mcL RBC 5.12 H (3.82-4.97) M/mcL Hgb 15.1 (11.5-15.4) g/dL Hct 43.6 (35.3-44.9) % MCV 85.2 (83.0-100.0) fL MCH 29.5 (28.0-33.3) pg MCHC 34.6 (31.6-35.5) g/dL RDW 13.8 (11.5-14.5) % Plt Count 219 (140-400) K/mcL MPV 10.2 (9.4-12.4) fL Immature Gran % 0.6 (0-4) % Seg Neutrophils % 41.4 % Lymphocytes % 41.0 % Monocytes % 12.6 % Eosinophils % 3.6 % Basophils % 0.8 % Neutrophils # 2.2 (1.6-8.9) K/mcL Lymphocytes # 2.2 (0.6-4.6) K/mcL Monocytes # 0.7 (0.0-1.3) K/mcL Eosinophils # 0.2 (0.0-0.6) K/mcL Basophils # 0.0 (0.0-0.2) K/mcL Sodium 140 (136-145) mEq/L Potassium 3.2 L (3.5-5.1) mEq/L Chloride 103 (98-107) mEq/L Carbon Dioxide 29 (23-29) mEq/L BUN 17 (6-20) mg/dL Creatinine 0.70 (0.60-1.20) mg/dL Est GFR ( Amer) > 60 (> 60) Est GFR (Non-Af Amer) > 60 (> 60) BUN/Creatinine Ratio 24 (6-26) Glucose 116 H (70-105) mg/dL Calculated Osmolality 293 (280-300) Calcium 9.9 (8.6-10.3) mg/dL Troponin I < 0.03 (< 0.04) ng/mL B-Natriuretic Peptide 62 (Less than 100) pg/mL - EKG Data EKG #1 EKG attestation: Yes I reviewed and interpreted this EKG. EKG results narrative: Ventricularly paced. 70 bpm. QRS 174, QTC 511. No signs of acute ischemia. Compared to previous EKG completed on 10/11/2017 no significant changes.
--- NOTE | 2017-11-12 16:03 | Emergency Department Note ---
Disposition Clinical Impression: Acute exacerbation of chronic obstructive airways disease Disposition: Admitted As Inpatient Condition: Good General Adult HPI - General Chief complaint: ED Shortness of Breath/Dyspnea Stated complaint: CHF "episode" Time Seen by Provider: 11/12/17 15:45 Source: patient Mode of arrival: ambulatory Limitations: no limitations - History of Present Illness Pain Scale: 7 - Related Data Home Medications Medication Instructions Recorded Confirmed Bumetanide [Bumex] 1 mg PO QAM 09/01/16 10/12/17 Carvedilol [Coreg] 6.25 mg PO BID 09/01/16 10/12/17 Fluticasone Propionate Nasal 2 spray NS DAILY PRN 09/01/16 10/12/17 [Flonase] Levothyroxine Sodium 100 mcg PO QAM 09/01/16 10/12/17 Aripiprazole [Abilify] 15 mg PO HS 01/07/17 10/12/17 Cyanocobalamin (Vitamin B-12) 1,000 mcg PO DAILY 01/07/17 10/12/17 [Vitamin B12] Oxygen 3 l NS AD 01/07/17 10/12/17 Promethazine [Phenergan] 25 mg PO DAILY PRN 01/07/17 10/12/17 Albuterol Sulfate [Proair Hfa] 1 - 2 puff IH Q4-6H PRN 10/11/17 10/12/17 Hydrochlorothiazide [Microzide] 12.5 mg PO BID 10/11/17 10/12/17 Methadone 10 mg PO Q12HR 10/11/17 10/12/17 Venlafaxine XR (24 HR) [Effexor Xr] 150 mg PO DAILY 10/11/17 10/12/17 clonazePAM [Klonopin] 0.5 mg PO BID PRN 10/11/17 10/12/17 Doxepin [Sinequan] 25 mg PO HS 10/12/17 10/12/17 Previous Rx's Medication Instructions Recorded Potassium Chloride 40 meq PO DAILY #14 tab.er.prt 11/29/16 hydrOXYzine pamoate [HydrOXYzine 50 mg PO TID #90 capsule 12/18/16 Pamoate] Albuterol Sulfate [Proair Hfa] 2 puff IH Q4H PRN #1 hfa.aer.ad 10/14/17 Aspirin 81 mg PO DAILY #30 tab.chew 10/14/17 Doxycycline 100 mg PO BID #14 capsule 10/14/17 predniSONE [PredniSONE] 40 mg PO DAILY #10 tablet 10/14/17 Allergies Allergy/AdvReac Type Severity Reaction Status Date / Time chlorhexidine Allergy Rash Verified 11/12/17 15:44 [From Hibiclens] vancomycin Allergy Rash Verified 11/12/17 15:44 Cardiovascular: Reports: dyspnea on exertion Respiratory: Reports: dyspnea Past Medical History - Past Medical History Medical history: Reports: atrial fibrillation, cardiomyopathy, CHF, GERD, hepatitis, hyperlipidemia, hypertension, myocardial infarction, osteoporosis, pulmonary embolus, seizures, thyroid disease, valvular heart disease, other Surgical history: Reports: cholecystectomy, heart valve replacement, orthopedic , other, other, vascular surgery, pacemaker Psychiatric history: Reports: depression, schizophrenia - Social History Smoking Status: Never smoker Smokeless Tobacco Status: No Alcohol use: Reports: none Drug use: Reports: none Physical Exam - General Limitations: no limitations General appearance: alert, in no apparent distress Course Vital Signs Temperature 98.3 F 11/12/17 15:40 Pulse Rate 71 11/12/17 15:40 Respiratory Rate 18 11/12/17 15:40 Blood Pressure 127/89 11/12/17 15:40 O2 Sat by Pulse Oximetry 84 11/12/17 15:40 Temperature 98.3 F 11/12/17 15:40 Pulse Rate 70 11/12/17 17:44 Respiratory Rate 16 11/12/17 18:29 Blood Pressure 123/75 11/12/17 18:29 O2 Sat by Pulse Oximetry 91 11/12/17 18:02 Oxygen Delivery Oxygen Delivery Nasal Cannula Medical Decision Making - Lab Data Result diagrams: 11/12/17 16:08 11/12/17 16:08 Lab Results 11/12/17 11/12/17 11/12/17 Range/Units 16:08 16:08 16:08 WBC 5.3 (4.3-11.1) K/mcL RBC 5.12 H (3.82-4.97) M/mcL Hgb 15.1 (11.5-15.4) g/dL Hct 43.6 (35.3-44.9) % MCV 85.2 (83.0-100.0) fL MCH 29.5 (28.0-33.3) pg MCHC 34.6 (31.6-35.5) g/dL RDW 13.8 (11.5-14.5) % Plt Count 219 (140-400) K/mcL MPV 10.2 (9.4-12.4) fL Immature Gran % 0.6 (0-4) % Seg Neutrophils % 41.4 % Lymphocytes % 41.0 % Monocytes % 12.6 % Eosinophils % 3.6 % Basophils % 0.8 % Neutrophils # 2.2 (1.6-8.9) K/mcL Lymphocytes # 2.2 (0.6-4.6) K/mcL Monocytes # 0.7 (0.0-1.3) K/mcL Eosinophils # 0.2 (0.0-0.6) K/mcL Basophils # 0.0 (0.0-0.2) K/mcL Sodium 140 (136-145) mEq/L Potassium 3.2 L (3.5-5.1) mEq/L Chloride 103 (98-107) mEq/L Carbon Dioxide 29 (23-29) mEq/L BUN 17 (6-20) mg/dL Creatinine 0.70 (0.60-1.20) mg/dL Est GFR ( Amer) > 60 (> 60) Est GFR (Non-Af Amer) > 60 (> 60) BUN/Creatinine Ratio 24 (6-26) Glucose 116 H (70-105) mg/dL Calculated Osmolality 293 (280-300) Calcium 9.9 (8.6-10.3) mg/dL Troponin I < 0.03 (< 0.04) ng/mL B-Natriuretic Peptide 62 (Less than 100) pg/mL Attestation Statement - Attestation Attestation: I examined this patient and my medical decision-making was reviewed with the Resident Physician. I agree with the documented findings, disposition and treatment plan as described except to the extent set forth below. [id number] time provided Patient arrives complaining of dyspnea and approximately 30 pound unintentional water weight gain. She has a history of CHF and COPD. Does not appear in any acute respiratory distress on exam
[2017-11-12 16:39] LABS: Basophils % 0.8 %; Eosinophils # 0.2 K/mcL (0.0-0.6); Eosinophils % 3.6 %; Hematocrit 43.6 % (35.3-44.9); Hemoglobin 15.1 g/dL (11.5-15.4); Immature Granulocytes % 0.6 % (0-4); Lymphocytes # 2.2 K/mcL (0.6-4.6); Mean Corpuscular HGB Conc 34.6 g/dL (31.6-35.5); Mean Corpuscular Hemoglobin 29.5 pg (28.0-33.3); Mean Corpuscular Volume 85.2 fL (83.0-100.0); Mean Platelet Volume 10.2 fL (9.4-12.4); Monocytes # 0.7 K/mcL (0.0-1.3); Monocytes % 12.6 %; Neutrophils # 2.2 K/mcL (1.6-8.9); Platelet Count 219 K/mcL (140-400); Red Blood Count 5.12 M/mcL (3.82-4.97); Red Cell Distribution Width 13.8 % (11.5-14.5); Segmented Neutrophils % 41.4 %
[2017-11-12 16:58] LABS: BUN/Creatinine Ratio 24 (6-26); Blood Urea Nitrogen 17 mg/dL (6-20); Calcium 9.9 mg/dL (8.6-10.3); Carbon Dioxide 29 mEq/L (23-29); Chloride 103 mEq/L (98-107); Glucose 116 mg/dL (70-105); Osmolality,Calculated 293 (280-300); Potassium 3.2 mEq/L (3.5-5.1); Sodium 140 mEq/L (136-145); eGFR For African Americans > 60 (> 60); eGFR For Non-African Americans > 60 (> 60)
[2017-11-12 17:05] LABS: Troponin I < 0.03 ng/mL (< 0.04)
[2017-11-12] MEDS ORDERED: methylPREDNISolone 125 MG/2 ML VIAL IVP ONE (17:30)
[2017-11-12] MEDS ORDERED: Ipratropium/Albuterol Neb 3 ML IH ONE (17:30)
--- NOTE | 2017-11-12 19:12 | Internal Med History&Physical ---
Date of Encounter: 11/12/17 Time of Encounter: 19:10 Internal Medicine - H&P: HPI Chief complaint: Shortness of breath Admitted From: Emergency Dept Plans for Post Hospital Care: Home History of present illness: Ms. Neumann is a 57 year old female with past medical history of COPD on 3L, hypertension, hypothyroidism, delusional disorder, atrial fibrillation not on anticoagulation, coronary artery disease, diastolic dysfunction, and tricuspid valve replacement presenting to the emergency Department chief complaint of fluid retention and dyspnea. She says that over the last month or so she has gained about 20-30 pounds. She says at baseline she weighs around 197 pounds. On admission and she is about 211 pounds. She reports orthopnea. She also reports mild cough. No fever. She says she is compliant with Bumex and follows a low-salt diet. In the emergency department the patient was noted to be hypoxic in the 80s on 3 L which she is on usually. Workup was mostly unrevealing including EKG and chest x-ray. She was treated for COPD exacerbation with IV Solu-Medrol and nebs. She was given 20 mg of IV Lasix as well. Denies any headache, fever, chills, blurry vision, nausea, vomiting, chest pain, abdominal pain, urinary symptoms, or neurological symptoms. Past Med Surg Social Fam HX - Past Medical History Medical history: atrial fibrillation, cardiomyopathy, CHF, GERD, hepatitis, hyperlipidemia, hypertension, myocardial infarction, osteoporosis, pulmonary embolus, seizures, thyroid disease, valvular heart disease, other Psychiatric history: depression, schizophrenia - Past Surgical History Surgical History: cholecystectomy, heart valve replacement, orthopedic, other, other, vascular surgery, pacemaker - Social History Smoking Status: Never smoker Smokeless Tobacco Status: No Alcohol use: none Drug use: none - Family History Mother Adopted: No Family Member Ethnicity: Non- Living Status: Hx Family Cardiac Disorders: No Hx Family Respiratory Disorders: No Hx Family Cancer: No Hx Family GI Disorders: No Hx Family Endocrine Disorder: No Hx Family Neuromuscular Disorders: No Hx Family Neurologic Disorders: No Hx Family HEENT Disorders: No Hx Family Autoimmune Disorders: No Internal Medicine - H&P: Meds Bumetanide [Bumex] 1 mg PO QAM 09/01/16 [History] Carvedilol [Coreg] 6.25 mg PO BID 09/01/16 [History] Fluticasone Propionate Nasal [Flonase] 2 spray NS DAILY PRN 09/01/16 [History] Levothyroxine Sodium 100 mcg PO QAM 09/01/16 [History] Aripiprazole [Abilify] 15 mg PO HS 01/07/17 [History] Cyanocobalamin (Vitamin B-12) [Vitamin B12] 1,000 mcg PO DAILY 01/07/17 [History ] Oxygen 3 l NS AD 01/07/17 [History] Promethazine [Phenergan] 25 mg PO DAILY PRN 01/07/17 [History] Hydrochlorothiazide [Microzide] 12.5 mg PO BID 10/11/17 [History] Venlafaxine XR (24 HR) [Effexor Xr] 150 mg PO DAILY 10/11/17 [History] clonazePAM [Klonopin] 0.5 mg PO BID PRN 10/11/17 [History] Doxepin [Sinequan] 25 mg PO HS 10/12/17 [History] Albuterol Sulfate [Proair Hfa] 2 puff IH Q4H PRN #1 hfa.aer.ad 10/14/17 [Rx] Aspirin 81 mg PO DAILY #30 tab.chew 10/14/17 [Rx] Bumetanide [Bumex] 1 mg PO QPM 11/12/17 [History] HydrOXYzine Pamoate [Vistaril] 50 mg PO TID 11/12/17 [History] Methadone 5 mg PO Q12HR 11/12/17 [History] Potassium Chloride 40 meq PO BID 11/12/17 [History] 3 Allergy/AdvReac Type Severity Reaction Status Date / Time chlorhexidine Allergy Rash Verified 11/12/17 15:44 [facility] vancomycin Allergy Rash Verified 11/12/17 15:44 All Systems PM: A 10-system review of systems was performed and is negative for pertinent findings except as documented above in the HPI. Review of systems: all systems reviewed aren egative except as mentioned above - Constitutional Vitals: Temp Pulse Resp BP Pulse Ox 98.4 F 92 18 128/87 92 11/12/17 19:06 11/12/17 19:06 11/12/17 19:06 11/12/17 19:06 11/12/17 19:06 Exam: GEN: NAD HEENT: AT, NC, No cyanosis, oral mucosa is moist, No JVD Lymphatics: No lymphadenoapthy Eyes: Extrocular muscles intact, anicteric CVS:RRR. S1, S2, No m/r/g RESP: CTAB but diminished ABD: Soft, NT, ND, +BS, increased abdominal girth EXT: Trace edema, No rashes, 2+ DP NEURO: Nonfocal, CN II-XII intact, No focal motor or sensory deficits Psych: Cooperative, Not anxious or depressed Internal Med - H&P Results - Labs CBC & Chem 7: 11/12/17 16:08 11/12/17 16:08 - Assessment and plan (1) Acute on chronic respiratory failure with hypoxemia Current Visit: Yes Status: Acute Assessment and plan: Patient presentation is more consistent with an exacerbation of diastolic heart failure. She was given IV Solu-Medrol as well as IV Lasix in the ED. She does not report any wheezes. I do not hear wheezes on exam. We will treat diastolic heart failure exacerbation as well as below. (2) Diastolic heart failure Current Visit: Yes Status: Acute Assessment and plan: The patient's symptoms are more consistent with this acute exacerbation of diastolic failure. We will diurese the patient. Monitor I&O's. Was given 20 mg IV Lasix in the ED and I will give 20 more now. Start 40 mg IV Lasix twice a day. Low-salt diet. Qualifiers: Heart failure chronicity: acute Qualified Code(s): I50.31 - Acute diastolic (congestive) heart failure (3) COPD (chronic obstructive pulmonary disease) Current Visit: Yes Status: Acute Assessment and plan: The patient has no wheezes on examination. I believe her symptoms are more consistent with CHF or abdominal fluid causing respiratory symptoms. Hold off on more steroids. Continue home inhalers. If patient shows any signs of wheezing on examination she can possibly be started on oral prednisone. Qualifiers: COPD type: unspecified COPD Qualified Code(s): J44.9 - Chronic obstructive pulmonary disease, unspecified (4) CAD (coronary artery disease), [place] coronary artery Current Visit: No Status: Chronic Assessment and plan: Resume cardiac meds. Qualifiers: [place] vs. transplanted heart: [place] heart Associated angina: without angina Qualified Code(s): I25.10 - Atherosclerotic heart disease of [place] coronary artery without angina pectoris (5) Hypertension Current Visit: No Status: Chronic Assessment and plan: Blood pressure stable. Resume antihypertensives Qualifiers: Hypertension type: essential hypertension Qualified Code(s): I10 - Essential (primary) hypertension (6) Atrial fibrillation and flutter Current Visit: No Status: Acute Assessment and plan: Patient tells me that she is not on blood thinners because they make her bleed like water. She is on aspirin. Resume Coreg (7) History of tricuspid valve replacement with bioprosthetic valve Current Visit: No Status: Acute Assessment and plan: with history of A. fib ideally she should be on anticoagulation. Currently on aspirin. Follow up with cardiology. (8) DVT prophylaxis Current Visit: Yes Status: Acute Assessment and plan: Heparin subcutaneous - Time Spent With Patient Total time spent is greater than 50% in coordination of care (as documented) at patient's floor/unit and/or counseling patient:
[2017-11-12] MEDS ORDERED: Naloxone 0.4 MG/ML INJ IVP PRN (19:14)
[2017-11-12] MEDS ORDERED: Acetaminophen 325 MG TABLET PO PRN (19:14)
[2017-11-12] MEDS ORDERED: Fluticasone Propionate Nasal 50 MCG/SPRAY BOTTLE NS PRN (19:40)
[2017-11-12] MEDS ORDERED: Azithromycin 500 MG in D5% in Water 250 ML IVPB SCH (20:00)
[2017-11-12] MEDS: Ipratropium/Albuterol Neb 3 ML IH SCH (21:46)
[2017-11-12] MEDS: ARIPiprazole 10 MG TABLET PO SCH (21:55)
[2017-11-12] MEDS: *HR* Heparin 5,000 UNIT/ML VIAL SQ SCH (21:55)
[2017-11-12] MEDS: hydrOXYzine pamoate 25 MG CAPSULE PO SCH (21:55)
[2017-11-12] MEDS: clonazePAM 0.5 MG TABLET PO PRN (21:56)
[2017-11-13] MEDS ORDERED: methylPREDNISolone 125 MG/2 ML VIAL IVP SCH
[2017-11-13 02:54] LABS: Basophils % 0.2 %; Hematocrit 44.8 % (35.3-44.9); Hemoglobin 15.4 g/dL (11.5-15.4); Immature Granulocytes % 0.5 % (0-4); Lymphocytes % 22.8 %; Mean Corpuscular HGB Conc 34.4 g/dL (31.6-35.5); Mean Corpuscular Hemoglobin 29.4 pg (28.0-33.3); Mean Corpuscular Volume 85.5 fL (83.0-100.0); Mean Platelet Volume 10.2 fL (9.4-12.4); Monocytes # 0.1 K/mcL (0.0-1.3); Monocytes % 1.2 %; Neutrophils # 3.2 K/mcL (1.6-8.9); Platelet Count 209 K/mcL (140-400); Red Blood Count 5.24 M/mcL (3.82-4.97); Red Cell Distribution Width 13.8 % (11.5-14.5); Segmented Neutrophils % 75.3 %
[2017-11-13 03:10] LABS: BUN/Creatinine Ratio 20 (6-26); Blood Urea Nitrogen 18 mg/dL (6-20); Calcium 10.1 mg/dL (8.6-10.3); Carbon Dioxide 27 mEq/L (23-29); Chloride 103 mEq/L (98-107); Glucose 189 mg/dL (70-105); Magnesium 1.9 mg/dL (1.6-2.6); Osmolality,Calculated 299 (280-300); Potassium 2.9 mEq/L (3.5-5.1); Sodium 141 mEq/L (136-145); eGFR For African Americans > 60 (> 60); eGFR For Non-African Americans > 60 (> 60)
[2017-11-13] MEDS: Ipratropium/Albuterol Neb 3 ML IH SCH ×4 (03:20→21:29)
[2017-11-13] MEDS ORDERED: Potassium Chloride 40 MEQ, Lidocaine 1% 2 ML in D5% in Water 500 ML IVPB ONE (05:00)
[2017-11-13] MEDS: *HR* Heparin 5,000 UNIT/ML VIAL SQ SCH ×4 (05:38→22:29)
[2017-11-13] MEDS: *HR* Methadone 5 MG TABLET PO SCH ×2 (05:38→19:38)
[2017-11-13] MEDS ORDERED: hydroCHLOROthiazide 25 MG TABLET PO SCH (09:00)
[2017-11-13] MEDS: Aspirin 81 MG TAB.CHEW PO SCH (09:21)
[2017-11-13] MEDS: Furosemide 40 MG/4 ML VIAL IVP SCH ×2 (09:21→16:21)
[2017-11-13] MEDS: Venlafaxine XR (24 HR) 150 MG CAP.ER.24H PO SCH (09:21)
[2017-11-13] MEDS: hydrOXYzine pamoate 25 MG CAPSULE PO SCH ×3 (09:22→21:57)
[2017-11-13] MEDS: predniSONE 20 MG TABLET PO SCH (09:22)
[2017-11-13] MEDS: Cyanocobalamin (B-12) 1,000 MCG TABLET PO SCH (09:22)
--- NOTE | 2017-11-13 11:24 | Internal Med Progress Note ---
Date of Encounter: 11/13/17 Time of Encounter: 11:23 - Assessment and plan (1) CAD (coronary artery disease), [place] coronary artery Current Visit: Yes Status: Chronic Assessment and plan: continue home meds Qualifiers: [place] vs. transplanted heart: [place] heart Associated angina: without angina Qualified Code(s): I25.10 - Atherosclerotic heart disease of [place] coronary artery without angina pectoris (2) Hypertension Current Visit: Yes Status: Chronic Assessment and plan: continue home meds, hold one dose of coreg for low blood pressure Qualifiers: Hypertension type: essential hypertension Qualified Code(s): I10 - Essential (primary) hypertension (3) History of tricuspid valve replacement with bioprosthetic valve Current Visit: Yes Status: Chronic Assessment and plan: continue home meds, no indication for cardiology consult at this time (4) Atrial fibrillation and flutter Current Visit: Yes Status: Chronic Assessment and plan: continue home meds, stated she is not on anticaogulation due to "bleeding like water" continue ASA (5) Diastolic heart failure Current Visit: Yes Status: Acute Assessment and plan: Continue diuresis with IV Lsix 40mg BID Monitor I&O's and daily weight. Low-salt diet Fluid restriction diet Qualifiers: Heart failure chronicity: acute Qualified Code(s): I50.31 - Acute diastolic (congestive) heart failure (6) Acute on chronic respiratory failure with hypoxemia Current Visit: Yes Status: Acute Assessment and plan: Resolved Now on 3 L O2 whihc is her home dose continue to monitor (7) DVT prophylaxis Current Visit: Yes Status: Acute Assessment and plan: SQ heparin (8) COPD (chronic obstructive pulmonary disease) Current Visit: Yes Status: Chronic Assessment and plan: CTAB, not in exacerbation, no indication for steroids, continue home inhalers Qualifiers: COPD type: unspecified COPD Qualified Code(s): J44.9 - Chronic obstructive pulmonary disease, unspecified - Time Spent With Patient Total time spent is greater than 50% in coordination of care (as documented) at patient's floor/unit and/or counseling patient: - Subjective Interval history: Seen and examined at bedside she reports feeling bloated and has some weight gain recorded on chart She also has one documented low blood pressure, will hold coreg for now - Constitutional Vitals: Temp Pulse Resp BP Pulse Ox 97.8 F 64 17 83/41 87 11/13/17 07:47 11/13/17 07:47 11/13/17 09:29 11/13/17 07:47 11/13/17 09:29 General appearance: Present: A&O X 3, pleasant, no acute distress, obese - Head Head exam: Present: atraumatic, normocephalic - Eye Eye exam: Present: PERRL, conjuntiva pink, sclera anicteric Pupils: Present: PERRL - Neck Neck exam general surgery: Present: supple, trachea midline. Absent: lymphadenopathy - Respiratory Respiratory exam: Present: CTAB. Absent: accessory muscle use, rales, rhonchi, wheezes - Cardiovascular Cardiovascular exam: Present: RRR, +S1, +S2. Absent: diastolic murmur, gallop, rubs, systolic murmur - GI/Abdominal GI/Abdominal exam: Present: normal bowel sounds, soft, no peritoneal signs. Absent: distended, tenderness - Extremities Exam Extremities exam: Present: warm, radial pulses palpable and symmetrical. Absent : calf tenderness, cyanotic, pedal edema - Neurological Exam Neurological exam: Present: alert, CN II-XII intact, oriented X3, no focal deficits. Absent: pronater drift, facial droop, speech deficit - Skin Skin exam: Present: dry, intact Internal Medicine: Result - Labs CBC & Chem 7: 11/13/17 01:54 11/13/17 01:54 Labs: Short CBC 11/13/17 Range/Units 01:54 WBC 4.2 L (4.3-11.1) K/mcL Hgb 15.4 (11.5-15.4) g/dL Hct 44.8 (35.3-44.9) % Plt Count 209 (140-400) K/mcL Neutrophils # 3.2 (1.6-8.9) K/mcL BMP 11/13/17 01:54 Sodium 141 Potassium 2.9 L Chloride 103 Carbon Dioxide 27 BUN 18 Creatinine 0.88 Glucose 189 H Calcium 10.1 Consult Discharge Plan - Plan Referrals: Fred Cloud DO [Primary Care Provider] -
[2017-11-13] MEDS: ARIPiprazole 10 MG TABLET PO SCH (22:47)
[2017-11-14] MEDS: Ipratropium/Albuterol Neb 3 ML IH SCH ×4 (04:36→21:30)
[2017-11-14] MEDS: *HR* Heparin 5,000 UNIT/ML VIAL SQ SCH ×3 (05:12→21:26)
[2017-11-14] MEDS: *HR* Methadone 5 MG TABLET PO SCH ×2 (05:12→17:03)
[2017-11-14] MEDS: Furosemide 40 MG/4 ML VIAL IVP SCH ×2 (09:01→17:03)
[2017-11-14] MEDS: hydrOXYzine pamoate 25 MG CAPSULE PO SCH ×3 (09:01→21:24)
[2017-11-14] MEDS: Venlafaxine XR (24 HR) 150 MG CAP.ER.24H PO SCH (09:01)
[2017-11-14] MEDS: Cyanocobalamin (B-12) 1,000 MCG TABLET PO SCH (09:01)
[2017-11-14] MEDS: predniSONE 20 MG TABLET PO SCH (09:01)
[2017-11-14] MEDS: Aspirin 81 MG TAB.CHEW PO SCH (09:01)
--- NOTE | 2017-11-14 09:39 | Internal Med Progress Note ---
Date of Encounter: 11/14/17 Time of Encounter: 09:37 - Assessment and plan (1) CAD (coronary artery disease), [place] coronary artery Current Visit: Yes Status: Chronic Assessment and plan: continue home meds Qualifiers: [place] vs. transplanted heart: [place] heart Associated angina: without angina Qualified Code(s): I25.10 - Atherosclerotic heart disease of [place] coronary artery without angina pectoris (2) Hypertension Current Visit: Yes Status: Chronic Assessment and plan: continue home meds, resume coreg Qualifiers: Hypertension type: essential hypertension Qualified Code(s): I10 - Essential (primary) hypertension (3) History of tricuspid valve replacement with bioprosthetic valve Current Visit: Yes Status: Chronic Assessment and plan: continue home meds, no indication for cardiology consult at this time (4) Atrial fibrillation and flutter Current Visit: Yes Status: Chronic Assessment and plan: continue home meds, stated she is not on anticaogulation due to "bleeding like water" continue ASA (5) Diastolic heart failure Current Visit: Yes Status: Acute Assessment and plan: Continue diuresis with IV Lsix 40mg BID Monitor I&O's and daily weight. Low-salt diet Fluid restriction diet Qualifiers: Heart failure chronicity: acute Qualified Code(s): I50.31 - Acute diastolic (congestive) heart failure (6) Acute on chronic respiratory failure with hypoxemia Current Visit: Yes Status: Acute Assessment and plan: Resolved Now on 3 L O2 whihc is her home dose continue to monitor (7) DVT prophylaxis Current Visit: Yes Status: Acute Assessment and plan: SQ heparin ambulate (8) COPD (chronic obstructive pulmonary disease) Current Visit: Yes Status: Chronic Assessment and plan: CTAB, not in exacerbation, no indication for steroids, continue home inhalers Qualifiers: COPD type: unspecified COPD Qualified Code(s): J44.9 - Chronic obstructive pulmonary disease, unspecified - Time Spent With Patient Total time spent is greater than 50% in coordination of care (as documented) at patient's floor/unit and/or counseling patient: - Subjective Interval history: Seen and examined at bedside No new complains Feeling improved O2 at baseline Weight loss documented, I/O -540 - Constitutional Vitals: Temp Pulse Resp BP Pulse Ox 97.7 F 81 16 104/59 92 11/14/17 07:24 11/14/17 07:24 11/14/17 07:24 11/14/17 07:24 11/14/17 07:24 General appearance: Present: A&O X 3, pleasant, no acute distress, obese - Head Head exam: Present: atraumatic, normocephalic - Eye Eye exam: Present: PERRL, conjuntiva pink, sclera anicteric Pupils: Present: PERRL - Neck Neck exam general surgery: Present: supple, trachea midline. Absent: lymphadenopathy - Respiratory Respiratory exam: Present: CTAB. Absent: accessory muscle use, rales, rhonchi, wheezes - Cardiovascular Cardiovascular exam: Present: RRR, +S1, +S2. Absent: diastolic murmur, gallop, rubs, systolic murmur - GI/Abdominal GI/Abdominal exam: Present: normal bowel sounds, soft, no peritoneal signs. Absent: distended, tenderness - Extremities Exam Extremities exam: Present: warm, radial pulses palpable and symmetrical. Absent : calf tenderness, cyanotic, pedal edema - Neurological Exam Neurological exam: Present: alert, CN II-XII intact, oriented X3, no focal deficits. Absent: pronater drift, facial droop, speech deficit - Skin Skin exam: Present: dry, intact Internal Medicine: Result - Labs CBC & Chem 7: 11/13/17 01:54 11/13/17 01:54 Consult Discharge Plan - Plan Referrals: Fred Cloud DO [Primary Care Provider] -
--- NOTE | 2017-11-14 13:26 | Electrocardiograph Report ---
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
[2017-11-14] MEDS: clonazePAM 0.5 MG TABLET PO PRN (17:12)
[2017-11-14] MEDS: ARIPiprazole 10 MG TABLET PO SCH (21:24)
[2017-11-15] MEDS: Ipratropium/Albuterol Neb 3 ML IH SCH ×4 (04:46→21:24)
[2017-11-15] MEDS: *HR* Methadone 5 MG TABLET PO SCH ×2 (06:09→17:23)
[2017-11-15] MEDS: clonazePAM 0.5 MG TABLET PO PRN ×3 (06:09→23:38)
[2017-11-15] MEDS: *HR* Heparin 5,000 UNIT/ML VIAL SQ SCH ×3 (06:10→21:06)
[2017-11-15 07:05] LABS: BUN/Creatinine Ratio 34 (6-26); Blood Urea Nitrogen 23 mg/dL (6-20); Calcium 9.5 mg/dL (8.6-10.3); Carbon Dioxide 29 mEq/L (23-29); Chloride 107 mEq/L (98-107); Glucose 77 mg/dL (70-105); Magnesium 2.6 mg/dL (1.6-2.6); Osmolality,Calculated 288 (280-300); Potassium 4.9 mEq/L (3.5-5.1); Sodium 138 mEq/L (136-145); eGFR For African Americans > 60 (> 60); eGFR For Non-African Americans > 60 (> 60)
[2017-11-15] MEDS: Furosemide 40 MG/4 ML VIAL IVP SCH ×2 (10:28→17:22)
[2017-11-15] MEDS: Aspirin 81 MG TAB.CHEW PO SCH (10:28)
[2017-11-15] MEDS: Venlafaxine XR (24 HR) 150 MG CAP.ER.24H PO SCH (10:29)
[2017-11-15] MEDS: Cyanocobalamin (B-12) 1,000 MCG TABLET PO SCH (10:29)
[2017-11-15] MEDS: hydrOXYzine pamoate 25 MG CAPSULE PO SCH ×3 (10:29→20:26)
--- NOTE | 2017-11-15 15:29 | Internal Med Progress Note ---
Date of Encounter: 11/15/17 Time of Encounter: 10:25 - Assessment and plan (1) CAD (coronary artery disease), [place] coronary artery Current Visit: Yes Status: Chronic Assessment and plan: continue home meds Qualifiers: [place] vs. transplanted heart: [place] heart Associated angina: without angina Qualified Code(s): I25.10 - Atherosclerotic heart disease of [place] coronary artery without angina pectoris (2) Hypertension Current Visit: Yes Status: Chronic Assessment and plan: continue home meds Qualifiers: Hypertension type: essential hypertension Qualified Code(s): I10 - Essential (primary) hypertension (3) History of tricuspid valve replacement with bioprosthetic valve Current Visit: Yes Status: Chronic Assessment and plan: continue home meds, no indication for cardiology consult at this time (4) Atrial fibrillation and flutter Current Visit: Yes Status: Chronic Assessment and plan: continue home meds, stated she is not on anticaogulation due to "bleeding like water" continue ASA (5) Diastolic heart failure Current Visit: Yes Status: Acute Assessment and plan: I/O -2.6L Continue diuresis with IV Lsix 40mg BID Switch to BUmex po a.m Monitor I&O's and daily weight. Low-salt diet Fluid restriction diet Qualifiers: Heart failure chronicity: acute Qualified Code(s): I50.31 - Acute diastolic (congestive) heart failure (6) Acute on chronic respiratory failure with hypoxemia Current Visit: Yes Status: Resolved Assessment and plan: Resolved Now on 3 L O2 whihc is her home dose continue to monitor (7) DVT prophylaxis Current Visit: Yes Status: Acute Assessment and plan: SQ heparin ambulate (8) COPD (chronic obstructive pulmonary disease) Current Visit: Yes Status: Chronic Assessment and plan: CTAB, not in exacerbation, no indication for steroids, continue home inhalers Qualifiers: COPD type: unspecified COPD Qualified Code(s): J44.9 - Chronic obstructive pulmonary disease, unspecified - Time Spent With Patient Total time spent is greater than 50% in coordination of care (as documented) at patient's floor/unit and/or counseling patient: - Subjective Interval history: Seen and examined at bedside WAs ambualting in the hallway on the floors prior to eval She has no new complains I/O -2.6L She however has documented weight gain (? accuracy of values) - Constitutional Vitals: Temp Pulse Resp BP Pulse Ox 99.0 F 70 18 93/59 89 11/15/17 11:26 11/15/17 11:26 11/15/17 11:26 11/15/17 11:26 11/15/17 11:26 General appearance: Present: A&O X 3, pleasant, no acute distress, obese - Head Head exam: Present: atraumatic, normocephalic - Eye Eye exam: Present: PERRL, conjuntiva pink, sclera anicteric Pupils: Present: PERRL - Neck Neck exam general surgery: Present: supple, trachea midline. Absent: lymphadenopathy - Respiratory Respiratory exam: Present: CTAB. Absent: accessory muscle use, rales, rhonchi, wheezes - Cardiovascular Cardiovascular exam: Present: RRR, +S1, +S2. Absent: diastolic murmur, gallop, rubs, systolic murmur - GI/Abdominal GI/Abdominal exam: Present: normal bowel sounds, soft, no peritoneal signs. Absent: distended, tenderness - Extremities Exam Extremities exam: Present: warm, radial pulses palpable and symmetrical. Absent : calf tenderness, cyanotic, pedal edema - Neurological Exam Neurological exam: Present: alert, CN II-XII intact, oriented X3, no focal deficits. Absent: pronater drift, facial droop, speech deficit - Skin Skin exam: Present: dry, intact Internal Medicine: Result - Labs CBC & Chem 7: 11/13/17 01:54 11/15/17 06:20 Labs: BMP 11/14/17 11/15/17 22:59 06:20 Sodium 138 Potassium 3.9 4.9 D Chloride 107 Carbon Dioxide 29 BUN 23 H Creatinine 0.68 Glucose 77 Calcium 9.5 Consult Discharge Plan - Plan Referrals: Fred Cloud DO [Primary Care Provider] -
[2017-11-15] MEDS: ARIPiprazole 10 MG TABLET PO SCH (20:25)
[2017-11-16] MEDS: Ipratropium/Albuterol Neb 3 ML IH SCH ×2 (04:43→10:36)
[2017-11-16] MEDS: *HR* Methadone 5 MG TABLET PO SCH (06:01)
[2017-11-16] MEDS: *HR* Heparin 5,000 UNIT/ML VIAL SQ SCH (06:02)
[2017-11-16] MEDS ORDERED: Bumetanide 1 MG TABLET PO ONE (09:00)
[2017-11-16] MEDS: Venlafaxine XR (24 HR) 150 MG CAP.ER.24H PO SCH (09:34)
[2017-11-16] MEDS: Aspirin 81 MG TAB.CHEW PO SCH (09:34)
[2017-11-16] MEDS: Cyanocobalamin (B-12) 1,000 MCG TABLET PO SCH (09:34)
[2017-11-16] MEDS: hydrOXYzine pamoate 25 MG CAPSULE PO SCH (09:34)
--- NOTE | 2017-11-16 09:51 | Discharge Summary ---
- NOTES TO OUTPATIENT PROVIDER Notes to Outpatient Provider: Admitted for CHF exacerbation, now back to baseline after diuresis with lasix. No changes in home meds Date of Encounter: 11/16/17 Time of Encounter: 09:50 - Discharge Diagnosis (1) CAD (coronary artery disease), [place] coronary artery Priority: Secondary Status: Chronic Qualifiers: [place] vs. transplanted heart: [place] heart Associated angina: without angina Qualified Code(s): I25.10 - Atherosclerotic heart disease of [place] coronary artery without angina pectoris (2) Hypertension Priority: Secondary Status: Chronic Qualifiers: Hypertension type: essential hypertension Qualified Code(s): I10 - Essential (primary) hypertension (3) History of tricuspid valve replacement with bioprosthetic valve Priority: Secondary Status: Chronic (4) Atrial fibrillation and flutter Priority: Secondary Status: Chronic (5) Diastolic heart failure Priority: Primary Status: Acute Qualifiers: Heart failure chronicity: acute Qualified Code(s): I50.31 - Acute diastolic (congestive) heart failure (6) Acute on chronic respiratory failure with hypoxemia Priority: Primary Status: Resolved (7) DVT prophylaxis Priority: Primary Status: Resolved (8) COPD (chronic obstructive pulmonary disease) Priority: Secondary Status: Chronic Qualifiers: COPD type: unspecified COPD Qualified Code(s): J44.9 - Chronic obstructive pulmonary disease, unspecified Hospital course: Ms. Neumann is a 57 year old female with PMH of COPD, CHFpEF, admitted for CHF exacerbation after complaining of SOB and weight gain. She also had acute worsening of chronic hypoxemia with increasing O2 requirement Work up on admission was unremarkable She was managed with diuresis with lasix 40mg BID She has been transitioned to her home meds after weight loss with documented negative fluid balance of -3.6L She is ambulatory on the floors with no respiratory distress, she has no chest pain and is asymptomatic at this time Compliance with home meds, fluid restriction reinforced Discharged home in stable medical condition Follow up with PCP Discharge discussed with: patient, nurse - Time Spent with Patient Total time spent providing and/or coordinating discharge services: Less than 30 minutes - Discharge Medications Home Medications: Bumetanide [Bumex] 2 mg PO QAM 09/01/16 [History] Carvedilol [Coreg] 6.25 mg PO BID 09/01/16 [History] Fluticasone Propionate Nasal [Flonase] 2 spray NS DAILY PRN 09/01/16 [History] Levothyroxine Sodium 100 mcg PO QAM 09/01/16 [History] Aripiprazole [Abilify] 15 mg PO HS 01/07/17 [History] Cyanocobalamin (Vitamin B-12) [Vitamin B12] 1,000 mcg PO DAILY 01/07/17 [History ] Oxygen 3 l NS AD 01/07/17 [History] Promethazine [Phenergan] 25 mg PO DAILY PRN 01/07/17 [History] Hydrochlorothiazide [Microzide] 12.5 mg PO DAILY 10/11/17 [History] Venlafaxine XR (24 HR) [Effexor Xr] 150 mg PO DAILY 10/11/17 [History] clonazePAM [Klonopin] 0.5 mg PO BID PRN 10/11/17 [History] Doxepin [Sinequan] 25 mg PO HS 10/12/17 [History] Albuterol Sulfate [Proair Hfa] 2 puff IH Q4H PRN #1 hfa.aer.ad 10/14/17 [Rx] Aspirin 81 mg PO DAILY #30 tab.chew 10/14/17 [Rx] Bumetanide [Bumex] 1 mg PO QPM 11/12/17 [History] HydrOXYzine Pamoate [Vistaril] 50 mg PO TID 11/12/17 [History] Methadone 5 mg PO Q12HR 11/12/17 [History] Potassium Chloride 40 meq PO BID 11/12/17 [History] Polyethylene Glycol 3350 [MiraLAX] 17 gm PO DAILY 11/13/17 [History] Allergies/Adverse Reactions: 3 Allergy/AdvReac Type Severity Reaction Status Date / Time chlorhexidine Allergy Rash Verified 11/12/17 15:44 [From [facility]] vancomycin Allergy Rash Verified 11/12/17 15:44 Date of admission: 11/12/17 19:14 Primary care physician: Fred Cloud DO Discharging clinician: Anders Bernal Anticipated date of discharge: 11/16/17 - Constitutional Vitals: Temp Pulse Resp BP Pulse Ox 98.0 F 70 18 92/61 93 11/16/17 06:29 11/16/17 06:29 11/16/17 06:29 11/16/17 06:29 11/16/17 09:37 General appearance: Present: A&O X 3, pleasant, no acute distress, obese - Head Head exam: Present: atraumatic, normocephalic - Eye Eye exam: Present: PERRL, conjuntiva pink, sclera anicteric Pupils: Present: PERRL - Neck Neck exam general surgery: Present: supple, trachea midline. Absent: lymphadenopathy - Respiratory Respiratory exam: Present: CTAB. Absent: accessory muscle use, rales, rhonchi, wheezes - Cardiovascular Cardiovascular exam: Present: RRR, +S1, +S2. Absent: diastolic murmur, gallop, rubs, systolic murmur - GI/Abdominal GI/Abdominal exam: Present: normal bowel sounds, soft, no peritoneal signs. Absent: distended, tenderness - Extremities Exam Extremities exam: Present: warm, radial pulses palpable and symmetrical. Absent : calf tenderness, cyanotic, pedal edema - Neurological Exam Neurological exam: Present: alert, CN II-XII intact, oriented X3, no focal deficits. Absent: pronater drift, facial droop, speech deficit - Skin Skin exam: Present: dry, intact - Patient Status Disposition: Home, Self-Care Condition: Good Functional capacity at discharge: independent ambulation Overall status at discharge: patient is back to baseline - Discharge Instructions Instructions: Heart Failure (DC) Follow Up With: Fred Cloud DO [Primary Care Provider] - - Diet and Activity Activity: resume usual activities as tolerated Diet: low fat, low cholesterol, low salt diet
[2017-11-16 10:53] VITALS: BP 111/75
== END 2017-11-16 11:35 | disposition home or self-care (01) | DRG 291 ==
LOC: 3NENU 15:40 → EMEROO 15:40 → 3NENU 18:39
PROVIDERS: ADMIT Internal Medicine; ATTEND Internal Medicine

== ENCOUNTER 2019-08-15 16:56 | Observation (INO) ==
[2019-08-15 20:49] LABS: Basophils % 0.6 %; Eosinophils # 0.2 K/mcL (0.0-0.6); Eosinophils % 4.9 %; Hemoglobin 13.6 g/dL (11.5-15.4); Immature Granulocytes % 0.3 % (0-4); Lymphocytes # 1.2 K/mcL (0.6-4.6); Lymphocytes % 33.7 %; Mean Corpuscular HGB Conc 33.2 g/dL (31.6-35.5); Mean Corpuscular Hemoglobin 30.4 pg (28.0-33.3); Mean Corpuscular Volume 91.7 fL (83.0-100.0); Mean Platelet Volume 10.2 fL (9.4-12.4); Monocytes # 0.5 K/mcL (0.0-1.3); Neutrophils # 1.6 K/mcL (1.6-8.9); Platelet Count 125 K/mcL (140-400); Red Blood Count 4.47 M/mcL (3.82-4.97); Red Cell Distribution Width 14.4 % (11.5-14.5); Segmented Neutrophils % 46.5 %; White Blood Count 3.5 K/mcL (4.3-11.1)
[2019-08-15 21:02] LABS: BUN/Creatinine Ratio 24 (6-26); Blood Urea Nitrogen 16 mg/dL (6-20); Carbon Dioxide 24 mEq/L (23-29); Chloride 106 mEq/L (98-107); Glucose 89 mg/dL (70-105); Osmolality,Calculated 285 (280-300); Potassium 4.4 mEq/L (3.5-5.1); Sodium 137 mEq/L (136-145); eGFR For African Americans > 60 (> 60); eGFR For Non-African Americans > 60 (> 60)
[2019-08-15 21:03] LABS: Troponin I < 0.03 ng/mL (< 0.04)
[2019-08-15] MEDS ORDERED: Nitroglycerin 0.4 MG TAB.SUBL SL PRN (21:16)
[2019-08-15] MEDS ORDERED: cefTRIAXone 1,000 MG in Water for inj. (sterile) 10 ML IVP ONE (22:04)
[2019-08-15] MEDS ORDERED: Aspirin 325 MG TABLET PO ONE (22:22)
[2019-08-16] MEDS ORDERED: Naloxone 0.4 MG/ML INJ IVP PRN (00:33)
[2019-08-16] MEDS ORDERED: Acetaminophen 325 MG TABLET PO PRN (01:50)
[2019-08-16] MEDS ORDERED: Isovue-370 500 ML BOTTLE IVP ONE (02:06)
[2019-08-16 03:18] LABS: Hematocrit 39.3 % (35.3-44.9); Hemoglobin 12.9 g/dL (11.5-15.4); Mean Corpuscular HGB Conc 32.8 g/dL (31.6-35.5); Mean Corpuscular Hemoglobin 30.2 pg (28.0-33.3); Mean Platelet Volume 10.4 fL (9.4-12.4); Platelet Count 125 K/mcL (140-400); Red Blood Count 4.27 M/mcL (3.82-4.97); Red Cell Distribution Width 14.6 % (11.5-14.5); White Blood Count 3.4 K/mcL (4.3-11.1)
[2019-08-16 03:45] LABS: BUN/Creatinine Ratio 24 (6-26); Blood Urea Nitrogen 16 mg/dL (6-20); Calcium 9.5 mg/dL (8.6-10.3); Carbon Dioxide 25 mEq/L (23-29); Chloride 104 mEq/L (98-107); Chol/HDL Ratio 2.6 (0-4.9); Cholesterol 118 mg/dL (< 200); Glucose 83 mg/dL (70-105); HDL Cholesterol 45 mg/dL (40-59); LDL Cholesterol,Calculated 65 mg/dL (0-99); Magnesium 2.2 mg/dL (1.6-2.6); Osmolality,Calculated 284 (280-300); Phosphorous 3.9 mg/dL (2.7-4.5); Potassium 4.3 mEq/L (3.5-5.1); Sodium 137 mEq/L (136-145); Triglycerides 40 mg/dL (< 150); Troponin I < 0.03 ng/mL (< 0.04); eGFR For African Americans > 60 (> 60); eGFR For Non-African Americans > 60 (> 60)
[2019-08-16] MEDS: *HR* Heparin 5,000 UNIT/ML VIAL SQ SCH ×2 (05:35→17:49)
[2019-08-16] MEDS ORDERED: Regadenoson 0.4 MG/5 ML SYRINGE IVP ONE (06:14)
[2019-08-16 06:49] LABS: Adenovirus Not Detected (Not Detect); Bordetella Pertussis Not Detected (Not Detect); Chlamydophila pneumoniae Not Detected (Not Detect); Coronavirus 229E Not Detected (Not Detect); Coronavirus HKU1 Not Detected (Not Detect); Coronavirus NL63 Not Detected (Not Detect); Coronavirus OC43 Not Detected (Not Detect); Human Metapneumovirus Not Detected (Not Detect); Human Rhinovirus/Enterovirus Not Detected (Not Detect); Influenza A Subtype 2009 H1 Not Detected (Not Detect); Influenza B Not Detected (Not Detect); Mycoplasma pneumoniae Not Detected (Not Detect); Parainfluenza Virus 1 Not Detected (Not Detect); Parainfluenza Virus 2 Not Detected (Not Detect); Parainfluenza Virus 3 Not Detected (Not Detect); Parainfluenza Virus 4 Not Detected (Not Detect); Respiratory Syncytial Virus Not Detected (Not Detect)
[2019-08-16 07:51] LABS: Estimated Average Glucose 111 mg/dl
[2019-08-16] MEDS ORDERED: cefTRIAXone 1,000 MG in Water for inj. (sterile) 10 ML IVPB SCH (10:00)
[2019-08-16 15:07] LABS: Hepatitis B Surface Antigen Nonreactive (Nonreactive)
[2019-08-16 15:23] LABS: Bilirubin,Urine Negative (Negative); Blood,Urine Small (Negative); Clarity,Urine Clear (Clear); Color,Urine Yellow (Yellow); Glucose,Urine (UA) Normal (Normal); Ketones,Urine Negative (Negative); Leukocyte Esterase,Urine Negative (Negative); Nitrite,Urine Negative (Negative); PH,Urine 7.5 pH Units (5.0-8.0); Protein,Urine Negative (Neg-Trace); Urobilinogen,Urine Normal (Normal)
[2019-08-16 15:24] LABS: Bacteria,Urine None Seen per hpf (None-Few); Hyaline Casts,Urine None Seen per lpf (None-Few); RBC,Urine 0-3 per hpf (0-3); WBC,Urine 0-3 per hpf (0-3)
[2019-08-16 15:36] LABS: Hepatitis B Core IgM Nonreactive (Nonreactive)
[2019-08-16 15:39] LABS: Hepatitis A Antibody IgM Nonreactive (Nonreactive)
[2019-08-16 15:55] VITALS: BP 130/71
[2019-08-16 16:25] LABS: Squamous Epithelial Cell,Urine Few per lpf (None-Few)
[2019-08-16] MEDS ORDERED: clonazePAM 0.5 MG TABLET PO PRN (17:36)
[2019-08-16] MEDS ORDERED: *HR* Methadone 5 MG TABLET PO SCH (18:00)
[2019-08-16 19:05] LABS: Hepatitis C Virus Antibody Reactive (Nonreactive)
[2019-08-16] MEDS ORDERED: carvediloL 6.25 MG TABLET PO SCH (21:00)
[2019-08-17] MEDS ORDERED: Cyanocobalamin (B-12) 1,000 MCG TABLET PO SCH (09:00)
[2019-08-17] MEDS ORDERED: Bumetanide 1 MG TABLET PO SCH (09:00)
[2019-08-17] MEDS ORDERED: Venlafaxine XR (24 HR) 150 MG CAP.ER.24H PO SCH (09:00)
== END 2019-08-16 18:49 | disposition left against medical advice (07) ==
LOC: 3BNU 16:56 → EMEROOARM 16:56 → 3BNU 23:30
PROVIDERS: ADMIT Internal Medicine; ATTEND Internal Medicine

== ENCOUNTER 2019-09-16 10:29 | Observation (INO) ==
[2019-09-16 11:49] LABS: Basophils % 1.1 %; Eosinophils # 0.2 K/mcL (0.0-0.6); Hematocrit 42.6 % (35.3-44.9); Hemoglobin 14.3 g/dL (11.5-15.4); Immature Granulocytes % 0.3 % (0-4); Lymphocytes # 1.3 K/mcL (0.6-4.6); Lymphocytes % 33.1 %; Mean Corpuscular HGB Conc 33.6 g/dL (31.6-35.5); Mean Corpuscular Volume 89.5 fL (83.0-100.0); Mean Platelet Volume 10.3 fL (9.4-12.4); Monocytes # 0.5 K/mcL (0.0-1.3); Monocytes % 13.8 %; Neutrophils # 1.8 K/mcL (1.6-8.9); Platelet Count 128 K/mcL (140-400); Red Blood Count 4.76 M/mcL (3.82-4.97); Red Cell Distribution Width 13.8 % (11.5-14.5); Segmented Neutrophils % 46.7 %; White Blood Count 3.8 K/mcL (4.3-11.1)
[2019-09-16 12:03] LABS: Bilirubin,Urine Negative (Negative); Blood,Urine Negative (Negative); Clarity,Urine Clear (Clear); Color,Urine Yellow (Yellow); Glucose,Urine (UA) Normal (Normal); Ketones,Urine Negative (Negative); Leukocyte Esterase,Urine Negative (Negative); Nitrite,Urine Negative (Negative); Protein,Urine Negative (Neg-Trace); Specific Gravity,Urine 1.018 (1.010-1.025); Urobilinogen,Urine Normal (Normal)
[2019-09-16 12:11] LABS: Amphetamine Screen,Urine Negative ng/mL (Cutoff=1000); Barbiturate Screen,Urine Negative ng/mL (Cutoff=200); Benzodiazepines Screen,Urine Negative ng/mL (Cutoff=200); Cannabinoid Screen,Urine Negative ng/mL (Cutoff = 50); Cocaine Screen,Urine Negative ng/mL (Cutoff= 300); Opiate Screen,Urine Negative ng/mL (Cutoff=300); Phencyclidine Screen,Urine Negative ng/mL (Cutoff=25)
[2019-09-16 12:11] LABS: Acetaminophen < 10 mcg/mL (10-20); Alanine Aminotransferase 15 Units/L (7-52); Albumin 4.2 g/dL (3.5-5.7); Albumin/Globulin Ratio 1.6 (1.1-2.2); Alkaline Phosphatase 76 Units/L (34-104); Aspartate Amino Transferase 11 Units/L (13-39); BUN/Creatinine Ratio 33 (6-26); Bilirubin,Direct 0.3 mg/dL (0.0-0.2); Bilirubin,Indirect 0.5 mg/dL (0.0-1.0); Bilirubin,Total 0.8 mg/dL (0.3-1.0); Blood Urea Nitrogen 18 mg/dL (6-20); Calcium 9.9 mg/dL (8.6-10.3); Carbon Dioxide 27 mEq/L (23-29); Chloride 103 mEq/L (98-107); Ethanol < 10 mg/dL (Less than 10); Globulin 2.6 g/dL (2.4-3.5); Glucose 97 mg/dL (70-105); Osmolality,Calculated 286 (280-300); Potassium 4.4 mEq/L (3.5-5.1); Salicylate < 2.5 mg/dL (15.0-30.0); Sodium 137 mEq/L (136-145); Total Protein 6.8 g/dL (6.4-8.9); eGFR For African Americans > 60 (> 60); eGFR For Non-African Americans > 60 (> 60)
[2019-09-16 12:23] LABS: Thyroid Stimulating Hormone 0.524 mcIU/mL (0.340-5.600)
[2019-09-16] MEDS ORDERED: Ondansetron 4 MG/2 ML VIAL IVP PRN (16:05)
[2019-09-16] MEDS ORDERED: Acetaminophen 325 MG TABLET PO PRN (16:05)
[2019-09-16] MEDS ORDERED: clonazePAM 0.5 MG TABLET PO PRN (18:17)
[2019-09-16] MEDS ORDERED: Ringers Solution, Lactated 500 ML IVC ONE (18:19)
[2019-09-16] MEDS: carvediloL 6.25 MG TABLET PO SCH (20:35)
[2019-09-16] MEDS: *HR* Methadone 5 MG TABLET PO SCH (20:35)
[2019-09-17 05:36] LABS: BUN/Creatinine Ratio 27 (6-26); Blood Urea Nitrogen 16 mg/dL (6-20); Calcium 9.7 mg/dL (8.6-10.3); Carbon Dioxide 26 mEq/L (23-29); Chloride 105 mEq/L (98-107); Glucose 86 mg/dL (70-105); Magnesium 2.1 mg/dL (1.6-2.6); Osmolality,Calculated 284 (280-300); Potassium 4.8 mEq/L (3.5-5.1); Sodium 137 mEq/L (136-145); eGFR For African Americans > 60 (> 60); eGFR For Non-African Americans > 60 (> 60)
[2019-09-17] MEDS ORDERED: *HR* Enoxaparin 40 MG/0.4 ML SYRINGE SQ SCH (06:00)
[2019-09-17] MEDS: *HR* Methadone 5 MG TABLET PO SCH (08:22)
[2019-09-17] MEDS: carvediloL 6.25 MG TABLET PO SCH (08:22)
[2019-09-17] MEDS ORDERED: Cyanocobalamin (B-12) 1,000 MCG TABLET PO SCH (09:00)
[2019-09-17] MEDS ORDERED: Venlafaxine XR (24 HR) 150 MG CAP.ER.24H PO SCH (09:00)
[2019-09-17] MEDS ORDERED: ARIPiprazole 10 MG TABLET PO SCH (13:00)
[2019-09-17 15:46] VITALS: BP 102/69
[2019-09-18] MEDS ORDERED: Metoprolol XL (24 HR) Succ 25 MG TAB.ER.24H PO SCH (09:00)
== END 2019-09-17 19:05 | disposition home or self-care (01) ==
LOC: EMEROOARM 10:29 → 3BNU 10:29 → SUATTDRO 15:53 → 3BNU 17:02
PROVIDERS: ADMIT Internal Medicine; ATTEND Internal Medicine

== ENCOUNTER 2020-01-25 06:49 | Observation (INO) ==
[2020-01-25] MEDS ORDERED: Aspirin 81 MG TAB.CHEW PO ONE (07:11)
[2020-01-25 07:24] LABS: Immature Granulocytes % 0.2 % (0-4)
[2020-01-25 07:45] LABS: BUN/Creatinine Ratio 29 (6-26); Blood Urea Nitrogen 17 mg/dL (6-20); Calcium 10.2 mg/dL (8.6-10.3); Carbon Dioxide 23 mEq/L (23-29); Chloride 102 mEq/L (98-107); Glucose 115 mg/dL (70-105); Osmolality,Calculated 280 (280-300); Potassium 3.8 mEq/L (3.5-5.1); Sodium 134 mEq/L (136-145); Troponin I < 0.03 ng/mL (< 0.04); eGFR For African Americans > 60 (> 60); eGFR For Non-African Americans > 60 (> 60)
[2020-01-25 07:54] LABS: Red Cell Distribution Width 13.9 % (11.5-14.5)
[2020-01-25 07:55] LABS: Basophils % 0.9 %; Eosinophils # 0.1 K/mcL (0.0-0.6); Eosinophils % 1.1 %; Hematocrit 45.9 % (35.3-44.9); Hemoglobin 15.1 g/dL (11.5-15.4); Immature Platelets 4.7 % (1.1-6.1); Lymphocytes # 1.2 K/mcL (0.6-4.6); Mean Corpuscular HGB Conc 32.9 g/dL (31.6-35.5); Mean Corpuscular Hemoglobin 29.5 pg (28.0-33.3); Mean Corpuscular Volume 89.8 fL (83.0-100.0); Mean Platelet Volume 10.9 fL (9.4-12.4); Monocytes # 0.4 K/mcL (0.0-1.3); Monocytes % 9.4 %; Neutrophils # 2.8 K/mcL (1.6-8.9); Platelet Count 126 K/mcL (140-400); Red Blood Count 5.11 M/mcL (3.82-4.97); Segmented Neutrophils % 61.4 %; White Blood Count 4.6 K/mcL (4.3-11.1)
[2020-01-25 08:50] LABS: Platelet Estimate Decreased (Normal)
[2020-01-25] MEDS ORDERED: Naloxone 0.4 MG/ML INJ IVP PRN (10:17)
[2020-01-25] MEDS ORDERED: Ondansetron 4 MG/2 ML VIAL IVP PRN (10:17)
[2020-01-25] MEDS ORDERED: Acetaminophen 325 MG TABLET PO PRN (10:17)
[2020-01-25] MEDS ORDERED: GI Cocktail 40 ML EACH PO ONE ×2 (13:27→21:20)
[2020-01-25 20:28] LABS: Amphetamine Screen,Urine Negative ng/mL (Cutoff=1000); Barbiturate Screen,Urine Negative ng/mL (Cutoff=200); Benzodiazepines Screen,Urine Negative ng/mL (Cutoff=200); Cannabinoid Screen,Urine Negative ng/mL (Cutoff = 50); Cocaine Screen,Urine Negative ng/mL (Cutoff= 300); Opiate Screen,Urine Negative ng/mL (Cutoff=300); Phencyclidine Screen,Urine Negative ng/mL (Cutoff=25)
[2020-01-26] MEDS ORDERED: *HR* LORazepam 2 MG/ML VIAL IVP ONE (03:05)
[2020-01-26 03:41] LABS: Basophils % 0.8 %; Eosinophils # 0.1 K/mcL (0.0-0.6); Eosinophils % 1.2 %; Hematocrit 46.1 % (35.3-44.9); Hemoglobin 15.1 g/dL (11.5-15.4); Immature Granulocytes % 0.2 % (0-4); Lymphocytes # 1.9 K/mcL (0.6-4.6); Lymphocytes % 37.5 %; Mean Corpuscular HGB Conc 32.8 g/dL (31.6-35.5); Mean Corpuscular Hemoglobin 29.3 pg (28.0-33.3); Mean Corpuscular Volume 89.3 fL (83.0-100.0); Mean Platelet Volume 10.6 fL (9.4-12.4); Monocytes # 0.6 K/mcL (0.0-1.3); Monocytes % 12.1 %; Neutrophils # 2.5 K/mcL (1.6-8.9); Platelet Count 157 K/mcL (140-400); Red Blood Count 5.16 M/mcL (3.82-4.97); Red Cell Distribution Width 13.7 % (11.5-14.5); Segmented Neutrophils % 48.2 %; White Blood Count 5.1 K/mcL (4.3-11.1)
[2020-01-26 04:03] LABS: BUN/Creatinine Ratio 24 (6-26); Blood Urea Nitrogen 16 mg/dL (6-20); Calcium 9.9 mg/dL (8.6-10.3); Carbon Dioxide 24 mEq/L (23-29); Chloride 102 mEq/L (98-107); Glucose 90 mg/dL (70-105); Magnesium 2.3 mg/dL (1.6-2.6); Osmolality,Calculated 283 (280-300); Potassium 3.9 mEq/L (3.5-5.1); Sodium 136 mEq/L (136-145); eGFR For African Americans > 60 (> 60); eGFR For Non-African Americans > 60 (> 60)
[2020-01-26] MEDS: *HR* Heparin 5,000 UNIT/ML VIAL SQ SCH ×3 (06:21→20:40)
[2020-01-26] MEDS ORDERED: Ipratropium/Albuterol Neb 3 ML IH PRN (08:57)
[2020-01-26] MEDS ORDERED: clonazePAM 0.5 MG TABLET PO PRN (09:10)
[2020-01-26] MEDS ORDERED: ARIPiprazole 10 MG TABLET PO SCH (09:15)
[2020-01-26] MEDS ORDERED: carvediloL 6.25 MG TABLET PO SCH (09:15)
[2020-01-26] MEDS ORDERED: Metoprolol XL (24 HR) Succ 25 MG TAB.ER.24H PO SCH (09:15)
[2020-01-26] MEDS: Venlafaxine XR (24 HR) 150 MG CAP.ER.24H PO SCH (10:09)
[2020-01-26] MEDS ORDERED: Fluticasone Propionate Nasal 50 MCG/SPRAY BOTTLE NS PRN (10:37)
[2020-01-26] MEDS ORDERED: ARIPiprazole 10 MG TABLET PO ONE (11:00)
[2020-01-26] MEDS: carvediloL 6.25 MG TABLET PO SCH (17:12)
[2020-01-26] MEDS: *HR* Methadone 5 MG TABLET PO SCH (17:12)
[2020-01-27] MEDS ORDERED: Ibuprofen 800 MG TABLET PO ONE (01:46)
[2020-01-27] MEDS ORDERED: Simethicone 80 MG TAB.CHEW PO PRN (03:56)
[2020-01-27] MEDS: *HR* Methadone 5 MG TABLET PO SCH (05:19)
[2020-01-27] MEDS: *HR* Heparin 5,000 UNIT/ML VIAL SQ SCH ×2 (05:20→13:22)
[2020-01-27 07:09] VITALS: BP 155/77
[2020-01-27] MEDS: carvediloL 6.25 MG TABLET PO SCH (08:26)
[2020-01-27] MEDS: Venlafaxine XR (24 HR) 150 MG CAP.ER.24H PO SCH (08:27)
[2020-01-27] MEDS ORDERED: ARIPiprazole 10 MG TABLET PO SCH (09:00)
[2020-01-27] MEDS ORDERED: polyethylene glycoL 3350 17 GM POWD.PACK PO ONE (10:45)
[2020-01-29 17:56] LABS: Arsenic <10.0 ug/L (<=12.0); Cadmium <1.0 ug/L (<=5.0); Mercury <2.5 ug/L (<=10.0)
== END 2020-01-27 14:27 ==
LOC: CDU 06:49 → EMEROOARM 06:49 → SUATTDRO 09:28 → CDU 10:24 → 3BNU 15:14
PROVIDERS: ADMIT Pharmacist; ATTEND Internal Medicine

== ENCOUNTER 2020-01-27 14:16 | Observation (INO) ==
[2020-01-27] MEDS ORDERED: *HR* LORazepam 2 MG/ML VIAL IM PRN (14:32)
[2020-01-27] MEDS ORDERED: haloperidoL 5 MG TABLET PO PRN (14:32)
[2020-01-27] MEDS ORDERED: hydrOXYzine pamoate 25 MG CAPSULE PO PRN (14:32)
[2020-01-27] MEDS ORDERED: Mag Hydrox/Al Hydrox/Simeth 30 ML UDC PO PRN (14:32)
[2020-01-27] MEDS ORDERED: MOM Conc 10 ML UD.LIQ PO PRN (14:32)
[2020-01-27] MEDS ORDERED: Acetaminophen 325 MG TABLET PO PRN (14:32)
[2020-01-27] MEDS ORDERED: QUEtiapine Fumarate 25 MG TABLET PO PRN (14:32)
[2020-01-27] MEDS ORDERED: *HR* LORazepam 1 MG TABLET PO PRN (14:32)
[2020-01-27] MEDS ORDERED: Haloperidol Lactate 5 MG/ML VIAL IM PRN (14:32)
[2020-01-27] MEDS ORDERED: Fluticasone Propionate Nasal 50 MCG/SPRAY BOTTLE NS PRN (14:34)
[2020-01-27] MEDS: carvediloL 6.25 MG TABLET PO SCH (17:40)
[2020-01-27] MEDS: *HR* Methadone 10 MG TABLET PO SCH (18:17)
[2020-01-28] MEDS: *HR* Methadone 10 MG TABLET PO SCH (05:46)
[2020-01-28] MEDS: carvediloL 6.25 MG TABLET PO SCH (07:44)
[2020-01-28] MEDS ORDERED: Venlafaxine XR (24 HR) 150 MG CAP.ER.24H PO SCH (09:00)
[2020-01-28] MEDS ORDERED: Cyanocobalamin (B-12) 1,000 MCG TABLET PO SCH (09:00)
[2020-01-28] MEDS ORDERED: ARIPiprazole 10 MG TABLET PO SCH (09:00)
[2020-01-28 09:34] VITALS: BP 107/73
== END 2020-01-28 12:50 | disposition home or self-care (01) ==
LOC: 1ANU 14:16 → INTOOBSV 14:16
PROVIDERS: ADMIT Psychiatry & Neurology Psychiatry; ATTEND Psychiatry & Neurology Psychiatry